=== PATIENT | female | born 1940 | race Caucasian/White ===

== ENCOUNTER 2019-02-13 13:42 | Emergency (ER) | payer MEDICARE, SELFPAY ==
--- NOTE | ~2019-02-13 | CT_ITS ---
EXAMINATION: CT cervical spine wo con EXAM DATE: 02/13/2019 14:13 INDICATION: Head injury. TECHNIQUE: Spiral CT of the cervical spine was performed without contrast. Axial images were reviewe d. Coronal and sagittal reformatted images were also reviewed. The dose-length product (DLP) for thi s examination was 131.69 mGy-cm. The exposure was tailored according to patient size (auto mA exposu re control), and iterative reconstruction (ASIR) was used as additional dose reduction technique. Com parison is made to prior examination from 11/17/2015. FINDINGS: Again there is reversal of normal cervical lordosis. There is no evidence of acute cervical fracture. The odontoid process is intact. Pre-dens space is normal. Prevertebral soft tissue is n ormal. There are no soft tissue abnormalities identified. There is no disc space widening or trauma tic vertebral body subluxation suspected. There is moderate disc disease C5-6 and 6-7. Mild to moder ate cervical arthropathy. A detailed level by level evaluation of spondylosis can be added as addendu m if requested. IMPRESSION: 1. No acute cervical fracture. Reviewed, dictated and finalized at location A. MILITARY ANALYST
--- NOTE | ~2019-02-13 | XR_ITS ---
XR hip RT 2V w AP pelvis 02/13/2019 14:28 Indication: Right hip pain after fall Procedure: AP pelvis and 3 views right hip Comparison: No prior studies for comparison. Findings: There is sclerosis in the subcapital region of the femur. Nondisplaced subcapital fracture not excluded. There is moderate osteoarthritis. There is osteitis pubis. Pelvic rings are intact. Sac ral foramen are symmetric. There is osteoarthritis of the left hip. Impression: 1: Possible nondisplaced right femoral subcapital fracture. Consider correlation with CT. Reviewed, dictated and finalized at location B. RNATIONAL TRADE TEACHER Impression: 1: Possible nondisplaced right femoral subcapital fracture. Consider correlatio n with CT.
--- NOTE | ~2019-02-13 | CT_ITS ---
EXAMINATION: CT pelvis wo con DATE: 02/13/2019 15:13 INDICATION: Hip fracture. Pelvis injury. TECHNIQUE: Computed tomography (CT) of the pelvis was performed without intravenous contrast. Automat ed exposure control and iterative reconstruction technique were employed. The dose-length product was 238.58 mGy-cm. COMPARISON: Pelvis and right hip radiographs 02/13/2019 FINDINGS: Bone alignment is normal. No fracture. There is severe osteoarthritis of the hips. Osteitis pubis is noted. There is mild lumbar spondylosis. IMPRESSION: 1. No fracture. 2. Severe osteoarthritis of the hips. Reviewed, dictated and finalized at location A. EN THERAPY TECHNICIAN
--- NOTE | ~2019-02-13 | CT_ITS ---
EXAMINATION: CT brain wo con EXAM DATE: 02/13/2019 14:13 INDICATION: Fall, posterior head injury. TECHNIQUE: Spiral CT of the head was performed without contrast. Axial, coronal and sagittal images were reviewed. The dose-length product (DLP) for this examination was 529.67 mGy-cm. The exposure w as tailored according to patient size, and iterative reconstruction (ASIR) was used as additional dos e reduction technique. Comparison is made to prior examination from 01/10/2019. FINDINGS: There is no acute intraparenchymal hemorrhage. No evidence of intraparenchymal brain mass lesion. No evidence of acute infarction. Please note that initial head CT has limited sensitivity f or small or acute infarctions. There is mild periventricular and subcortical hypodensity, nonspecific but probably related to small vessel ischemic disease. There is mild prominence of the sulci and v entricles related to cerebral atrophy. There is intracranial carotid arteriosclerosis. There are n o extra-axial collections. There is no mass effect or midline shift. Patient has had bilateral ocul ar lens surgery. Soft tissue is unremarkable. The visualized sinuses and mastoid air cells are well aerated. IMPRESSION: 1. No acute intracranial findings. 2. Chronic age related findings. Reviewed, dictated and finalized at location A. 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
[2019-02-13 13:41] VITALS: BP 98/51; PULSE 77; RESP 20; TEMP 36.8; O2SAT 99
--- NOTE | 2019-02-13 13:45 | ED.FALL ---
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 Pt states that she was standing up from her walker and began to feel lightheaded. Pt states that she felt as if her enter face was melting. Pt notes that her knees buckled right before she had a syncopal episode. Pt hit the right side of her head and her right hip. Pt reports a ROWAN, coccyx pain, right hip pain, and neck pain. Pt has a c-collar in place by EMS. MD complaint: fall Onset (ago): minute(s) Fall from: standing Loss of consciousness: yes Symptoms prior to fall: lightheadedness Context: other (getting out of her walker) Location of injury: head (right side of) and other (right hip) Associated symptoms (after fall): headache, neck pain and other (coccyx pain, right hip pain) Related Data Home Medications Medication Instructions Recorded Confirmed PreserVision AREDS 1 cap PO BID 01/10/19 01/10/19 aspirin [Aspirin Childrens] 81 mg PO DAILY 01/10/19 01/10/19 citalopram 10 mg PO DAILY 01/10/19 01/10/19 cyanocobalamin (vitamin B-12) 1,000 mcg PO DAILY 01/10/19 01/10/19 ferrous sulfate 134 mg PO DAILY 01/10/19 01/10/19 fluticasone propionate [Flonase 2 spray INTRANASAL DAILY 01/10/19 01/10/19 Allergy Relief] guaifenesin [Mucinex] 600 mg PO QPM 01/10/19 01/10/19 losartan 100 mg PO DAILY 01/10/19 01/10/19 magnesium hydroxide [Milk of 30 ml PO DAILY PRN 01/10/19 01/10/19 Magnesia] metoprolol succinate 100 mg PO DAILY 01/10/19 01/10/19 oxybutynin chloride 20 mg PO HS 01/10/19 01/10/19 pantoprazole [Protonix] 40 mg PO QAM 10/31/19 10/31/19 simvastatin 20 mg PO HS 01/10/19 01/10/19 buspirone 10 mg PO BID 02/13/19 donepezil [Aricept] mg 02/13/19 Allergies Allergy/AdvReac Type Severity Reaction Status Date / Time clarithromycin Allergy Unknown Unknown Verified 02/13/19 13:53 lisinopril Allergy Unknown Unknown Verified 02/13/19 13:53 nitrofurantoin Allergy Unknown Palpitation Verified 05/01/17 15:33 s Review of Systems Review of Systems: All systems reviewed & are unremarkable except as noted in HPI and below Musculoskeletal: Musculoskeletal: Reports neck pain and Reports other (coccyx pain, right hip pain) Neurologic: Reports headache(s) [facility] Past Medical History Medical History (Updated 02/13/19 @ 18:11 by Kevin Drake MD) A-fib Anemia Ankle fracture, left Anxiety ARF (acute renal failure) Arthritis Asthma Brain bleed s/p fall Cardiomyopathy Cataracts, bilateral CHF (congestive heart failure) DVT (deep venous thrombosis) GI bleed Hydronephrosis Hyperlipidemia Kidney stone Nose fracture Pacemaker Pulmonary embolism Rhabdomyolysis S/P ORIF (open reduction internal fixation) fracture left ankle Seasonal allergies Shoulder fracture, right Surgical History Surgical History (Updated 02/13/19 @ 14:59 by Jennifer Dietrich) H/O cystoscopy with stent History of cardiac catheterization Hx of tonsillectomy S/P total knee arthroplasty bilaterally Social History Social History Smoking status: Never smoker Second hand tobacco smoke exposure: No Alcohol intake: current Exam Narrative: Exam Narrative: Const: General: healthy appearing, no acute distress and alert Orientation/consciousness: oriented x3 HENMT: Head: normal to inspection Neck: Neck: normal visual inspection, no lymphadenopathy and tender (cervical spine) Chest: Chest palpation & inspection: no tenderness Resp: Effort & Inspection: normal respiratory effort Auscultation: clear to auscultation bilaterally, no rales, no rhonchi and no wheezes Cardio: Jugular venous distension: no JVD Rate: regular rate Rhythm: regular rhythm Heart sounds: no murmurs GI: Inspe
--- NOTE | 2019-02-13 13:53 | ECG_ITS ---
Measurements Intervals [place] Rate: 79 P: 21 [place]: 181 QRS: -38 QRSD: 108 T: 75 QT: 401 QTc: 462 Interpretive Statements SINUS RHYTHM LEFT AXIS DEVIATION VOLTAGE CRITERIA FOR LVH RSR' IN V1 OR V2, CONSIDER RIGHT VENTRICULAR HYPERTROPHY OR RIGHT VCD BORDERLINE ST-T WAVE ABNORMALITY- ANTEROLAT/LAT LEADS BASELINE ARTIFACT- I, III, AVR, AVL, AVF BORDERLINE ECG Electronically Signed On 02-13-2019 14:18:02 [employer] by Kuldeep Salgado D.O.
[2019-02-13 14:43] LABS: Basophils Percent Auto 0.4 % (0.2-1.2); Eosinophils Absolute Auto 0.2 K/mm3 (0-0.3); Eosinophils Percent Auto 3.6 % (0-4.4); Hemoglobin 10.4 g/dL (12.0-15.0); Immature Granulocyte Absolute 0.01 K/mm3 (0.00-0.031); Immature Granulocyte Percent A 0.2 % (0-0.5); Lymphocytes Absolute Auto 0.72 K/mm3 (0.9-3.2); Lymphocytes Percent Auto 15.1 % (18.3-44.2); Mean Corpuscular HGB Conc 30.6 g/dl (32-36); Mean Corpuscular Volume 101.2 fl (80-100); Mean Platelet Volume 10.7 fl (7.4-10.4); Monocytes Absolute Auto 0.5 K/mm3 (0.1-0.6); Monocytes Percent Auto 10.5 % (2.6-8.5); Neutrophils Absolute Auto 3.4 K/mm3 (1.3-6.7); Neutrophils Percent Auto 70.2 % (45.5-73.1); Platelet Count Result 220 k/mm3 (150-375); Red Blood Count 3.36 M/mm3 (4.2-5.4); Red Cell Distribution Width 14.4 % (11.5-14.5); White Blood Count 4.8 K/mm3 (4.5-10.0)
[2019-02-13 14:45] VITALS: BP 113/63; PULSE 74; RESP 18; O2SAT 96
[2019-02-13 14:51] LABS: Prothrombin Time 12.8 Seconds (11.1-14.7)
[2019-02-13 14:52] LABS: Partial Thromboplastin Time 26.7 SECONDS (22.3-36.8)
[2019-02-13 14:54] LABS: Blood Urea Nitrogen 17 mg/dL (7-17); Calcium 8.3 mg/dL (8.4-10.2); Carbon Dioxide 31 mmol/L (22-30); Chloride 106 mmol/L (98-107); Estimated Glomerular Filt Rate > 60; Glucose 124 mg/dL (65-105); Potassium 3.2 mmol/L (3.4-5.0); Sodium 144 mmol/L (137-145)
[2019-02-13 15:30] VITALS: BP 107/56; PULSE 70; RESP 20; O2SAT 95
[2019-02-13 16:30] VITALS: BP 122/63; PULSE 70; RESP 16; O2SAT 96
[2019-02-13 17:21] LABS: Add Urine Microscopic? YES; Appearance Urine Cloudy (Clear); Bacteria Urine 1+ /hpf; Bilirubin Urine Negative (Negative); Blood Urine Negative (Negative); Color Urine Yellow (Yellow); Glucose Urine UA Negative (Negative); Ketones Urine Negative (Negative); Leukocyte Esterase Ur Trace LEU/UL (Negative); Mucus Urine Rare /lpf; Nitrate Urine Positive (Negative); Protein Urine Negative (Negative); RBC Urine 0-2 /hpf (0-2); Specific Grav Ur 1.014 (1.001-1.035); Squamous Epithelial Cell Urine Rare /hpf (Few); Urobilinogen Urine Negative mg/dL (<2.0); WBC Urine 0-3
[2019-02-13 17:30] VITALS: BP 141/78; PULSE 71; RESP 18; O2SAT 96
[2019-02-13 18:25] VITALS: BP 145/72; PULSE 75; RESP 16; O2SAT 94
[2019-02-13] MEDS: CEPHALEXIN 500 MG CAPSULE PO (18:25)
== END 2019-02-13 18:25 ==
PROVIDERS: Emergency Provider Emergency Medicine; PCP Internal Medicine
DX: R55 Syncope and collapse (principal); S00.03XA Contusion of scalp, initial encounter; I48.91 Unspecified atrial fibrillation; M16.0 Bilateral primary osteoarthritis of hip; J45.909 Unspecified asthma, uncomplicated; I50.9 Heart failure, unspecified; Z86.718 Personal history of other venous thrombosis and embolism; E78.5 Hyperlipidemia, unspecified; Z87.442 Personal history of urinary calculi; Z95.0 Presence of cardiac pacemaker; Z86.711 Personal history of pulmonary embolism; D64.9 Anemia, unspecified; R94.31 Abnormal electrocardiogram [ECG] [EKG]; W18.39XA Other fall on same level, initial encounter
CPT/HCPCS: 36415; 51701; 70450; 72125; 72192; 73502; 73521; 80048; 81001; 85025; 85610; 85730; 93005; 99284; A9270

== ENCOUNTER 2020-05-19 16:24 | Emergency (ER) | payer MEDICARE, SELFPAY ==
--- NOTE | ~2020-05-19 | XR_ITS ---
CORRECTED REPORT ORDER # CHANGED 05/21/20 PK EXAMINATION: XR knee RIGHT 2 VIEW DATE: 05/19/2020 16:43 INDICATION: Right knee pain. TECHNIQUE: 2 views of right knee were obtained. COMPARISON: None. FINDINGS: There is a total right knee arthroplasty. There is a comminuted periprosthetic fracture of distal femoral metaphysis. The main distal fracture fragment demonstrates impaction, 1 shaft width posterior displacement, and 41 degrees posterior angulation. No periprosthetic lucency of the tibial component to suggest loosening or infection. There are small osteophytes of the patella. IMPRESSION: 1. Comminuted periprosthetic fracture of distal femur. Reviewed, dictated and finalized at location A. ODE
[2020-05-19 16:30] VITALS: BP 145/68; PULSE 81; RESP 18; TEMP 36.7; O2SAT 98
--- NOTE | 2020-05-19 16:31 | ED.GENADULT ---
HPI - General Adult General Chief complaint: Fall Stated complaint: FALL/R KNEE INJURY Source: patient and EMS Mode of arrival: EMS Limitations: no limitations History of Present Illness HPI narrative: Patient is a 79-year-old female who presents from assisted living per EMS status post ground-level fall patient was attempting to get up using her walker when her right knee gave out falling onto the knee sustaining injury presenting with deformity with swelling and pain throughout the right knee joint patient also has bruising and swelling around the right periorbital region patient denies any anticoagulant use denies loss of consciousness syncope patient was given morphine in route and Zofran with some improvement but continues to have moderate pain worse with any activity or movement. . Patient denies other complaints Related Data Home Medications Medication Instructions Recorded Confirmed PreserVision AREDS 05/19/20 loratadine 10 mg 05/19/20 montelukast mg 05/19/20 05/19/20 olopatadine 05/19/20 Allergies Allergy/AdvReac Type Severity Reaction Status Date / Time clarithromycin Allergy Unknown Unknown Verified 05/19/20 16:32 lisinopril Allergy Unknown Unknown Verified 05/19/20 16:32 nitrofurantoin Allergy Unknown Palpitation Verified 05/19/20 16:32 s Review of Systems Review of Systems: All systems reviewed & are unremarkable except as noted in HPI and below PMFSH Past Medical History Medical History (Updated 05/19/20 @ 16:59 by Shaquille Norman PA-C) A-fib Anemia Ankle fracture, left Anxiety ARF (acute renal failure) Arthritis Asthma Brain bleed s/p fall Cardiomyopathy Cataracts, bilateral CHF (congestive heart failure) DVT (deep venous thrombosis) GI bleed Hydronephrosis Hyperlipidemia Kidney stone Nose fracture Pacemaker Pulmonary embolism Rhabdomyolysis S/P ORIF (open reduction internal fixation) fracture left ankle Seasonal allergies Shoulder fracture, right Surgical History Surgical History H/O cystoscopy with stent History of cardiac catheterization Hx of tonsillectomy S/P total knee arthroplasty bilaterally Family History Family History Sibling Family history of cardiomyopathy Family history of malignant neoplasm of breast Mother Patient's mother is Hypertension Family history of cardiovascular disease Family history of malignant neoplasm of breast Other Family history of arthritis Family history of malignant neoplasm Social History Social History Smoking status: Never smoker Second hand tobacco smoke exposure: No Alcohol intake: current Gender identity (if verbalized by the patient): Female Exam Narrative: Exam Narrative: GENERAL: Well-appearing, well-nourished, uncomfortable, and in no acute distress. HEAD: Normocephalic, bruising around the lateral periorbital region EYES: PERRLA and EOMI. ENT: Nares clear, no rhinorrhea or epistaxis. Mucous membranes moist. Oropharynx without tonsillar hypertrophy exudate or other lesions. Bilateral TMs pearly gipson nonbulging NECK: Supple. No adenopathy or masses. CHEST: Clear to auscultation. No respiratory distress. No wheezes rales or rhonchi HEART: Regular rate and rhythm. No murmur heard. Normal peripheral pulses. ABDOMEN: Soft, nontender, nondistended EXTREMITIES: Large hematoma with tenderness throughout the right knee joint patient unable to extend the leg. Remainder of extremities to include the spine palpated and nontender SKIN: Warm, dry, no rash. NEURO: No focal deficits. Alert and oriented x3. Neurovascularly intact. Capillary refill less than 2 seconds. Cranial nerves II through XII grossly intact PSYCH: Normal mood and affect. Course Course Emergency Course: Discussed case with trauma at [facility]
[2020-05-19] MEDS: SODIUM CHLORIDE 0.9% IV 500 ML 999 ML IV CONT (16:47)
[2020-05-19] MEDS: MORPHINE SULFATE (*CRX) 4 MG/ML INJ IV PUSH ×2 (16:48→18:38)
[2020-05-19 17:43] VITALS: BP 119/52; PULSE 79; RESP 15; O2SAT 98
--- NOTE | 2020-05-19 18:11 | PC.NURSE ---
[facility] amb updated eta to 1845 to 1900, at 1706
--- NOTE | 2020-05-19 18:26 | PC.NURSE ---
called [facility] at 1710, no amb available for transfers today per dispatch, called [facility] 1717, no availability for transfers, called [facility] at 1715 no truck available, down 1 truck for today. called [facility], 1706, eta 1930, singer update 1753, eta 1845 - 1900, singer update 1830, eta 2030.
--- NOTE | 2020-05-19 18:39 | PC.NURSE ---
armband scanner not working properly in room 6
[2020-05-19 19:16] VITALS: BP 122/55; PULSE 79; RESP 18; O2SAT 98
[2020-05-19] MEDS: MORPHINE SULFATE (*CRX) 2 MG/ML INJ (21:00)
[2020-05-19 21:07] VITALS: BP 101/56; PULSE 76; RESP 18; O2SAT 98
--- NOTE | 2020-05-19 21:16 | PC.NURSE ---
singer has arrived
== END 2020-05-19 21:05 | disposition short-term general hospital (02) ==
PROVIDERS: Emergency Provider Emergency Medicine
DX: S79.191A Other physeal fracture of lower end of right femur, initial encounter for closed fracture (principal); M97.11XA Periprosthetic fracture around internal prosthetic right knee joint, initial encounter; S05.11XA Contusion of eyeball and orbital tissues, right eye, initial encounter; I48.91 Unspecified atrial fibrillation; J45.909 Unspecified asthma, uncomplicated; I50.9 Heart failure, unspecified; E78.5 Hyperlipidemia, unspecified; Z87.442 Personal history of urinary calculi; M19.90 Unspecified osteoarthritis, unspecified site; Z95.0 Presence of cardiac pacemaker; Z86.718 Personal history of other venous thrombosis and embolism; Z86.711 Personal history of pulmonary embolism; Z86.2 Personal history of diseases of the blood and blood-forming organs and certain disorders involving the immune mechanism; Z96.653 Presence of artificial knee joint, bilateral; W18.39XA Other fall on same level, initial encounter
CPT/HCPCS: 73560; 73562; 96374; 96376; 99285; J2270; J7040

== ENCOUNTER 2021-11-18 10:58 | Inpatient (IN) | payer MEDICARE, SELFPAY ==
[2021-11-18] VITALS (17 sets, daily range): BP systolic 96–154; BP diastolic 50–98; PULSE 70–107; RESP 17–27; TEMP 36.1–36.5; O2SAT 85–100; BMI 28.2
--- NOTE | ~2021-11-18 | XR_ITS ---
XR chest 1V portable DATE: 11/21/2021 05:55 INDICATION: Shortness of breath TECHNIQUE: Portable upright AP chest on 11/21/2021 at 0530 hours COMPARISON: 11/20/2021 portable AP chest at 0529 hours FINDINGS: There is mildly diminished prominence of pulmonary vasculature including diminished pulmona ry vascular redistribution since 11/20/2021, consistent with mild improvement but residual congestive changes, including mild pulmonary vascular congestion, prominence of minor fissure consistent with lin bpleural edema and small bilateral pleural effusions. Additionally, there are infiltrates and/or atel ectasis in the mid and lower lung zones, left greater than right, especially left retrocardiac area, left lower lobe. Left-sided AICD/pacemaker device with leads overlying right atrium and right cardiomegaly. Aortic jaden cification. Diffuse osteopenia. Right glenohumeral joint replacement. IMPRESSION: Mild improvement but residual congestive changes Bilateral mid and lower lung infiltrates, most prominent in the left lower lobe, relatively stable Reviewed, dictated and finalized at location A. IMPRESSION: Mild improvement but residual congestive changes Bilateral mid and lower lung infiltrates, most prominent in the left lower lobe , relatively stable
--- NOTE | ~2021-11-18 | XR_ITS ---
EXAMINATION: XR chest 1V portable DATE: 11/23/2021 09:21 INDICATION: Cough. TECHNIQUE: A single frontal view of the chest was obtained. COMPARISON: Chest single view 11/21/2021, chest CT 05/18/2017 FINDINGS: There are small pleural effusions. There are airspace opacities at the lung bases. There is mild scarring at the lung apices. No pneumothorax. Cardiomegaly is noted. There is a left chest wall pacer with leads in the right atrium and right ventricle. There is a right shoulder arthroplasty. IMPRESSION: 1. Small pleural effusions with worsening on the right. 2. Airspace opacities at the lung bases with worsening on the right, consistent with atelectasis vers us pneumonia. 3. Cardiomegaly. Reviewed, dictated and finalized at location A. IMPRESSION: 1. Small pleural effusions with worsening on the right. 2. Airspace opacities at the lung bases with worsening on the right, consistent with atelectasis versus pneumonia. 3. Cardiomegaly.
--- NOTE | ~2021-11-18 | XR_ITS ---
XR chest 1V portable DATE: 11/20/2021 06:42 INDICATION: Congestive heart failure. Shortness of breath. TECHNIQUE: Portable upright AP chest on 11/20/2021 at 0529 hours COMPARISON: 11/18/2021 AP and lateral chest FINDINGS: Cardiomegaly. Pulmonary vascular congestion and redistribution. Prominence the minor fissur e and Edi B-lines, consistent with subpleural and interstitial pulmonary edema. Bilateral lower lung infiltrate and/atelectasis. Mild pleural effusions. No pneumothorax. Left-sided dual-lead pacemaker device with these overlying right atrium and right ventricle. Prominen t aortic arch calcification. Right shoulder arthroplasty. Osteopenia. DEXA scoliosis and degenerative change of the thoracic spine . IMPRESSION: Congestive heart failure and bilateral lower lung infiltrate and/atelectasis. Congestive changes are new since 11/18/2021 Reviewed, dictated and finalized at location A. IMPRESSION: Congestive heart failure and bilateral lower lung infiltrate and/at electasis. Congestive changes are new since 11/18/2021
--- NOTE | ~2021-11-18 | XR_ITS ---
EXAMINATION: XR chest 2V DATE: 11/18/2021 12:15 INDICATION: Shortness of breath TECHNIQUE: AP and lateral views of the chest are obtained. COMPARISON: 01/09/2019 FINDINGS: Cardiomegaly is noted. There are small pleural effusions. Minimal airspace opacities are pr esent in the lung bases. There is no pneumothorax. A dual-lead cardiac pacemaker of the left chest wa ll ends with leads in expected locations. There is moderate thoracic spondylosis. There are changes o f right shoulder arthroplasty. IMPRESSION: 1. Small pleural effusions. 2. Bibasilar airspace opacities, consistent with atelectasis versus pneumonia. 3. Cardiomegaly. Reviewed, dictated and finalized at location B.
--- NOTE | 2021-11-18 11:33 | ECG_ITS ---
Measurements Intervals [place] Rate: 81 P: 28 [place]: 221 QRS: -77 QRSD: 124 T: 104 QT: 386 QTc: 449 Interpretive Statements SINUS RHYTHM LEFT AXIS DEVIATION BORDERLINE AV CONDUCTION DELAY POSSIBLE LEFT ATRIAL ENLARGEMENT INTRAVENTRICULAR CONDUCTION DELAY LEFT VENTRICULAR HYPERTROPHY WITH ST-T CHANGE POOR R WAVE PROGRESSION, ANTERIOR LEADS BASELINE ARTIFACT- I, II, AVR, AVL, AVF, V1-V6 BORDERLINE ECG COMPARED TO ECG 02/13/2019 14:02:57 POOR R WAVE PROGRESSION, ANTERIOR LEADS NOW PRESENT Electronically Signed On 11-18-2021 12:20:59 CDT by Kuldeep Salgado D.O.
[2021-11-18 11:58] LABS: Basophils Percent Auto 0.6 % (0.2-1.2); Eosinophils Absolute Auto 0.1 K/mm3 (0-0.3); Eosinophils Percent Auto 1.8 % (0-4.4); Hematocrit 48.9 % (37.0-47.0); Hemoglobin 15.6 g/dL (12.0-15.0); Immature Granulocyte Absolute 0.01 K/mm3 (0.00-0.031); Immature Granulocyte Percent A 0.2 % (0-0.5); Lymphocytes Absolute Auto 1.01 K/mm3 (0.9-3.2); Lymphocytes Percent Auto 20.1 % (18.3-44.2); Mean Corpuscular HGB Conc 31.9 g/dl (32-36); Mean Corpuscular Hemoglobin 31.8 pg (26-34); Mean Corpuscular Volume 99.6 fl (80-100); Monocytes Absolute Auto 0.6 K/mm3 (0.1-0.6); Monocytes Percent Auto 12.4 % (2.6-8.5); Neutrophils Absolute Auto 3.3 K/mm3 (1.3-6.7); Neutrophils Percent Auto 64.9 % (45.5-73.1); Platelet Count Result 257 k/mm3 (150-375); Red Blood Count 4.91 M/mm3 (4.2-5.4); Red Cell Distribution Width 16.1 % (11.5-14.5)
[2021-11-18 12:14] LABS: Alanine Aminotransferase 58 U/L (6-35); Albumin Level 3.4 g/dL (3.5-5.1); Alkaline Phosphatase 80 U/L (38-126); Anion Gap 4 mmol/L (8-16); Aspartate Amino Transferase 50 U/L (14-36); Bilirubin,Total 0.6 mg/dL (0.2-1.3); Blood Urea Nitrogen 18 mg/dL (7-17); Calcium 8.3 mg/dL (8.4-10.2); Carbon Dioxide 33 mmol/L (22-30); Chloride 100 mmol/L (98-107); Estimated CRCL calculation 56 ml/min; Estimated Glomerular Filt Rate > 60; Glucose 79 mg/dL (65-110); Partial Thromboplastin Time 22.8 SECONDS (22.3-36.8); Potassium 4.5 mmol/L (3.4-5.0); Prothrombin Time 13.1 Seconds (11.1-14.7); Sodium 137 mmol/L (137-145)
--- NOTE | 2021-11-18 12:20 | ED.SOB ---
HPI - SOB/Dyspnea General Chief Complaint: Shortness of Breath/Dyspnea Stated Complaint: swollen ankles Time Seen by Provider: 11/18/21 12:18 Source: patient and RN notes reviewed Mode of arrival: ambulatory Limitations: no limitations History of Present Illness HPI Narrative: 81 years old white female came from home by private car complaining of shortness of breath over the last 7 days. Patient lives alone, does not take oxygen at home, she denies any fever, chills, nausea, vomiting, chest pain or back pain. Patient reports increased shortness of breath with any exertion, better if she is laying still. Currently patient on aspirin and the Eliquis. History of hypertension, diabetes, COPD, ICD, deep vein thrombosis, congestive heart failure Related Data Home Medications Medication Instructions Recorded Confirmed PreserVision AREDS 05/19/20 loratadine 10 mg 05/19/20 montelukast 10 mg tablet mg 05/19/20 05/19/20 olopatadine 05/19/20 Allergies Allergy/AdvReac Type Severity Reaction Status Date / Time clarithromycin Allergy Unknown Unknown Verified 11/18/21 11:21 lisinopril Allergy Unknown Unknown Verified 11/18/21 11:21 nitrofurantoin Allergy Unknown Palpitation Verified 11/18/21 11:21 s Review of Systems Review of Systems: All systems reviewed & are unremarkable except as noted in HPI and below PMFSH Past Medical History Medical History (Updated 11/18/21 @ 13:55 by Fransico Smart MD) A-fib Anemia Ankle fracture, left Anxiety ARF (acute renal failure) Arthritis Asthma Brain bleed s/p fall Cardiomyopathy Cataracts, bilateral CHF (congestive heart failure) DVT (deep venous thrombosis) GI bleed Hydronephrosis Hyperlipidemia Kidney stone Nose fracture Pacemaker Pulmonary embolism Rhabdomyolysis Seasonal allergies Shoulder fracture, right Surgical History Surgical History H/O cystoscopy with stent History of cardiac catheterization Hx of tonsillectomy S/P ORIF (open reduction internal fixation) fracture left ankle S/P total knee arthroplasty bilaterally Family History Family History Sibling Family history of cardiomyopathy Family history of malignant neoplasm of breast Mother Patient's mother is Hypertension Family history of cardiovascular disease Family history of malignant neoplasm of breast Other Family history of arthritis Family history of malignant neoplasm Social History Social History Smoking status: Never smoker Second hand tobacco smoke exposure: No Alcohol intake: current Gender identity (if verbalized by the patient): Female Exam Narrative: General appearance: Well-developed, well-nourished Skin: Normal color, 3+ edema lower extremity bilaterally Head: Normocephalic, nontraumatic Eyes: Clear conjunctiva ENT: Oropharynx normal, ears normal, nose normal Neck: Supple, nontender Chest and respiratory: Airway patent, no respiratory distress, no accessory muscle use, basal rales bilaterally Heart: Regular rate/rhythm Abdomen: Soft, nontender, no organomegaly, quiet bowel sounds Vascular: Normal peripheral pulses, normal capillary refill. Musculoskeletal: Normal range of motion, nontender back Neurologic: Alert and oriented ?3, ORANGE PICKING SUPERVISOR is normal as tested, no gross motor deficit Course Vital Signs Vital signs: Vital Signs Temperature 36.5 C 11/18/21 11:25 Pulse Rate 83 11/18/21 11:25 Respiratory Rate 26 H 11/18/21 11:25 Blood Pressure 154/97 H 11/18/21 11:25 Pulse Oximetry 85 L 09
[2021-11-18 12:39] LABS: NT Pro B Type Natriuretic Pept 5250 pg/mL (5-100); Troponin I < 0.012 ng/mL (0.000-0.034)
[2021-11-18 12:48] LABS: Alveolar/Arterial O2 Gradient 22.1 mmHg; Base Excess ABG 1.1 mEq/l (+/-2.0); Carboxyhemoglobin 1.7 % THb (0-2.0); Fractional Inspired Oxygen 28 %; HCO3 ABG 30.7 mEq/l (22.0-26.0); Methemoglobin ABG 0.3 %THb (0-1.5); Oxygen Content ABG 21.1 %vol (16.0-22.0); Oxygen Saturation ABG 95.8 % (95.0-100.0); Oxyhemoglobin 94.7 % THb (90.0-100.0); PO2 ABG 94.1 mmHg (80.0-100.0); PO2 FiO2 Ratio Arterial Blood 3.36 %; Reduced Hemoglobin 3.3 %THb (0-5.0); Total Hemoglobin 15.8 g/dL (12.0-18.0)
[2021-11-18 12:51] LABS: pH ABG 7.255 (7.350-7.450)
[2021-11-18 12:52] LABS: Device NASAL CANNULA; Modified Allen's Test Pass; PCO2 ABG 70.7 mmHg (35.0-45.0); Site Drawn RIGHT RADIAL
[2021-11-18 13:19] LABS: Lactic Acid Reflex 0.6 mmol/L (0.7-2.0)
[2021-11-18 13:48] LABS: SARS-CoV-2 RNA PCR Negative
--- NOTE | 2021-11-18 14:06 | PM.IMHP ---
H&P: HPI History of Present Illness Date/Time: 11/18/21 14:06 Chief Complaint: Swollen ankles Narrative: This is a 81-year-old female patient who came in via private car complaining of shortness of breath over the last 7 days. She also had increased swelling to lower extremities. Patient does live home alone and does not take any oxygen. She denied any nausea vomiting diarrhea chest pain or lower back pain. The patient is currently on aspirin and Eliquis. She does have a history of hypertension, diabetes, COPD ACD, deep vein thrombosis and congestive heart failure. H&H is 15.6 and 48.9. Arterial blood gases pH was 7.255 CO2 was 70.7. ABG 7.2711 and PC CO2 was 82.0. BNP 5250. COVID was negative. Patient is on a BiPAP and her BiPAP is 12/6 with a rate of 20. The patient was given Lasix IV and nitroglycerin patch as well. The patient is being admitted to inpatient status on the date of service of 11/18/21. Review of Systems Review of Systems: See HPI All systems reviewed & are unremarkable except as noted in HPI and below Constitutional: Constitutional: Reports as per HPI and Reports no additional constitutional complaints Eyes: Eyes: Reports as per HPI and Reports no additional eye complaints ENT: Reports system reviewed and no additional complaints, except as documented and Reports Normal hearing present Cardiovascular: Cardiovascular: Reports no additional cardiovascular complaints Respiratory: Respiratory: Reports no additional respiratory complaints and Reports no additional respiratory complaints Gastrointestinal: Gastrointestinal: Reports as per HPI and Reports no additional gastrointestinal complaints Musculoskeletal: Musculoskeletal: Reports no additional musculoskeletal complaints Integumentary/Breasts: Skin/Breast: Reports system reviewed and no additional complaints, except as docu and Reports as per HPI Neurologic: Reports system reviewed and no additional complaints, except as documented, Reports as per HPI and Reports Normal hearing present Psychiatric: Psychiatric: Reports no additional psychiatric complaints and Reports as per HPI Endocrine: Endocrine: Reports no additional endocrine complaints Hematologic/Lymphatic: Hematologic/Lymphatic: Reports no additional hematologic/lymphatic complaints Allergic/Immunologic: Allergic/Immunologic: Reports no additional allergic/immunologic complaints [facility] Past Medical History Medical History (Updated 11/18/21 @ 17:38 by Libby Newell NP) A-fib Anemia Ankle fracture, left Anxiety ARF (acute renal failure) Arthritis Asthma Brain bleed s/p fall Cardiomyopathy Cataracts, bilateral CHF (congestive heart failure) COPD (chronic obstructive pulmonary disease) DVT (deep venous thrombosis) GI bleed Hydronephrosis Hyperlipidemia Kidney stone Nose fracture Pacemaker Pulmonary embolism Rhabdomyolysis Seasonal allergies Shoulder fracture, right Surgical History Surgical History H/O cystoscopy with stent H/O shoulder surgery History of cardiac catheterization Hx of tonsillectomy S/P ORIF (open reduction internal fixation) fracture left ankle S/P total knee arthroplasty bilaterally Family History Family History Sibling Family history of cardiomyopathy Family history of malignant neoplasm of breast Mother Patient's mother is Hypertension Family history of cardiovascular disease Family history of malignant neoplasm of breast Other Family history of arthritis Family history of malignant neoplasm Social History Social History (Updated 11/18/21 @ 17:33 by Libby Newell NP) Social History: The patient is and lives home alone. The patient has 2 children. The patient is a nonsmoker. She does not use any alcohol marijuana or illicit drugs. Code status DNR Smoking status: Never smoker S
[2021-11-18] MEDS: FUROSEMIDE INJ 100 MG/10 ML VIAL 80 MG IV PUSH (14:40)
[2021-11-18] MEDS: NITROGLYCERIN OINTMENT 1 INCH DOSE TRANSDERM ×2 (14:40→18:52)
--- NOTE | 2021-11-18 15:49 | PC.NURSE ---
This patient, [place], was admitted to IMU Room 207-01. Patient/family oriented to hospital policies and general routines including ID bracelet, bed and alarms, visiting hours, pain management, procedures, bathroom and other care routines, personal items, smoking policy, room service/diet, and visiting hours. Information on how to activate the Rapid Response Team has been discussed. Patient/Family are encouraged to report perceived risks to care and to ask questions if they do not understand what they are told or what they should do.
[2021-11-18 17:07] LABS: Base Excess ABG 7.6 mEq/l (+/-2.0); Fractional Inspired Oxygen 40 %; HCO3 ABG 38.5 mEq/l (22.0-26.0); Oxygen Content ABG 21.7 %vol (16.0-22.0); Oxygen Saturation ABG 96.4 % (95.0-100.0); Oxyhemoglobin 95.4 % THb (90.0-100.0); PO2 ABG 99.6 mmHg (80.0-100.0); PO2 FiO2 Ratio Arterial Blood 2.49 %; Total Hemoglobin 16.1 g/dL (12.0-18.0)
[2021-11-18 17:20] LABS: pH ABG 7.271 (7.350-7.450)
[2021-11-18 17:21] LABS: Device NON-INVASIVE VENT; Modified Allen's Test Pass; Site Drawn RIGHT RADIAL
[2021-11-18 17:22] LABS: Non-Invasive Expiratory Pressure 6 CMH2O; Non-Invasive Inspiratory Pressure 12 CMH2O; Non-Invasive Vent Rate 20 /MIN
[2021-11-18 17:43] LABS: Troponin I < 0.012 ng/mL (0.000-0.034)
[2021-11-18] MEDS: methylPREDNISolone SOD SUCC 125 MG VIAL 60 MG IV PUSH (18:52)
[2021-11-18 20:08] LABS: Troponin I < 0.012 ng/mL (0.000-0.034)
[2021-11-18] MEDS: ALBUTEROL SULFATE NEB 2.5 MG/3 ML INH INHALATION (20:25)
[2021-11-18] MEDS: IPRATROPIUM BR 0.02% INH SOLN 0.5 MG/2.5 ML VIAL INHALATION (20:25)
[2021-11-18 20:45] LABS: Alveolar/Arterial O2 Gradient 92.7 mmHg; Base Excess ABG 7.7 mEq/l (+/-2.0); Fractional Inspired Oxygen 40 %; HCO3 ABG 37.4 mEq/l (22.0-26.0); Oxygen Content ABG 21.8 %vol (16.0-22.0); Oxygen Saturation ABG 97.2 % (95.0-100.0); Oxyhemoglobin 95.9 % THb (90.0-100.0); PCO2 ABG 75.7 mmHg (35.0-45.0); PO2 ABG 105.4 mmHg (80.0-100.0); PO2 FiO2 Ratio Arterial Blood 2.63 %; Total Hemoglobin 16.1 g/dL (12.0-18.0); pH ABG 7.312 (7.350-7.450)
[2021-11-18 20:46] LABS: Device NON-INVASIVE VENT; Modified Allen's Test Pass; Non-Invasive Expiratory Pressure 6 CMH2O; Non-Invasive Inspiratory Pressure 14 CMH2O; Non-Invasive Vent Rate 24 /MIN; Site Drawn RIGHT RADIAL
[2021-11-18] MEDS: FAMOTIDINE 20 MG/2 ML VIAL IV PUSH (21:13)
[2021-11-18] MEDS: FUROSEMIDE INJ 40 MG/4 ML VIAL IV PUSH (21:13)
[2021-11-19] VITALS (30 sets, daily range): BP systolic 99–113; BP diastolic 56–91; PULSE 65–95; RESP 18–26; TEMP 35.9–36.5; O2SAT 92–100
--- NOTE | 2021-11-19 | ECHO_ITS ---
Patient Info Name: Maria Ines Park Age: 81 years : 1940 Gender: Female Ht: 64 in Wt: 164 lbs BSA: 1.85 m2 HR: 75 bpm BP: 105 / 61 mmHg Heart Rhythm: Sinus Rhythm Technical Quality: Fair Exam Date: 11/19/2021 10:24 AM Exam Location: [facility] Patient Status: Inpatient Admit Date: 11/18/2021 Staff Ordering Physician: Libby Newell NP C++ Quant Developer: Yulisa Patricia RDCS Attending Provider: Aaron Floyd MD Referring Physician: Reece JAMES; Exam Type: CA echo doppler color flow Study Info Indications - CHF Complete two-dimensional, color flow and Doppler transthoracic echocardiogram is performed. Summary 1. Complete two-dimensional, color flow and Doppler transthoracic echocardiogram is performed. 2. Left ventricular chamber dimension is normal. 3. Left ventricular systolic function is normal, estimated at 50-55%. 4. The left ventricular diastolic function is grade I diastolic dysfunction. 5. A left ventricular false cord is identified. 6. Right ventricular chamber dimension is mildly enlarged. 7. There is mild aortic valve sclerosis. 8. There is no mitral valve regurgitation. Left Ventricle Left ventricular chamber dimension is normal. Left ventricular systolic function is normal, estimated at 50-55%. There is mild concentric increased left ventricular wall thickness. The left ventricular diastolic function is grade I diastolic dysfunction. A left ventricular false cord is identified. Right Ventricle Right ventricular chamber dimension is mildly enlarged. Left Atria Left atrial chamber dimension is normal. Right Atria Right atrial chamber dimension is normal. Aortic Valve The aortic valve is trileaflet. There is mild aortic valve sclerosis. Pulmonic Valve The pulmonic valve is not well visualized. Mitral Valve The mitral valve has thickened leaflets. There is no mitral valve regurgitation. Tricuspid Valve The tricuspid valve leaflets are normal. There is mild tricuspid valve regurgitation. Pericardium/Pleural The pericardium appears normal. Aorta The aortic root size at the sinus of Valsalva is normal. Left Ventricular Outflow Tract Name Value Normal LVOT 2D LVOT Diameter 2.1 cm LVOT Doppler LVOT Peak Gradient 3 mmHg LVOT Mean Gradient 1 mmHg LVOT VTI 15 cm LVOT VTI/AV VTI Ratio 0.5 LVOT Stroke Volume 51 ml LVOT CO 3.5 l/min LVOT CI 1.9 l/min/m2 Pulmonic Valve Name Value Normal PV Doppler PV Peak Gradient 2 mmHg Mitral Valve Name Value Normal
[2021-11-19] MEDS: methylPREDNISolone SOD SUCC 125 MG VIAL 60 MG IV PUSH ×3 (01:00→12:00)
[2021-11-19] MEDS: ALBUTEROL SULFATE NEB 2.5 MG/3 ML INH INHALATION ×4 (02:52→22:02)
[2021-11-19] MEDS: IPRATROPIUM BR 0.02% INH SOLN 0.5 MG/2.5 ML VIAL INHALATION ×4 (02:52→22:03)
[2021-11-19 05:01] LABS: Basophils Percent Auto 0.4 % (0.2-1.2); Eosinophils Percent Auto 0.3 % (0-4.4); Hematocrit 49.9 % (37.0-47.0); Hemoglobin 15.3 g/dL (12.0-15.0); Immature Granulocyte Absolute 0.02 K/mm3 (0.00-0.031); Immature Granulocyte Percent A 0.3 % (0-0.5); Lymphocytes Absolute Auto 0.48 K/mm3 (0.9-3.2); Lymphocytes Percent Auto 6.8 % (18.3-44.2); Mean Corpuscular HGB Conc 30.7 g/dl (32-36); Mean Corpuscular Hemoglobin 31.2 pg (26-34); Mean Corpuscular Volume 101.8 fl (80-100); Mean Platelet Volume 8.7 fl (7.4-10.4); Monocytes Absolute Auto 0.2 K/mm3 (0.1-0.6); Neutrophils Absolute Auto 6.3 K/mm3 (1.3-6.7); Neutrophils Percent Auto 89.2 % (45.5-73.1); Platelet Count Result 205 k/mm3 (150-375); Red Cell Distribution Width 15.9 % (11.5-14.5); White Blood Count 7.1 K/mm3 (4.5-10.0)
[2021-11-19 05:10] LABS: Lactic Acid Reflex 0.7 mmol/L (0.7-2.0)
[2021-11-19 05:13] LABS: Alanine Aminotransferase 62 U/L (6-35); Albumin Level 3.1 g/dL (3.5-5.1); Alkaline Phosphatase 82 U/L (38-126); Anion Gap 7 mmol/L (8-16); Aspartate Amino Transferase 51 U/L (14-36); Bilirubin,Total 0.7 mg/dL (0.2-1.3); Blood Urea Nitrogen 16 mg/dL (7-17); CRP < 0.5 mg/dL (<1.0); Calcium 8.1 mg/dL (8.4-10.2); Carbon Dioxide 37 mmol/L (22-30); Chloride 96 mmol/L (98-107); Estimated CRCL calculation 66 ml/min; Estimated Glomerular Filt Rate > 60; Glucose 119 mg/dL (65-110); Lactate Dehydrogenase 199 U/L (120-246); Magnesium 1.9 mg/dL (1.6-2.3); Potassium 3.6 mmol/L (3.4-5.0); Sodium 140 mmol/L (137-145)
[2021-11-19 05:18] LABS: Alveolar/Arterial O2 Gradient 136.1 mmHg; Base Excess ABG 7.4 mEq/l (+/-2.0); Fractional Inspired Oxygen 40 %; HCO3 ABG 36.1 mEq/l (22.0-26.0); Oxygen Saturation ABG 92.7 % (95.0-100.0); Oxyhemoglobin 92.1 % THb (90.0-100.0); PO2 ABG 70.7 mmHg (80.0-100.0); PO2 FiO2 Ratio Arterial Blood 1.77 %; Total Hemoglobin 16.2 g/dL (12.0-18.0); pH ABG 7.342 (7.350-7.450)
[2021-11-19 05:19] LABS: Device NON-INVASIVE VENT; Modified Allen's Test Pass; PCO2 ABG 68.2 mmHg (35.0-45.0); Site Drawn RIGHT RADIAL
[2021-11-19 05:20] LABS: Non-Invasive Expiratory Pressure 6 CMH2O; Non-Invasive Inspiratory Pressure 14 CMH2O; Non-Invasive Vent Rate 24 /MIN
[2021-11-19] MEDS: NITROGLYCERIN OINTMENT 1 INCH DOSE TRANSDERM (06:04)
[2021-11-19] MEDS: FUROSEMIDE INJ 40 MG/4 ML VIAL IV PUSH ×2 (08:48→20:28)
[2021-11-19] MEDS: MONTELUKAST SODIUM 10 MG TABLET PO (08:49)
[2021-11-19] MEDS: METOPROLOL SUCCINATE EXT REL 50 MG TABCR PO (08:49)
[2021-11-19] MEDS: ARIPiprazole 5 MG TABLET PO (08:49)
[2021-11-19] MEDS: FAMOTIDINE 20 MG/2 ML VIAL IV PUSH ×2 (08:49→20:27)
[2021-11-19] MEDS: CITALOPRAM HYDROBROMIDE 10 MG TABLET PO (08:49)
[2021-11-19] MEDS: FLUTICASONE PROPIONATE 0.05% NA SPR 16 GM BTL (*BKC) 2 SPRAY NASAL (08:50)
[2021-11-19] MEDS: OLOPATADINE 0.1% OPHTH SOLN 5 ML BTL 1 DROP EACH EYE (08:50)
[2021-11-19] MEDS: ATORVASTATIN 10 MG TABLET PO (08:51)
--- NOTE | 2021-11-19 09:41 | PM.CNCAR ---
Assessment and Plan Assessment and plan (1) CHF (congestive heart failure): Code(s): I50.9 - Heart failure, unspecified Status: Acute Plan This is a 81-year-old woman with a history of documented nonischemic cardiomyopathy which has done very well in the intervening years with improvement and essentially normalization in her LV systolic function. She has only been on metoprolol as maintenance medical therapy she has not been on a diuretic or on a vaso dilator. She now has a decompensation in CHF. As I mentioned above it is interesting that she has elected and requested DNR orders on her chart despite the fact that she also has a defibrillator in wish to have it replaced at [facility] [place] earlier this year. At this point I would recommend diuresing her with IV furosemide which is already happening. I am going to introduce gradually some losartan as she is not all hypertensive we will start with a very low dosage. Echocardiogram has been requested which is appropriate. Expect a conservative approach to her case/management given her wishes to be DNR. Gagandeep Dubose MD [facility] History of Present Illness History of Present Illness Consult date/time: 11/19/21 09:41 Reason For Visit: chf,acute hypoxic,hypercapnic respiratory acidosis Narrative: This is a 81-year-old woman who I believe is a longstanding patient of my partner, Dr. Ohara. She has a history of a non ischemic cardiomyopathy and is admitted to the hospital today with a 7-10 day history of increasing shortness of breath and accumulating edema. The patient states that she is in her usual state of good health when about a week or so ago she started to notice the sense of breathlessness and some accumulating bipedal edema. Her shortness of breath became more severe yesterday and so she came to the hospital where she was evaluated in the emergency room and admitted with a diagnosis of CHF decompensation. Her chest x-ray looks like some enlargement of the cardiac silhouette and bilateral congestion and she had some moderate by lateral lower extremity edema. She is on a BiPAP device in the IMU and is resting comfortably and any symptoms currently. He says she feels like she is breathing adequately with the BiPAP device in place. She has been treated with some intravenous furosemide she also was on metoprolol chronically and that has been continued. Does not look like she is on any vasodilators currently. She offers no other complaints. She has a history of a nonischemic cardiomyopathy dating back to 2010 I believe. At the time of her diagnosis she did undergo a angiogram that showed no evidence of coronary disease. She also has a history of paroxysmal atrial fibrillation in the past as well. She has a [employer] chronic defibrillator that was implanted in the remote past. She just had a generator change done in April of this year. The patient has received some defibrillation in the past for the device but no recent therapies have been delivered in the past she has received defibrillation because of ventricular tachycardia and also at least once or twice because of rapid atrial fibrillation. Up until recently she has been feeling well her last office visit with Dr. Ohara was in July of this year which time she said she had no complaints of any kind. According to the records at the time of her initial diagnosis or ejection fraction was in the range of 30-35% and over the intervening years it has improved and was actually normal the last time this was checked by echo which I believe was a couple of years ago. Another echocardiogram has been ordered by the hospitalists during this admission. Her electrocardiogram demonstrates sinus rhythm with an incomplete left bundle branch block. Interestingly she has chosen to have DNR orders on her chart despite the fact that she also wanted her a defibrillator generator change earlier in the year. I did not discuss this apparent discrepancy with t
[2021-11-19] MEDS: LOSARTAN POTASSIUM 12.5 MG TABLET PO (11:58)
--- NOTE | 2021-11-19 12:42 | PM.IMPN ---
Progress Note: A&P Assessment and Plan (1) CHF (congestive heart failure): Code(s): I50.9 - Heart failure, unspecified Status: Acute Assessment and Plan: Chest x-ray with bilateral pleural effusions with cardiomegaly Acute on chronic congestive heart failure diastolic Last echo on 06/12/2028 teen with EF of 50%. Repeat echo ordered On metoprolol Cardiology consulted (2) Acute respiratory failure with hypoxia and hypercapnia: Code(s): J96.01 - Acute respiratory failure with hypoxia; J96.02 - Acute respiratory failure with hypercapnia Status: Acute Assessment and Plan: Admission with ABG 7.25/70/94/30 Patient started on BiPAP ABG continues to improve. patient DNR ABG reviewed COVID negative Chest x-ray with congestive changes atelectasis versus pneumonia WBC count is normal. 11/19/2021 will get off BiPAP continues to intermittent his recheck ABG and monitor Lower steroid recheck x-ray in a.m. awaiting echo (3) COPD (chronic obstructive pulmonary disease): Code(s): J44.9 - Chronic obstructive pulmonary disease, unspecified Status: Acute Assessment and Plan: Suspected COPD exacerbation Continue with neb treatment On IV Solu-Medrol Not actively wheezing Holley lower Solu Medrol dose (4) Hx of deep vein thrombophlebitis of lower extremity: Code(s): Z86.72 - Personal history of thrombophlebitis Status: Acute Assessment and Plan: Not on anticoagulation chronically (5) Depression: Code(s): F32.9 - Major depressive disorder, single episode, unspecified Status: Acute Assessment and Plan: -continue citalopram when able to take p.o. medication (6) GERD (gastroesophageal reflux disease): Code(s): K21.9 - Gastro-esophageal reflux disease without esophagitis Status: Acute Assessment and Plan: -Pepcid IV (7) Hypertension: Code(s): I10 - Essential (primary) hypertension Status: Acute Assessment and Plan: -continue metoprolol when the patient is able to take p.o. medication. Subjective Date/time seen: 11/19/21 12:42 Interval history: HPI:This is a 81-year-old female patient who came in via private car complaining of shortness of breath over the last 7 days.? She also had increased swelling to lower extremities.? Patient does live home alone and does not take any oxygen.? She denied any nausea vomiting diarrhea chest pain or lower back pain.? The patient is currently on aspirin and Eliquis.? She does have a history of hypertension, diabetes, COPD ACD, deep vein thrombosis and congestive heart failure.? H&H is 15.6 and 48.9.? Arterial blood gases pH was 7.255 CO2 was 70.7.? ABG 7.2711 and PC CO2 was 82.0.? BNP 5250.? COVID was negative.? Patient is on a BiPAP and her BiPAP is 12/6 with a rate of 20.? The patient was given Lasix IV and nitroglycerin patch as well.? The patient is being admitted to inpatient status on the date of service of 11/18/21. 11/19/2021: Remains on BiPAP. Alert and awake. Feels well. Took her off of BiPAP during the visit today. Denies any chest pain. Was not wheezy when she came in. Review of Systems Review of Systems: All systems reviewed & are unremarkable except as noted in HPI and below Exam Narrative: General appearance: Well-developed, well-nourished Skin: Normal color, 2 + edema lower extremity bilaterally Head: Normocephalic, nontraumatic ENT: Oropharynx normal, ears normal, nose normal Neck: Supple, nontender Chest and respiratory: Airway patent, no respiratory distress, no accessory muscle use, diminished breath sounds bilaterally Heart: Regular rate/rhythm Abdomen: Soft, nontender, no organomegaly, quiet bowel sounds Vascular: Normal peripheral pulses, normal capillary refill. Musculoskeletal: Normal range of motion, nontender back Neurologic: Alert and oriented ?3, DRAPERY AND UPHOLSTERY ESTIMATOR is normal as tested, no gross motor deficit Objective Data Vital Signs Vital Signs
[2021-11-19 14:59] LABS: Alveolar/Arterial O2 Gradient 24.2 mmHg; Base Excess ABG 6.1 mEq/l (+/-2.0); Fractional Inspired Oxygen 28 %; HCO3 ABG 36.4 mEq/l (22.0-26.0); Oxygen Content ABG 21.8 %vol (16.0-22.0); Oxygen Saturation ABG 94.3 % (95.0-100.0); Oxyhemoglobin 93.5 % THb (90.0-100.0); PO2 ABG 82.3 mmHg (80.0-100.0); PO2 FiO2 Ratio Arterial Blood 2.94 %; Total Hemoglobin 16.6 g/dL (12.0-18.0)
[2021-11-19 15:02] LABS: Device NASAL CANNULA; Modified Allen's Test Pass; PCO2 ABG 78.9 mmHg (35.0-45.0); Site Drawn RIGHT RADIAL; pH ABG 7.282 (7.350-7.450)
[2021-11-19 17:55] LABS: Alveolar/Arterial O2 Gradient 118.9 mmHg; Fractional Inspired Oxygen 40 %; HCO3 ABG 38.9 mEq/l (22.0-26.0); Oxygen Content ABG 21.9 %vol (16.0-22.0); Oxygen Saturation ABG 96.9 % (95.0-100.0); Oxyhemoglobin 95.9 % THb (90.0-100.0); PCO2 ABG 63.8 mmHg (35.0-45.0); PO2 ABG 92.9 mmHg (80.0-100.0); PO2 FiO2 Ratio Arterial Blood 2.32 %; Total Hemoglobin 16.2 g/dL (12.0-18.0); pH ABG 7.403 (7.350-7.450)
[2021-11-19 17:56] LABS: Device BIPAP; Modified Allen's Test Pass; Site Drawn RIGHT RADIAL
[2021-11-19 17:57] LABS: Expiratory Pressure 6 cmH2O; Inspiratory Pressure 14 cmH2O
[2021-11-19] MEDS: DONEPEZIL HCL 5 MG TABLET PO (20:27)
[2021-11-19] MEDS: methylPREDNISolone SOD SUCC 40 MG VIAL IV PUSH (20:29)
[2021-11-20] VITALS (32 sets, daily range): BP systolic 96–125; BP diastolic 57–68; PULSE 75–114; RESP 12–35; TEMP 36.2–36.6; O2SAT 92–100
[2021-11-20] MEDS: ALBUTEROL SULFATE NEB 2.5 MG/3 ML INH INHALATION ×4 (01:59→20:35)
[2021-11-20] MEDS: IPRATROPIUM BR 0.02% INH SOLN 0.5 MG/2.5 ML VIAL INHALATION ×4 (01:59→20:35)
[2021-11-20 04:56] LABS: Basophils Percent Auto 0.1 % (0.2-1.2); Hematocrit 46.9 % (37.0-47.0); Hemoglobin 14.7 g/dL (12.0-15.0); Immature Granulocyte Absolute 0.04 K/mm3 (0.00-0.031); Immature Granulocyte Percent A 0.4 % (0-0.5); Lymphocytes Absolute Auto 0.68 K/mm3 (0.9-3.2); Lymphocytes Percent Auto 6.6 % (18.3-44.2); Mean Corpuscular HGB Conc 31.3 g/dl (32-36); Mean Corpuscular Hemoglobin 31.3 pg (26-34); Mean Corpuscular Volume 99.8 fl (80-100); Mean Platelet Volume 8.7 fl (7.4-10.4); Monocytes Absolute Auto 0.5 K/mm3 (0.1-0.6); Monocytes Percent Auto 4.6 % (2.6-8.5); Neutrophils Absolute Auto 9.2 K/mm3 (1.3-6.7); Neutrophils Percent Auto 88.3 % (45.5-73.1); Platelet Count Result 236 k/mm3 (150-375); Red Cell Distribution Width 15.6 % (11.5-14.5); White Blood Count 10.4 K/mm3 (4.5-10.0)
[2021-11-20 05:23] LABS: Alanine Aminotransferase 45 U/L (6-35); Alkaline Phosphatase 61 U/L (38-126); Aspartate Amino Transferase 36 U/L (14-36); Bilirubin,Total 0.5 mg/dL (0.2-1.3); Blood Urea Nitrogen 22 mg/dL (7-17); Calcium 7.6 mg/dL (8.4-10.2); Carbon Dioxide > 40 mmol/L (22-30); Chloride 91 mmol/L (98-107); Estimated CRCL calculation 55 ml/min; Estimated Glomerular Filt Rate > 60; Glucose 142 mg/dL (65-110); Potassium 4.1 mmol/L (3.4-5.0); Sodium 138 mmol/L (137-145)
[2021-11-20 05:41] LABS: Alveolar/Arterial O2 Gradient 131.1 mmHg; Base Excess ABG 12.4 mEq/l (+/-2.0); Carboxyhemoglobin 1.1 % THb (0-2.0); Fractional Inspired Oxygen 35 %; HCO3 ABG 37.6 mEq/l (22.0-26.0); Methemoglobin ABG 0.4 %THb (0-1.5); Oxygen Content ABG 20.1 %vol (16.0-22.0); Oxygen Saturation ABG 93.3 % (95.0-100.0); Oxyhemoglobin 92.3 % THb (90.0-100.0); PCO2 ABG 48.7 mmHg (35.0-45.0); PO2 ABG 61.8 mmHg (80.0-100.0); PO2 FiO2 Ratio Arterial Blood 1.77 %; Reduced Hemoglobin 6.2 %THb (0-5.0); Total Hemoglobin 15.5 g/dL (12.0-18.0)
[2021-11-20 05:44] LABS: Device NON-INVASIVE VENT; Modified Allen's Test Pass; Site Drawn LEFT RADIAL; pH ABG 7.505 (7.350-7.450)
[2021-11-20 05:45] LABS: Non-Invasive Expiratory Pressure 6 CMH2O; Non-Invasive Inspiratory Pressure 14 CMH2O; Non-Invasive Vent Rate 24 /MIN
[2021-11-20] MEDS: FLUTICASONE/UMECLIDIN/VILANTER 100-62.5-25 MCG ELLIPTA 1 PUFF INHALATION (08:32)
[2021-11-20] MEDS: methylPREDNISolone SOD SUCC 40 MG VIAL IV PUSH ×2 (09:12→20:36)
[2021-11-20] MEDS: ARIPiprazole 5 MG TABLET PO (09:12)
[2021-11-20] MEDS: MONTELUKAST SODIUM 10 MG TABLET PO (09:12)
[2021-11-20] MEDS: OLOPATADINE 0.1% OPHTH SOLN 5 ML BTL 1 DROP EACH EYE (09:12)
[2021-11-20] MEDS: FAMOTIDINE 20 MG/2 ML VIAL IV PUSH ×2 (09:12→20:33)
[2021-11-20] MEDS: METOPROLOL SUCCINATE EXT REL 50 MG TABCR PO (09:12)
[2021-11-20] MEDS: ATORVASTATIN 10 MG TABLET PO (09:12)
[2021-11-20] MEDS: CITALOPRAM HYDROBROMIDE 10 MG TABLET PO (09:12)
[2021-11-20] MEDS: LOSARTAN POTASSIUM 12.5 MG TABLET PO (09:12)
[2021-11-20] MEDS: FUROSEMIDE INJ 40 MG/4 ML VIAL IV PUSH ×2 (09:13→20:35)
--- NOTE | 2021-11-20 09:36 | PM.IMPN ---
Progress Note: A&P Assessment and Plan (1) CHF (congestive heart failure): Code(s): I50.9 - Heart failure, unspecified Status: Acute Assessment and Plan: Chest x-ray with bilateral pleural effusions with cardiomegaly Acute on chronic congestive heart failure diastolic Last echo on 06/12/2028 teen with EF of 50%. Repeat echo 11/19/2021: EF 50-55% grade 1 diastolic dysfunction no other significant valvular abnormality. On metoprolol. Repeat chest x-ray with continued congestive changes. Continue diuresis as ordered. Monitor intake and output. May give an extra dose of Lasix today in the afternoon Cardiology consulted (2) Acute respiratory failure with hypoxia and hypercapnia: Code(s): J96.01 - Acute respiratory failure with hypoxia; J96.02 - Acute respiratory failure with hypercapnia Status: Acute Assessment and Plan: Admission with ABG 7.25//94/30 Patient started on BiPAP ABG continues to improve. patient DNR ABG reviewed COVID negative Chest x-ray with congestive changes atelectasis versus pneumonia WBC count is normal. Recheck monitor BiPAP needs (3) COPD (chronic obstructive pulmonary disease): Code(s): J44.9 - Chronic obstructive pulmonary disease, unspecified Status: Acute Assessment and Plan: Suspected COPD exacerbation Continue with neb treatment On IV Solu-Medrol Not actively wheezing Holley lower Solu Medrol dose (4) Hx of deep vein thrombophlebitis of lower extremity: Code(s): Z86.72 - Personal history of thrombophlebitis Status: Acute Assessment and Plan: Not on anticoagulation chronically (5) Depression: Code(s): F32.9 - Major depressive disorder, single episode, unspecified Status: Acute Assessment and Plan: -continue citalopram when able to take p.o. medication (6) GERD (gastroesophageal reflux disease): Code(s): K21.9 - Gastro-esophageal reflux disease without esophagitis Status: Acute Assessment and Plan: -Pepcid IV (7) Hypertension: Code(s): I10 - Essential (primary) hypertension Status: Acute Assessment and Plan: -continue metoprolol, added on losartan Subjective Date/time seen: 11/20/21 09:36 Interval history: HPI:This is a 81-year-old female patient who came in via private car complaining of shortness of breath over the last 7 days.? She also had increased swelling to lower extremities.? Patient does live home alone and does not take any oxygen.? She denied any nausea vomiting diarrhea chest pain or lower back pain.? The patient is currently on aspirin and Eliquis.? She does have a history of hypertension, diabetes, COPD ACD, deep vein thrombosis and congestive heart failure.? H&H is 15.6 and 48.9.? Arterial blood gases pH was 7.255 CO2 was 70.7.? ABG 7.2711 and PC CO2 was 82.0.? BNP 5250.? COVID was negative.? Patient is on a BiPAP and her BiPAP is 12/6 with a rate of 20.? The patient was given Lasix IV and nitroglycerin patch as well.? The patient is being admitted to inpatient status on the date of service of 11/18/21. 11/19/2021: Remains on BiPAP. Alert and awake. Feels well. Took her off of BiPAP during the visit today. Denies any chest pain. Was not wheezy when she came in. 11/20/2021 state on BiPAP overnight. ABG reviewed this morning. Feeling better. Still has shortness of breath with exertion. Leg swelling has improved Review of Systems Review of Systems: All systems reviewed & are unremarkable except as noted in HPI and below Exam Narrative: General appearance: Well-developed, well-nourished Skin: Normal color, 1 + edema lower extremity bilaterally Head: Normocephalic, nontraumatic ENT: Oropharynx normal, ears normal, nose normal Neck: Supple, nontender Chest and respiratory: Airway patent, no respiratory distress, no accessory muscle use, diminished breath sounds bilaterally Heart: Regular rate/rhythm Abdomen: Soft, nontender, no o
[2021-11-20] MEDS: FLUTICASONE PROPIONATE 0.05% NA SPR 16 GM BTL (*BKC) 2 SPRAY NASAL (09:40)
[2021-11-20] MEDS: PANTOPRAZOLE 40 MG TABLET PO (13:22)
[2021-11-20] MEDS: PYRIDOXINE HCL 50 MG TABLET 100 MG PO ×2 (13:22→16:21)
[2021-11-20] MEDS: OPTI-GEN TAB 1 TABLET PO ×2 (13:23→20:33)
[2021-11-20] MEDS: LORATADINE 10 MG TABLET PO (13:23)
[2021-11-20] MEDS: busPIRone HCL 10 MG TABLET PO (16:21)
--- NOTE | 2021-11-20 17:20 | PM.PNCARD ---
Progress Note: A&P Assessment and Plan (1) CHF (congestive heart failure): Qualifiers: Heart failure type: diastolic Heart failure chronicity: acute Qualified Code(s): I50.31 - Acute diastolic (congestive) heart failure Code(s): I50.9 - Heart failure, unspecified Status: Acute Assessment and Plan: She has a history of nonischemic cardiomyopathy with normalization of EF doing very well on minimal therapy over the years. She presents with decompensated heart failure with preserved ejection fraction EF 50-55% most likely diastolic etiology. Patient is also with managed for acute hypoxic respiratory failure, COPD exacerbation. She has improved with supportive therapy from pulmonary perspective and intravenous diuresis. Edema has resolved completely. She is euvolemic on examination. Discontinue IV Lasix after this evening transition to oral Lasix 40 mg starting tomorrow morning. Check BMP, electrolytes and monitor closely. Continue supportive medical therapy with losartan, Toprol XL 50 mg daily. DVT prophylaxis. PT OT. Disposition per hospitalist service. She will follow-up with Dr. Ohara in the next 1-2 weeks as an outpatient. (2) Acute respiratory failure with hypoxia and hypercapnia: Code(s): J96.01 - Acute respiratory failure with hypoxia; J96.02 - Acute respiratory failure with hypercapnia Status: Acute Assessment and Plan: Per primary service. (3) History of implantable cardiac defibrillator (ICD): Code(s): Z95.810 - Presence of automatic (implantable) cardiac defibrillator Status: Acute Assessment and Plan: Stable no acute issues. Recent generator change. Subjective Date/time seen: Date of service: 11/20/21 17:20 Follow-up for decompensated heart failure, COPD, history of cardiomyopathy Patient states she is feeling much better today. Denies significant shortness of breath. Denies chest pain, palpitations or dizziness. Edema has completely resolved. Feeling more energetic. She inquired about CPAP. Review of Systems Review of Systems: No fevers, chills, nausea vomiting. Eyes: Eyes: Reports no additional eye complaints ENT: Reports system reviewed and no additional complaints, except as documented Cardiovascular: Cardiovascular: Reports as per HPI, Reports leg edema and Reports dyspnea Gastrointestinal: Gastrointestinal: Reports no additional gastrointestinal complaints Musculoskeletal: Musculoskeletal: Reports arthralgias Integumentary/Breasts: Skin/Breast: Reports system reviewed and no additional complaints, except as docu Neurologic: Reports system reviewed and no additional complaints, except as documented Endocrine: Endocrine: Reports no additional endocrine complaints Hematologic/Lymphatic: Hematologic/Lymphatic: Reports no additional hematologic/lymphatic complaints Allergic/Immunologic: Allergic/Immunologic: Reports no additional allergic/immunologic complaints Exam Const: General: comfortable and no acute distress Other: Very pleasant elderly lady with O2 via nasal cannula sitting upright in bed very comfortable speaking full sentences more animated energetic quite talkative. HENMT: Mouth: Yes moist mucous membranes Eyes: Sclera: sclerae normal Pupils: Equal, round and reactive pupils present Neck: Neck: supple Other: Patient has about 3 cm of jugular venous distention upright position Resp: Effort & Inspection: normal respiratory effort Other: Diminished breath sounds at the bases otherwise no obvious rales or wheezes. Cardio: Rate: regular rate Rhythm: regular rhythm Other: Regular rate and rhythm, soft systolic murmur. Normal S1-S2. GI: Auscultation: normal bowel sounds Other: Soft nontender nondistended Skin: General skin exam: normal color Neuro: Cranial nerves: Yes Equal, round and reactive pupils present Other: Alert and oriented x3 Extrem: Other: No edema clubbing or cyanosis Psy
[2021-11-20] MEDS: DONEPEZIL HCL 5 MG TABLET PO (20:33)
[2021-11-21] VITALS (26 sets, daily range): BP systolic 104–135; BP diastolic 52–77; PULSE 72–100; RESP 12–26; TEMP 36.3–36.8; O2SAT 90–100
[2021-11-21] MEDS: ALBUTEROL SULFATE NEB 2.5 MG/3 ML INH INHALATION ×3 (02:27→20:20)
[2021-11-21] MEDS: IPRATROPIUM BR 0.02% INH SOLN 0.5 MG/2.5 ML VIAL INHALATION ×4 (02:27→20:20)
[2021-11-21 04:42] LABS: Base Excess ABG 11.7 mEq/l (+/-2.0); Carboxyhemoglobin 0.7 % THb (0-2.0); Fractional Inspired Oxygen 35 %; HCO3 ABG 38.9 mEq/l (22.0-26.0); Methemoglobin ABG 0.5 %THb (0-1.5); Oxygen Content ABG 20.6 %vol (16.0-22.0); Oxygen Saturation ABG 96.4 % (95.0-100.0); Oxyhemoglobin 95.1 % THb (90.0-100.0); PO2 ABG 85.5 mmHg (80.0-100.0); PO2 FiO2 Ratio Arterial Blood 2.44 %; Reduced Hemoglobin 3.7 %THb (0-5.0); Total Hemoglobin 15.4 g/dL (12.0-18.0); pH ABG 7.427 (7.350-7.450)
[2021-11-21 04:43] LABS: Modified Allen's Test Pass; PCO2 ABG 60.3 mmHg (35.0-45.0); Site Drawn RIGHT RADIAL
[2021-11-21 04:44] LABS: Device NON-INVASIVE VENT; Non-Invasive Expiratory Pressure 6 CMH2O; Non-Invasive Inspiratory Pressure 14 CMH2O; Non-Invasive Vent Rate 24 /MIN
[2021-11-21 05:01] LABS: Basophils Percent Auto 0.1 % (0.2-1.2); Hematocrit 46.3 % (37.0-47.0); Hemoglobin 14.7 g/dL (12.0-15.0); Immature Granulocyte Absolute 0.03 K/mm3 (0.00-0.031); Immature Granulocyte Percent A 0.3 % (0-0.5); Lymphocytes Absolute Auto 0.56 K/mm3 (0.9-3.2); Lymphocytes Percent Auto 6.3 % (18.3-44.2); Mean Corpuscular HGB Conc 31.7 g/dl (32-36); Mean Corpuscular Hemoglobin 31.6 pg (26-34); Mean Corpuscular Volume 99.6 fl (80-100); Mean Platelet Volume 9.2 fl (7.4-10.4); Monocytes Absolute Auto 0.2 K/mm3 (0.1-0.6); Monocytes Percent Auto 2.7 % (2.6-8.5); Neutrophils Absolute Auto 8.1 K/mm3 (1.3-6.7); Neutrophils Percent Auto 90.6 % (45.5-73.1); Platelet Count Result 234 k/mm3 (150-375); Red Blood Count 4.65 M/mm3 (4.2-5.4); Red Cell Distribution Width 15.9 % (11.5-14.5); White Blood Count 8.9 K/mm3 (4.5-10.0)
[2021-11-21 05:16] LABS: Alanine Aminotransferase 40 U/L (6-35); Albumin Level 3.1 g/dL (3.5-5.1); Alkaline Phosphatase 65 U/L (38-126); Anion Gap 9 mmol/L (8-16); Aspartate Amino Transferase 32 U/L (14-36); Bilirubin,Total 0.5 mg/dL (0.2-1.3); Blood Urea Nitrogen 26 mg/dL (7-17); Calcium 7.6 mg/dL (8.4-10.2); Carbon Dioxide 39 mmol/L (22-30); Chloride 89 mmol/L (98-107); Estimated CRCL calculation 63 ml/min; Estimated Glomerular Filt Rate > 60; Glucose 161 mg/dL (65-110); Sodium 137 mmol/L (137-145)
[2021-11-21] MEDS: ALBUTEROL SULFATE NEB 2.5 MG/0.5 ML INH (08:08)
[2021-11-21] MEDS: FLUTICASONE/UMECLIDIN/VILANTER 100-62.5-25 MCG ELLIPTA 1 PUFF INHALATION (08:08)
[2021-11-21] MEDS: SACCHAROMYCES BOULARDII 250 MG CAPSULE PO (09:12)
[2021-11-21] MEDS: PYRIDOXINE HCL 50 MG TABLET 100 MG PO ×2 (09:13→17:57)
[2021-11-21] MEDS: PANTOPRAZOLE 40 MG TABLET PO (09:13)
[2021-11-21] MEDS: OPTI-GEN TAB 1 TABLET PO ×2 (09:14→20:06)
[2021-11-21] MEDS: OLOPATADINE 0.1% OPHTH SOLN 5 ML BTL 1 DROP EACH EYE (09:16)
[2021-11-21] MEDS: METOPROLOL SUCCINATE EXT REL 50 MG TABCR PO (09:17)
[2021-11-21] MEDS: MONTELUKAST SODIUM 10 MG TABLET PO (09:17)
[2021-11-21] MEDS: LOSARTAN POTASSIUM 12.5 MG TABLET PO (09:18)
[2021-11-21] MEDS: methylPREDNISolone SOD SUCC 40 MG VIAL IV PUSH (09:18)
[2021-11-21] MEDS: POLYSACCHARIDE IRON COMPLEX 150 MG CAPSULE PO (09:19)
[2021-11-21] MEDS: LORATADINE 10 MG TABLET PO (09:19)
[2021-11-21] MEDS: FUROSEMIDE 40 MG TABLET PO (09:20)
[2021-11-21] MEDS: FLUTICASONE PROPIONATE 0.05% NA SPR 16 GM BTL (*BKC) 2 SPRAY NASAL (09:21)
[2021-11-21] MEDS: ATORVASTATIN 10 MG TABLET PO (09:22)
[2021-11-21] MEDS: ARIPiprazole 5 MG TABLET PO (09:22)
[2021-11-21] MEDS: CITALOPRAM HYDROBROMIDE 10 MG TABLET PO (09:22)
[2021-11-21] MEDS: busPIRone HCL 10 MG TABLET PO ×2 (09:22→17:57)
[2021-11-21] MEDS: FAMOTIDINE 20 MG/2 ML VIAL IV PUSH (09:22)
--- NOTE | 2021-11-21 12:25 | PM.PNCARD ---
Progress Note: A&P Assessment and Plan (1) CHF (congestive heart failure): Qualifiers: Heart failure chronicity: acute Heart failure type: diastolic Qualified Code(s): I50.31 - Acute diastolic (congestive) heart failure Code(s): I50.9 - Heart failure, unspecified Status: Acute Assessment and Plan: She has a history of nonischemic cardiomyopathy with normalization of EF doing very well on minimal therapy over the years. She presents with decompensated heart failure with preserved ejection fraction EF 50-55% most likely diastolic etiology. Patient is also with managed for acute hypoxic respiratory failure, COPD exacerbation. She has improved with supportive therapy from pulmonary perspective and intravenous diuresis. Edema has resolved completely. She is euvolemic on examination. Continue Lasix 40 mg daily. Monitor renal function electrolytes. Stable thus far. Continue supportive medical therapy with Losartan 12.5mg daily, Toprol XL 50 mg daily. DVT prophylaxis. PT OT. Disposition per hospitalist service. She will follow-up with Dr. Ohara in the next 1-2 weeks as an outpatient. (2) Acute respiratory failure with hypoxia and hypercapnia: Code(s): J96.01 - Acute respiratory failure with hypoxia; J96.02 - Acute respiratory failure with hypercapnia Status: Acute Assessment and Plan: Per primary service. (3) History of implantable cardiac defibrillator (ICD): Code(s): Z95.810 - Presence of automatic (implantable) cardiac defibrillator Status: Acute Assessment and Plan: Stable no acute issues. Recent generator change. Subjective Date/time seen: Date of service: 11/21/21 12:25 Follow-up for CHF, COPD Patient continues to feel quite well. Denies shortness of breath. No edema. No new issues overnight as reported by the patient. Denies chest pain, palpitations or dizziness. Tolerating medications. Review of Systems Constitutional: Constitutional: Reports lethargy Eyes: Eyes: Reports no additional eye complaints ENT: Reports system reviewed and no additional complaints, except as documented Cardiovascular: Cardiovascular: Reports as per HPI, Reports leg edema and Reports dyspnea Respiratory: Respiratory: Reports dyspnea Gastrointestinal: Gastrointestinal: Reports no additional gastrointestinal complaints Musculoskeletal: Musculoskeletal: Reports arthralgias Integumentary/Breasts: Skin/Breast: Reports system reviewed and no additional complaints, except as docu Neurologic: Reports system reviewed and no additional complaints, except as documented Endocrine: Endocrine: Reports no additional endocrine complaints Hematologic/Lymphatic: Hematologic/Lymphatic: Reports no additional hematologic/lymphatic complaints Allergic/Immunologic: Allergic/Immunologic: Reports no additional allergic/immunologic complaints Exam Const: General: comfortable and no acute distress Other: Very pleasant elderly lady with O2 via nasal cannula sitting upright in bed very comfortable speaking full sentences HENMT: Mouth: Yes moist mucous membranes Eyes: Sclera: sclerae normal Pupils: Equal, round and reactive pupils present Neck: Neck: supple Other: Patient has about 3 cm of jugular venous distention upright position Resp: Effort & Inspection: normal respiratory effort Other: Diminished breath sounds at the bases otherwise no obvious rales or wheezes. Cardio: Rate: regular rate Rhythm: regular rhythm Other: Regular rate and rhythm, soft systolic murmur. Normal S1-S2. GI: Auscultation: normal bowel sounds Other: Soft nontender nondistended Skin: General skin exam: normal color Neuro: Cranial nerves: Yes Equal, round and reactive pupils present Other: Alert and oriented x3 Extrem: Other: No edema clubbing or cyanosis Psych: Other: Mood calm and appropriate. Objective Data Vital Signs Vital Signs: Vital Signs - 24 hr 09
--- NOTE | 2021-11-21 14:31 | PM.IMPN ---
Progress Note: A&P Assessment and Plan (1) CHF (congestive heart failure): Qualifiers: Heart failure chronicity: acute Heart failure type: diastolic Qualified Code(s): I50.31 - Acute diastolic (congestive) heart failure Code(s): I50.9 - Heart failure, unspecified Status: Acute Assessment and Plan: Chest x-ray with bilateral pleural effusions with cardiomegaly Acute on chronic congestive heart failure diastolic Last echo on 06/12/2028 teen with EF of 50%. Repeat echo 11/19/2021: EF 50-55% grade 1 diastolic dysfunction no other significant valvular abnormality. On metoprolol. Repeat chest x-ray with continued congestive changes. Continue diuresis as ordered. Monitor intake and output. May give an extra dose of Lasix today in the afternoon Cardiology consulted Chest x-ray 11/17/2021 with improving congestion .continue IV diuresis (2) Acute respiratory failure with hypoxia and hypercapnia: Code(s): J96.01 - Acute respiratory failure with hypoxia; J96.02 - Acute respiratory failure with hypercapnia Status: Acute Assessment and Plan: Admission with ABG 7.25/70/94/30 Patient started on BiPAP ABG continues to improve. patient DNR ABG reviewed COVID negative Chest x-ray with congestive changes atelectasis versus pneumonia WBC count is normal. Recheck monitor BiPAP needs Will stop BiPAP tonight (3) COPD (chronic obstructive pulmonary disease): Code(s): J44.9 - Chronic obstructive pulmonary disease, unspecified Status: Acute Assessment and Plan: Suspected COPD exacerbation Continue with neb treatment On IV Solu-Medrol Not actively wheezing Holley lower Solu Medrol dose Will switch to prednisone oral (4) Hx of deep vein thrombophlebitis of lower extremity: Code(s): Z86.72 - Personal history of thrombophlebitis Status: Acute Assessment and Plan: Not on anticoagulation chronically (5) Depression: Code(s): F32.9 - Major depressive disorder, single episode, unspecified Status: Acute Assessment and Plan: -continue citalopram when able to take p.o. medication (6) GERD (gastroesophageal reflux disease): Code(s): K21.9 - Gastro-esophageal reflux disease without esophagitis Status: Acute Assessment and Plan: -Pepcid IV (7) Hypertension: Code(s): I10 - Essential (primary) hypertension Status: Acute Assessment and Plan: -continue metoprolol, added on losartan Subjective Date/time seen: 11/21/21 14:31 Interval history: HPI:This is a 81-year-old female patient who came in via private car complaining of shortness of breath over the last 7 days.? She also had increased swelling to lower extremities.? Patient does live home alone and does not take any oxygen.? She denied any nausea vomiting diarrhea chest pain or lower back pain.? The patient is currently on aspirin and Eliquis.? She does have a history of hypertension, diabetes, COPD ACD, deep vein thrombosis and congestive heart failure.? H&H is 15.6 and 48.9.? Arterial blood gases pH was 7.255 CO2 was 70.7.? ABG 7.2711 and PC CO2 was 82.0.? BNP 5250.? COVID was negative.? Patient is on a BiPAP and her BiPAP is 12/6 with a rate of 20.? The patient was given Lasix IV and nitroglycerin patch as well.? The patient is being admitted to inpatient status on the date of service of 11/18/21. 11/19/2021: Remains on BiPAP. Alert and awake. Feels well. Took her off of BiPAP during the visit today. Denies any chest pain. Was not wheezy when she came in. 11/20/2021 state on BiPAP overnight. ABG reviewed this morning. Feeling better. Still has shortness of breath with exertion. Leg swelling has improved 11/21/2021 feels quite well. Son at bedside. Labs reviewed. Reports shortness of breath has improved. Leg swelling is going down. Review of Systems Review of Systems: All systems reviewed & are unremarkable except as noted in HPI and bel
[2021-11-21] MEDS: DONEPEZIL HCL 5 MG TABLET PO (20:06)
[2021-11-22] VITALS (22 sets, daily range): BP systolic 105–140; BP diastolic 64–97; PULSE 71–97; RESP 16–25; TEMP 35.9–36.8; O2SAT 94–100
[2021-11-22 04:39] LABS: Basophils Percent Auto 0.1 % (0.2-1.2); Eosinophils Percent Auto 0.1 % (0-4.4); Hematocrit 47.5 % (37.0-47.0); Hemoglobin 14.8 g/dL (12.0-15.0); Immature Granulocyte Absolute 0.03 K/mm3 (0.00-0.031); Immature Granulocyte Percent A 0.4 % (0-0.5); Lymphocytes Absolute Auto 0.77 K/mm3 (0.9-3.2); Lymphocytes Percent Auto 9.5 % (18.3-44.2); Mean Corpuscular HGB Conc 31.2 g/dl (32-36); Mean Corpuscular Hemoglobin 31.4 pg (26-34); Mean Corpuscular Volume 100.8 fl (80-100); Mean Platelet Volume 9.1 fl (7.4-10.4); Monocytes Absolute Auto 0.9 K/mm3 (0.1-0.6); Monocytes Percent Auto 11.4 % (2.6-8.5); Neutrophils Absolute Auto 6.4 K/mm3 (1.3-6.7); Neutrophils Percent Auto 78.5 % (45.5-73.1); Platelet Count Result 207 k/mm3 (150-375); Red Blood Count 4.71 M/mm3 (4.2-5.4); Red Cell Distribution Width 15.8 % (11.5-14.5); White Blood Count 8.1 K/mm3 (4.5-10.0)
[2021-11-22 04:56] LABS: Alanine Aminotransferase 43 U/L (6-35); Albumin Level 2.8 g/dL (3.5-5.1); Alkaline Phosphatase 66 U/L (38-126); Aspartate Amino Transferase 34 U/L (14-36); Bilirubin,Total 0.5 mg/dL (0.2-1.3); Blood Urea Nitrogen 24 mg/dL (7-17); Calcium 8.4 mg/dL (8.4-10.2); Carbon Dioxide > 40 mmol/L (22-30); Chloride 93 mmol/L (98-107); Estimated CRCL calculation 63 ml/min; Estimated Glomerular Filt Rate > 60; Glucose 107 mg/dL (65-110); Magnesium 2.4 mg/dL (1.6-2.3); Potassium 3.7 mmol/L (3.4-5.0); Sodium 136 mmol/L (137-145)
[2021-11-22 05:57] LABS: Alveolar/Arterial O2 Gradient 88.3 mmHg; Base Excess ABG 9.6 mEq/l (+/-2.0); Carboxyhemoglobin 0.5 % THb (0-2.0); Fractional Inspired Oxygen 35 %; HCO3 ABG 38.5 mEq/l (22.0-26.0); Methemoglobin ABG 0.3 %THb (0-1.5); Oxygen Content ABG 20.6 %vol (16.0-22.0); Oxygen Saturation ABG 94.6 % (95.0-100.0); Oxyhemoglobin 93.9 % THb (90.0-100.0); PO2 ABG 78.5 mmHg (80.0-100.0); PO2 FiO2 Ratio Arterial Blood 2.24 %; Reduced Hemoglobin 5.3 %THb (0-5.0); Total Hemoglobin 15.6 g/dL (12.0-18.0); pH ABG 7.351 (7.350-7.450)
[2021-11-22 06:02] LABS: Device BIPAP; PCO2 ABG 71.2 mmHg (35.0-45.0); Site Drawn RIGHT RADIAL
[2021-11-22 06:03] LABS: Expiratory Pressure 6 cmH2O; Inspiratory Pressure 14 cmH2O
[2021-11-22] MEDS: IPRATROPIUM BR 0.02% INH SOLN 0.5 MG/2.5 ML VIAL INHALATION ×3 (07:44→20:00)
[2021-11-22] MEDS: FLUTICASONE/UMECLIDIN/VILANTER 100-62.5-25 MCG ELLIPTA 1 PUFF INHALATION (07:45)
[2021-11-22] MEDS: ALBUTEROL SULFATE NEB 2.5 MG/3 ML INH INHALATION ×3 (07:45→20:01)
[2021-11-22] MEDS: CYANOCOBALAMIN 1,000 MCG TABLET 1000 MCG PO (09:50)
[2021-11-22] MEDS: predniSONE 20 MG TABLET 40 MG PO (09:50)
[2021-11-22] MEDS: POLYSACCHARIDE IRON COMPLEX 150 MG CAPSULE PO (09:50)
[2021-11-22] MEDS: PYRIDOXINE HCL 50 MG TABLET 100 MG PO ×2 (09:50→16:53)
[2021-11-22] MEDS: MONTELUKAST SODIUM 10 MG TABLET PO (09:50)
[2021-11-22] MEDS: ARIPiprazole 5 MG TABLET PO (09:50)
[2021-11-22] MEDS: OPTI-GEN TAB 1 TABLET PO ×2 (09:50→21:52)
[2021-11-22] MEDS: PANTOPRAZOLE 40 MG TABLET PO (09:51)
[2021-11-22] MEDS: FLUTICASONE PROPIONATE 0.05% NA SPR 16 GM BTL (*BKC) 2 SPRAY NASAL (09:51)
[2021-11-22] MEDS: busPIRone HCL 10 MG TABLET PO ×2 (09:51→16:53)
[2021-11-22] MEDS: ATORVASTATIN 10 MG TABLET PO (09:51)
[2021-11-22] MEDS: LORATADINE 10 MG TABLET PO (09:51)
[2021-11-22] MEDS: OLOPATADINE 0.1% OPHTH SOLN 5 ML BTL 1 DROP EACH EYE (09:51)
[2021-11-22] MEDS: CITALOPRAM HYDROBROMIDE 10 MG TABLET PO (09:51)
[2021-11-22] MEDS: LOSARTAN POTASSIUM 12.5 MG TABLET PO (09:51)
[2021-11-22] MEDS: METOPROLOL SUCCINATE EXT REL 50 MG TABCR PO (09:51)
[2021-11-22] MEDS: FUROSEMIDE 40 MG TABLET PO (09:51)
[2021-11-22] MEDS: SACCHAROMYCES BOULARDII 250 MG CAPSULE PO (09:55)
--- NOTE | 2021-11-22 12:05 | PM.PNCARD ---
Progress Note: A&P Assessment and Plan (1) CHF (congestive heart failure): Qualifiers: Heart failure chronicity: acute Heart failure type: diastolic Qualified Code(s): I50.31 - Acute diastolic (congestive) heart failure <MALORIE Palomo - Last Filed: 11/22/21 12:51> Code(s): I50.9 - Heart failure, unspecified <MALORIE Palomo - Last Filed: 11/22/21 12:51> Status: Acute <MALORIE Palomo - Last Filed: 11/22/21 12:51> Assessment and Plan: She has a history of nonischemic cardiomyopathy with normalization of EF doing very well on minimal therapy over the years. She presents with decompensated heart failure with preserved ejection fraction EF 50-55% most likely diastolic etiology. Patient is also with managed for acute hypoxic respiratory failure, COPD exacerbation. She has improved with supportive therapy from pulmonary perspective and intravenous diuresis. Edema has resolved completely. She is euvolemic on examination. Continue Lasix 40 mg daily. Monitor renal function electrolytes. Stable thus far. Continue supportive medical therapy with Losartan 12.5mg daily, Toprol XL 50 mg daily. DVT prophylaxis. PT OT. Disposition per hospitalist service. Follow up in our office has been arranged. <MALORIE Palomo - Last Filed: 11/22/21 12:51> (2) Acute respiratory failure with hypoxia and hypercapnia: Code(s): J96.01 - Acute respiratory failure with hypoxia; J96.02 - Acute respiratory failure with hypercapnia <MALORIE Palomo - Last Filed: 11/22/21 12:51> Status: Acute <MALORIE Palomo - Last Filed: 11/22/21 12:51> Assessment and Plan: Per primary service. <MALORIE Palomo - Last Filed: 11/22/21 12:51> (3) History of implantable cardiac defibrillator (ICD): Code(s): Z95.810 - Presence of automatic (implantable) cardiac defibrillator <MALORIE Palomo - Last Filed: 11/22/21 12:51> Status: Acute <MALORIE Palomo - Last Filed: 11/22/21 12:51> Assessment and Plan: Stable no acute issues. Recent generator change. <MALORIE Palomo - Last Filed: 11/22/21 12:51> Assessment and Plan: Attending addendum: I agree with the above documentation and plan of care as outlined. <Alexander Gross MD - Last Filed: 11/22/21 15:10> Subjective Date/time seen: 11/22/21 12:05 Cardiology follow up for CHF Feeling better today. Has sore on the bridge of her nose from BiPAP machine that is bothering her but otherwise is without complaint. <MALORIE Palomo - Last Filed: 11/22/21 12:51> Review of Systems Constitutional: Constitutional: Reports lethargy <MALORIE Palomo - Last Filed: 11/22/21 12:51> Eyes: Eyes: Reports no additional eye complaints <MALORIE Palomo - Last Filed: 11/22/21 12:51> ENT: Reports system reviewed and no additional complaints, except as documented <MALORIE Palomo - Last Filed: 11/22/21 12:51> Cardiovascular: Cardiovascular: Reports as per HPI, Reports leg edema and Reports dyspnea <MALORIE Palomo - Last Filed: 11/22/21 12:51> Respiratory: Respiratory: Reports dyspnea <MALORIE Palomo - Last Filed: 11/22/21 12:51> Gastrointestinal: Gastrointestinal: Reports no additional gastrointestinal complaints <MALORIE Palomo - Last Filed: 11/22/21 12:51> Musculoskeletal: Musculoskeletal: Reports arthralgias <MALORIE Palomo - Last Filed: 11/22/21 12:51> Integumentary/Breasts: Skin/Breast: Reports system reviewed and no additional complaints, except as docu <MALORIE Palomo - Last Filed: 11/22/21 12:51> Neurologic: Reports system reviewed and no additional complaints, except as documented <MALORIE Palomo - Last Filed: 11/22/21 12:51> Endocrine: Endocrine: Reports no additional endocrine complaints <MALORIE Palomo - Last Filed: 11/22/21 12:51> Hematologic/Lymphatic: Hemat
--- NOTE | 2021-11-22 13:12 | PM.IMPN ---
Progress Note: A&P Assessment and Plan (1) CHF (congestive heart failure): Qualifiers: Heart failure chronicity: acute Heart failure type: diastolic Qualified Code(s): I50.31 - Acute diastolic (congestive) heart failure Code(s): I50.9 - Heart failure, unspecified Status: Acute Assessment and Plan: Chest x-ray with bilateral pleural effusions with cardiomegaly Acute on chronic congestive heart failure diastolic Last echo on 06/12/2028 teen with EF of 50%. Repeat echo 11/19/2021: EF 50-55% grade 1 diastolic dysfunction no other significant valvular abnormality. On metoprolol. Repeat chest x-ray with continued congestive changes. Continue diuresis as ordered. Monitor intake and output. May give an extra dose of Lasix today in the afternoon Cardiology consulted Chest x-ray 11/17/2021 with improving congestion .continue IV diuresis (2) Acute respiratory failure with hypoxia and hypercapnia: Code(s): J96.01 - Acute respiratory failure with hypoxia; J96.02 - Acute respiratory failure with hypercapnia Status: Acute Assessment and Plan: Admission with ABG 7.25/70/94/30 Patient started on BiPAP ABG continues to improve. patient DNR ABG reviewed COVID negative Chest x-ray with congestive changes atelectasis versus pneumonia WBC count is normal. Recheck monitor BiPAP needs Switch BiPAP to CPAP at night (3) COPD (chronic obstructive pulmonary disease): Code(s): J44.9 - Chronic obstructive pulmonary disease, unspecified Status: Acute Assessment and Plan: Suspected COPD exacerbation Continue with neb treatment On IV Solu-Medrol Not actively wheezing Holley lower Solu Medrol dose Will switch to prednisone oral She does have underlying COPD upon review chart which family is not aware of She also has chronic respiratory failure with chronic hypercapnia polyp baseline pCO2 of 60-70 She has CPAP order for his obstructive sleep apnea recently but has not started using it (4) Hx of deep vein thrombophlebitis of lower extremity: Code(s): Z86.72 - Personal history of thrombophlebitis Status: Acute Assessment and Plan: Not on anticoagulation chronically (5) Depression: Code(s): F32.9 - Major depressive disorder, single episode, unspecified Status: Acute Assessment and Plan: -continue citalopram when able to take p.o. medication (6) GERD (gastroesophageal reflux disease): Code(s): K21.9 - Gastro-esophageal reflux disease without esophagitis Status: Acute Assessment and Plan: -Pepcid IV (7) Hypertension: Code(s): I10 - Essential (primary) hypertension Status: Acute Assessment and Plan: -continue metoprolol, added on losartan Subjective Date/time seen: 11/22/21 13:12 Interval history: HPI:This is a 81-year-old female patient who came in via private car complaining of shortness of breath over the last 7 days.? She also had increased swelling to lower extremities.? Patient does live home alone and does not take any oxygen.? She denied any nausea vomiting diarrhea chest pain or lower back pain.? The patient is currently on aspirin and Eliquis.? She does have a history of hypertension, diabetes, COPD ACD, deep vein thrombosis and congestive heart failure.? H&H is 15.6 and 48.9.? Arterial blood gases pH was 7.255 CO2 was 70.7.? ABG 7.2711 and PC CO2 was 82.0.? BNP 5250.? COVID was negative.? Patient is on a BiPAP and her BiPAP is 12/6 with a rate of 20.? The patient was given Lasix IV and nitroglycerin patch as well.? The patient is being admitted to inpatient status on the date of service of 11/18/21. 11/19/2021: Remains on BiPAP. Alert and awake. Feels well. Took her off of BiPAP during the visit today. Denies any chest pain. Was not wheezy when she came in. 11/20/2021 state on BiPAP overnight. ABG reviewed this morning. Feeling better. Still has shortness of breath with exertion. L
--- NOTE | 2021-11-22 17:09 | PC.NURSE ---
This patient, Maria [place], was transferred to [facility] on 11/22/21 at 1709. Personal belongings sent with patient. Report given to Lashanda DELGADO. Appropriate documentation sent with patient.
[2021-11-22] MEDS: DONEPEZIL HCL 5 MG TABLET PO (21:52)
[2021-11-23] VITALS (20 sets, daily range): BP systolic 100–132; BP diastolic 59–82; PULSE 58–98; RESP 12–20; TEMP 36.4–36.7; O2SAT 91–100
[2021-11-23] MEDS: IPRATROPIUM BR 0.02% INH SOLN 0.5 MG/2.5 ML VIAL INHALATION ×4 (02:10→20:34)
[2021-11-23] MEDS: ALBUTEROL SULFATE NEB 2.5 MG/3 ML INH INHALATION ×4 (02:11→20:34)
[2021-11-23 05:33] LABS: Alveolar/Arterial O2 Gradient 74.8 mmHg; Base Excess ABG 9.2 mEq/l (+/-2.0); Carboxyhemoglobin 1.1 % THb (0-2.0); Fractional Inspired Oxygen 32 %; HCO3 ABG 38.4 mEq/l (22.0-26.0); Methemoglobin ABG 0.4 %THb (0-1.5); Oxygen Content ABG 21.1 %vol (16.0-22.0); Oxygen Saturation ABG 92.5 % (95.0-100.0); Oxyhemoglobin 91.6 % THb (90.0-100.0); PO2 ABG 69.7 mmHg (80.0-100.0); PO2 FiO2 Ratio Arterial Blood 2.18 %; Reduced Hemoglobin 6.9 %THb (0-5.0); Total Hemoglobin 16.4 g/dL (12.0-18.0); pH ABG 7.348 (7.350-7.450)
[2021-11-23 05:34] LABS: Modified Allen's Test Pass; PCO2 ABG 71.5 mmHg (35.0-45.0); Site Drawn RIGHT RADIAL
[2021-11-23 05:35] LABS: Device OTHER DEVICE
[2021-11-23] MEDS: FLUTICASONE/UMECLIDIN/VILANTER 100-62.5-25 MCG ELLIPTA 1 PUFF INHALATION (07:49)
[2021-11-23] MEDS: SACCHAROMYCES BOULARDII 250 MG CAPSULE PO (08:58)
[2021-11-23] MEDS: FUROSEMIDE 40 MG TABLET PO (08:58)
[2021-11-23] MEDS: ATORVASTATIN 10 MG TABLET PO (08:58)
[2021-11-23] MEDS: FLUTICASONE PROPIONATE 0.05% NA SPR 16 GM BTL (*BKC) 2 SPRAY NASAL (08:58)
[2021-11-23] MEDS: PYRIDOXINE HCL 50 MG TABLET 100 MG PO ×2 (08:58→17:06)
[2021-11-23] MEDS: busPIRone HCL 10 MG TABLET PO ×2 (08:58→17:06)
[2021-11-23] MEDS: ARIPiprazole 5 MG TABLET PO (08:58)
[2021-11-23] MEDS: PANTOPRAZOLE 40 MG TABLET PO (08:59)
[2021-11-23] MEDS: METOPROLOL SUCCINATE EXT REL 50 MG TABCR PO (08:59)
[2021-11-23] MEDS: LORATADINE 10 MG TABLET PO (09:00)
[2021-11-23] MEDS: OPTI-GEN TAB 1 TABLET PO ×2 (09:00→20:15)
[2021-11-23] MEDS: CITALOPRAM HYDROBROMIDE 10 MG TABLET PO (09:00)
[2021-11-23] MEDS: predniSONE 20 MG TABLET 40 MG PO (09:00)
[2021-11-23] MEDS: MONTELUKAST SODIUM 10 MG TABLET PO (09:00)
[2021-11-23] MEDS: POLYSACCHARIDE IRON COMPLEX 150 MG CAPSULE PO (09:00)
[2021-11-23] MEDS: LOSARTAN POTASSIUM 12.5 MG TABLET PO (09:00)
[2021-11-23] MEDS: OLOPATADINE 0.1% OPHTH SOLN 5 ML BTL 1 DROP EACH EYE (09:01)
[2021-11-23] MEDS: ALBUTEROL SULFATE (*SP) AEROSOL 1 PUFF 2 PUFF INHALATION (12:02)
--- NOTE | 2021-11-23 13:36 | PCRCNOTE ---
Home Trilogy being arranged with [facility].
--- NOTE | 2021-11-23 14:19 | PM.IMPN ---
Progress Note: A&P Assessment and Plan (1) CHF (congestive heart failure): Qualifiers: Heart failure chronicity: acute Heart failure type: diastolic Qualified Code(s): I50.31 - Acute diastolic (congestive) heart failure Code(s): I50.9 - Heart failure, unspecified Status: Acute Assessment and Plan: Chest x-ray with bilateral pleural effusions with cardiomegaly Acute on chronic congestive heart failure diastolic Last echo on 06/12/2028 teen with EF of 50%. Repeat echo 11/19/2021: EF 50-55% grade 1 diastolic dysfunction no other significant valvular abnormality. On metoprolol. Repeat chest x-ray with continued congestive changes. Continue diuresis as ordered. Monitor intake and output. May give an extra dose of Lasix today in the afternoon Cardiology consulted Chest x-ray 11/17/2021 with improving congestion .continue IV diuresis DIURESIS SWITCHED TO ORAL NOW. CHEST X-RAY 11/23/2021 WITH SMALL PLEURAL EFFUSION WITH WORSENING ON THE RIGHT AIRSPACE AT PASSAGES OF THE LUNG BASE WITH WORSENING ON THE RIGHT CONSISTENT WITH ATELECTASIS VERSUS PNEUMONIA ALONG WITH CARDIOMEGALY CONTINUE DIURESIS ORDERED (2) Acute respiratory failure with hypoxia and hypercapnia: Code(s): J96.01 - Acute respiratory failure with hypoxia; J96.02 - Acute respiratory failure with hypercapnia Status: Acute Assessment and Plan: Admission with ABG 7.25/70/94/30 Patient started on BiPAP ABG continues to improve. patient DNR ABG reviewed COVID negative Chest x-ray with congestive changes atelectasis versus pneumonia WBC count is normal. Switch BiPAP to CPAP at night 11/22/2021 ABG WORSENED WITH INCREASING CO2 TODAY HER BASELINE PCO2 SEEMS TO BE AROUND 60-70. FEV1 PER PFT DONE IN 05/31/2017 WITH 40% IMPROVES TO 48% WITH BRONCHODILATOR. PATIENT WILL NEED NONINVASIVE VENTILATION WITH TRILOGY DUE TO HER CHRONIC RESPIRATORY FAILURE MOST LIKELY RELATED UNDERLYING COPD AND WILL NEED TO USE IT NOCTURNALLY AND ALSO DURING DAYTIME NEEDED. HOME BIPAP HAS BEEN CONSIDERED AND RULED OUT HER CO2 REMAINS ELEVATED EVEN USE OF BIPAP DURING THE HOSPITAL STAY. (3) COPD (chronic obstructive pulmonary disease): Code(s): J44.9 - Chronic obstructive pulmonary disease, unspecified Status: Acute Assessment and Plan: Suspected COPD exacerbation Continue with neb treatment On IV Solu-Medrol Not actively wheezing Holley lower Solu Medrol dose Will switch to prednisone oral She does have underlying COPD upon review chart which family is not aware of She also has chronic respiratory failure with chronic hypercapnia polyp baseline pCO2 of 60-70 She has CPAP order for his obstructive sleep apnea recently but has not started using it see above for switching to home ventilation Discussed with pulmonary rehab at [facility] (4) Hx of deep vein thrombophlebitis of lower extremity: Code(s): Z86.72 - Personal history of thrombophlebitis Status: Acute Assessment and Plan: Not on anticoagulation chronically (5) Depression: Code(s): F32.9 - Major depressive disorder, single episode, unspecified Status: Acute Assessment and Plan: -continue citalopram when able to take p.o. medication (6) GERD (gastroesophageal reflux disease): Code(s): K21.9 - Gastro-esophageal reflux disease without esophagitis Status: Acute Assessment and Plan: -Pepcid IV (7) Hypertension: Code(s): I10 - Essential (primary) hypertension Status: Acute Assessment and Plan: -continue metoprolol, added on losartan Subjective Date/time seen: 11/23/21 14:19 Interval history: HPI:This is a 81-year-old female patient who came in via private car complaining of shortness of breath over the last 7 days.? She also had increased swelling to lower extremities.? Patient does live home alone and does not take any oxygen.? She denied any nausea vomiting diarrhea c
[2021-11-23] MEDS: DONEPEZIL HCL 5 MG TABLET PO (20:15)
[2021-11-24] VITALS (18 sets, daily range): BP systolic 93–136; BP diastolic 48–78; PULSE 68–95; RESP 15–18; TEMP 36.2–36.6; O2SAT 87–98
[2021-11-24] MEDS: ALBUTEROL SULFATE NEB 2.5 MG/3 ML INH INHALATION ×3 (03:05→13:15)
[2021-11-24] MEDS: IPRATROPIUM BR 0.02% INH SOLN 0.5 MG/2.5 ML VIAL INHALATION ×3 (03:05→13:16)
[2021-11-24 05:44] LABS: Basophils Percent Auto 0.1 % (0.2-1.2); Eosinophils Percent Auto 0.6 % (0-4.4); Hematocrit 50.4 % (37.0-47.0); Hemoglobin 15.3 g/dL (12.0-15.0); Immature Granulocyte Absolute 0.01 K/mm3 (0.00-0.031); Immature Granulocyte Percent A 0.1 % (0-0.5); Lymphocytes Percent Auto 17.4 % (18.3-44.2); Mean Corpuscular HGB Conc 30.4 g/dl (32-36); Mean Corpuscular Hemoglobin 31.3 pg (26-34); Mean Corpuscular Volume 103.1 fl (80-100); Mean Platelet Volume 9.2 fl (7.4-10.4); Monocytes Absolute Auto 0.6 K/mm3 (0.1-0.6); Neutrophils Percent Auto 72.8 % (45.5-73.1); Platelet Count Result 222 k/mm3 (150-375); Red Blood Count 4.89 M/mm3 (4.2-5.4); Red Cell Distribution Width 15.2 % (11.5-14.5); White Blood Count 6.9 K/mm3 (4.5-10.0)
[2021-11-24 06:03] LABS: Alanine Aminotransferase 51 U/L (6-35); Albumin Level 2.9 g/dL (3.5-5.1); Alkaline Phosphatase 72 U/L (38-126); Anion Gap 4 mmol/L (8-16); Aspartate Amino Transferase 41 U/L (14-36); Bilirubin,Total 0.8 mg/dL (0.2-1.3); Blood Urea Nitrogen 21 mg/dL (7-17); Calcium 8.3 mg/dL (8.4-10.2); Carbon Dioxide 38 mmol/L (22-30); Chloride 94 mmol/L (98-107); Estimated CRCL calculation 66 ml/min; Estimated Glomerular Filt Rate > 60; Glucose 94 mg/dL (65-110); Magnesium 2.4 mg/dL (1.6-2.3); Potassium 3.3 mmol/L (3.4-5.0); Sodium 136 mmol/L (137-145)
[2021-11-24] MEDS: FLUTICASONE/UMECLIDIN/VILANTER 100-62.5-25 MCG ELLIPTA 1 PUFF INHALATION (08:22)
[2021-11-24] MEDS: LOSARTAN POTASSIUM 12.5 MG TABLET PO (09:50)
[2021-11-24] MEDS: ATORVASTATIN 10 MG TABLET PO (09:50)
[2021-11-24] MEDS: FUROSEMIDE 40 MG TABLET PO (09:50)
[2021-11-24] MEDS: FLUTICASONE PROPIONATE 0.05% NA SPR 16 GM BTL (*BKC) 2 SPRAY NASAL (09:50)
[2021-11-24] MEDS: OLOPATADINE 0.1% OPHTH SOLN 5 ML BTL 1 DROP EACH EYE (09:50)
[2021-11-24] MEDS: OPTI-GEN TAB 1 TABLET PO (09:50)
[2021-11-24] MEDS: ERGOCALCIFEROL 50,000 UNIT CAPSULE 50000 UNITS PO (09:51)
[2021-11-24] MEDS: LORATADINE 10 MG TABLET PO (09:52)
[2021-11-24] MEDS: MONTELUKAST SODIUM 10 MG TABLET PO (09:52)
[2021-11-24] MEDS: CYANOCOBALAMIN 1,000 MCG TABLET 1000 MCG PO (09:52)
[2021-11-24] MEDS: ARIPiprazole 5 MG TABLET PO (09:52)
[2021-11-24] MEDS: busPIRone HCL 10 MG TABLET PO ×2 (09:53→16:27)
[2021-11-24] MEDS: PANTOPRAZOLE 40 MG TABLET PO (09:53)
[2021-11-24] MEDS: CITALOPRAM HYDROBROMIDE 10 MG TABLET PO (09:53)
[2021-11-24] MEDS: predniSONE 20 MG TABLET 40 MG PO (09:53)
[2021-11-24] MEDS: METOPROLOL SUCCINATE EXT REL 50 MG TABCR PO (09:53)
[2021-11-24] MEDS: SACCHAROMYCES BOULARDII 250 MG CAPSULE PO (09:53)
[2021-11-24] MEDS: PYRIDOXINE HCL 50 MG TABLET 100 MG PO ×2 (09:53→16:27)
--- NOTE | 2021-11-24 11:33 | HOMEO2EVAL ---
Evaluation was performed at [facility] Home Oxygen Evaluation RC: Home Oxygen (O2) Evaluation Start: 11/22/21 13:50 Freq: ONCE Status: Active Protocol: RPE Activity Type Activity Date Activity User E-sign Co-sign Detail Recorded Client Recorded Date Recorded By Document 11/24/21 10:55 DJO [email or web address] 11/24/21 11:32 DJO Document 11/24/21 11:00 [email or web address] [email or web address] 11/24/21 11:32 DJO Document 11/24/21 11:05 [email or web address] [email or web address] 11/24/21 11:32 DJO Document 11/24/21 11:10 [email or web address] [email or web address] 11/24/21 11:32 DJO Document 11/24/21 11:25 [email or web address] [email or web address] 11/24/21 11:32 DJO 11/24/21 11/24/21 11/24/21 10:55 11:00 11:05 Home O2 Evaluation Test Phase Resting Exercise Exercise Oxygen Delivery Room Air Room Air Nasal Cannula Oxygen Flow Rate (L/min) 1 Pulse Oximetry (90-100 %) 90 87 L 88 L Pulse Rate (60-100 beats/min) 75 92 95 Activity Tolerance Rating of Perceived Dyspnea (PD) Ambulation Distance (feet) Ambulation Distance (meters) Treatment Charges O2 Evaluation - Inpatient 11/24/21 11/24/21 11:10 11:25 Home O2 Evaluation Test Phase Exercise Resting Oxygen Delivery Nasal Cannula Room Air Oxygen Flow Rate (L/min) 2 Pulse Oximetry (90-100 %) 90 91 Pulse Rate (60-100 beats/min) 94 76 Activity Tolerance Good Rating of Perceived Dyspnea (PD) +1 Mild, Noticeable to the Participant but Not to an Observer Ambulation Distance (feet) 300 Ambulation Distance (meters) 91.43 Treatment Charges
--- NOTE | 2021-11-24 11:33 | PCRCNOTE ---
HOME O2 EVAL COMPLETE, PT REQUIRES 2 L WITH ACTIVITY. SET UP WITH [facility] [employer] PHONE NUMBER [phone]. TANK DELIVERED TO PT'S ROOM FOR DISCHARGE.
--- NOTE | 2021-11-24 12:15 | PM.IMPN ---
Progress Note: A&P Assessment and Plan (1) COPD (chronic obstructive pulmonary disease): Code(s): J44.9 - Chronic obstructive pulmonary disease, unspecified Status: Acute Assessment and Plan: Continue steroids, nebulizers (2) CHF (congestive heart failure): Qualifiers: Heart failure chronicity: acute Heart failure type: diastolic Qualified Code(s): I50.31 - Acute diastolic (congestive) heart failure Code(s): I50.9 - Heart failure, unspecified Status: Acute Assessment and Plan: Continue IV diuresis, repeat echo pending, continue BiPAP (3) GERD (gastroesophageal reflux disease): Code(s): K21.9 - Gastro-esophageal reflux disease without esophagitis Status: Acute (4) Coronary artery disease: Code(s): I25.10 - Atherosclerotic heart disease of [place] coronary artery without angina pectoris Status: Acute (5) Hypertension: Code(s): I10 - Essential (primary) hypertension Status: Acute (6) Depression: Code(s): F32.9 - Major depressive disorder, single episode, unspecified Status: Acute Subjective Date/time seen: 11/24/21 12:15 Objective Data Vital Signs Vital Signs: Vital Signs - 24 hr 11/23/21 13:05 11/23/21 13:11 11/23/21 15:53 Temperature Pulse Rate 76 74 Respiratory Rate 18 18 Blood Pressure Pulse Oximetry Oxygen Delivery Nasal Cannula Oxygen Flow Rate 2 11/23/21 16:00 11/23/21 19:26 11/23/21 20:36 Temperature 97.8 F 97.6 F Pulse Rate 90 86 80 Respiratory Rate 14 17 18 Blood Pressure 112/70 100/59 L Pulse Oximetry 98 95 Oxygen Delivery Oxygen Flow Rate 11/23/21 20:00 11/24/21 00:27 11/23/21 23:50 Temperature 97.7 F Pulse Rate 73 77 Respiratory Rate 16 17 Blood Pressure 114/67 Pulse Oximetry 95 96 93 Oxygen Delivery Nasal Cannula Autopap Oxygen Flow Rate 2 11/24/21 03:05 11/24/21 03:14 11/23/21 20:50 Temperature Pulse Rate 72 73 83 Respiratory Rate 15 15 18 Blood Pressure Pulse Oximetry 92 Oxygen Delivery Autopap Oxygen Flow Rate 11/24/21 03:18 11/24/21 04:32 11/24/21 07:58 Temperature 97.1 F L Pulse Rate 74 68 Respiratory Rate 15 18 18 Blood Pressure 136/78 Pulse Oximetry 96 96 Oxygen Delivery Nasal Cannula Oxygen Flow Rate 2 11/24/21 08:14 11/24/21 08:00 11/24/21 08:10 Temperature Pulse Rate 72 75 Respiratory Rate 15 15 Blood Pressure Pulse Oximetry Oxygen Delivery Nasal Cannula Oxygen Flow Rate 2 11/24/21 09:53 11/24/21 10:14 11/24/21 10:39 Temperature 97.1 F L Pulse Rate 76 68 Respiratory Rate 18 Blood Pressure 93/54 L Pulse Oximetry 90 Oxygen Delivery Nasal Cannula Oxygen Flow Rate 2 11/24/21 10:55 11/24/21 11:00 11/24/21 11:05 Temperature Pulse Rate 75 92 95 Respiratory Rate Blood Pressure Pulse Oximetry 90 87 L 88 L Oxygen Delivery Room Air Room Air Nasal Cannula Oxygen Flow Rate 1 11/24/21 11:10 11/24/21 11:25 Temperature Pulse Rate 94 76 Respiratory Rate Blood Pressure Pulse Oximetry 90 91 Oxygen Delivery Nasal Cannula Room Air Oxygen Flow Rate 2 Intake/Output Intake/Output: Intake & Output 11/21/21 11/22/21 11/23/21 11/24/21 23:59 23:59 23:59 23:59 Intake Total 1080 1260 1342 440 Output Total 3029 0720 4760 650 [facility] -1945 -1290 -958 -210 Meds/Results Medications: Active Medications Generic Name Dose Route Start Last Admin Trade Name Freq PRN Reason Stop Dose Admin Acetaminophen 500 mg 11/20/21 09:39 Acetaminophen 500 Mg Tablet PO Q6H PRN Pain 1-3 Albuterol 2.5 mg 11/18/21 20:00 11/24/21 08:22 Albuterol Sulfate Neb 2.5 Mg/3 Ml Inh INHALATION 2.5 mg Q6HRT JET Administration Albuterol 2 puff 11/20/21 09:39 11/23/21 12:02 Albuterol Sulfate (*Sp) Aerosol 1 Puff INHALATION 2 puff QIDRT PRN Administration Shortness Of Breath Aripiprazole 5 mg 11/19/21 09:00 11/11
--- NOTE | 2021-11-24 12:36 | PM.DS ---
DS: Summary Time Spent with Patient Time attestation: Total time spent providing and/or coordinating discharge services: DS: Data Data Completed and Pending Labs on day of discharge: Labs from last 24 hours 11/24/21 11/24/21 04:50 04:50 WBC 6.9 RBC 4.89 Hgb 15.3 H Hct 50.4 H MCV 103.1 H MCH 31.3 MCHC 30.4 L RDW 15.2 H Plt Count 222 MPV 9.2 Immature Gran % (Auto) 0.1 Neut % (Auto) 72.8 Lymph % (Auto) 17.4 L [place] % (Auto) 9.0 H Eos % (Auto) 0.6 Baso % (Auto) 0.1 L Lymph # (Auto) 1.20 [place] # (Auto) 0.6 Eos # (Auto) 0.0 Baso # (Auto) 0.0 Abs Immat Gran (auto) 0.01 Absolute Neuts (auto) 5.0 Absolute Nucleated RBC 0.0 Nucleated RBC % 0.0 Sodium 136 L Potassium 3.3 L Chloride 94 L Carbon Dioxide 38 H Anion Gap 4 L BUN 21 H Creatinine 0.50 L Estim Creat Clear Calc 66 Estimated GFR > 60 Glucose 94 Calcium 8.3 L Magnesium 2.4 H Total Bilirubin 0.8 AST 41 H ALT 51 H Alkaline Phosphatase 72 Total Protein 5.0 L Albumin 2.9 L Discharge Plan Discharge Follow-up/Referrals: Brandy Ohara MD [Primary Care Provider] - (You have an appointment with Tish Torre NP on 12/07/21 at 2:00. Please arrive at 1:45. ) Discharge Medications: No Action olopatadine [Pataday Once Daily Relief] 0.2 % Drops 1 drp EACH EYE DAILY donepezil [Aricept] 5 mg tablet 5 mg PO HS atorvastatin 10 mg tablet 10 mg PO DAILY citalopram 10 mg tablet 10 mg PO DAILY metoprolol succinate 100 mg tablet extended release 24 hr 50 mg PO DAILY aripiprazole 5 mg tablet 5 mg PO DAILY ergocalciferol (vitamin D2) [Vitamin D2] 1,250 mcg (50,000 unit) Capsule 1,250 mcg PO WEEKLY Bilbus 1.5 billion cell Capsule 1 cap PO DAILY cyanocobalamin (vitamin B-12) 1,000 mcg tablet 1,000 mcg PO [facility]MWF [facility] Aerosphere 160-9-4.8 mcg/actuation Hfa Aerosol Inhaler 2 inh INHALATION BID acetaminophen 500 mg Capsule 500 mg PO Q6H PRN (Reason: Pain) albuterol sulfate 90 mcg/actuation Hfa Aerosol Inhaler 2 puff INHALATION QID PRN (Reason: Shortness Of Breath) azelastine 137 mcg (0.1 %) Aerosol,[place] 2 spray INTRANASAL BID PRN (Reason: Dry Nasal Passages) Rx Instructions: administer into each nostril polyethylene glycol 3350 17 gram Powder In Packet 17 g PO DAILY PRN (Reason: Constipation) loperamide [Imodium A-D] 2 mg Tablet 2 mg PO QID PRN (Reason: Diarrhea) montelukast 10 mg Tablet 10 mg PO DAILY PreserVision AREDS See Rx Instructions .ROUTE .COMPLEX Rx Instructions: take 1 capsule by mouth 2 times a day loratadine 10 mg PO DAILY fluticasone propionate [Flonase Allergy Relief] 50 mcg/actuation spray,suspension 2 spray INTRANASAL DAILY Qty: 18.2 0RF buspirone 10 mg tablet 10 mg PO BID Qty: 60 0RF oxybutynin chloride 10 mg tablet extended release 24hr 10 mg PO DAILY Qty: 93 1RF pantoprazole [Protonix] 40 mg tablet,delayed release (DR/EC) 40 mg PO QAM Qty: 90 1RF polysaccharide iron complex [Poly-Iron] 150 mg iron capsule 150 mg PO DAILY Qty: 93 1RF pyridoxine (vitamin B6) 100 mg tablet 100 mg PO BID Qty: 183 1RF Date of admission: 11/18/21 13:45 Primary Care Provider: Brandy Ohara Admitting Provider: Aaron Floyd Attending physician on admission: Dennise Puckett Condition: Stable
--- NOTE | 2021-11-24 13:07 | PM.IMPN ---
Subjective Date/time seen: 11/24/21 13:07 Objective Data Vital Signs Vital Signs: Vital Signs - 24 hr 11/23/21 13:11 11/23/21 15:53 11/23/21 16:00 Temperature 97.8 F Pulse Rate 74 90 Respiratory Rate 18 14 Blood Pressure 112/70 Pulse Oximetry 98 Oxygen Delivery Nasal Cannula Oxygen Flow Rate 2 11/23/21 19:26 11/23/21 20:36 11/23/21 20:00 Temperature 97.6 F Pulse Rate 86 80 Respiratory Rate 17 18 Blood Pressure 100/59 L Pulse Oximetry 95 95 Oxygen Delivery Nasal Cannula Oxygen Flow Rate 2 11/24/21 00:27 11/23/21 23:50 11/24/21 03:05 Temperature 97.7 F Pulse Rate 73 77 72 Respiratory Rate 16 17 15 Blood Pressure 114/67 Pulse Oximetry 96 93 Oxygen Delivery Autopap Oxygen Flow Rate 11/24/21 03:14 11/23/21 20:50 11/24/21 03:18 Temperature Pulse Rate 73 83 74 Respiratory Rate 15 18 15 Blood Pressure Pulse Oximetry 92 Oxygen Delivery Autopap Oxygen Flow Rate 11/24/21 04:32 11/24/21 07:58 11/24/21 08:14 Temperature 97.1 F L Pulse Rate 68 Respiratory Rate 18 18 Blood Pressure 136/78 Pulse Oximetry 96 96 Oxygen Delivery Nasal Cannula Nasal Cannula Oxygen Flow Rate 2 2 11/24/21 08:00 11/24/21 08:10 11/24/21 09:53 Temperature Pulse Rate 72 75 76 Respiratory Rate 15 15 Blood Pressure Pulse Oximetry Oxygen Delivery Oxygen Flow Rate 11/24/21 10:14 11/24/21 10:39 11/24/21 10:55 Temperature 97.1 F L Pulse Rate 68 75 Respiratory Rate 18 Blood Pressure 93/54 L Pulse Oximetry 90 90 Oxygen Delivery Nasal Cannula Room Air Oxygen Flow Rate 2 11/24/21 11:00 11/24/21 11:05 11/24/21 11:10 Temperature Pulse Rate 92 95 94 Respiratory Rate Blood Pressure Pulse Oximetry 87 L 88 L 90 Oxygen Delivery Room Air Nasal Cannula Nasal Cannula Oxygen Flow Rate 1 2 11/24/21 11:25 Temperature Pulse Rate 76 Respiratory Rate Blood Pressure Pulse Oximetry 91 Oxygen Delivery Room Air Oxygen Flow Rate Intake/Output Intake/Output: Intake & Output 11/21/21 11/22/21 11/23/21 09/14/22 23:59 23:59 23:59 23:59 Intake Total 9684 9790 1342 680 Output Total 8358 8685 5388 650 [facility]4742 -8310 -958 30 Meds/Results Medications: Active Medications Generic Name Dose Route Start Last Admin Trade Name Freq PRN Reason Stop Dose Admin Acetaminophen 500 mg 11/20/21 09:39 Acetaminophen 500 Mg Tablet PO Q6H PRN Pain 1-3 Albuterol 2.5 mg 11/18/21 20:00 11/24/21 08:22 Albuterol Sulfate Neb 2.5 Mg/3 Ml Inh INHALATION 2.5 mg Q6HRT JET Administration Albuterol 2 puff 11/20/21 09:39 11/23/21 12:02 Albuterol Sulfate (*Sp) Aerosol 1 Puff INHALATION 2 puff QIDRT PRN Administration Shortness Of Breath Aripiprazole 5 mg 11/19/21 09:00 11/24/21 09:52 Aripiprazole 5 Mg Tablet PO 5 mg DAILY JET Administration Atorvastatin Calcium 10 mg 11/19/21 09:00 11/24/21 09:50 Atorvastatin 10 Mg Tablet PO 10 mg DAILY JET Administration Azelastine HCl 2 spray 11/18/21 17:49 Azelastine Hcl Nasal 0.1% 137 Mcg/Spr 30 Ml Btl NASAL BID PRN Dry Nasal Passages Buspirone HCl 10 mg 11/20/21 17:00 11/24/21 09:53 Buspirone Hcl 10 Mg Tablet PO 10 mg BID JET Administration Citalopram Hydrobromide 10 mg 11/19/21 09:00 11/24/21 09:53 Citalopram Hydrobromide 10 Mg Tablet PO 10 mg DAILY JET Administration Cyanocobalamin 1,000 mcg 11/22/21 09:00 11/24/21 09:52 Cyanocobalamin 1,000 Mcg Tablet PO 1,000 mcg MoWeFr JET Administration Donepezil HCl 5 mg 11/18/21 21:00 11/23/21 20:15 Donepezil Hcl 5 Mg Tablet PO 5 mg HS JET Administration Ergocalciferol 50,000 unit 11/24/21 09:00 11/24/21 09:51 Ergocalciferol 50,000 Unit Capsule PO 50,000 unit We JET Administration Fluticasone Propionate 2 spray 11/19/21 09:00 11/24/21 09:50 Fluticasone Propionate 0.05% Na Spr 16 Gm Btl (*Bkc) NASAL 2 spra
[2021-11-24] MEDS: ALBUTEROL SULFATE NEB 2.5 MG/0.5 ML INH (13:15)
--- NOTE | 2021-11-24 13:42 | PM.CNPUL ---
History of Present Illness History of Present Illness Consult date: 11/24/21 Chief complaint: chf,acute hypoxic,hypercapnic respiratory acidosis Narrative: ========= DATA: 05/31/2017: PULMONARY FUNCTION STUDIES FVC, FEV1, FEV1%, [id number] DECREASED. THERE IS ACUTE BRONCHODILATOR RESPONSE. LUNG VOLUMES REVEAL NORMAL TLC BUT INCREASED RV, RV/TLC CONSISTENT WITH AIR TRAPPING. RAW IS INCREASED. DLCO IS MODERATELY DECREASED WITH CORRECTION FOR VA. IMPRESSION: SEVERE OBSTRUCTIVE VENTILATORY DEFECT WITH ACUTE BRONCHODILATOR RESPONSE. MODERATELY DECREASED DLCO. ABG(R/A) 7.43/45/65/29/92% REVEALS MILD HYPOXEMIA OTHERWISE NORMAL. FROM PREVIOUS STUDY 09/08/15 THERE HAS BEEN PROGRESSION OF AIR TRAPPING, HYPERINFLATION. DLCO IMPROVED ON PRESENT STUDY. [facility] Past Medical History Medical History (Updated 11/20/21 @ 17:26 by Alexander Gross MD) A-fib Anemia Ankle fracture, left Anxiety ARF (acute renal failure) Arthritis Asthma Brain bleed s/p fall Cardiomyopathy Cataracts, bilateral CHF (congestive heart failure) COPD (chronic obstructive pulmonary disease) DVT (deep venous thrombosis) GI bleed Hydronephrosis Hyperlipidemia Kidney stone Nose fracture Pacemaker Pulmonary embolism Rhabdomyolysis Seasonal allergies Shoulder fracture, right Surgical History Surgical History (Updated 11/20/21 @ 17:27 by Alexander Gross MD) H/O cystoscopy with stent H/O shoulder surgery History of cardiac catheterization Hx of tonsillectomy S/P ORIF (open reduction internal fixation) fracture left ankle S/P total knee arthroplasty bilaterally Family History Family History Sibling Family history of cardiomyopathy Family history of malignant neoplasm of breast Mother Patient's mother is Hypertension Family history of cardiovascular disease Family history of malignant neoplasm of breast Other Family history of arthritis Family history of malignant neoplasm Social History Social History (Updated 11/18/21 @ 17:33 by Libby Newell NP) Social History: The patient is and lives home alone. The patient has 2 children. The patient is a nonsmoker. She does not use any alcohol marijuana or illicit drugs. Code status DNR Smoking status: Never smoker Second hand tobacco smoke exposure: No Alcohol intake: never Substance use: never Gender identity (if verbalized by the patient): Female Spiritual care concerns: No Meds Home Medications and Allergies Home Medications Medication Instructions Recorded Confirmed Type buspirone 10 mg tablet 10 mg PO BID #60 tabs 04/01/19 11/18/21 Rx fluticasone propionate 50 2 spray intranasal DAILY #18.2 mL 04/01/19 11/18/21 Rx mcg/actuation nasal spray,suspension (Flonase Allergy Relief) oxybutynin chloride 10 mg 10 mg PO DAILY #93 tabs 09/07/19 11/18/21 Rx tablet,extended release 24 hr pantoprazole 40 mg tablet,delayed 40 mg PO QAM #90 tabs 09/07/19 11/18/21 Rx release (Protonix) polysaccharide iron complex 150 mg 150 mg PO DAILY #93 caps 09/07/19 11/18/21 Rx iron capsule (Poly-Iron) pyridoxine (vitamin B6) 100 mg 100 mg PO BID #183 tabs 09/07/19 11/18/21 Rx tablet PreserVision AREDS See Rx Instructions .Route .COMPLEX 05/19/20 11/18/21 History loratadine 10 mg PO DAILY 05/19/20 11/18/21 History montelukast 10 mg tablet 10 mg PO DAILY 05/19/20 11/18/21 History Lactobacills gasseri-Bifidobac 1 cap PO DAILY 11/18/21 11/18/21 History bifidum,longum 1.5 billion cell capsule (Servio) acetaminophen 500 mg capsule 500 mg PO Q6H PRN Pain 11/18/21 11/18/21 History albuterol sulfate 90 mcg/actuation 2 puff inhalation QID PRN 11/18/21 11/18/21 History aerosol inhaler Shortness Of Breath aripiprazole 5 mg tablet 5 mg PO DAILY 11/18/21 11/18/21 History atorvastatin 10 mg tablet 10 mg PO DAILY 11/18/21 11/18/21 History azelastine 137 mcg (0.1 %) nasal
[2021-11-24 14:04] LABS: EDCOVIDSCREEN Negative (Negative)
--- NOTE | 2021-11-24 14:18 | PC.NURSE ---
On 11/24/21, the student, [Jacquie Cleary], provided care and completed [facility] documentation on this patient. I have reviewed the student's documentation and agree with the findings.
[2021-11-24 14:45] LABS: Alveolar/Arterial O2 Gradient 109.9 mmHg; Base Excess ABG 8.3 mEq/l (+/-2.0); Fractional Inspired Oxygen 28 %; HCO3 ABG 29.1 mEq/l (22.0-26.0); Oxygen Content ABG 22.1 %vol (16.0-22.0); Oxygen Saturation ABG 93.3 % (95.0-100.0); Oxyhemoglobin 91.2 % THb (90.0-100.0); PCO2 ABG 29.9 mmHg (35.0-45.0); PO2 ABG 54.5 mmHg (80.0-100.0); PO2 FiO2 Ratio Arterial Blood 1.95 %; Total Hemoglobin 17.3 g/dL (12.0-18.0)
[2021-11-24 14:49] LABS: Device NASAL CANNULA; Modified Allen's Test Pass; Site Drawn RIGHT RADIAL; pH ABG 7.606 (7.350-7.450)
[2021-11-24 15:09] LABS: D Dimer 2.53 ug/mL (<0.48)
--- NOTE | 2021-11-24 18:24 | PM.DS ---
DS: Admitting Diagnosis Discharge Date 11/24/21 Admitting Diagnosis Shortness of breath DS: Discharge Diagnosis Discharge Diagnosis (1) COPD (chronic obstructive pulmonary disease): Code(s): J44.9 - Chronic obstructive pulmonary disease, unspecified Status: Acute (2) CHF (congestive heart failure): Qualifiers: Heart failure chronicity: acute Heart failure type: diastolic Qualified Code(s): I50.31 - Acute diastolic (congestive) heart failure Code(s): I50.9 - Heart failure, unspecified Status: Acute (3) GERD (gastroesophageal reflux disease): Code(s): K21.9 - Gastro-esophageal reflux disease without esophagitis Status: Acute (4) Coronary artery disease: Code(s): I25.10 - Atherosclerotic heart disease of [place] coronary artery without angina pectoris Status: Acute (5) Hypertension: Code(s): I10 - Essential (primary) hypertension Status: Acute (6) Depression: Code(s): F32.9 - Major depressive disorder, single episode, unspecified Status: Acute DS: Summary Hospital Course Hospital Course: 81-year-old female patient who came in via private car complaining of shortness of breath over the last 7 days.? She also had increased swelling to lower extremities.? Patient does live home alone and does not take any oxygen.? She denied any nausea vomiting diarrhea chest pain or lower back pain.? The patient is currently on aspirin and Eliquis.? She does have a history of hypertension, diabetes, COPD ACD, deep vein thrombosis and congestive heart failure.? H&H is 15.6 and 48.9.? Arterial blood gases pH was 7.255 CO2 was 70.7.? ABG 7.2711 and PC CO2 was 82.0.? BNP 5250.? COVID was negative.? Patient is on a BiPAP and her BiPAP is 12/6 with a rate of 20.? The patient was given Lasix IV and nitroglycerin patch as well. Cardiology was consulted. IV diuresis was continued. Patient was started on losartan. Echo was obtained and showed an EF of 50-55% with grade 1 diastolic dysfunction. No significant valvular abnormalities were noted. Heart failure decompensation resolved with IV diuresis and she was transitioned to oral Lasix and remained euvolemic. She also had a COPD exacerbation with hypercapnic respiratory failure that improved with BiPAP. She was discharged in stable condition with close outpatient follow-up by Cardiology and pulmonology on a home trilogy for hypercapnia. Time Spent with Patient Time attestation: Total time spent providing and/or coordinating discharge services: Exam Narrative: General: No acute distress, alert and oriented per baseline HEENT: Atraumatic, normocephalic, mucous membranes moist CV: Regular rate and rhythm, S1, S2 Lungs: Decreased air entry throughout, no wheeze Abdomen: Soft, nontender, nondistended Extremities: Normal to inspection Skin: No rashes noted, no lesions or wounds seen Psych: Euthymic, normal affect DS: Data Data Completed and Pending Labs on day of discharge: Labs from last 24 hours 11/24/21 11/24/21 11/24/21 14:26 13:53 13:03 WBC RBC Hgb Hct MCV MCH MCHC RDW Plt Count MPV Immature Gran % (Auto) Neut % (Auto) Lymph % (Auto) [place] % (Auto) Eos % (Auto) Baso % (Auto) Lymph # (Auto) [place] # (Auto) Eos # (Auto) Baso # (Auto) Abs Immat Gran (auto) Absolute Neuts (auto) Absolute Nucleated RBC Nucleated RBC % D-Dimer 2.53 H Puncture Site Right radial ABG pH 7.606 H* ABG pCO2 29.9 L ABG pO2 54.5 L ABG PO2/FiO2 Ratio 1.95 ABG HCO3 29.1 H ABG O2 Saturation 93.3 L ABG O2 Content 22.1 H ABG Base Excess 8.3 A-a Gradient 109.9 Oxyhemoglobin 91.2 Total Hemoglobin 17.3 O2 Delivery Device Nasal cannula O2 Liters/Min 2.0 FiO2 28 Sodium Potassium Chloride Carbon Dioxide Anion Gap BUN Creatinine Estim Creat Clear Calc Estimated GFR G
== END 2021-11-24 17:35 | DRG 291 ==
LOC: ANHED 13:55 → ANHIMU 15:04 → ANH2MED 11-22 16:40
PROVIDERS: Emergency Medicine; Internal Medicine Pulmonary Disease; Nurse Practitioner; Physician Assistant; Admitting Provider Internal Medicine; Emergency Provider Emergency Medicine; PCP Internal Medicine Cardiovascular Disease; Visit Provider Student in an Organized Health Care Education/Training Program
DX: I11.0 Hypertensive heart disease with heart failure (principal); I50.33 Acute on chronic diastolic (congestive) heart failure; J96.01 Acute respiratory failure with hypoxia; J96.02 Acute respiratory failure with hypercapnia; J44.1 Chronic obstructive pulmonary disease with (acute) exacerbation; E11.9 Type 2 diabetes mellitus without complications; Z20.822 Contact with and (suspected) exposure to COVID-19; I48.91 Unspecified atrial fibrillation; E78.5 Hyperlipidemia, unspecified; D64.9 Anemia, unspecified; M19.90 Unspecified osteoarthritis, unspecified site; K21.9 Gastro-esophageal reflux disease without esophagitis; F41.9 Anxiety disorder, unspecified; Z96.653 Presence of artificial knee joint, bilateral; Z79.82 Long term (current) use of aspirin; Z79.01 Long term (current) use of anticoagulants; Z86.711 Personal history of pulmonary embolism; Z87.442 Personal history of urinary calculi; Z86.718 Personal history of other venous thrombosis and embolism; Z95.810 Presence of automatic (implantable) cardiac defibrillator; Z66 Do not resuscitate
CPT/HCPCS: 36415; 36600; 71045; 71046; 80053; 82375; 82728; 82805; 83050; 83605; 83615; 83735; 83880; 84443; 84484; 85025; 85380; 85610; 85730; 86140; 87040; 87426; 93005; 93306; 94002; 94003; 94618; 94640; 94660; 97161; 97165; 99285; A9270; C9803; J1940; J2920; J2930; J7512; U0003; U0005

== ENCOUNTER 2022-01-07 12:41 | Outpatient (CLI) | payer MEDICARE, SELFPAY ==
[2022-01-07 13:15] LABS: Base Excess ABG 6.3 mEq/l (+/-2.0); Carboxyhemoglobin 0.1 % THb (0-2.0); Fractional Inspired Oxygen 21 %; HCO3 ABG 29.8 mEq/l (22.0-26.0); Methemoglobin ABG 0.2 %THb (0-1.5); Oxygen Content ABG 17.8 %vol (16.0-22.0); Oxygen Saturation ABG 95.2 % (95.0-100.0); Oxyhemoglobin 94.6 % THb (90.0-100.0); PO2 FiO2 Ratio Arterial Blood 3.29 %; Reduced Hemoglobin 5.1 %THb (0-5.0); Total Hemoglobin 13.4 g/dL (12.0-18.0); pH ABG 7.501 (7.350-7.450)
[2022-01-07 13:16] LABS: Device ROOM AIR; Modified Allen's Test Pass
== END 2022-01-07 12:42 | disposition home or self-care (01) ==
LOC: ANHPFT 12:42
PROVIDERS: PCP Nurse Practitioner Family; Visit Provider Nurse Practitioner Family
DX: J96.10 Chronic respiratory failure, unspecified whether with hypoxia or hypercapnia (principal)
CPT/HCPCS: 36600; 82375; 82805; 83050

== ENCOUNTER 2022-04-11 11:58 | Inpatient (IN) | payer MEDICARE, SELFPAY ==
--- NOTE | ~2022-04-11 | CT_ITS ---
EXAMINATION: CT brain wo con INDICATION: Confusion COMPARISON: 02/13/2019 TECHNIQUE: Standard unenhanced head CT. The dose-length product (DLP) was 605.33 mGy-cm. The mA was a djusted according to patient size. Iterative reconstruction technique was employed. FINDINGS: There is no acute intraparenchymal hemorrhage. No evidence of mass lesion. No evidence of a cute infarction. There is mild periventricular and subcortical hypodensity probably related to small vessel ischemic disease. There is mild prominence of the sulci and ventricles related to cerebral atr ophy. Intracranial calcified cerebral atherosclerosis is noted. There are no extra-axial collections. There is no mass effect or midline shift. Changes in the globes are likely from ocular lens surgery. There is mild mucosal thickening of the paranasal sinuses. IMPRESSION: 1. No acute intracranial abnormality. 2. Age related findings. Reviewed, dictated and finalized at location B. 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
--- NOTE | ~2022-04-11 | XR_ITS ---
EXAMINATION: XR chest 1V DATE: 04/11/2022 12:51 INDICATION: Dyspnea. TECHNIQUE: A single frontal view of the chest was obtained. COMPARISON: Chest single view 11/23/2021, chest CT 05/18/2017 FINDINGS: There is mild atelectasis at the lung bases. There is mild scarring at the lung apices. No pleural effusion or pneumothorax. The heart size is normal. There is a left chest wall pacer with wendi ds in the right atrium and right ventricle. There is a total right shoulder arthroplasty. IMPRESSION: 1. Mild atelectasis at the lung bases and mild scarring at the lung apices. Reviewed, dictated and finalized at location A. 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
--- NOTE | ~2022-04-11 | CT_ITS ---
EXAMINATION: CTA BRAIN/CAROTID DATE: 04/12/2022 15:36 INDICATION: Strokelike symptoms with altered mental status. Dementia. TECHNIQUE: Computed tomographic angiography (CTA) of the head and neck was performed with 100 mL Omni paque-350 intravenous contrast. Multiplanar reconstructions and maximum intensity projection 3D-recon structions of the carotid arteries and of the intracranial arteries were created by the technologist on a separate workstation. Precontrast CT of the head was also obtained. Automated exposure control and iterative reconstruction technique were employed.The dose-length product was 1553.10 mGy-cm. COMPARISON: Head CT dated 04/11/2022 and brain and carotid CT angiogram dated 04/22/2011 FINDINGS: Carotid arteries: Left pectoral cardiac pacemaker with leads extending through the left brachiocephalic vein into the s uperior vena cava and beyond the inferior margin of the [id number]. There appears be significant s tenosis at the left brachiocephalic vein with numerous contrast opacified chest wall and cervical col lateral veins. Extensive nonhemodynamically significant atherosclerotic plaque along the normal calib er aortic arch. No dissection. There is small amount of atherosclerotic plaque with 0% stenosis of th e right and left carotid bulbs relative to normal distal artery lumen diameter (NASCET criteria). Mil d biapical pleural-parenchymal scarring. Cervical soft tissues are unremarkable. Mild cervical kyphos is with mild to moderate spondylosis. Head: No acute intracranial hemorrhage, acute infarction or abnormal extra axial fluid collection. There is mild scattered white matter hypoattenuation consistent with chronic small vessel ischemic disease. Ventricles are normal and symmetric. No mass/mass effect. Changes of bilateral intraocular lens repla cement. The orbits, paranasal sinuses and mastoid air cells are normal. Intracranial arteries Small amount of nonhemodynamically significant atherosclerotic plaque at the bilateral carotid siphon s. There is no hemodynamically significant stenosis in the vertebral or basilar arteries. Left verteb ral artery is dominant. There are no aneurysms identified. Both A1 and P1 segments are patent. There is also a tiny patent anterior communicating artery. Cerebral arterial arborization appears symmetri c. No abnormally enhancing brain lesions. IMPRESSION: 1. Small amount of atherosclerotic plaque with 0% stenosis of the right and left carotid bulbs relati ve to normal distal artery lumen diameter (NASCET criteria). 2. Mild scattered white matter hypoattenuation consistent with chronic small vessel ischemic disease. No acute intracranial process or abnormally enhancing brain lesions. 3. Unremarkable cerebral CT angiogram with no hemodynamically significant stenosis, thrombosis or ane urysm. 4. Stenosis of the left brachiocephalic left M the contrast injection resulting in multiple contrast unopacified chest wall and cervical collateral veins. Reviewed, dictated and finalized at location A. RITY ROVER IMPRESSION: 1. Small amount of atherosclerotic plaque with 0% stenosis of the right and lef t carotid bulbs relative to normal distal artery lumen diameter (NASCET criteri a). 2. Mild scattered white matter hypoattenuation consistent with chronic small ve ssel ischemic disease. No acute intracranial process or abnormally enhancing br ain lesions. 3. Unremarkable cerebral CT angiogram with no hemodynamically significant steno sis, thrombosis or aneurysm. 4. Stenosis of the left brachiocephalic left M the contrast injection resulting in multiple contrast unopacified chest wall and cervical collateral veins.
--- NOTE | 2022-04-11 12:02 | ED.HEATRA ---
HPI - Head Injury General Chief complaint: Altered Mental Status Stated complaint: AMS Time Seen by Provider: 04/11/22 12:00 Source: patient and EMS Mode of arrival: EMS Limitations: no limitations History of Present Illness HPI Narrative: Patient is a 81-year-old female with a history of chronic hypoxemic respiratory failure, hypertension, hyperlipidemia, congestive heart failure, presenting to the emergency department for evaluation of intermittent confusion. Patient states that this morning, she found herself confused in the morning when she was trying to go to breakfast. Patient denies any focal weakness or numbness, fall or injury. No recent illness. She denies fever, chills, nausea or vomiting. Patient states that she went to call the aides at her intermediate to help her and then when they arrived to the room she was not sure why she had called them. Patient states that these feelings seem to be quite intermittent. They do happen occasionally throughout the day over the past several weeks. Patient denies any current pain. She denies cough, chest pain, shortness of breath. She denies abdominal pain. I reviewed the patient's chart as well as recent pulmonology visit, patient diagnosed with chronic hypoxic respiratory failure, thought that her chronic respiratory symptoms are not thought to be related to COPD based on pulmonary function testing. Patient is currently alert and oriented to person, place, and to time. Related Data Home Medications Medication Instructions Recorded Confirmed PreserVision AREDS See Rx Instructions .Route .COMPLEX 05/19/20 01/05/22 loratadine 10 mg PO DAILY 05/19/20 01/05/22 montelukast 10 mg tablet 10 mg PO DAILY 05/19/20 01/05/22 Lactobacills gasseri-Bifidobac 1 cap PO DAILY 11/18/21 01/05/22 bifidum,longum 1.5 billion cell capsule ([facility]) acetaminophen 500 mg capsule 500 mg PO Q6H PRN Pain 11/18/21 01/05/22 albuterol sulfate 90 mcg/actuation 2 puff inhalation QID PRN 11/18/21 01/05/22 aerosol inhaler Shortness Of Breath aripiprazole 5 mg tablet 5 mg PO DAILY 11/18/21 01/05/22 atorvastatin 10 mg tablet 10 mg PO DAILY 11/18/21 01/05/22 azelastine 137 mcg (0.1 %) nasal 2 spray intranasal BID PRN Dry 11/18/21 01/05/22 spray aerosol Nasal Passages budesonide 160 mcg-glycopyr 9 2 inh inhalation BID 11/18/21 01/05/22 mcg-formot 4.8 mcg/actuation HFA inhaler (Breztri Aerosphere) citalopram 10 mg tablet 10 mg PO DAILY 11/18/21 01/05/22 cyanocobalamin (vitamin B-12) 1,000 mcg PO QMWF 11/18/21 01/05/22 1,000 mcg tablet donepezil 5 mg tablet (Aricept) 5 mg PO HS 11/18/21 01/05/22 ergocalciferol (vitamin D2) 1,250 1,250 mcg PO WEEKLY 11/18/21 01/05/22 mcg (50,000 unit) capsule (Vitamin D2) loperamide 2 mg tablet (Imodium 2 mg PO QID PRN Diarrhea 11/18/21 01/05/22 A-D) olopatadine 0.2 % eye drops 1 drp EACH EYE DAILY 11/18/21 01/05/22 (Pataday Once Daily Relief) polyethylene glycol 3350 17 gram 17 g PO DAILY PRN Constipation 11/18/21 01/05/22 oral powder packet metoprolol succinate 100 mg 100 mg PO DAILY 01/05/22 01/05/22 tablet,extended release 24 hr Allergies Allergy/AdvReac Type Severity Reaction Status Date / Time clarithromycin Allergy Unknown Unknown Verified 03/15/22 10:30 lisinopril Allergy Unknown Unknown Verified 03/15/22 10:30 nitrofurantoin Allergy Unknown Palpitation Verified 03/15/22 10:30 s Review of Systems Review of Systems: CONSTITUTIONAL: Denies fever, chills, or sweats. EYES: Denies visual changes, redness, or discharge. ENT: Denies rhinorrhea, congestion, sore throat, or otalgia. CARDIOVASCULAR: Denies chest pain, palpitations, or edema. RESPIRATORY: Denies cough or dyspnea. GASTROINTESTINAL: Denies abdominal pain, nausea, vomiting, or diarrhea. GENITOURINARY: Denies dysuria or hematuria. SKIN: Denies rash or itching. MUSCULOSKELETAL: Denies back pain, joint pain, or myalgia. NEUROLOGIC: Denies headache, numbness, or weakness
[2022-04-11 12:07] VITALS: BP 120/69; PULSE 78; RESP 22; TEMP 37.3; O2SAT 100
--- NOTE | 2022-04-11 12:11 | ECG_ITS ---
Measurements Intervals [place] Rate: 75 P: -3 [place]: 175 QRS: -48 QRSD: 135 T: 45 QT: 425 QTc: 476 Interpretive Statements SINUS RHYTHM WITH SINUS ARRHYTHMIA RIGHT BUNDLE BRANCH BLOCK LEFT ANTERIOR FASCICULAR BLOCK LEFT VENTRICULAR HYPERTROPHY WITH ST-T CHANGE BASELINE ARTIFACT- I, II, III, AVR, AVL, AVF, V1-V2 ABNORMAL ECG COMPARED TO ECG 11/18/2021 11:59:16 SINUS ARRHYTHMIA NOW PRESENT RIGHT BUNDLE BRANCH BLOCK NOW PRESENT LEFT ANTERIOR FASCICULAR BLOCK NOW PRESENT Electronically Signed On 04-11-2022 12:54:50 [employer] by Kuldeep Salgado D.O.
[2022-04-11 12:54] LABS: Basophils Percent Auto 0.3 % (0.2-1.2); Eosinophils Absolute Auto 0.3 K/mm3 (0-0.3); Eosinophils Percent Auto 4.1 % (0-4.4); Hematocrit 38.4 % (37.0-47.0); Immature Granulocyte Absolute 0.02 K/mm3 (0.00-0.031); Immature Granulocyte Percent A 0.3 % (0-0.5); Lymphocytes Percent Auto 18.4 % (18.3-44.2); Mean Corpuscular HGB Conc 31.3 g/dl (32-36); Mean Corpuscular Hemoglobin 31.6 pg (26-34); Mean Corpuscular Volume 101.1 fl (80-100); Monocytes Absolute Auto 0.8 K/mm3 (0.1-0.6); Monocytes Percent Auto 10.9 % (2.6-8.5); Neutrophils Absolute Auto 4.7 K/mm3 (1.3-6.7); Platelet Count Result 244 k/mm3 (150-375); Red Cell Distribution Width 13.4 % (11.5-14.5); White Blood Count 7.1 K/mm3 (4.5-10.0)
[2022-04-11 13:04] LABS: Alanine Aminotransferase 20 U/L (6-35); Albumin Level 3.6 g/dL (3.5-5.1); Alkaline Phosphatase 97 U/L (38-126); Anion Gap 1 mmol/L (8-16); Aspartate Amino Transferase 25 U/L (14-36); Bilirubin,Total 0.3 mg/dL (0.2-1.3); Blood Urea Nitrogen 17 mg/dL (7-17); Calcium 8.3 mg/dL (8.4-10.2); Carbon Dioxide 38 mmol/L (22-30); Chloride 93 mmol/L (98-107); Estimated CRCL calculation 60 ml/min; Estimated Glomerular Filt Rate > 60; Glucose 72 mg/dL (65-110); Potassium 4.2 mmol/L (3.4-5.0); Sodium 132 mmol/L (137-145)
[2022-04-11 13:05] LABS: INR 1.1; Prothrombin Time 13.5 Seconds (11.1-14.7)
[2022-04-11 13:06] LABS: Partial Thromboplastin Time 30.4 SECONDS (22.3-36.8)
[2022-04-11 13:18] LABS: Alveolar/Arterial O2 Gradient 103.8 mmHg; Fractional Inspired Oxygen 28 %; HCO3 ABG 34.5 mEq/l (22.0-26.0); Oxygen Content ABG 15.6 %vol (16.0-22.0); PCO2 ABG 45.7 mmHg (35.0-45.0); Total Hemoglobin 13.4 g/dL (12.0-18.0); pH ABG 7.496 (7.350-7.450)
[2022-04-11 13:25] LABS: Device NASAL CANNULA; Modified Allen's Test Pass; Oxygen Saturation ABG 81.3 % (95.0-100.0); PO2 ABG 41.9 mmHg (80.0-100.0); Site Drawn LEFT RADIAL
[2022-04-11 14:10] LABS: Appearance Urine Slightly Cloudy (Clear); Bilirubin Urine Negative (Negative); Blood Urine Negative (Negative); Color Urine Yellow (Yellow); Glucose Urine UA Negative (Negative); Ketones Urine Negative (Negative); Leukocyte Esterase Ur Negative LEU/UL (Negative); Nitrate Urine Positive (Negative); Protein Urine Negative (Negative); Specific Grav Ur 1.015 (1.001-1.035); Urobilinogen Urine 0.2 mg/dL (<2.0); pH Urine 7.5 (5.0-9.0)
[2022-04-11 14:26] LABS: Bacteria Urine Trace /hpf; RBC Urine 0-2 /hpf (0-2); Squamous Epithelial Cell Urine Rare /hpf (Few); WBC Urine 0-3 /hpf
[2022-04-11 14:28] LABS: Add Urine Microscopic? YES
[2022-04-11 14:53] VITALS: BP 121/66; PULSE 77; RESP 24; O2SAT 100
[2022-04-11 15:09] LABS: NT Pro B Type Natriuretic Pept 1750 pg/mL (19.9-100); Troponin I < 0.012 ng/mL (0.000-0.034)
[2022-04-11 16:58] VITALS: BP 134/76; PULSE 68; RESP 18; O2SAT 100
--- NOTE | 2022-04-11 17:27 | ADMGEN ---
This patient, [place], was admitted to 2 Medical Room 256-. Patient/family oriented to hospital policies and general routines including ID bracelet, bed and alarms, visiting hours, pain management, procedures, bathroom and other care routines, personal items, smoking policy, room service/diet, and visiting hours. Information on how to activate the Rapid Response Team has been discussed. Patient/Family are encouraged to report perceived risks to care and to ask questions if they do not understand what they are told or what they should do.
[2022-04-11 17:28] VITALS: BP 149/62; PULSE 74; RESP 24; O2SAT 97
[2022-04-11 17:37] LABS: Influenza A QL RT-PCR Negative (Negative); Influenza B QL RT-PCR Negative (Negative); SARS-CoV-2 RNA PCR Negative
[2022-04-11 19:45] LABS: Troponin I < 0.012 ng/mL (0.000-0.034)
[2022-04-11 20:00] VITALS: PULSE 65
--- NOTE | 2022-04-11 20:54 | PM.IMHP ---
H&P: HPI History of Present Illness Date/Time: 04/11/22 20:54 Chief Complaint: Altered mental status Narrative: This is a 81-year-old female with past medical history significant for hypertension, dementia, generalized anxiety disorder, pacemaker defibrillator in place. Patient is resident at assisted living facility she was brought to the emergency room for evaluation due to altered mental status patient was confused not herself she has recollection of events she denies any changes to her speech or any focal sensorimotor deficit. The night before she went to bed and she was her usual. She had has been her usual state of health denies any fevers, rigors, chills, headaches, vision changes, nausea, vomiting, cough, sputum production, pain or burning with urination, dizziness, gait instability. At the time of my visit the was complete resolution of this according to patient states that she feels back to her usual. Preliminary workup has been essentially nonrevealing. Review of Systems Review of Systems: Confusion Constitutional: Constitutional: Denies chills, Denies fever(s), Denies malaise, Denies night sweats and Denies weakness Eyes: Eyes: Denies change in vision ENT: Denies dysphagia, Denies vertigo, Denies dizziness and Denies odynophagia Cardiovascular: Cardiovascular: Denies chest pain, Denies lightheadedness and Denies palpitations Respiratory: Respiratory: Denies chest congestion, Denies pain on inspiration and Denies dyspnea on exertion Gastrointestinal: Gastrointestinal: Denies abdominal pain, Denies dyspepsia, Denies heartburn, Denies diarrhea, Denies nausea and Denies vomiting Genitourinary: Genitourinary: Denies dysuria Musculoskeletal: Musculoskeletal: Denies joint swelling, Denies muscle weakness and Denies neck pain Integumentary/Breasts: Skin/Breast: Denies rash Neurologic: Reports confusion, Denies vertigo, Denies dizziness, Denies focal weakness and Denies radicular pain Psychiatric: Psychiatric: Reports no additional psychiatric complaints and Reports as per HPI Endocrine: Endocrine: Denies cold intolerance, Denies flushing, Denies heat intolerance, Denies polyphagia, Denies polydipsia and Denies palpitations Hematologic/Lymphatic: Hematologic/Lymphatic: Reports no additional hematologic/lymphatic complaints and Reports as per HPI Allergic/Immunologic: Allergic/Immunologic: Reports no additional allergic/immunologic complaints and Reports as per HPI [facility] Past Medical History Medical History A-fib Anemia Ankle fracture, left Anxiety ARF (acute renal failure) Arthritis Asthma Brain bleed s/p fall Cardiomyopathy Cataracts, bilateral CHF (congestive heart failure) COPD (chronic obstructive pulmonary disease) DVT (deep venous thrombosis) GI bleed Hydronephrosis Hyperlipidemia Kidney stone Nose fracture Pacemaker Pulmonary embolism Rhabdomyolysis Seasonal allergies Shoulder fracture, right Surgical History Surgical History H/O cystoscopy with stent H/O shoulder surgery History of cardiac catheterization Hx of tonsillectomy S/P ORIF (open reduction internal fixation) fracture left ankle S/P total knee arthroplasty bilaterally Family History Family History Sibling Family history of cardiomyopathy Family history of malignant neoplasm of breast Mother Patient's mother is Hypertension Family history of cardiovascular disease Family history of malignant neoplasm of breast Other Family history of arthritis Family history of malignant neoplasm Social History Social History Social History: The patient is and lives home alone. The patient has 2 children. The patient is a nonsmoker. She does not use any alcohol marijuana or illici
[2022-04-11 21:16] VITALS: BP 121/52; PULSE 67; RESP 18; TEMP 36.6; O2SAT 97; BMI 23.3
[2022-04-12] VITALS (10 sets, daily range): BP systolic 112–121; BP diastolic 49–60; PULSE 66–80; RESP 16–20; TEMP 36.6–36.8; O2SAT 98
--- NOTE | 2022-04-12 | ECHOL_ITS ---
Patient Info Name: Maria Ines Park Age: 81 years : 1940 Gender: Female Ht: 64 in Wt: 135 lbs BSA: 1.67 m2 HR: 77 bpm BP: 121 / 60 mmHg Heart Rhythm: Sinus Rhythm Technical Quality: Fair Exam Date: 04/12/2022 10:25 AM Exam Location: [facility] Patient Status: Inpatient Admit Date: 04/11/2022 Staff Ordering Physician: Emilio Kumar Yard Assistant: Yulisa Patricia RDCS Attending Provider: Dennise Puckett DO Referring Physician: José BRITO; Exam Type: CA echo limited Study Info Indications - Bubble study Limited two-dimensional transthoracic echocardiogram is performed with agitated saline. Contrast/Agitated Saline Contrast/Ag. Saline: Agitated Saline Amount: 20.00 ml Administered By: Agustina Rm RDCS Existing IV Access: Yes IV Access Condition: patent with no signs of infiltration Summary 1. This was a limited study done for bubble study. 2. Intact interatrial septum visualized by agitated saline imaging. 3. Negative bubble study. Atrial Septum Intact interatrial septum visualized by agitated saline imaging. Report Signatures
--- NOTE | 2022-04-12 07:15 | P.PNIM_ITS ---
Progress Note: A&P Assessment and Plan (1) TIA (transient ischemic attack): Code(s): G45.9 - Transient cerebral ischemic attack, unspecified Status: Acute Assessment and Plan: * presented with acute confusion * seems to be resolved * head CT found no acute intracranial abnormalities * echo from November was normal, bubble was also negative for a PFO * lipid panel seems relatively stable with an LDL of 75 increase atorvastatin to 40 mg daily * continue aspirin * head neck CTA pending * unable to get MRI due to pacemaker * Continue to monitor * Neuro checks q.4 (2) ICD (implantable cardioverter-defibrillator) battery depletion: Code(s): Z45.02 - Encounter for adjustment and management of automatic implantable cardiac defibrillator Status: Acute Assessment and Plan: * Unchanged * EKG shows sinus rhythm with sinus arrhythmia (3) COPD (chronic obstructive pulmonary disease): Code(s): J44.9 - Chronic obstructive pulmonary disease, unspecified Status: Acute Assessment and Plan: * Not actively wheezing * Continue home meds * continue home oxygen (4) GERD (gastroesophageal reflux disease): Code(s): K21.9 - Gastro-esophageal reflux disease without esophagitis Status: Acute Assessment and Plan: * PPI (5) Hypertension: Code(s): I10 - Essential (primary) hypertension Status: Acute Assessment and Plan: * current blood pressure 121/60 * Continue home meds metoprolol 50 mg daily, losartan 25 mg daily * Continue to monitor * adjust therapy as indicated (6) Acute metabolic encephalopathy: Code(s): G93.41 - Metabolic encephalopathy Status: Acute Assessment and Plan: * Now has resolved * Patient states that she is back to her usual * repeat UA ordered with culture * most likely secondary to TIA, infection, exhaustion, possible dementia * No focal sensorimotor deficit * MRI is not possible due to presence of pacemaker defibrillator (7) Dementia: Code(s): F03.90 - Unspecified dementia, unspecified severity, without behavioral disturbance, psychotic disturbance, mood disturbance, and anxiety Status: Acute Assessment and Plan: * seems stable at this time * continue Aricept * stable but could be the reason for the admission Time Spent With Patient Time: 51 minutes Time with patient: Greater than 35 minutes Subjective Date/time seen: 04/12/22714 Interval history: 04/12/22714 patient was lying in bed. Patient states that she feels fine. Patient currently denies any chest pain, shortness a breath, nausea, vomiting, diarrhea or constipation. Patient does know the month, the year her name and date of however she does not know where she is. She seems very tired today. She states that she feels like she is back to her baseline. Urine culture did not reflex however patient was positive for nitrates. Will have UA repeated with culture. CTA of the head and neck and echo are pending at this time. LDLs are 75 will increase her atorvastatin to 40 mg daily. 04/11/22? 20:54 This is a 81-year-old female with past medical history significant for hyperte nsion, dementia, generalized anxiety disorder, pacemaker defibrillator in
--- NOTE | 2022-04-12 07:15 | PM.IMPN ---
Progress Note: A&P Assessment and Plan (1) TIA (transient ischemic attack): Code(s): G45.9 - Transient cerebral ischemic attack, unspecified Status: Acute Assessment and Plan: presented with acute confusion seems to be resolved head CT found no acute intracranial abnormalities echo from November was normal, bubble was also negative for a PFO lipid panel seems relatively stable with an LDL of 75 increase atorvastatin to 40 mg daily continue aspirin head neck CTA pending unable to get MRI due to pacemaker Continue to monitor Neuro checks q.4 (2) ICD (implantable cardioverter-defibrillator) battery depletion: Code(s): Z45.02 - Encounter for adjustment and management of automatic implantable cardiac defibrillator Status: Acute Assessment and Plan: Unchanged EKG shows sinus rhythm with sinus arrhythmia (3) COPD (chronic obstructive pulmonary disease): Code(s): J44.9 - Chronic obstructive pulmonary disease, unspecified Status: Acute Assessment and Plan: Not actively wheezing Continue home meds continue home oxygen (4) GERD (gastroesophageal reflux disease): Code(s): K21.9 - Gastro-esophageal reflux disease without esophagitis Status: Acute Assessment and Plan: PPI (5) Hypertension: Code(s): I10 - Essential (primary) hypertension Status: Acute Assessment and Plan: current blood pressure 121/60 Continue home meds metoprolol 50 mg daily, losartan 25 mg daily Continue to monitor adjust therapy as indicated (6) Acute metabolic encephalopathy: Code(s): G93.41 - Metabolic encephalopathy Status: Acute Assessment and Plan: Now has resolved Patient states that she is back to her usual repeat UA ordered with culture most likely secondary to TIA, infection, exhaustion, possible dementia No focal sensorimotor deficit MRI is not possible due to presence of pacemaker defibrillator (7) Dementia: Code(s): F03.90 - Unspecified dementia, unspecified severity, without behavioral disturbance, psychotic disturbance, mood disturbance, and anxiety Status: Acute Assessment and Plan: seems stable at this time continue Aricept stable but could be the reason for the admission Time Spent With Patient Time: 51 minutes Time with patient: Greater than 35 minutes Subjective Date/time seen: 04/12/22714 Interval history: 04/12/22714 patient was lying in bed. Patient states that she feels fine. Patient currently denies any chest pain, shortness a breath, nausea, vomiting, diarrhea or constipation. Patient does know the month, the year her name and date of however she does not know where she is. She seems very tired today. She states that she feels like she is back to her baseline. Urine culture did not reflex however patient was positive for nitrates. Will have UA repeated with culture. CTA of the head and neck and echo are pending at this time. LDLs are 75 will increase her atorvastatin to 40 mg daily. 04/11/22? 20:54 This is a 81-year-old female with past medical history significant for hypertension, dementia, generalized anxiety disorder, pacemaker defibrillator in place.? Patient is resident at assisted living facility she was brought to the emergency room for evaluation due to altered mental status patient was confused not herself she has recollection of events she denies any changes to her speech or any focal sensorimotor deficit.? The night before she went to bed and she was her usual.? She had has been her usual state of health denies any fevers, rigors, chills, headaches, vision changes, nausea, vomiting, cough, sputum production, pain or burning with urination, dizziness, gait instability.? At the time of my visit the was complete resolution of this
[2022-04-12 07:51] LABS: Cholesterol 162 mg/dL (0-200); HDL Direct 55 mg/dL; Triglycerides 56 mg/dL (<150)
[2022-04-12 07:52] LABS: LDL Cholesterol Direct 75 mg/dL
[2022-04-12] MEDS: busPIRone HCL 10 MG TABLET PO ×2 (08:10→16:38)
[2022-04-12] MEDS: ACIDOPHILUS/BULGARICUS CHEWABLE TABLET 1 TABLET BY MOUTH (08:10)
[2022-04-12] MEDS: FUROSEMIDE 40 MG TABLET PO (08:10)
[2022-04-12] MEDS: AZELASTINE HCL NASAL 0.1% 137 MCG/SPR 30 ML BTL 2 SPRAY NASAL (08:10)
[2022-04-12] MEDS: MONTELUKAST SODIUM 10 MG TABLET PO (08:10)
[2022-04-12] MEDS: oxyBUTYnin CHLORIDE XL 5 MG TAB.ER.24 10 MG PO (08:11)
[2022-04-12] MEDS: OLOPATADINE 0.1% OPHTH SOLN 5 ML BTL 1 DROP EACH EYE (08:11)
[2022-04-12] MEDS: METOPROLOL SUCCINATE EXT REL 50 MG TABCR PO (08:11)
[2022-04-12] MEDS: LOSARTAN POTASSIUM 25 MG TABLET PO (08:12)
[2022-04-12] MEDS: PANTOPRAZOLE 40 MG TABLET PO (08:12)
[2022-04-12] MEDS: LORATADINE 10 MG TABLET PO (08:12)
[2022-04-12] MEDS: ARIPiprazole 5 MG TABLET PO (08:12)
[2022-04-12] MEDS: OPTI-GEN TAB 1 TABLET PO ×2 (08:12→21:07)
[2022-04-12] MEDS: CITALOPRAM HYDROBROMIDE 10 MG TABLET PO (08:13)
[2022-04-12] MEDS: FLUTICASONE PROPIONATE 0.05% NA SPR 16 GM BTL (*BKC) 2 SPRAY NASAL (08:13)
[2022-04-12] MEDS: PYRIDOXINE HCL 50 MG TABLET 100 MG PO ×2 (08:13→16:38)
[2022-04-12] MEDS: POLYSACCHARIDE IRON COMPLEX 150 MG CAPSULE PO (08:13)
--- NOTE | 2022-04-12 09:12 | WPDNEURCNPN ---
Assessment and Plan Assessment and plan (1) Altered mental status: Code(s): R41.82 - Altered mental status, unspecified Status: Acute (2) TIA (transient ischemic attack): Code(s): G45.9 - Transient cerebral ischemic attack, unspecified Status: Acute (3) Abnormal finding on urinalysis: Code(s): R82.90 - Unspecified abnormal findings in urine Status: Acute Plan Maria Ines Park is a 81 year old female with a history of atrial fibrillation, anxiety, ICH from fall, cardiomyopathy, pacemaker, COPD, HTN, HLD who presented to due to transient episode of confusion. Concern for TIA/stroke vs underlying infectious etiology (UTI?). Unfortunately, will not be able to obtain MRI of the brain due to patient's pacemaker. - Continue Aspirin and Lipitor - CTA brain/carotid and surface echocardiogram pending - If pacemaker is MRI compatible, recommend outpatient MRI brain w/o contrast (that is pacemaker compatible) Consult date: 04/12/22 Reason for consult: TIA HPI: Maria Ines Park is a 81 year old female with a history of atrial fibrillation, anxiety, ICH from fall, cardiomyopathy, pacemaker, COPD, HTN, HLD who presented to emergency department due to transient episode of confusion. Patient reports feeling confused on the morning of presentation. Patient denies any focal weakness or numbness, fall or injury.? No recent illness.? She denies fever, chills, nausea or vomiting.? Patient states that she went to call the aides at her assisted to help her and then when they arrived to the room she was not sure why she had called them. She put her clothes wrong incorrectly and when she went down for lunch, she was having trouble trying to make a decision about her meal.? Son reported that on day of presentation, patient did not recognize him on the phone and her speech was garbled. On arrival to the ED, patient was completed oriented to person, place, and time. CT head was unrevealing. UA was suspicious for possible UTI so she was started on antibiotics and subsequently admitted. She does take daily aspirin and Lipitor 10mg daily. LDL from this admission is 75. Patient currently feels that she is back to her baseline mental status. She denies any other concerns. Review of Systems Constitutional: Constitutional: Reports no additional constitutional complaints Eyes: Eyes: Reports no additional eye complaints ENT: Reports system reviewed and no additional complaints, except as documented Cardiovascular: Cardiovascular: Reports no additional cardiovascular complaints Respiratory: Respiratory: Reports no additional respiratory complaints Gastrointestinal: Gastrointestinal: Reports no additional gastrointestinal complaints Genitourinary: Genitourinary: Reports no additional female genitourinary complaints Musculoskeletal: Musculoskeletal: Reports no additional musculoskeletal complaints Integumentary/Breasts: Skin/Breast: Reports system reviewed and no additional complaints, except as docu Neurologic: Reports confusion Psychiatric: Psychiatric: Reports confusion PMFSH Past Medical History Medical History A-fib Anemia Ankle fracture, left Anxiety ARF (acute renal failure) Arthritis Asthma Brain bleed s/p fall Cardiomyopathy Cataracts, bilateral CHF (congestive heart failure) COPD (chronic obstructive pulmonary disease) DVT (deep venous thrombosis) GI bleed Hydronephrosis Hyperlipidemia Kidney stone Nose fracture Pacemaker Pulmonary embolism Rhabdomyolysis Seasonal allergies Shoulder fracture, right Surgical History Surgical History H/O cystoscopy with stent H/O shoulder surgery History of cardiac catheterization Hx of tonsillectomy S/P ORIF (open reduction internal fixation) fracture left ankle S/P total knee arthroplasty bilaterally Family History Family History (Reviewed 04/12/22 @
[2022-04-12] MEDS: ASPIRIN 81 MG CHEWABLE TABLET PO (09:21)
[2022-04-12] MEDS: ATORVASTATIN 40 MG TABLET PO (21:07)
[2022-04-12] MEDS: DONEPEZIL HCL 5 MG TABLET PO (21:07)
[2022-04-13] VITALS (12 sets, daily range): BP systolic 102–113; BP diastolic 45–53; PULSE 62–90; RESP 16; TEMP 36.5–36.9; O2SAT 93–99
[2022-04-13] MEDS: ASPIRIN 81 MG CHEWABLE TABLET PO (11:15)
[2022-04-13] MEDS: PYRIDOXINE HCL 50 MG TABLET 100 MG PO ×2 (11:15→16:39)
[2022-04-13] MEDS: ARIPiprazole 5 MG TABLET PO (11:15)
[2022-04-13] MEDS: CYANOCOBALAMIN 1,000 MCG TABLET 1000 MCG PO (11:15)
[2022-04-13] MEDS: METOPROLOL SUCCINATE EXT REL 50 MG TABCR PO (11:16)
[2022-04-13] MEDS: busPIRone HCL 10 MG TABLET PO ×2 (11:16→16:39)
[2022-04-13] MEDS: PANTOPRAZOLE 40 MG TABLET PO (11:16)
[2022-04-13] MEDS: ACIDOPHILUS/BULGARICUS CHEWABLE TABLET 1 TABLET BY MOUTH (11:16)
[2022-04-13] MEDS: MONTELUKAST SODIUM 10 MG TABLET PO (11:17)
[2022-04-13] MEDS: ERGOCALCIFEROL 50,000 UNITS CAPSULE 50000 UNITS PO (11:17)
[2022-04-13] MEDS: POLYSACCHARIDE IRON COMPLEX 150 MG CAPSULE PO (11:17)
[2022-04-13] MEDS: oxyBUTYnin CHLORIDE XL 5 MG TAB.ER.24 10 MG PO (11:17)
[2022-04-13] MEDS: LORATADINE 10 MG TABLET PO (11:17)
[2022-04-13] MEDS: FUROSEMIDE 40 MG TABLET PO (11:17)
[2022-04-13] MEDS: OPTI-GEN TAB 1 TABLET PO ×2 (11:17→19:59)
[2022-04-13] MEDS: LOSARTAN POTASSIUM 25 MG TABLET PO (11:17)
[2022-04-13] MEDS: FLUTICASONE PROPIONATE 0.05% NA SPR 16 GM BTL (*BKC) 2 SPRAY NASAL (11:18)
[2022-04-13] MEDS: OLOPATADINE 0.1% OPHTH SOLN 5 ML BTL 1 DROP EACH EYE (11:18)
[2022-04-13] MEDS: CITALOPRAM HYDROBROMIDE 10 MG TABLET PO (11:18)
[2022-04-13 11:28] LABS: Anion Gap 0 mmol/L (8-16); Basophils Percent Auto 0.3 % (0.2-1.2); Blood Urea Nitrogen 12 mg/dL (7-17); Calcium 8.4 mg/dL (8.4-10.2); Carbon Dioxide 39 mmol/L (22-30); Chloride 94 mmol/L (98-107); Eosinophils Absolute Auto 0.3 K/mm3 (0-0.3); Eosinophils Percent Auto 5.2 % (0-4.4); Estimated CRCL calculation 80 ml/min; Estimated Glomerular Filt Rate > 60; Glucose 129 mg/dL (65-110); Hematocrit 41.8 % (37.0-47.0); Hemoglobin 12.9 g/dL (12.0-15.0); Immature Granulocyte Absolute 0.02 K/mm3 (0.00-0.031); Immature Granulocyte Percent A 0.3 % (0-0.5); Lymphocytes Absolute Auto 0.78 K/mm3 (0.9-3.2); Lymphocytes Percent Auto 12.4 % (18.3-44.2); Mean Corpuscular HGB Conc 30.9 g/dl (32-36); Mean Corpuscular Hemoglobin 32.1 pg (26-34); Mean Platelet Volume 9.1 fl (7.4-10.4); Monocytes Absolute Auto 0.7 K/mm3 (0.1-0.6); Monocytes Percent Auto 10.8 % (2.6-8.5); Neutrophils Absolute Auto 4.5 K/mm3 (1.3-6.7); Platelet Count Result 236 k/mm3 (150-375); Potassium 4.1 mmol/L (3.4-5.0); Red Blood Count 4.02 M/mm3 (4.2-5.4); Red Cell Distribution Width 13.4 % (11.5-14.5); Sodium 133 mmol/L (137-145); White Blood Count 6.3 K/mm3 (4.5-10.0)
--- NOTE | 2022-04-13 15:34 | PC.NURSE ---
On 04/13/22, the student, [Ilir Gonzalez], provided care and completed [facility] documentation on this patient. I have reviewed the student's documentation and agree with the findings.
--- NOTE | 2022-04-13 16:33 | PM.IMPN ---
Progress Note: A&P Assessment and Plan (1) Acute metabolic encephalopathy: Code(s): G93.41 - Metabolic encephalopathy Status: Acute Assessment and Plan: patient presented with confusion felt to be secondary to UTI. See below. Patient has been evaluated by Neurology head CT with no acute findings head/ neck CTA with small amount of atherosclerotic plaque, 0% stenosis of right and left carotid bulbs and no acute process MRI not able to be completed due to presence of pacemaker limited echocardiogram with bubble study with no evidence of intracardiac shunt no significant electrolyte derangement per patient's daughter, she is closer to her baseline at this time (2) UTI (urinary tract infection): Code(s): N39.0 - Urinary tract infection, site not specified Status: Acute Assessment and Plan: urinalysis is slightly abnormal with only positive nitrates, no leukocyte esterase or wbc's patient is asymptomatic with the exception of confusion which she reported is her typical presenting symptom with prior UTIs continue IV ceftriaxone await urine culture results (3) COPD (chronic obstructive pulmonary disease): Code(s): J44.9 - Chronic obstructive pulmonary disease, unspecified Status: Chronic Assessment and Plan: no acute issues continue home inhalers (4) Hypertension: Code(s): I10 - Essential (primary) hypertension Status: Acute Assessment and Plan: blood pressures are stable. Continue home meds metoprolol 50 mg daily, losartan 25 mg daily Continue to monitor blood pressure trends (5) Dementia: Code(s): F03.90 - Unspecified dementia, unspecified severity, without behavioral disturbance, psychotic disturbance, mood disturbance, and anxiety Status: Acute Assessment and Plan: patient with history of dementia presented with more confusion Continue home aricept Subjective Date/time seen: 04/13/22 16:33 Interval history: date of service: 04/13/2022 Maria Ines Park is a 81-year-old female with a history of atrial fibrillation, CHF, COPD, , hyperlipidemia, and dementia who is seen in follow-up for UTI. Patient states that she is feeling very confused. She states that she is forgetting everything. She states that she came to the hospital because she was having some confusion regarding what time meals were served at her assisted living facility. She states that she typically walks with a walker but has been feeling weak and having trouble ambulating. She is feeling very anxious because she is confused. She denies urinary symptoms including dysuria, hematuria, urgency, or frequency. Denies fevers or chills. No nausea or vomiting. Denies abdominal pain, flank pain, back pain, or suprapubic pain. Denies shortness of breath, cough, chest pain, wheezing. No headaches. She occasionally feels dizzy upon standing. revisited the patient later in the afternoon in the presence of her daughter. Patient's daughter states that she is improved this afternoon and is behaving more like herself. Patient is sitting up and is comfortable, states no complaints. Provided updates to patient and daughter and answered all questions. 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
[2022-04-13] MEDS: DONEPEZIL HCL 5 MG TABLET PO (19:59)
[2022-04-13] MEDS: ATORVASTATIN 40 MG TABLET PO (19:59)
[2022-04-14] VITALS (11 sets, daily range): BP systolic 102–116; BP diastolic 54–62; PULSE 68–90; RESP 16; TEMP 36.5–36.7; O2SAT 95–99
[2022-04-14 05:24] LABS: Hematocrit 40.7 % (37.0-47.0); Hemoglobin 12.3 g/dL (12.0-15.0); Mean Corpuscular HGB Conc 30.2 g/dl (32-36); Mean Corpuscular Hemoglobin 31.1 pg (26-34); Mean Corpuscular Volume 102.8 fl (80-100); Mean Platelet Volume 8.8 fl (7.4-10.4); Platelet Count Result 216 k/mm3 (150-375); Red Blood Count 3.96 M/mm3 (4.2-5.4); Red Cell Distribution Width 13.3 % (11.5-14.5); White Blood Count 4.9 K/mm3 (4.5-10.0)
[2022-04-14 05:50] LABS: Blood Urea Nitrogen 15 mg/dL (7-17); Calcium 8.1 mg/dL (8.4-10.2); Carbon Dioxide > 40 mmol/L (22-30); Chloride 96 mmol/L (98-107); Estimated CRCL calculation 66 ml/min; Estimated Glomerular Filt Rate > 60; Glucose 113 mg/dL (65-110); Potassium 4.1 mmol/L (3.4-5.0); Sodium 135 mmol/L (137-145)
[2022-04-14] MEDS: PANTOPRAZOLE 40 MG TABLET PO (09:33)
[2022-04-14] MEDS: FUROSEMIDE 40 MG TABLET PO (09:33)
[2022-04-14] MEDS: LOSARTAN POTASSIUM 25 MG TABLET PO (09:33)
[2022-04-14] MEDS: ASPIRIN 81 MG CHEWABLE TABLET PO (09:33)
[2022-04-14] MEDS: PYRIDOXINE HCL 50 MG TABLET 100 MG PO (09:33)
[2022-04-14] MEDS: ARIPiprazole 5 MG TABLET PO (09:33)
[2022-04-14] MEDS: METOPROLOL SUCCINATE EXT REL 50 MG TABCR PO (09:33)
[2022-04-14] MEDS: oxyBUTYnin CHLORIDE XL 5 MG TAB.ER.24 10 MG PO (09:33)
[2022-04-14] MEDS: busPIRone HCL 10 MG TABLET PO (09:34)
[2022-04-14] MEDS: ACIDOPHILUS/BULGARICUS CHEWABLE TABLET 1 TABLET BY MOUTH (09:34)
[2022-04-14] MEDS: MONTELUKAST SODIUM 10 MG TABLET PO (09:34)
[2022-04-14] MEDS: CITALOPRAM HYDROBROMIDE 10 MG TABLET PO (09:34)
[2022-04-14] MEDS: FLUTICASONE PROPIONATE 0.05% NA SPR 16 GM BTL (*BKC) 2 SPRAY NASAL (09:34)
[2022-04-14] MEDS: LORATADINE 10 MG TABLET PO (09:34)
[2022-04-14] MEDS: OLOPATADINE 0.1% OPHTH SOLN 5 ML BTL 1 DROP EACH EYE (09:34)
[2022-04-14] MEDS: POLYSACCHARIDE IRON COMPLEX 150 MG CAPSULE PO (09:34)
[2022-04-14] MEDS: OPTI-GEN TAB 1 TABLET PO (09:34)
--- NOTE | 2022-04-14 14:51 | PM.DS ---
DS: Admitting Diagnosis Discharge Date 04/14/2022 Admitting Diagnosis acute metabolic encephalopathy DS: Discharge Diagnosis Discharge Diagnosis (1) Acute metabolic encephalopathy: Code(s): G93.41 - Metabolic encephalopathy Status: Acute Assessment and Plan: patient presented with confusion felt to be secondary to UTI. See below. she was evaluated by Neurology head CT with no acute findings head/ neck CTA with small amount of atherosclerotic plaque, 0% stenosis of right and left carotid bulbs and no acute process MRI not able to be completed due to presence of pacemaker limited echocardiogram with bubble study with no evidence of intracardiac shunt no significant electrolyte derangement patient returned back to her baseline following treatment of UTI (2) UTI (urinary tract infection): Code(s): N39.0 - Urinary tract infection, site not specified Status: Acute Assessment and Plan: urinalysis is slightly abnormal with only positive nitrates, no leukocyte esterase or wbc's patient was asymptomatic with the exception of confusion which she reported is her typical presenting symptom with prior UTIs Urine culture with growth of mixed genital leatha Given patient's presentation and confusion and with her overall improvement following antibiotics, decision made to continue with treatment for UTI Continue p.o. cefdinir as an outpatient (3) COPD (chronic obstructive pulmonary disease): Code(s): J44.9 - Chronic obstructive pulmonary disease, unspecified Status: Chronic Assessment and Plan: no acute issues continue home inhalers (4) Hypertension: Code(s): I10 - Essential (primary) hypertension Status: Acute Assessment and Plan: blood pressures remained stable. Continue home metoprolol 50 mg daily and losartan 25 mg daily (5) Dementia: Code(s): F03.90 - Unspecified dementia, unspecified severity, without behavioral disturbance, psychotic disturbance, mood disturbance, and anxiety Status: Acute Assessment and Plan: patient with history of dementia. At her baseline mental status Continue home aricept DS: Summary Hospital Course Hospital Course: date of admission: 04/11/2022 date of discharge: 04/14/2022 Maria Ines Park is a 81-year-old female with a history of atrial fibrillation, CHF, COPD, , hyperlipidemia, and dementia?who presented to the emergency department on 04/11/2022 with worsened confusion. On presentation to the ED, her vital signs were stable, she was afebrile, CBC and BMP unremarkable, troponin negative, TSH within normal limits, urinalysis was slightly abnormal, head CT showed no acute findings. She was admitted to the hospitalist service for further evaluation and management and was seen in consultation by Neurology. Please see above for further details. She was evaluated for confusion with negative head CT and negative head/ neck CTA. MRI not able to be completed due to presence of pacemaker. However, patient had resolution of her encephalopathy with IV antibiotics, suggesting that this was likely secondary to UTI and not related to any neurologic issues, therefore was determined that MRI could be deferred. Urine culture Revealed mixed genital leatha, however given patient's presenting symptoms and improvement with antibiotic therapy, determine to continue appropriate course of antibiotics for a total of 7 days. She will continue cefdinir as an outpatient. She will return to [facility] where she will be monitored and she will follow-up with her primary care provider in 1 week. discussed with both patient and her family worrisome signs and symptoms for which to return and she was educated on her medications. She was discharged in hemodynamically stable condition on 04/14/2022. Status at Discharge Overall status at discharge: patient is progressing back to
--- NOTE | 2022-04-14 15:25 | PC.NURSE ---
On 04/14/22, the student, [Johanna Shook], provided care and [facility]. I have reviewed the student's documentation and agree with the findings.
[2022-04-14 15:36] LABS: EDCOVIDSCREEN Negative (Negative)
== END 2022-04-14 16:15 | DRG 689 ==
LOC: ANHED 13:06 → ANH2MED 16:58
PROVIDERS: Nurse Practitioner; Admitting Provider Student in an Organized Health Care Education/Training Program; Emergency Provider Emergency Medicine; PCP Nurse Practitioner Family; Visit Provider Physician Assistant
DX: N39.0 Urinary tract infection, site not specified (principal); G93.41 Metabolic encephalopathy; I43 Cardiomyopathy in diseases classified elsewhere; J96.11 Chronic respiratory failure with hypoxia; Z20.822 Contact with and (suspected) exposure to COVID-19; E78.5 Hyperlipidemia, unspecified; F41.1 Generalized anxiety disorder; F03.90 Unspecified dementia, unspecified severity, without behavioral disturbance, psychotic disturbance, mood disturbance, and anxiety; I48.91 Unspecified atrial fibrillation; H26.9 Unspecified cataract; I11.0 Hypertensive heart disease with heart failure; I50.9 Heart failure, unspecified; J44.9 Chronic obstructive pulmonary disease, unspecified; K21.9 Gastro-esophageal reflux disease without esophagitis; Z86.718 Personal history of other venous thrombosis and embolism; Z87.442 Personal history of urinary calculi; Z95.0 Presence of cardiac pacemaker; Z86.711 Personal history of pulmonary embolism; Z96.653 Presence of artificial knee joint, bilateral; Z66 Do not resuscitate; Z99.81 Dependence on supplemental oxygen
CPT/HCPCS: 36415; 36600; 51701; 70450; 70496; 70498; 71045; 80048; 80053; 80061; 81001; 82805; 83880; 84443; 84484; 85025; 85027; 85610; 85730; 87086; 87088; 87426; 87636; 93005; 93308; 96365; 96366; 99285; A9270; C9803; G0378; J0696; Q9967

== ENCOUNTER 2022-04-21 14:09 | Observation (INO) | payer MEDICARE, SELFPAY ==
[2022-04-21] VITALS (44 sets, daily range): BP systolic 83–158; BP diastolic 62–116; PULSE 60–84; RESP 16–39; TEMP 36.4; O2SAT 96–99; BMI 23.7; BMI 24.7
--- NOTE | ~2022-04-21 | CT_ITS ---
EXAMINATION: CT brain wo con INDICATION: Dizziness COMPARISON: 04/12/2022 TECHNIQUE: Standard unenhanced head CT. The dose-length product (DLP) was 529.67 mGy-cm. The mA was a djusted according to patient size. Iterative reconstruction technique was employed. FINDINGS: There is no acute intraparenchymal hemorrhage. No evidence of mass lesion. No evidence of a cute infarction. There is mild periventricular and subcortical hypodensity probably related to small vessel ischemic disease. There is mild prominence of the sulci and ventricles related to cerebral atr ophy. Intracranial calcified cerebral atherosclerosis is noted. There are no extra-axial collections. There is no mass effect or midline shift. Changes in the globes are likely from ocular lens surgery. The visualized sinuses and mastoid air cells are well aerated. IMPRESSION: 1. No acute intracranial abnormality. 2. Age related findings. Reviewed, dictated and finalized at location L. GRAPHER
--- NOTE | ~2022-04-21 | XR_ITS ---
EXAMINATION: XR chest 2V DATE: 04/21/2022 15:42 INDICATION: COPD. Dizziness. TECHNIQUE: frontal and lateral views of the chest were obtained. COMPARISON: 01/09/2023 FINDINGS: Mild biapical pleural-parenchymal scarring. Lung volumes remain small with persistent streaky bibasil ar opacities and favor atelectasis over pneumonia. No pleural effusion or pneumothorax. Arch size wit hin normal limits for AP technique. Dual lead pacemaker/AICD seen with leads projecting over the expe cted locations of the right atrium and right ventricle. Partially visualized right total shoulder art hroplasty. Thoracic dextro scoliosis with moderate spondylosis. IMPRESSION: 1. Unchanged small lung zones with mild bibasilar opacities and favor atelectasis over pneumonia. Reviewed, dictated and finalized at location A. [employer] IMPRESSION: 1. Unchanged small lung zones with mild bibasilar opacities and favor atelectas is over pneumonia.
--- NOTE | 2022-04-21 14:28 | ECG_ITS ---
Measurements Intervals [place] Rate: 76 P: 73 NH: 187 QRS: -47 QRSD: 134 T: 81 QT: 412 QTc: 465 Interpretive Statements SINUS RHYTHM INTRAVENTRICULAR CONDUCTION DELAY [130+ ms QRS DURATION] LEFT VENTRICULAR HYPERTROPHY AND ST-T CHANGE [VOLTAGE CRITERIA PLUS ST/T ABNORMALITY] COMPARED TO ECG 04/11/2022 12:23:32 CHANGE IN QRS AXIS IN V1-V2 Electronically Signed On 04-21-2022 15:51:50 METAL WASHING MACHINE OPERATOR by Rodrick Mixon M.D.
[2022-04-21 14:45] LABS: Basophils Percent Auto 0.3 % (0.2-1.2); Eosinophils Absolute Auto 0.3 K/mm3 (0-0.3); Eosinophils Percent Auto 5.2 % (0-4.4); Hematocrit 38.1 % (37.0-47.0); Hemoglobin 12.1 g/dL (12.0-15.0); Immature Granulocyte Absolute 0.01 K/mm3 (0.00-0.031); Immature Granulocyte Percent A 0.2 % (0-0.5); Lymphocytes Percent Auto 17.3 % (18.3-44.2); Mean Corpuscular HGB Conc 31.8 g/dl (32-36); Mean Corpuscular Hemoglobin 31.8 pg (26-34); Mean Corpuscular Volume 100.3 fl (80-100); Mean Platelet Volume 8.9 fl (7.4-10.4); Monocytes Absolute Auto 0.7 K/mm3 (0.1-0.6); Monocytes Percent Auto 10.9 % (2.6-8.5); Neutrophils Absolute Auto 4.2 K/mm3 (1.3-6.7); Neutrophils Percent Auto 66.1 % (45.5-73.1); Platelet Count Result 249 k/mm3 (150-375); Red Cell Distribution Width 13.4 % (11.5-14.5); White Blood Count 6.4 K/mm3 (4.5-10.0)
[2022-04-21 14:56] LABS: Alanine Aminotransferase 27 U/L (6-35); Albumin Level 3.7 g/dL (3.5-5.1); Alkaline Phosphatase 95 U/L (38-126); Anion Gap 3 mmol/L (8-16); Aspartate Amino Transferase 33 U/L (14-36); Bilirubin,Total 0.3 mg/dL (0.2-1.3); Blood Urea Nitrogen 17 mg/dL (7-17); Calcium 8.3 mg/dL (8.4-10.2); Carbon Dioxide 34 mmol/L (22-30); Chloride 100 mmol/L (98-107); Estimated CRCL calculation 56 ml/min; Estimated Glomerular Filt Rate > 60; Glucose 140 mg/dL (65-110); Potassium 3.8 mmol/L (3.4-5.0); Sodium 137 mmol/L (137-145)
--- NOTE | 2022-04-21 15:16 | ED.DIZZY ---
HPI - Dizziness General Chief Complaint: Dizziness <Fransico Smart MD - Last Filed: 04/22/22 07:33> Stated Complaint: DIZZINESS <Fransico Smart MD - Last Filed: 04/22/22 07:33> Time Seen by Provider: 04/21/22 14:18 <Fransico Smart MD - Last Filed: 04/22/22 07:33> Source: patient and EMS <Fransico Smart MD - Last Filed: 04/22/22 07:33> Mode of arrival: EMS <Fransico Smart MD - Last Filed: 04/22/22 07:33> Limitations: no limitations <Fransico Smart MD - Last Filed: 04/22/22 07:33> History of Present Illness HPI Narrative: Patient is 81 years old came from assisted living by ambulance because of very depressed, lightheadedness, for the last few days, patient also was planning to kill herself using a steak knife, to stick it in her anus. 1 week ago patient was with a group of people eating in a restaurant and suddenly told them that she have to go to the bathroom to have a bowel movement, after she got ther, she had stool incontinence and could not even remove her pants before having the bowel movement. Patient felt so depressed and so embarrassed and does not want to go through that again and decided to kill herself. Today decided to use a steak knife to stick it in her anus so she kill herself. Patient was about to use the knife but the assisting living staff got her before trying. Currently she denies any fever, chills, nausea, vomiting abdominal pain, anal pain or anal bleeding. <Fransico Smart MD - Last Filed: 04/22/22 07:33> Related Data Home Medications: Home Medications Medication Instructions Recorded Confirmed PreserVision AREDS 1 cap PO Q12H 05/19/20 04/21/22 loratadine 10 mg PO DAILY 05/19/20 04/21/22 montelukast 10 mg tablet 10 mg PO DAILY 05/19/20 04/22/22 Lactobacills gasseri-Bifidobac 1 cap PO DAILY 11/18/21 04/22/22 bifidum,longum 1.5 billion cell capsule (Getix) acetaminophen 500 mg capsule 1,000 mg PO Q6H PRN Pain 11/18/21 04/22/22 albuterol sulfate 90 mcg/actuation 2 puff inhalation QID PRN 11/18/21 04/22/22 aerosol inhaler Shortness Of Breath aripiprazole 5 mg tablet 5 mg PO DAILY 11/18/21 04/22/22 atorvastatin 10 mg tablet 10 mg PO HS 11/18/21 04/22/22 azelastine 137 mcg (0.1 %) nasal 2 spray intranasal BID PRN Dry 11/18/21 04/22/22 spray aerosol Nasal Passages citalopram 10 mg tablet 10 mg PO DAILY 11/18/21 04/22/22 cyanocobalamin (vitamin B-12) 1,000 mcg PO QMWF 11/18/21 04/22/22 1,000 mcg tablet donepezil 5 mg tablet (Aricept) 10 mg PO HS 11/18/21 04/22/22 ergocalciferol (vitamin D2) 1,250 1,250 mcg PO WEEKLY 11/18/21 04/22/22 mcg (50,000 unit) capsule (Vitamin D2) loperamide 2 mg tablet (Imodium 2 mg PO QID PRN Diarrhea 11/18/21 04/22/22 A-D) olopatadine 0.2 % eye drops 1 drp EACH EYE DAILY 11/18/21 04/22/22 (Pataday Once Daily Relief) polyethylene glycol 3350 17 gram 17 g PO DAILY PRN Constipation 11/18/21 04/22/22 oral powder packet metoprolol succinate 100 mg 50 mg PO DAILY 01/05/22 04/22/22 tablet,extended release 24 hr losartan 25 mg tablet 25 mg PO DAILY 04/11/22 04/22/22 <Fransico Smart MD - Last Filed: 04/22/22 07:33> Allergies/Adverse Reactions: Allergies Allergy/AdvReac Type Severity Reaction Status Date / Time clarithromycin Allergy Unknown Unknown Verified 03/15/22 10:30 lisinopril Allergy Unknown Unknown Verified 03/15/22 10:30 nitrofurantoin Allergy Unknown Palpitation Verified 03/15/22 10:30 s <Fransico Smart MD - Last Filed: 04/22/22 07:33> Review of Systems Review of Systems: All systems reviewed & are unremarkable except as noted in HPI and below <Fransico Smart MD - Last Filed: 04/22/22 07:33> [facility] Past Medical History Medical History: Medical History A-fib Anemia Ankle fracture, left Anxiety ARF (acute renal failure) Arthritis Asthma Brain bleed s/p fall Cardiomyopathy Cataracts, bilateral CHF (congestiv
[2022-04-21 17:00] LABS: Ethanol < 10 mg/dL (<10)
[2022-04-21 17:25] LABS: Appearance Urine Slightly Cloudy (Clear); Bilirubin Urine Negative (Negative); Blood Urine Negative (Negative); Color Urine Yellow (Yellow); Glucose Urine UA Negative (Negative); Ketones Urine Negative (Negative); Leukocyte Esterase Ur Negative LEU/UL (Negative); Nitrate Urine Negative (Negative); Protein Urine Negative (Negative); Specific Grav Ur 1.015 (1.001-1.035); Urobilinogen Urine 0.2 mg/dL (<2.0); pH Urine 8.5 (5.0-9.0)
[2022-04-21 17:30] LABS: Amorphous Sediment Urine Few; Mucus Urine Rare /lpf; RBC Urine 0-2 /hpf (0-2); Squamous Epithelial Cell Urine Few /hpf (Few); WBC Urine 0-3 /hpf
[2022-04-21 17:44] LABS: Amphetamine Screen Urine Negative (Negative); Barbiturate Screen Urine Negative (Negative); Benzodiazepines Screen Urine Negative (Negative); Cannabinoid Screen Urine Negative (Negative); Cocaine Screen Urine Negative (Negative); Methadone Screen Urine Negative (Negative); Opiate Screen Urine Negative (Negative); Phencyclidine Screen Urine Negative (Negative)
[2022-04-21 17:47] LABS: Add Urine Microscopic? YES
--- NOTE | 2022-04-21 18:36 | PC.NURSE ---
crisis contacted per request of Dr. Smart. Crisis advised that they will call back because they do not think they evaluate patients that have zero mental health history prior to dementia diagnosis.
--- NOTE | 2022-04-21 18:43 | PC.NURSE ---
Crisis called back and states they will be out to evaluate pt.
--- NOTE | 2022-04-21 20:29 | PM.IMHP ---
H&P: HPI History of Present Illness Date/Time: 04/21/22 20:29 Chief Complaint: Altered mental status Narrative: This is a 81-year-old female with past medical history significant for dementia, atrial fibrillation, congestive heart failure, COPD, cardiomyopathy, patient resides at care home. Patient just recently discharged home after she was treated for urinary tract infection was brought to the emergency room for evaluation due to Staph concerns for the patient's altered mental status she had episode of incontinence of bowel and was found in her bathroom trying to stab herself with a knife. Patient states that it was just too much . Preliminary workup was nonrevealing. Patient is been placed in observation for further evaluation, management and treatment. A CT of the head was reported as: FINDINGS: There is no acute intraparenchymal hemorrhage. No evidence of mass lesion. No evidence of acute infarction. There is mild periventricular and subcortical hypodensity probably related to small vessel ischemic disease. There is mild prominence of the sulci and ventricles related to cerebral atrophy. Intracranial calcified cerebral atherosclerosis is noted. There are no extra-axial collections. There is no mass effect or midline shift. Changes in the globes are likely from ocular lens surgery. The visualized sinuses and mastoid air cells are well aerated. IMPRESSION: 1. No acute intracranial abnormality. 2. Age related findings. A chest x-ray was reported as: FINDINGS: Mild biapical pleural-parenchymal scarring. Lung volumes remain small with persistent streaky bibasilar opacities and favor atelectasis over pneumonia. No pleural effusion or pneumothorax. Arch size within normal limits for AP technique. Dual lead pacemaker/AICD seen with leads projecting over the expected locations of the right atrium and right ventricle. Partially visualized right total shoulder arthroplasty. Thoracic dextro scoliosis with moderate spondylosis. IMPRESSION: 1. Unchanged small lung zones with mild bibasilar opacities and favor atelectasis over pneumonia. Review of Systems Review of Systems: ROS unobtainable: Yes unobtainable due to mental status (Delirium, confusion.) [facility] Past Medical History Medical History A-fib Anemia Ankle fracture, left Anxiety ARF (acute renal failure) Arthritis Asthma Brain bleed s/p fall Cardiomyopathy Cataracts, bilateral CHF (congestive heart failure) COPD (chronic obstructive pulmonary disease) DVT (deep venous thrombosis) GI bleed Hydronephrosis Hyperlipidemia Kidney stone Nose fracture Pacemaker Pulmonary embolism Rhabdomyolysis Seasonal allergies Shoulder fracture, right Surgical History Surgical History H/O cystoscopy with stent H/O shoulder surgery History of cardiac catheterization Hx of tonsillectomy S/P ORIF (open reduction internal fixation) fracture left ankle S/P total knee arthroplasty bilaterally Family History Family History Sibling Family history of cardiomyopathy Family history of malignant neoplasm of breast Mother Patient's mother is Hypertension Family history of cardiovascular disease Family history of malignant neoplasm of breast Other Family history of arthritis Family history of malignant neoplasm Social History Social History Social History: The patient is and lives home alone. The patient has 2 children. The patient is a nonsmoker. She does not use any alcohol marijuana or illicit drugs. Code status DNR Smoking status: Never smoker Second hand tobacco smoke exposure: No Alcohol intake: never Substance use: never Substance use type: does not use Lack of Transportation: No Lack of Food: Never True Current Jagjit
[2022-04-21 21:35] LABS: Influenza A QL RT-PCR Negative (Negative); Influenza B QL RT-PCR Negative (Negative); SARS-CoV-2 RNA PCR Negative
--- NOTE | 2022-04-21 21:44 | PC.NURSE ---
Per MD raymundo patient does not need a sitter at this time. patient has been calm and cooperative with staff and is agreeable to plan.
--- NOTE | 2022-04-21 23:48 | ADMGEN ---
This patient, Maria Ines Park, was admitted to [facility] Surg Room 322-01. Patient/family oriented to hospital policies and general routines including ID bracelet, bed and alarms, visiting hours, pain management, procedures, bathroom and other care routines, personal items, smoking policy, room service/diet, and visiting hours. Information on how to activate the Rapid Response Team has been discussed. Patient/Family are encouraged to report perceived risks to care and to ask questions if they do not understand what they are told or what they should do.
[2022-04-22] VITALS (7 sets, daily range): BP systolic 114–133; BP diastolic 57–65; PULSE 60–75; RESP 18–24; TEMP 36–36.3; O2SAT 98–99
[2022-04-22 06:45] LABS: Alanine Aminotransferase 24 U/L (6-35); Albumin Level 3.5 g/dL (3.5-5.1); Alkaline Phosphatase 77 U/L (38-126); Anion Gap 2 mmol/L (8-16); Aspartate Amino Transferase 31 U/L (14-36); Bilirubin,Total 0.3 mg/dL (0.2-1.3); Blood Urea Nitrogen 10 mg/dL (7-17); Carbon Dioxide 35 mmol/L (22-30); Chloride 103 mmol/L (98-107); Estimated CRCL calculation 80 ml/min; Estimated Glomerular Filt Rate > 60; Glucose 98 mg/dL (65-110); Potassium 3.3 mmol/L (3.4-5.0); Sodium 140 mmol/L (137-145)
[2022-04-22] MEDS: MONTELUKAST SODIUM 10 MG TABLET PO (08:04)
[2022-04-22] MEDS: PYRIDOXINE HCL 50 MG TABLET 100 MG PO ×2 (08:04→16:34)
[2022-04-22] MEDS: PANTOPRAZOLE 40 MG TABLET PO (08:04)
[2022-04-22] MEDS: ARIPiprazole 5 MG TABLET PO (08:04)
[2022-04-22] MEDS: LOSARTAN POTASSIUM 25 MG TABLET PO (08:04)
[2022-04-22] MEDS: OPTI-GEN TAB 1 TABLET PO ×2 (08:04→20:58)
[2022-04-22] MEDS: ACIDOPHILUS/BULGARICUS CHEWABLE TABLET 2 TABLET BY MOUTH (08:05)
[2022-04-22] MEDS: busPIRone HCL 10 MG TABLET PO ×2 (08:05→16:33)
[2022-04-22] MEDS: FLUTICASONE PROPIONATE 0.05% NA SPR 16 GM BTL (*BKC) 2 SPRAY NASAL (08:05)
[2022-04-22] MEDS: POLYSACCHARIDE IRON COMPLEX 150 MG CAPSULE PO (08:05)
[2022-04-22] MEDS: CITALOPRAM HYDROBROMIDE 10 MG TABLET PO (08:05)
[2022-04-22] MEDS: METOPROLOL SUCCINATE EXT REL 50 MG TABCR PO (08:05)
[2022-04-22] MEDS: LORATADINE 10 MG TABLET PO (08:05)
[2022-04-22] MEDS: oxyBUTYnin CHLORIDE XL 5 MG TAB.ER.24 10 MG PO (08:05)
[2022-04-22] MEDS: CYANOCOBALAMIN 1,000 MCG TABLET 1000 MCG PO (08:05)
[2022-04-22] MEDS: OLOPATADINE 0.1% OPHTH SOLN 5 ML BTL 1 DROP EACH EYE (08:06)
[2022-04-22] MEDS: SODIUM CHLORIDE 0.9% IV 1,000 ML 999 ML IV CONT (11:34)
--- NOTE | 2022-04-22 14:27 | PM.IMPN ---
Progress Note: A&P Assessment and Plan (1) Depression with suicidal ideation: Code(s): F32.A - Depression, unspecified; R45.851 - Suicidal ideations Status: Acute Assessment and Plan: Spoke with Dr. Price about patient and is recommending inpatient Try to get patient transferred One-to-one sitter at bedside Supportive care Does not meet inpatient criteria per crisis No suicidal ideation noted at time of exam and interview Dr. Mckeon consulted, and recommendations given per phone All labs were reviewed multiple times (2) UTI (urinary tract infection): Code(s): N39.0 - Urinary tract infection, site not specified Status: Acute Assessment and Plan: Resolved UA does not appear infectious No need for antibiotics at this time Proper education given regarding prevention of UTI (3) Acute metabolic encephalopathy: Code(s): G93.41 - Metabolic encephalopathy Status: Acute Assessment and Plan: Supportive care CT of the head reviewed Seems to be more of a dilerium (4) ICD (implantable cardioverter-defibrillator) battery depletion: Code(s): Z45.02 - Encounter for adjustment and management of automatic implantable cardiac defibrillator Status: Acute Assessment and Plan: Continue to monitor (5) COPD (chronic obstructive pulmonary disease): Code(s): J44.9 - Chronic obstructive pulmonary disease, unspecified Status: Chronic Assessment and Plan: Not actively wheezing Continue home O2 Maintain saturation >90% (6) GERD (gastroesophageal reflux disease): Code(s): K21.9 - Gastro-esophageal reflux disease without esophagitis Status: Acute Assessment and Plan: PPI Plan Greater than 120 minutes was given for multiple conversations with psych, and care coordination. It was determined that patient does not meet inpatient criteria for further psychiatric evaluation Time Spent With Patient Time: 180 minutes Time with patient: Greater than 35 minutes Subjective Date/time seen: 04/22/221114 Interval history: 04/22/221114 Patient stated that she is doing ok. She did state that she feels that she has a UTI and stated that she is having some urinary problems. Talked with the family and they stated that she was recently at the psychiatrist and some of the medications have changed. Did go over all the labs and findings with the family and answered all questions. Called and left a message for Dr. Price about the patient. At 1400 call was returned, he stated that the patient would need inpatient psych due to the nature of the findings. [facility] was unable to take the patient and so was [facility] in [facility]. Reached out to Dr. Mckeon who stated that the patient could most likely go to [facility]. Had extensive conversation with Psychiatry and review of the chart between [id number]. Patient was noted to be released from crisis for any suicide ideation. [facility] denied acceptance due to patient not meeting inpatient criteria for Psychiatry. All labs were reviewed multiple times. Spoke with care coordination multiple times throughout the evening regarding the patient, level care, needs assessment. According to crisis patient is able to be discharged back to facility with further monitoring and patient will need to have anything that could cause self-harm removed from her apartment. Dr. Mckeon has been informed of all findings and has been decided that a full psychiatric workup is unnecessary as the patient does see a psychiatrist outpatient, and further care and adjustments can be made. 04/21/22? 20:29 This is a 81-year-old female with past medical history significant for dementia, atrial fibrillation, congestive heart failure, COPD, cardiomyopathy, patient resides at snf.? Patient just recently discharged home after she was
--- NOTE | 2022-04-22 14:27 | P.PNIM_ITS ---
Progress Note: A&P Assessment and Plan (1) Depression with suicidal ideation: Code(s): F32.A - Depression, unspecified; R45.851 - Suicidal ideations Status: Acute Assessment and Plan: * Spoke with Dr. Price about patient and is recommending inpatient * Try to get patient transferred * One-to-one sitter at bedside * Supportive care * Does not meet inpatient criteria per crisis * No suicidal ideation noted at time of exam and interview * Dr. Mckeon consulted, and recommendations given per phone * All labs were reviewed multiple times (2) UTI (urinary tract infection): Code(s): N39.0 - Urinary tract infection, site not specified Status: Acute Assessment and Plan: * Resolved * UA does not appear infectious * No need for antibiotics at this time * Proper education given regarding prevention of UTI (3) Acute metabolic encephalopathy: Code(s): G93.41 - Metabolic encephalopathy Status: Acute Assessment and Plan: * Supportive care * CT of the head reviewed * Seems to be more of a dilerium (4) ICD (implantable cardioverter-defibrillator) battery depletion: Code(s): Z45.02 - Encounter for adjustment and management of automatic implantable cardiac defibrillator Status: Acute Assessment and Plan: * Continue to monitor (5) COPD (chronic obstructive pulmonary disease): Code(s): J44.9 - Chronic obstructive pulmonary disease, unspecified Status: Chronic Assessment and Plan: * Not actively wheezing * Continue home O2 * Maintain saturation >90% (6) GERD (gastroesophageal reflux disease): Code(s): K21.9 - Gastro-esophageal reflux disease without esophagitis Status: Acute Assessment and Plan: PPI Plan Greater than 120 minutes was given for multiple conversations with psych, and care coordination. It was determined that patient does not meet inpatient criteria for further psychiatric evaluation Time Spent With Patient Time: 180 minutes Time with patient: Greater than 35 minutes Subjective Date/time seen: 04/22/221114 Interval history: 04/22/221114 Patient stated that she is doing ok. She did state that she feels that she has a UTI and stated that she is having some urinary problems. Talked with the family and they stated that she was recently at the psychiatrist and some of the medications have changed. Did go over all the labs and findings with the family and answered all questions. Called and left a message for Dr. Price about the patient. At 1400 call was returned, he stated that the patient would need inpatient psych due to the nature of the findings. [facility] was unable to take the patient and so was [facility] in [facility]. Reached out to Dr. Mckeon who stated that the patient could most likely go to [facility]. Had extensive conversation with Psychiatry and review of the chart between 1630- 1830. Patient was noted to be released from crisis for any suicide ideation. [facility] denied acceptance due to patient not meeting inpatient criteria for Psychiatry. All labs were reviewed multiple times. Spoke with care coordination multiple times throughout the evening regarding the patient, level care, needs assessment. According to crisis patient is able to be discharged back to facility with further monitoring and patient will need to have anything anyi
[2022-04-22 15:38] LABS: Acetaminophen < 10 ug/mL (10-30); Ammonia 16 umol/L (9-30); Salicylate < 1.0 mg/dL (2-20)
[2022-04-22 16:36] LABS: Folic Acid 9.7 ng/mL (2.76->20)
[2022-04-22 16:54] LABS: Creatine Kinase 89 U/L (30-135)
[2022-04-22] MEDS: POTASSIUM CHLORIDE 20 MEQ TABLET 40 MEQ PO (17:34)
[2022-04-22] MEDS: ATORVASTATIN 10 MG TABLET PO (20:58)
[2022-04-22] MEDS: LOPERAMIDE HCL 2 MG CAPSULE PO (20:58)
[2022-04-22] MEDS: DONEPEZIL HCL 5 MG TABLET 10 MG PO (20:58)
[2022-04-23 01:10] VITALS: BP 142/74; PULSE 91; RESP 16; TEMP 35.7; O2SAT 96
[2022-04-23 06:00] VITALS: BP 121/54; PULSE 73; RESP 18; TEMP 36.1; O2SAT 98
[2022-04-23 06:46] LABS: Basophils Percent Auto 0.4 % (0.2-1.2); Eosinophils Absolute Auto 0.4 K/mm3 (0-0.3); Hematocrit 43.1 % (37.0-47.0); Immature Granulocyte Absolute 0.01 K/mm3 (0.00-0.031); Immature Granulocyte Percent A 0.2 % (0-0.5); Lymphocytes Percent Auto 17.8 % (18.3-44.2); Mean Corpuscular HGB Conc 30.2 g/dl (32-36); Mean Corpuscular Hemoglobin 31.9 pg (26-34); Mean Corpuscular Volume 105.9 fl (80-100); Mean Platelet Volume 9.3 fl (7.4-10.4); Monocytes Absolute Auto 0.5 K/mm3 (0.1-0.6); Monocytes Percent Auto 10.7 % (2.6-8.5); Neutrophils Absolute Auto 2.8 K/mm3 (1.3-6.7); Neutrophils Percent Auto 62.9 % (45.5-73.1); Platelet Count Result 220 k/mm3 (150-375); Red Blood Count 4.07 M/mm3 (4.2-5.4); Red Cell Distribution Width 13.5 % (11.5-14.5); White Blood Count 4.5 K/mm3 (4.5-10.0)
[2022-04-23 07:09] LABS: Alanine Aminotransferase 24 U/L (6-35); Albumin Level 3.6 g/dL (3.5-5.1); Alkaline Phosphatase 67 U/L (38-126); Anion Gap 3 mmol/L (8-16); Aspartate Amino Transferase 43 U/L (14-36); Bilirubin,Total 0.4 mg/dL (0.2-1.3); Blood Urea Nitrogen 8 mg/dL (7-17); Calcium 8.2 mg/dL (8.4-10.2); Carbon Dioxide 28 mmol/L (22-30); Chloride 104 mmol/L (98-107); Estimated CRCL calculation 80 ml/min; Estimated Glomerular Filt Rate > 60; Glucose 93 mg/dL (65-110); Magnesium 2.4 mg/dL (1.6-2.3); Potassium 4.1 mmol/L (3.4-5.0); Sodium 135 mmol/L (137-145)
[2022-04-23 09:05] VITALS: O2SAT 98
[2022-04-23] MEDS: AZELASTINE HCL NASAL 0.1% 137 MCG/SPR 30 ML BTL 2 SPRAY NASAL (09:27)
[2022-04-23] MEDS: PYRIDOXINE HCL 50 MG TABLET 100 MG PO (09:28)
[2022-04-23] MEDS: FLUTICASONE PROPIONATE 0.05% NA SPR 16 GM BTL (*BKC) 2 SPRAY NASAL (09:28)
[2022-04-23] MEDS: OPTI-GEN TAB 1 TABLET PO (09:28)
[2022-04-23] MEDS: ACIDOPHILUS/BULGARICUS CHEWABLE TABLET 2 TABLET BY MOUTH (09:28)
[2022-04-23] MEDS: LOSARTAN POTASSIUM 25 MG TABLET PO (09:28)
[2022-04-23 09:29] VITALS: PULSE 72
[2022-04-23] MEDS: busPIRone HCL 10 MG TABLET PO (09:29)
[2022-04-23] MEDS: CITALOPRAM HYDROBROMIDE 10 MG TABLET PO (09:29)
[2022-04-23] MEDS: MONTELUKAST SODIUM 10 MG TABLET PO (09:29)
[2022-04-23] MEDS: METOPROLOL SUCCINATE EXT REL 50 MG TABCR PO (09:29)
[2022-04-23] MEDS: POLYSACCHARIDE IRON COMPLEX 150 MG CAPSULE PO (09:29)
[2022-04-23] MEDS: oxyBUTYnin CHLORIDE XL 5 MG TAB.ER.24 10 MG PO (09:30)
[2022-04-23] MEDS: OLOPATADINE 0.1% OPHTH SOLN 5 ML BTL 1 DROP EACH EYE (09:30)
[2022-04-23] MEDS: LORATADINE 10 MG TABLET PO (09:30)
[2022-04-23] MEDS: ARIPiprazole 5 MG TABLET PO (09:30)
[2022-04-23] MEDS: PANTOPRAZOLE 40 MG TABLET PO (09:30)
--- NOTE | 2022-04-23 11:00 | PM.DS ---
DS: Admitting Diagnosis Discharge Date 04/23/22 1100 Admitting Diagnosis depression with suicide ideation DS: Discharge Diagnosis Discharge Diagnosis (1) Depression with suicidal ideation: Code(s): F32.A - Depression, unspecified; R45.851 - Suicidal ideations Status: Acute Assessment and Plan: Spoke with Dr. Price about patient and is recommending inpatient Try to get patient transferred One-to-one sitter at bedside Supportive care Does not meet inpatient criteria per crisis No suicidal ideation noted at time of exam and interview Dr. Mckeon consulted, and recommendations given per phone All labs were reviewed multiple times (2) UTI (urinary tract infection): Code(s): N39.0 - Urinary tract infection, site not specified Status: Acute Assessment and Plan: Resolved UA does not appear infectious No need for antibiotics at this time Proper education given regarding prevention of UTI (3) Acute metabolic encephalopathy: Code(s): G93.41 - Metabolic encephalopathy Status: Acute Assessment and Plan: Supportive care CT of the head reviewed Seems to be more of a dilerium (4) ICD (implantable cardioverter-defibrillator) battery depletion: Code(s): Z45.02 - Encounter for adjustment and management of automatic implantable cardiac defibrillator Status: Acute Assessment and Plan: Continue to monitor (5) COPD (chronic obstructive pulmonary disease): Code(s): J44.9 - Chronic obstructive pulmonary disease, unspecified Status: Chronic Assessment and Plan: Not actively wheezing Continue home O2 Maintain saturation >90% (6) GERD (gastroesophageal reflux disease): Code(s): K21.9 - Gastro-esophageal reflux disease without esophagitis Status: Acute Assessment and Plan: PPI (7) Delirium: Code(s): R41.0 - Disorientation, unspecified Status: Acute Assessment and Plan: Patient is noted to go throught this with every UTI recovery Seen her Psychiatrist on 04/21/21 Medications have been changed Currently stable Will need to be controlled, and all objects that could put patient in harm need to be removed Will need frequent monitoring DS: Summary Hospital Course Hospital Course: Patient is 81-year-old female with past medical history of dementia, atrial fib, CHF, COPD, cardiomyopathy who resides at [facility]. Patient had recently been in the hospital for UTI and has been treated. However, patient was found in the bathroom holding a knife stating that she was going to stink it in her butt to kill herself, because it was way too much for her and she did not want to deal with it any further. Crisis did evaluate the patient in the ED and noted that the patient, even though had intent and a plan was not going to kill herself. Crisis did release patient and noted that all objects that could cause self harm should be removed and frequent monitoring should take high importance. Family noted that this happens post UTI with this patient. However, this has not been the case for a long time. Family reported that the patient was recently seen by her psychiatrist and medications have been titrated. Call was placed to Dr. Reis who recommended that patient be admitted to inpatient psych for further workup and evaluation. Call was placed to Dr. Mckeon who stated that the patient would not need any further work up, and that she did not meet inpatient criteria. Labs and findings were reviewed with Dr. Mckeon and the physician at [facility]. With the nature of the findings, it was determined that what was posed by crisis was upheld. The only recommendation was a minimental exam. Medically patient has been stable. She currently denies any suicidal ideation or intent. Crisis recommends transefer back
--- NOTE | 2022-04-23 11:00 | P.DS_ITS ---
DS: Admitting Diagnosis Discharge Date 04/23/22 1100 Admitting Diagnosis depression with suicide ideation DS: Discharge Diagnosis Discharge Diagnosis (1) Depression with suicidal ideation: Code(s): F32.A - Depression, unspecified; R45.851 - Suicidal ideations Status: Acute Assessment and Plan: * Spoke with Dr. Price about patient and is recommending inpatient * Try to get patient transferred * One-to-one sitter at bedside * Supportive care * Does not meet inpatient criteria per crisis * No suicidal ideation noted at time of exam and interview * Dr. Mckeon consulted, and recommendations given per phone * All labs were reviewed multiple times (2) UTI (urinary tract infection): Code(s): N39.0 - Urinary tract infection, site not specified Status: Acute Assessment and Plan: * Resolved * UA does not appear infectious * No need for antibiotics at this time * Proper education given regarding prevention of UTI (3) Acute metabolic encephalopathy: Code(s): G93.41 - Metabolic encephalopathy Status: Acute Assessment and Plan: * Supportive care * CT of the head reviewed * Seems to be more of a dilerium (4) ICD (implantable cardioverter-defibrillator) battery depletion: Code(s): Z45.02 - Encounter for adjustment and management of automatic implantable cardiac defibrillator Status: Acute Assessment and Plan: Continue to monitor (5) COPD (chronic obstructive pulmonary disease): Code(s): J44.9 - Chronic obstructive pulmonary disease, unspecified Status: Chronic Assessment and Plan: * Not actively wheezing * Continue home O2 * Maintain saturation >90% (6) GERD (gastroesophageal reflux disease): Code(s): K21.9 - Gastro-esophageal reflux disease without esophagitis Status: Acute Assessment and Plan: PPI (7) Delirium: Code(s): R41.0 - Disorientation, unspecified Status: Acute Assessment and Plan: * Patient is noted to go throught this with every UTI recovery * Seen her Psychiatrist on 04/21/21 * Medications have been changed * Currently stable * Will need to be controlled, and all objects that could put patient in harm need to be removed * Will need frequent monitoring DS: Summary Hospital Course Hospital Course: Patient is 81-year-old female with past medical history of dementia, atrial fib, CHF, COPD, cardiomyopathy who resides at [facility]. Patient had recently been in the hospital for UTI and has been treated. However, patient was found in the bathroom holding a knife stating that she was going to stink it in her butt to kill herself, because it was way too much for her and she did not want to deal with it any further. Crisis did evaluate the patient in the ED and noted that the patient, even though had intent and a plan was not going to kill herself. Crisis did release patient and noted that all objects that could cause self harm should be removed and frequent monitoring should take high importance. Family noted that this happens post UTI with this patient. However, this has not been the case for a long time. Family reported that the patient was recently seen by her psychiatrist and medications have been titrated. Call was placed to Dr. Reis who recommended that patient
[2022-04-23] MEDS: FUROSEMIDE 40 MG TABLET PO (11:30)
== END 2022-04-23 11:55 | disposition short-term general hospital (02) ==
LOC: ANHED 19:58 → ANH3MEDSUR 04-22 00:05
PROVIDERS: Emergency Medicine; Nurse Practitioner; Admitting Provider Internal Medicine; Emergency Provider Preventive Medicine Aerospace Medicine; PCP Nurse Practitioner Family; Visit Provider Chiropractor
DX: F32.A Depression, unspecified (principal); N39.0 Urinary tract infection, site not specified; G93.41 Metabolic encephalopathy; Z45.02 Encounter for adjustment and management of automatic implantable cardiac defibrillator; J44.9 Chronic obstructive pulmonary disease, unspecified; K21.9 Gastro-esophageal reflux disease without esophagitis; R41.0 Disorientation, unspecified; R45.851 Suicidal ideations; Z20.822 Contact with and (suspected) exposure to COVID-19; R42 Dizziness and giddiness; F03.90 Unspecified dementia, unspecified severity, without behavioral disturbance, psychotic disturbance, mood disturbance, and anxiety; I48.91 Unspecified atrial fibrillation; D64.9 Anemia, unspecified; F41.9 Anxiety disorder, unspecified; M19.90 Unspecified osteoarthritis, unspecified site; R91.8 Other nonspecific abnormal finding of lung field; I50.9 Heart failure, unspecified; Z66 Do not resuscitate; I45.4 Nonspecific intraventricular block; R15.9 Full incontinence of feces; I51.7 Cardiomegaly; E78.5 Hyperlipidemia, unspecified; M62.82 Rhabdomyolysis; Z86.718 Personal history of other venous thrombosis and embolism; Z86.711 Personal history of pulmonary embolism; Z79.51 Long term (current) use of inhaled steroids; Z79.1 Long term (current) use of non-steroidal anti-inflammatories (NSAID); Z79.899 Other long term (current) drug therapy
CPT/HCPCS: 36415; 70450; 71046; 80053; 80307; 81001; 82140; 82550; 82607; 82746; 83735; 84443; 85025; 87636; 93005; 96361; 96365; 99285; A9270; G0378; J0696; J7030

== ENCOUNTER 2022-09-14 08:32 | Inpatient (IN) | payer MEDICARE, SELFPAY ==
[2022-09-14] VITALS (9 sets, daily range): BP systolic 113–131; BP diastolic 48–70; PULSE 73–85; RESP 14–30; TEMP 36.3–36.6; O2SAT 92–100
--- NOTE | ~2022-09-14 | XR_ITS ---
EXAMINATION: XR chest 1V portable DATE: 09/14/2022 11:30 INDICATION: Altered mental status. TECHNIQUE: A single frontal view of the chest was obtained. COMPARISON: Chest 2 views 04/21/2022, chest CT 05/18/2017 FINDINGS: There is stable mild scarring at the lung apices. There are small pleural effusions. There are airspace opacities at the lung bases. No pneumothorax. Cardiomegaly is noted. There is a left shelbie st wall pacer with leads in the right atrium and right ventricle. There is a right shoulder arthropla sty. IMPRESSION: 1. Small pleural effusions. 2. Airspace opacities at the lung bases, consistent with atelectasis versus pneumonia. 3. Cardiomegaly. Reviewed, dictated and finalized at location A. IMPRESSION: 1. Small pleural effusions. 2. Airspace opacities at the lung bases, consistent with atelectasis versus pne umonia. 3. Cardiomegaly.
--- NOTE | ~2022-09-14 | CT_ITS ---
EXAMINATION: CT brain wo con DATE: 09/14/2022 09:21 INDICATION: Weakness. Fatigue. Altered mental status. TECHNIQUE: Computed tomography (CT) of the head was performed without intravenous contrast. The mA wa s adjusted according to patient size. Iterative reconstruction technique was employed. The dose-lengt h product was 529.67 mGy-cm. COMPARISON: Head CT 04/21/2022 FINDINGS: There are scattered areas of low attenuation in the cerebral white matter, which is within normal limits for the patient's age. There is no intracranial hemorrhage, acute infarction, or abnorm al intracranial mass lesion. 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 The ventricles are n ormal in size. There is mild mucosal thickening in the paranasal sinuses. There are likely changes of ocular lens replacement surgeries. The mastoid air cells are normal. IMPRESSION: 1. 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 Reviewed, dictated and finalized at location A.
--- NOTE | 2022-09-14 08:41 | ECG_ITS ---
Measurements Intervals [place] Rate: 70 P: 14 WI: 196 QRS: -46 QRSD: 133 T: 145 QT: 430 QTc: 466 Interpretive Statements SINUS RHYTHM WITH SINUS ARRHYTHMIA LEFT AXIS DEVIATION INTRAVENTRICULAR CONDUCTION DELAY LEFT VENTRICULAR HYPERTROPHY AND ST-T CHANGE BORDERLINE ST-T WAVE ABNORMALITY- ANTEROLATERAL LEADS BASELINE WANDER- I BORDERLINE ECG COMPARED TO ECG 04/21/2022 14:33:14 SINUS ARRHYTHMIA NOW PRESENT Electronically Signed On 09-14-2022 9:07:11 CDT by Kuldeep Salgado D.O.
--- NOTE | 2022-09-14 08:53 | ED.GENADULT ---
HPI - General Adult General Chief complaint: Weakness Stated complaint: weakness Time Seen by Provider: 09/14/22 08:38 History of Present Illness HPI narrative: 81-year-old female presenting to the emergency department for evaluation of increased generalized weakness. Patient is normally ANO x2 and is at her baseline. Patient is normally up and ambulatory but states today she just feels tired. Patient denies any nausea vomiting diarrhea chest pain shortness of breath pain with urination. Patient denies any falls or injuries. Related Data Home Medications Medication Instructions Recorded Confirmed PreserVision AREDS 1 cap PO Q12H 05/19/20 09/14/22 loratadine 10 mg PO HS 05/19/20 09/14/22 montelukast 10 mg tablet 10 mg PO HS 05/19/20 09/14/22 acetaminophen 500 mg capsule 1,000 mg PO Q6H PRN Pain 11/18/21 09/14/22 albuterol sulfate 90 mcg/actuation 2 puff inhalation Q4H PRN 11/18/21 09/14/22 aerosol inhaler Shortness Of Breath aripiprazole 5 mg tablet 5 mg PO HS 11/18/21 09/14/22 atorvastatin 10 mg tablet 10 mg PO HS 11/18/21 09/14/22 azelastine 137 mcg (0.1 %) nasal 2 spray intranasal BID PRN Dry 11/18/21 09/14/22 spray aerosol Nasal Passages citalopram 10 mg tablet 10 mg PO DAILY 11/18/21 09/14/22 cyanocobalamin (vitamin B-12) 1,000 mcg PO QMWF 11/18/21 09/14/22 1,000 mcg tablet donepezil 5 mg tablet (Aricept) 10 mg PO HS 11/18/21 09/14/22 ergocalciferol (vitamin D2) 1,250 1,250 mcg PO WEEKLY 11/18/21 09/14/22 mcg (50,000 unit) capsule (Vitamin D2) loperamide 2 mg tablet (Imodium 2 mg PO QID PRN Diarrhea 11/18/21 09/14/22 A-D) olopatadine 0.2 % eye drops 1 drp EACH EYE DAILY 11/18/21 09/14/22 (Pataday Once Daily Relief) polyethylene glycol 3350 17 gram 17 g PO DAILY PRN Constipation 11/18/21 09/14/22 oral powder packet metoprolol succinate 100 mg 50 mg PO DAILY 01/05/22 09/14/22 tablet,extended release 24 hr losartan 25 mg tablet 25 mg PO DAILY 04/11/22 09/14/22 Lactobacillus rhamnosus GG 10 1 cap PO DAILY 09/14/22 09/14/22 billion cell capsule (Culturelle) buspirone 10 mg tablet 10 mg PO TID 09/14/22 09/14/22 memantine 5 mg tablet 5 mg PO Q12H 09/14/22 09/14/22 pyridoxine (vitamin B6) 100 mg 100 mg PO Q12H 09/14/22 09/14/22 tablet Allergies Allergy/AdvReac Type Severity Reaction Status Date / Time clarithromycin Allergy Unknown Unknown Verified 03/15/22 10:30 lisinopril Allergy Unknown Unknown Verified 03/15/22 10:30 nitrofurantoin Allergy Unknown Palpitation Verified 03/15/22 10:30 s Review of Systems Review of Systems: All systems reviewed & are unremarkable except as noted in HPI and below PMFSH Past Medical History Medical History (Updated 09/14/22 @ 17:42 by Georges Benson MD) Anemia Anxiety Arthritis Asthma Brain bleed Status post fall. Cardiomyopathy Status post defibrillator. Chronic obstructive pulmonary disease Congestive heart failure EF 50 to 55% with grade 1 diastolic dysfunction on echo in November 2021. Deep venous thrombosis Dementia Depression with anxiety Gastroesophageal reflux disease GI bleed Hyperlipidemia Hypertension Kidney stone Overactive bladder Paroxysmal atrial fibrillation Pulmonary embolism Rhabdomyolysis Schizoaffective disorder Seasonal allergies Surgical History Surgical History (Updated 09/14/22 @ 14:20 by Trina Vang PA-C) History of arthroscopy of right shoulder History of bilateral knee arthroplasty History of cardiac catheterization History of cystoscopy History of open reduction and internal fixation (ORIF) procedure Repair of left ankle fracture. History of tonsillectomy History of ureter stent Presence of combination internal cardiac defibrillator (ICD) and pacemaker Family History Family History Sibling Family history of cardiomyopathy Family history of malignant neoplasm of breast Mother Patient's mother is Hypertension
[2022-09-14 09:06] LABS: Basophils Percent Auto 0.4 % (0.2-1.2); Eosinophils Percent Auto 0.8 % (0-4.4); Hematocrit 39.5 % (37.0-47.0); Hemoglobin 11.7 g/dL (12.0-15.0); Immature Granulocyte Absolute 0.03 K/mm3 (0.00-0.031); Immature Granulocyte Percent A 0.6 % (0-0.5); Lymphocytes Absolute Auto 0.67 K/mm3 (0.9-3.2); Lymphocytes Percent Auto 13.4 % (18.3-44.2); Mean Corpuscular HGB Conc 29.6 g/dl (32-36); Mean Corpuscular Hemoglobin 32.4 pg (26-34); Mean Corpuscular Volume 109.4 fl (80-100); Mean Platelet Volume 8.8 fl (7.4-10.4); Monocytes Absolute Auto 0.3 K/mm3 (0.1-0.6); Monocytes Percent Auto 5.8 % (2.6-8.5); Neutrophils Absolute Auto 3.9 K/mm3 (1.3-6.7); Platelet Count Result 265 k/mm3 (150-375); Red Blood Count 3.61 M/mm3 (4.2-5.4); Red Cell Distribution Width 13.1 % (11.5-14.5)
[2022-09-14 09:07] LABS: Appearance Urine Clear (Clear); Bilirubin Urine Negative (Negative); Blood Urine Negative (Negative); Color Urine Yellow (Yellow); Glucose Urine UA Negative (Negative); Ketones Urine Negative (Negative); Leukocyte Esterase Ur Negative LEU/UL (Negative); Nitrate Urine Positive (Negative); Protein Urine Negative (Negative); Specific Grav Ur >= 1.030 (1.001-1.035); Urobilinogen Urine 0.2 mg/dL (<2.0); pH Urine 5.5 (5.0-9.0)
[2022-09-14 09:17] LABS: Alanine Aminotransferase 20 U/L (6-35); Albumin Level 3.5 g/dL (3.5-5.1); Alkaline Phosphatase 79 U/L (38-126); Aspartate Amino Transferase 29 U/L (14-36); Bilirubin,Total 0.3 mg/dL (0.2-1.3); Blood Urea Nitrogen 16 mg/dL (7-17); Calcium 8.5 mg/dL (8.4-10.2); Carbon Dioxide > 40 mmol/L (22-30); Chloride 99 mmol/L (98-107); Estimated CRCL calculation 80 ml/min; Estimated Glomerular Filt Rate > 60; Glucose 109 mg/dL (65-110); Lactic Acid Reflex 0.6 mmol/L (0.7-2.0); Potassium 4.4 mmol/L (3.4-5.0); Sodium 141 mmol/L (137-145)
[2022-09-14 09:19] LABS: Prothrombin Time 13.3 Seconds (11.1-14.7)
[2022-09-14 09:20] LABS: Partial Thromboplastin Time 28.7 SECONDS (22.3-36.8)
[2022-09-14 09:37] LABS: Hypochromasia 1+ (NORMAL); Platelet Estimate Adequate (Adequate)
[2022-09-14 09:38] LABS: Schistocytes None Seen (NORMAL)
[2022-09-14 09:41] LABS: Add Urine Microscopic? YES
[2022-09-14 09:47] LABS: RBC Urine 0-2 /hpf (0-2); Squamous Epithelial Cell Urine Few /hpf (Few); WBC Urine 0-3 /hpf (0-3)
[2022-09-14 09:48] LABS: Amorphous Sediment Urine Moderate; Bacteria Urine 2+ /hpf
--- NOTE | 2022-09-14 10:56 | PC.NURSE ---
POA refused COVID testing at this time. provider aware
[2022-09-14] MEDS: SODIUM CHLORIDE 0.9% IV 1,000 ML 500 ML IV CONT (11:14)
--- NOTE | 2022-09-14 12:25 | ADMGEN ---
This patient, Maria Ines Park, was admitted to [facility] Surg Room 325-02. Patient/family oriented to hospital policies and general routines including ID bracelet, bed and alarms, visiting hours, pain management, procedures, bathroom and other care routines, personal items, smoking policy, room service/diet, and visiting hours. Information on how to activate the Rapid Response Team has been discussed. Patient/Family are encouraged to report perceived risks to care and to ask questions if they do not understand what they are told or what they should do.
[2022-09-14 12:53] LABS: Folic Acid 7.1 ng/mL (2.76->20)
--- NOTE | 2022-09-14 14:09 | PM.IMHP ---
H&P: HPI History of Present Illness Date/Time: 09/14/22 14:00 Chief Complaint: Weakness and fatigue. Narrative: This is a 81-year-old female with multiple medical problems including dementia, paroxysmal atrial fibrillation, congestive heart failure, hypertension, chronic obstructive pulmonary disease, DVT/PE, and other comorbidities who presented to the emergency department via EMS from [facility] for evaluation of weakness and fatigue. The patient provides the following history; some of the following is obtained via a review of her EMR as she is not the best historian and she seems a bit confused. At baseline she is alert and oriented x2 and is ambulatory. Staff sent her to the ER today as she has been fatigued and weak for the last day or so. The patient tells me that she has had a bit more short of breath from baseline and she has developed a cough that is productive of clear phlegm. She reports feeling ?a bit out of it? as well. She was afebrile on arrival to the ED with stable vital signs. Labs were significant for WBC count of 5.0, hemoglobin 11.7, MCV 109.4, platelet 265, normal electrolytes, serum bicarb greater than 40, lactic acid 0.6, TSH 0.490. UA was positive for nitrates with 2+ bacteria and 0 to 3 WBC (moderate amorphous sediment and few squamous cells were noted). Brain CT showed no acute findings. Chest x-ray showed small pleural effusions with airspace opacities at the bases consistent with atelectasis versus pneumonia and cardiomegaly. ABG showed a pH of 7.379, pCO2 60.5, and bicarb 34.9. She has previously been prescribed a trilogy unit however stopped using that months ago however with the confusion that she has been having she is willing to trial the BiPAP tonight. She denies fever, chills, sweats, falls, head trauma, chest pain, pleuritic pain, nausea, vomiting, and diarrhea. Review of Systems Review of Systems: Twelve systems were reviewed and are negative except for as per HPI. [facility] Past Medical History Medical History (Updated 09/14/22 @ 23:10 by Trina Vang PA-C) Anemia Anxiety Arthritis Asthma Brain bleed Status post fall. Cardiomyopathy Status post defibrillator. Chronic obstructive pulmonary disease Chronic respiratory failure with hypoxia and hypercapnia Congestive heart failure EF 50 to 55% with grade 1 diastolic dysfunction on echo in November 2021. Deep venous thrombosis Dementia Depression with anxiety Gastroesophageal reflux disease GI bleed Hyperlipidemia Hypertension Kidney stone Overactive bladder Paroxysmal atrial fibrillation Pulmonary embolism Rhabdomyolysis Schizoaffective disorder Seasonal allergies Surgical History Surgical History History of arthroscopy of right shoulder History of bilateral knee arthroplasty History of cardiac catheterization History of cystoscopy History of open reduction and internal fixation (ORIF) procedure Repair of left ankle fracture. History of tonsillectomy History of ureter stent Presence of combination internal cardiac defibrillator (ICD) and pacemaker Family History Family History Sibling Family history of cardiomyopathy Family history of malignant neoplasm of breast Mother Patient's mother is Hypertension Family history of cardiovascular disease Family history of malignant neoplasm of breast Other Family history of arthritis Family history of malignant neoplasm Social History Social History (Updated 09/14/22 @ 14:20 by Trina Vang PA-C) Social History: Surrogate medical decision maker: Darin or Katherine Park, children. Code status: Full code. Smoking status: Never smoker Second hand tobacco smoke exposure: No Alcohol intake: never Substance use: never Substance use type: does not use Lack of Transportation: No Lack of Food: Never True Current Ho
[2022-09-14] MEDS: SODIUM CHLORIDE 0.9% IV 500 ML 75 ML IV CONT (14:58)
[2022-09-14 15:01] LABS: Alveolar/Arterial O2 Gradient 47.5 mmHg; Base Excess ABG 7.9 mEq/l (+/-2.0); Carboxyhemoglobin 0.3 % THb (0-2.0); Fractional Inspired Oxygen 28 %; HCO3 ABG 34.9 mEq/l (22.0-26.0); Methemoglobin ABG 0.3 %THb (0-1.5); Oxygen Content ABG 16.6 %vol (16.0-22.0); Oxygen Saturation ABG 95.4 % (95.0-100.0); Oxyhemoglobin 95.6 % THb (90.0-100.0); PO2 ABG 80.8 mmHg (80.0-100.0); PO2 FiO2 Ratio Arterial Blood 2.89 %; Reduced Hemoglobin 3.8 %THb (0-5.0); Total Hemoglobin 12.3 g/dL (12.0-18.0); pH ABG 7.379 (7.350-7.450)
[2022-09-14 15:04] LABS: Device NASAL CANNULA; Modified Allen's Test Pass; PCO2 ABG 60.5 mmHg (35.0-45.0); Site Drawn LEFT RADIAL
[2022-09-14 15:49] LABS: Magnesium 2.1 mg/dL (1.6-2.3)
[2022-09-14 15:50] LABS: Iron 65 ug/dL (37-170)
[2022-09-14 16:00] LABS: Percent Iron Saturation 28 % (20-50)
[2022-09-14 16:22] LABS: Thyroid Stimulating Hormone Reflex 0.519 uIU/mL (0.465-4.68)
--- NOTE | 2022-09-14 16:28 | PCPTNOTE ---
On 09/14/22, the student, [Leigh Navarro], provided care and completed [facility] documentation on this patient. I have reviewed the student's documentation and agree with the findings.
[2022-09-14] MEDS: CYANOCOBALAMIN 1,000 MCG TABLET 1000 MCG PO (16:52)
[2022-09-14] MEDS: busPIRone HCL 10 MG TABLET PO (16:52)
--- NOTE | 2022-09-14 18:49 | PC.NURSE ---
Per Sandra Vang, put BIPAP on now and then wear at HS and with naps. Respiratory notified.
[2022-09-14] MEDS: ATORVASTATIN 10 MG TABLET PO (21:35)
[2022-09-14] MEDS: ARIPiprazole 5 MG TABLET PO (21:35)
[2022-09-14] MEDS: DONEPEZIL HCL 10 MG TABLET PO (21:37)
[2022-09-14] MEDS: LORATADINE 10 MG TABLET PO (21:38)
[2022-09-14] MEDS: MEMANTINE 5 MG TABLET PO (21:38)
[2022-09-14] MEDS: MONTELUKAST SODIUM 10 MG TABLET PO (21:39)
[2022-09-14] MEDS: OPTI-GEN TAB 1 TABLET PO (21:40)
[2022-09-14] MEDS: PYRIDOXINE HCL 50 MG TABLET 100 MG PO (21:40)
--- NOTE | 2022-09-15 00:36 | PC.NURSE ---
Pt refused to wear BIPAP machine. Respiratory notified.
--- NOTE | 2022-09-15 01:09 | PCRCNOTE ---
Pt did not want to wear BIPAP machine overnight. Pt tolerated machine less then 1 hour
[2022-09-15 06:00] VITALS: BP 120/69; PULSE 107; RESP 16; TEMP 35.9; O2SAT 95
[2022-09-15 06:08] LABS: Alveolar/Arterial O2 Gradient 87.2 mmHg; Base Excess ABG 9.2 mEq/l (+/-2.0); Fractional Inspired Oxygen 28 %; HCO3 ABG 32.7 mEq/l (22.0-26.0); Oxygen Saturation ABG 94.7 % (95.0-100.0); Oxyhemoglobin 94.4 % THb (90.0-100.0); PCO2 ABG 40.2 mmHg (35.0-45.0); PO2 FiO2 Ratio Arterial Blood 2.32 %; Total Hemoglobin 12.8 g/dL (12.0-18.0)
[2022-09-15 06:11] LABS: pH ABG 7.528 (7.350-7.450)
[2022-09-15 06:12] LABS: Device NASAL CANNULA; Modified Allen's Test Pass; Site Drawn RIGHT RADIAL
[2022-09-15 06:16] LABS: Hematocrit 37.3 % (37.0-47.0); Hemoglobin 11.7 g/dL (12.0-15.0); Mean Corpuscular HGB Conc 31.4 g/dl (32-36); Mean Corpuscular Hemoglobin 32.9 pg (26-34); Mean Corpuscular Volume 104.8 fl (80-100); Mean Platelet Volume 8.8 fl (7.4-10.4); Platelet Count Result 295 k/mm3 (150-375); Red Blood Count 3.56 M/mm3 (4.2-5.4); Red Cell Distribution Width 13.1 % (11.5-14.5); White Blood Count 8.2 K/mm3 (4.5-10.0)
[2022-09-15] MEDS: AMOXICILLIN/CLAVULANATE K 875-125 MG TAB 1 TABLET PO ×2 (07:51→19:46)
[2022-09-15] MEDS: OLOPATADINE 0.1% OPHTH SOLN 5 ML BTL 1 DROP EACH EYE (07:51)
[2022-09-15] MEDS: FLUTICASONE PROPIONATE 0.05% NA SPR 16 GM BTL (*BKC) 2 SPRAY NASAL (07:51)
[2022-09-15] MEDS: POLYSACCHARIDE IRON COMPLEX 150 MG CAPSULE PO (07:52)
[2022-09-15] MEDS: METOPROLOL SUCCINATE EXT REL 50 MG TABCR PO (07:52)
[2022-09-15] MEDS: FUROSEMIDE 40 MG TABLET PO (07:52)
[2022-09-15] MEDS: OPTI-GEN TAB 1 TABLET PO ×2 (07:52→19:46)
[2022-09-15] MEDS: oxyBUTYnin CHLORIDE XL 5 MG TAB.ER.24 10 MG PO (07:52)
[2022-09-15] MEDS: PYRIDOXINE HCL 50 MG TABLET 100 MG PO ×2 (07:52→19:46)
[2022-09-15] MEDS: busPIRone HCL 10 MG TABLET PO ×2 (07:52→13:08)
[2022-09-15] MEDS: ACIDOPHILUS/BULGARICUS CHEWABLE TABLET 1 TABLET PO (07:52)
[2022-09-15] MEDS: CITALOPRAM HYDROBROMIDE 10 MG TABLET PO (07:53)
[2022-09-15] MEDS: LOSARTAN POTASSIUM 25 MG TABLET PO (07:53)
[2022-09-15] MEDS: PANTOPRAZOLE 40 MG TABLET PO (07:53)
[2022-09-15] MEDS: MEMANTINE 5 MG TABLET PO ×2 (07:53→19:46)
[2022-09-15 08:00] VITALS: BP 136/83; PULSE 112; RESP 42; TEMP 35.5; O2SAT 97; O2SAT 98
[2022-09-15 09:04] VITALS: BP 136/81; PULSE 119; RESP 28; TEMP 36.1; O2SAT 96
--- NOTE | 2022-09-15 09:31 | PM.IMPN ---
Progress Note: A&P Assessment and Plan (1) Generalized weakness: Code(s): R53.1 - Weakness Status: Acute (2) Chronic respiratory failure with hypoxia and hypercapnia: Code(s): J96.11 - Chronic respiratory failure with hypoxia; J96.12 - Chronic respiratory failure with hypercapnia Status: Acute (3) Chronic obstructive pulmonary disease: Code(s): J44.9 - Chronic obstructive pulmonary disease, unspecified Status: Acute (4) Abnormal urinalysis: Code(s): R82.90 - Unspecified abnormal findings in urine Status: Acute (5) Macrocytic anemia: Code(s): D53.9 - Nutritional anemia, unspecified Status: Acute (6) Congestive heart failure: Code(s): I50.9 - Heart failure, unspecified Status: Acute (7) Dementia: Code(s): F03.90 - Unspecified dementia, unspecified severity, without behavioral disturbance, psychotic disturbance, mood disturbance, and anxiety Status: Acute (8) Hypertension: Code(s): I10 - Essential (primary) hypertension Status: Acute (9) Paroxysmal atrial fibrillation: Code(s): I48.0 - Paroxysmal atrial fibrillation Status: Acute (10) Psychiatric illness: Code(s): F99 - Mental disorder, not otherwise specified Status: Acute Plan General weakness The patient presented to the emergency department for evaluation of weakness Likely resulting from medical comorbidity, and a COPD exacerbation respiratory failure Consult PT OT for evaluation Acute respiratory failure Likely resulting from COPD exacerbation/interstitial lung disease exertion patient and Pneumonia Patient is placed on BiPAP Continue bronchodilator nebulizer scheduled and care Continue Augmentin p.o. Consult automatic typewriter inspector for evaluation and treatment Paroxysmal AFib Chronic sinus rhythm, not on blood thinner Patient Toprol p.o. Pressure monitoring GERD Continue Protonix 40 mg daily p.o. Chronic anemia No obvious bleeding Follows CBC Subjective Date/time seen: 09/15/22 09:31 Interval history: I saw and examined patient, patient still has a cough, and short of breath with mild exertion. Patient has no new issue even overnight. Patient is afebrile, Exam Narrative: GENERAL: Pleasant, in no acute distress. Well-nourished. - EYES: EOMI. Anicteric. - HENT: Moist mucous membranes. - LUNGS: Decreased air entry bilaterally somewhat rales bilaterally. - CARDIOVASCULAR: Regular rate and rhythm. No murmur. No JVD. - ABDOMEN: Soft, non-tender and non-distended. No palpable masses. - EXTREMITIES: No edema. Peripheral pulses 2+. Non-tender. - NEUROLOGIC: No focal neurological deficits. CN II-XII grossly intact. - PSYCHIATRIC: Awake, Alert and oriented x 3. Appropriate mood and affect. - SKIN: No rashes or lesions. Warm. - LYMPH: No cervical lymphadenopathy. Objective Data Vital Signs Vital Signs: Vital Signs - 24 hr 09/14/22 10:39 09/14/22 10:39 09/14/22 10:41 Temperature Pulse Rate 84 77 82 Respiratory Rate Blood Pressure 130/52 L 131/70 123/70 Pulse Oximetry Pulse Oximetry [At Rest After Therapy Session] Oxygen Delivery Oxygen Flow Rate 09/14/22 12:39 09/14/22 12:59 09/14/22 14:00 Temperature 97.6 F 97.4 F L Pulse Rate 82 73 Respiratory Rate 18 16 Blood Pressure 127/65 113/48 L Pulse Oximetry 98 98 100 Pulse Oximetry [At Rest After Therapy Session] Oxygen Delivery Nasal Cannula Oxygen Flow Rate 2 09/14/22 13:36 09/14/22 14:50 09/14/22 21:05 Temperature Pulse Rate Respiratory Rate 30 H Blood Pressure Pulse Oximetry 98 Pulse Oximetry [At Rest After Therapy Session] 92 Oxygen Delivery Nasal Cannula Nasal Cannula BiPAP Oxygen Flow Rate 2 2 09/14/22 21:00 09/15/22 06:00 09/15/22 08:00 Temperature 98 F 96.6 F L 95.9 F L Pulse Rate 85 107 H 112 H Respiratory Rate 14 16 42 H Blood Pressure 128/56 L 120/69 136/83 Pulse Oximetry 97 95
[2022-09-15 11:37] LABS: Anion Gap 3 mmol/L (8-16); Carbon Dioxide 39 mmol/L (22-30); Chloride 95 mmol/L (98-107); Potassium 3.9 mmol/L (3.4-5.0); Sodium 137 mmol/L (137-145)
[2022-09-15 11:38] LABS: Blood Urea Nitrogen 11 mg/dL (7-17); Calcium 9.1 mg/dL (8.4-10.2); Estimated CRCL calculation 66 ml/min; Estimated Glomerular Filt Rate > 60; Glucose 101 mg/dL (65-110)
--- NOTE | 2022-09-15 13:57 | PM.CNPUL ---
Assessment and Plan Assessment and plan (1) Chronic respiratory failure with hypoxia and hypercapnia: Code(s): J96.11 - Chronic respiratory failure with hypoxia; J96.12 - Chronic respiratory failure with hypercapnia Status: Acute Assessment and Plan: SHe probably uses O2 at baseline; most of the ABGs in the system show 2 L/min to 3 L/min, occasionally on room air. Also, she has had high pCO2 in the 70+ range back to Nov 2021. She has a history of being prescribed a Trilogy, non-invasive positive pressure device. but with her mentation, she has not used for a while. (2) Chronic obstructive pulmonary disease: Code(s): J44.9 - Chronic obstructive pulmonary disease, unspecified Status: Acute Assessment and Plan: PFTS from 05/31/2017 = severe COPD with good response to bronchodilator; she is on albuterol at home. I do not see controller medication for COPD. She has a cough with clear sputum, increased CO2 on ABG, needed 2 L/min O2 to maintain pO2 65. She is being treated with antibiotics, oral amoxicillin which is sufficient for no fever, normal WBC, questionable infiltrate in bases. Plan She may have pneumonia with the basilar infiltrates, so treating is appropriate, as well as treating UTI. She required brief BiPAP for hypercapnia. I do not see evidence of ILD; ILD was mentioned in the [facility]. She has had UTIs before with worsening of her mentation. She does not have high O2 requirements, 2 L/min. I will continue to follow her with you. Nothing to add at this time. History of Present Illness History of Present Illness Consult date: 09/15/22 Requesting physician: Julieta De Santiago MD Chief complaint: COPD Narrative: patient was seen September 15 at 17:15 NEW: Maria Ines Park is a 81-year-old female with COPD, admitted with weakness. She has dementia, gives little meaningful history. She is pleasant, wearing O2 by nasal cannula, decided during the visit to get up and go. I asked nursing staff to help return her to bed. She is pleasantly confused, not able to follow directions, so I did nto get a good pulmonary exam. She has enough pulmonary reserve to speak in regular sentences and object to being returned to bed. I am borrowing information from Trina Vang who was able to obtain a better story. At baseline, she is alert and ambulatory, came to ER due to weakness, fatigue with some increase in shortness of breath and cough with clear sputum. She is a never smoker, but had second hand smoke exposure. There was no fever, WBC was normal 5k, head CT was ok, CXR was ok for her age, see below. She does not use her Trilogy with her confusion. ABG = pH of 7.379, pCO2 60.5, and bicarb 34.9. Having a Trilogy means that she has had high pCO2 at some point so her breathing is maybe worse than I am aware of; she has dirty urine with nitrates and 2+ bacteria but no WBC, so maybe [id number]. Her MCV is way too high, normal B12 and folic acid, TSH, she is not drinking alcohol to excess, so she might have a hematologic disease. PMH: dementia, paroxysmal atrial fibrillation, congestive heart failure, hypertension, chronic obstructive pulmonary disease, DVT/PE, and other comorbidities who presented to the emergency department via EMS from [facility] for evaluation of weakness and fatigue.? DATA * 09/14/22 CXR There is stable mild scarring at the lung apices. There are small pleural effusions. There are airspace opacities at the lung bases. No pneumothorax. Cardiomegaly is noted. There is a left chest wall pacer with leads in the right atrium and right ventricle. There is a right shoulder arthroplasty. IMPRESSION: 1. Small pleural effusions. 2. Airspace opacities at the lung bases, consistent with atelectasis versus pneumonia. 3. Cardiomegaly. * 05/31/2017 - PFT FEV1 40%, FVC 40%, FEV1/FVC=71%; a
[2022-09-15] MEDS: HALOPERIDOL LACTATE 5 MG/ML VIAL IM (14:00)
[2022-09-15 15:06] VITALS: BP 139/62; PULSE 78; RESP 14; TEMP 36.4; O2SAT 98
[2022-09-15] MEDS: DONEPEZIL HCL 10 MG TABLET PO (19:46)
[2022-09-15] MEDS: LORATADINE 10 MG TABLET PO (19:46)
[2022-09-15] MEDS: ARIPiprazole 5 MG TABLET PO (19:46)
[2022-09-15] MEDS: MONTELUKAST SODIUM 10 MG TABLET PO (19:46)
[2022-09-15] MEDS: ATORVASTATIN 10 MG TABLET PO (19:47)
[2022-09-15 21:41] VITALS: BP 157/74; PULSE 72; RESP 18; TEMP 36.1; O2SAT 92
[2022-09-15 23:21] VITALS: O2SAT 93
[2022-09-16] VITALS (11 sets, daily range): BP systolic 90–107; BP diastolic 39–71; PULSE 66–84; RESP 14–19; TEMP 36.1–36.4; O2SAT 93–100
[2022-09-16] MEDS: POLYSACCHARIDE IRON COMPLEX 150 MG CAPSULE PO (08:47)
[2022-09-16] MEDS: FUROSEMIDE 40 MG TABLET PO (08:47)
[2022-09-16] MEDS: OPTI-GEN TAB 1 TABLET PO ×2 (08:48→21:27)
[2022-09-16] MEDS: PYRIDOXINE HCL 50 MG TABLET 100 MG PO ×2 (08:48→21:27)
[2022-09-16] MEDS: AMOXICILLIN/CLAVULANATE K 875-125 MG TAB 1 TABLET PO ×2 (08:48→21:27)
[2022-09-16] MEDS: oxyBUTYnin CHLORIDE XL 5 MG TAB.ER.24 10 MG PO (08:48)
[2022-09-16] MEDS: PANTOPRAZOLE 40 MG TABLET PO (08:48)
[2022-09-16] MEDS: busPIRone HCL 10 MG TABLET PO ×3 (08:48→16:35)
[2022-09-16] MEDS: METOPROLOL SUCCINATE EXT REL 50 MG TABCR PO (08:48)
[2022-09-16] MEDS: CITALOPRAM HYDROBROMIDE 10 MG TABLET PO (08:48)
[2022-09-16] MEDS: MEMANTINE 5 MG TABLET PO ×2 (08:48→21:27)
[2022-09-16] MEDS: ACIDOPHILUS/BULGARICUS CHEWABLE TABLET 1 TABLET PO (08:48)
[2022-09-16] MEDS: CYANOCOBALAMIN 1,000 MCG TABLET 1000 MCG PO (08:48)
[2022-09-16] MEDS: LOSARTAN POTASSIUM 25 MG TABLET PO (08:48)
[2022-09-16] MEDS: OLOPATADINE 0.1% OPHTH SOLN 5 ML BTL 1 DROP EACH EYE (08:49)
[2022-09-16] MEDS: FLUTICASONE PROPIONATE 0.05% NA SPR 16 GM BTL (*BKC) 2 SPRAY NASAL (08:49)
--- NOTE | 2022-09-16 12:52 | P.CDI_ITS ---
CDI Query Clarification Request Documented history of CHF. CHF noted in the assessment and plan. Lasix listed as a home medication. Patient receiving Lasix. Please specify type and acuity of heart failure if known. * Acute * Chronic * Acute on Chronic * Unknown * Systolic * Diastolic * Combined Systolic and Diastolic * Unknown <Renae Hoyt RN - Last Filed: 09/16/22 12:56> Clarified Diagnosis Clarified Diagnosis: Chronic diastolic heart failure <Julieta De Santiago MD - Last Filed: 09/16/22 14:09>
--- NOTE | 2022-09-16 14:09 | PM.IMPN ---
Progress Note: A&P Assessment and Plan (1) Generalized weakness: Code(s): R53.1 - Weakness Status: Acute (2) Chronic respiratory failure with hypoxia and hypercapnia: Code(s): J96.11 - Chronic respiratory failure with hypoxia; J96.12 - Chronic respiratory failure with hypercapnia Status: Acute (3) Chronic obstructive pulmonary disease: Code(s): J44.9 - Chronic obstructive pulmonary disease, unspecified Status: Acute (4) Abnormal urinalysis: Code(s): R82.90 - Unspecified abnormal findings in urine Status: Acute (5) Macrocytic anemia: Code(s): D53.9 - Nutritional anemia, unspecified Status: Acute (6) Congestive heart failure: Code(s): I50.9 - Heart failure, unspecified Status: Acute (7) Dementia: Code(s): F03.90 - Unspecified dementia, unspecified severity, without behavioral disturbance, psychotic disturbance, mood disturbance, and anxiety Status: Acute (8) Hypertension: Code(s): I10 - Essential (primary) hypertension Status: Acute (9) Paroxysmal atrial fibrillation: Code(s): I48.0 - Paroxysmal atrial fibrillation Status: Acute (10) Psychiatric illness: Code(s): F99 - Mental disorder, not otherwise specified Status: Acute Plan General weakness The patient presented to the emergency department for evaluation of weakness Likely resulting from medical comorbidity, and a COPD exacerbation respiratory failure Consult PT OT for evaluation Acute respiratory failure Likely resulting from COPD exacerbation/interstitial lung disease exertion patient and Pneumonia Patient was placed on BiPAP Continue bronchodilator nebulizer scheduled and care Continue Augmentin p.o. Consult hot car operator for evaluation and treatment Patient is off of BiPAP now Paroxysmal AFib Chronic sinus rhythm, not on blood thinner Patient is Toprol p.o. Pressure monitoring Chronic diastolic heart failure Stable Compensated GERD Continue Protonix 40 mg daily p.o. Chronic anemia No obvious bleeding Follows CBC Subjective Date/time seen: 09/16/22 14:09 Interval history: I saw and examined patient, patient still has a cough, and short of breath improves. Patient has no new issue even overnight. Patient is afebrile, Exam Narrative: GENERAL: Pleasant, in no acute distress. Well-nourished. - EYES: EOMI. Anicteric. - HENT: Moist mucous membranes. - LUNGS: Decreased air entry bilaterally, coarse breath sound bilaterally - CARDIOVASCULAR: Regular rate and rhythm. No murmur. No JVD. - ABDOMEN: Soft, non-tender and non-distended. No palpable masses. - EXTREMITIES: No edema. Peripheral pulses 2+. Non-tender. - NEUROLOGIC: No focal neurological deficits. CN II-XII grossly intact. - PSYCHIATRIC: Awake, Alert and oriented x 3. Appropriate mood and affect. - SKIN: No rashes or lesions. Warm. - LYMPH: No cervical lymphadenopathy. Objective Data Vital Signs Vital Signs: Vital Signs - 24 hr 09/15/22 15:06 09/15/22 21:41 09/15/22 23:21 Temperature 97.5 F L 97.0 F L Pulse Rate 78 72 Respiratory Rate 14 18 Blood Pressure 139/62 157/74 H Pulse Oximetry 98 92 Oxygen Delivery BiPAP Oxygen Flow Rate 09/15/22 23:21 09/16/22 06:00 09/16/22 08:36 Temperature 97.0 F L Pulse Rate 84 Respiratory Rate 18 Blood Pressure 107/71 Pulse Oximetry 93 100 93 Oxygen Delivery Nasal Cannula Nasal Cannula Oxygen Flow Rate 2 2 09/16/22 08:48 09/16/22 08:45 09/16/22 08:00 Temperature Pulse Rate 82 Respiratory Rate Blood Pressure 90/49 L Pulse Oximetry 93 Oxygen Delivery Nasal Cannula Oxygen Flow Rate 2 09/16/22 13:46 09/16/22 13:46 09/16/22 14:00 Temperature 97.6 F Pulse Rate 67 Respiratory Rate 19 Blood Pressure 92/57 L 98/59 L 90/49 L Pulse Oximetry 100 Oxygen Delivery Oxygen Flow Rate Intake/Output Intake/Output: Intake & Output
--- NOTE | 2022-09-16 16:42 | PM.PNPUL ---
Progress Note: A&P Assessment and Plan (1) Chronic respiratory failure with hypoxia and hypercapnia: Code(s): J96.11 - Chronic respiratory failure with hypoxia; J96.12 - Chronic respiratory failure with hypercapnia Status: Acute Assessment and Plan: She uses O2 at baseline;2 L/min. Saturation is better today on 2 L however BP is soft. 90/49. She has history of high pCO2 in the 70+ range back to Nov 2021. She has a history of being prescribed a Trilogy, non-invasive positive pressure device. but with her mentation, she has not used for a while. (2) Chronic obstructive pulmonary disease: Code(s): J44.9 - Chronic obstructive pulmonary disease, unspecified Status: Acute Assessment and Plan: PFTS from 05/31/2017 = severe COPD with good response to bronchodilator; she is on albuterol at home. I do not see controller medication for COPD. She has a cough with clear sputum, increased CO2 on ABG, needed 2 L/min O2 to maintain pO2 65. She is being treated with antibiotics, oral amoxicillin which is sufficient for no fever, normal WBC, questionable infiltrate in bases. Plan She seems to be back to her baseline, on same O2 at 2 L/min, with blood pressure 90/49 on 2 blood pressures entered today. I will defer the BP issue to Dr De Santiago. I think she is back to baseline, had normal WBC, exam is not remarkable. She is stable from a lung standpoint to go back to [place]. Her UTI might have been the main issue. Subjective Date/time seen: 09/16/22 16:42 Interval history: hospital follow up: Maria Ines Park is a 81-year-old female with COPD, admitted with weakness. She has dementia. 09/16/22 Appears much better today. Alert, pleasant, wearing 2 L O2 by nasal cannula, and this is what she wears at the [place] around the clock. She knows that she is at [facility], is not short of breath, however has respiratory rate at 20. Pleasantly confused, can follow directions today, better. Her lungs are clear today. The charge nurse asked me if I had objections to her discharge. I think she is stable, saturation is 93 to 100% on 2 L/min. Her blood pressure today is lower than yesterday; 90/49 on two readings. Yesterday her BP was 130-150/56 to 80. PMH: dementia, paroxysmal atrial fibrillation, congestive heart failure, hypertension, chronic obstructive pulmonary disease, wears O2 at 2 L/min; DVT/PE, and other comorbidities who presented to the emergency department via EMS from [facility] for evaluation of weakness and fatigue.? At baseline, she is alert and ambulatory, came to ER due to weakness, fatigue with some increase in shortness of breath and cough with clear sputum. She is a never smoker, but had second hand smoke exposure.? There was no fever, WBC was normal 5k, head CT was ok, CXR was ok for her age, see below. She does not use her Trilogy with her confusion. ABG = pH of 7.379, pCO2 60.5, and bicarb 34.9. Having a Trilogy means that she has had high pCO2 at some point so her breathing is maybe worse than I am aware of; she has dirty urine with nitrates and 2+ bacteria but no WBC, so maybe [id number]. Her MCV is way too high, normal B12 and folic acid, TSH, she is not drinking alcohol to excess, so she might have a hematologic disease. DATA * 09/14/22 CXR?There is stable mild scarring at the lung apices. There are small pleural effusions. There are airspace opacities at the lung bases. No pneumothorax. Cardiomegaly is noted. There is a left chest wall pacer with leads in the right atrium and right ventricle. There is a right shoulder arthroplasty. IMPRESSION: 1. Small pleural effusions. 2. Airspace opacities at the lung bases, consistent with atelectasis versus pneumonia. 3. Cardiomegaly. *? 05/31/2017 - PFT FEV1 40%, FVC 40%, FEV1/FVC=71%; after bronchodilator, FEV1 +19%, FVC +12%. , TLC 116%, RV 217%, R
[2022-09-16] MEDS: ATORVASTATIN 10 MG TABLET PO (21:27)
[2022-09-16] MEDS: DONEPEZIL HCL 10 MG TABLET PO (21:27)
[2022-09-16] MEDS: ARIPiprazole 5 MG TABLET PO (21:27)
[2022-09-16] MEDS: LORATADINE 10 MG TABLET PO (21:28)
[2022-09-16] MEDS: MONTELUKAST SODIUM 10 MG TABLET PO (21:28)
[2022-09-17] VITALS (11 sets, daily range): BP systolic 89–128; BP diastolic 41–81; PULSE 64–93; RESP 13–16; TEMP 35.7–36.3; O2SAT 96–100
--- NOTE | 2022-09-17 07:52 | PM.IMPN ---
Progress Note: A&P Assessment and Plan (1) Generalized weakness: Code(s): R53.1 - Weakness Status: Acute (2) Chronic respiratory failure with hypoxia and hypercapnia: Code(s): J96.11 - Chronic respiratory failure with hypoxia; J96.12 - Chronic respiratory failure with hypercapnia Status: Acute (3) Chronic obstructive pulmonary disease: Code(s): J44.9 - Chronic obstructive pulmonary disease, unspecified Status: Acute (4) Abnormal urinalysis: Code(s): R82.90 - Unspecified abnormal findings in urine Status: Acute (5) Macrocytic anemia: Code(s): D53.9 - Nutritional anemia, unspecified Status: Acute (6) Congestive heart failure: Code(s): I50.9 - Heart failure, unspecified Status: Acute (7) Dementia: Code(s): F03.90 - Unspecified dementia, unspecified severity, without behavioral disturbance, psychotic disturbance, mood disturbance, and anxiety Status: Acute (8) Hypertension: Code(s): I10 - Essential (primary) hypertension Status: Acute (9) Paroxysmal atrial fibrillation: Code(s): I48.0 - Paroxysmal atrial fibrillation Status: Acute (10) Psychiatric illness: Code(s): F99 - Mental disorder, not otherwise specified Status: Acute (11) UTI symptoms: Code(s): R39.9 - Unspecified symptoms and signs involving the genitourinary system Status: Acute (12) Hypotension due to hypovolemia: Code(s): I95.89 - Other hypotension; E86.1 - Hypovolemia Status: Acute Plan General weakness The patient presented to the emergency department for evaluation of weakness Likely resulting from medical comorbidity, and a COPD exacerbation respiratory failure Consult PT OT for evaluation Acute respiratory failure Likely resulting from COPD exacerbation/interstitial lung disease exertion patient and Pneumonia Patient was placed on BiPAP Continue bronchodilator nebulizer scheduled and care Continue Augmentin p.o. Consult soil engineer for evaluation and treatment Patient is off of BiPAP now Paroxysmal AFib Chronic sinus rhythm, not on blood thinner Patient is Toprol p.o. Pressure monitoring Chronic diastolic heart failure Stable Compensated GERD Continue Protonix 40 mg daily p.o. Symptomatic UTI Patient has dysuria UA shows fungal infection, urine culture positive of E coli intermediate sensitive Augmentin, susceptible to cephalosporin Start fluconazole 150 mg once, needs 2nd dose in 2 weeks that can be given by PCP Stop Augmentin, start ceftriaxone 1 g IV now and daily Hypotension Hold hypertension medication Possible per orally intake Gentle IV Discontinue losartan and furosemide Chronic anemia No obvious bleeding Follows CBC Subjective Date/time seen: 09/17/22 07:52 Interval history: I saw on exam patient today, patient still has dysuria, urinary urgency frequency. Blood pressure soft, afebrile. Patient denies chest pain, shortness breast, palpitation Exam Narrative: GENERAL: Pleasant, in no acute distress. Well-nourished. - EYES: EOMI. Anicteric. - HENT: Moist mucous membranes. - LUNGS: Decreased air entry bilaterally, coarse breath sound bilaterally - CARDIOVASCULAR: Regular rate and rhythm. No murmur. No JVD. - ABDOMEN: Soft, non-tender and non-distended. No palpable masses. - EXTREMITIES: No edema. Peripheral pulses 2+. Non-tender. - NEUROLOGIC: No focal neurological deficits. CN II-XII grossly intact. - PSYCHIATRIC: Awake, Alert and oriented x 3. Appropriate mood and affect. - SKIN: No rashes or lesions. Warm. - LYMPH: No cervical lymphadenopathy. Objective Data Vital Signs Vital Signs: Vital Signs - 24 hr 09/16/22 08:36 09/16/22 08:48 09/16/22 08:45 Temperature Pulse Rate 82 Respiratory Rate Blood Pressure Pulse Oximetry 93 93 Oxygen Delivery Nasal Cannula Nasal Cannula Oxygen Flow Rate 2 2 Fraction of Inspired
[2022-09-17] MEDS: AMOXICILLIN/CLAVULANATE K 875-125 MG TAB 1 TABLET PO (09:29)
[2022-09-17] MEDS: oxyBUTYnin CHLORIDE XL 5 MG TAB.ER.24 10 MG PO (09:29)
[2022-09-17] MEDS: busPIRone HCL 10 MG TABLET PO ×3 (09:29→17:04)
[2022-09-17] MEDS: FLUCONAZOLE 150 MG TABLET PO (09:29)
[2022-09-17] MEDS: ACIDOPHILUS/BULGARICUS CHEWABLE TABLET 1 TABLET PO (09:29)
[2022-09-17] MEDS: PYRIDOXINE HCL 50 MG TABLET 100 MG PO ×2 (09:29→20:15)
[2022-09-17] MEDS: POLYSACCHARIDE IRON COMPLEX 150 MG CAPSULE PO (09:29)
[2022-09-17] MEDS: MEMANTINE 5 MG TABLET PO ×2 (09:29→20:15)
[2022-09-17] MEDS: OPTI-GEN TAB 1 TABLET PO ×2 (09:29→20:15)
[2022-09-17] MEDS: FLUTICASONE PROPIONATE 0.05% NA SPR 16 GM BTL (*BKC) 2 SPRAY NASAL (09:30)
[2022-09-17] MEDS: METOPROLOL SUCCINATE EXT REL 25 MG TABCR PO (09:30)
[2022-09-17] MEDS: CITALOPRAM HYDROBROMIDE 10 MG TABLET PO (09:30)
[2022-09-17] MEDS: OLOPATADINE 0.1% OPHTH SOLN 5 ML BTL 1 DROP EACH EYE (09:30)
[2022-09-17] MEDS: PANTOPRAZOLE 40 MG TABLET PO (09:30)
[2022-09-17] MEDS: SODIUM CHLORIDE 0.9% IV 1,000 ML 100 ML IV CONT ×2 (11:05→21:10)
[2022-09-17] MEDS: ARIPiprazole 5 MG TABLET PO (20:15)
[2022-09-17] MEDS: LORATADINE 10 MG TABLET PO (20:15)
[2022-09-17] MEDS: ATORVASTATIN 10 MG TABLET PO (20:15)
[2022-09-17] MEDS: DONEPEZIL HCL 10 MG TABLET PO (20:15)
[2022-09-17] MEDS: MONTELUKAST SODIUM 10 MG TABLET PO (20:17)
[2022-09-18] VITALS (9 sets, daily range): BP systolic 116–152; BP diastolic 46–74; PULSE 71–90; RESP 14–15; TEMP 36.6–36.8; O2SAT 95–100
[2022-09-18] MEDS: SODIUM CHLORIDE 0.9% IV 1,000 ML 100 ML IV CONT ×2 (07:02→13:46)
[2022-09-18] MEDS: FLUTICASONE PROPIONATE 0.05% NA SPR 16 GM BTL (*BKC) 2 SPRAY NASAL (08:32)
[2022-09-18] MEDS: OLOPATADINE 0.1% OPHTH SOLN 5 ML BTL 1 DROP EACH EYE (08:32)
[2022-09-18] MEDS: PANTOPRAZOLE 40 MG TABLET PO (08:33)
[2022-09-18] MEDS: OPTI-GEN TAB 1 TABLET PO ×2 (08:33→20:13)
[2022-09-18] MEDS: POLYSACCHARIDE IRON COMPLEX 150 MG CAPSULE PO (08:33)
[2022-09-18] MEDS: oxyBUTYnin CHLORIDE XL 5 MG TAB.ER.24 10 MG PO (08:33)
[2022-09-18] MEDS: ACIDOPHILUS/BULGARICUS CHEWABLE TABLET 1 TABLET PO (08:33)
[2022-09-18] MEDS: busPIRone HCL 10 MG TABLET PO ×3 (08:33→17:06)
[2022-09-18] MEDS: CITALOPRAM HYDROBROMIDE 10 MG TABLET PO (08:33)
[2022-09-18] MEDS: PYRIDOXINE HCL 50 MG TABLET 100 MG PO ×2 (08:33→20:12)
[2022-09-18] MEDS: MEMANTINE 5 MG TABLET PO ×2 (08:34→20:12)
[2022-09-18] MEDS: METOPROLOL SUCCINATE EXT REL 25 MG TABCR PO (08:34)
--- NOTE | 2022-09-18 15:25 | PM.IMPN ---
Progress Note: A&P Assessment and Plan (1) Generalized weakness: Code(s): R53.1 - Weakness Status: Acute (2) Chronic respiratory failure with hypoxia and hypercapnia: Code(s): J96.11 - Chronic respiratory failure with hypoxia; J96.12 - Chronic respiratory failure with hypercapnia Status: Acute (3) Chronic obstructive pulmonary disease: Code(s): J44.9 - Chronic obstructive pulmonary disease, unspecified Status: Acute (4) Abnormal urinalysis: Code(s): R82.90 - Unspecified abnormal findings in urine Status: Acute (5) Macrocytic anemia: Code(s): D53.9 - Nutritional anemia, unspecified Status: Acute (6) Congestive heart failure: Code(s): I50.9 - Heart failure, unspecified Status: Acute (7) Dementia: Code(s): F03.90 - Unspecified dementia, unspecified severity, without behavioral disturbance, psychotic disturbance, mood disturbance, and anxiety Status: Acute (8) Hypertension: Code(s): I10 - Essential (primary) hypertension Status: Acute (9) Paroxysmal atrial fibrillation: Code(s): I48.0 - Paroxysmal atrial fibrillation Status: Acute (10) Psychiatric illness: Code(s): F99 - Mental disorder, not otherwise specified Status: Acute (11) UTI symptoms: Code(s): R39.9 - Unspecified symptoms and signs involving the genitourinary system Status: Acute (12) Hypotension due to hypovolemia: Code(s): I95.89 - Other hypotension; E86.1 - Hypovolemia Status: Acute Plan General weakness The patient presented to the emergency department for evaluation of weakness Likely resulting from medical comorbidity, and a COPD exacerbation respiratory failure Consult PT OT for evaluation Acute respiratory failure Likely resulting from COPD exacerbation/interstitial lung disease exertion patient and Pneumonia Patient was placed on BiPAP Continue bronchodilator nebulizer scheduled and care Continue Augmentin p.o. Consult hyperion administrator for evaluation and treatment Patient is off of BiPAP now Paroxysmal AFib Chronic sinus rhythm, not on blood thinner Patient is Toprol p.o. Pressure monitoring Chronic diastolic heart failure Stable Compensated GERD Continue Protonix 40 mg daily p.o. Symptomatic UTI Patient has dysuria UA shows fungal infection, urine culture positive of E coli intermediate sensitive Augmentin, susceptible to cephalosporin Start fluconazole 150 mg once, needs 2nd dose in 2 weeks that can be given by PCP Stop Augmentin, started ceftriaxone 1 g IV 09/17 Still has dysuria, but symptoms is improving. Continue ceftriaxone IV Hypotension Hold hypertension medication Possible per orally intake Gentle IV Discontinue losartan and furosemide BP is stable Chronic anemia No obvious bleeding Follows CBC Blood pressure is stable Subjective Date/time seen: 09/18/22 15:25 Interval history: I saw on exam patient today, patient still has dysuria, urinary urgency frequency but diffuse better today. Blood pressure is stable afebrile. Patient denies chest pain, shortness breast, palpitation Exam Narrative: GENERAL: Pleasant, in no acute distress. Well-nourished. - EYES: EOMI. Anicteric. - HENT: Moist mucous membranes. - LUNGS: Decreased air entry bilaterally, coarse breath sound bilaterally - CARDIOVASCULAR: Regular rate and rhythm. No murmur. No JVD. - ABDOMEN: Soft, non-tender and non-distended. No palpable masses. - EXTREMITIES: No edema. Peripheral pulses 2+. Non-tender. - NEUROLOGIC: No focal neurological deficits. CN II-XII grossly intact. - PSYCHIATRIC: Awake, Alert and oriented x 3. Appropriate mood and affect. - SKIN: No rashes or lesions. Warm. - LYMPH: No cervical lymphadenopathy. Objective Data Vital Signs Vital Signs: Vital Signs - 24 hr 09/17/22 20:00 09/17/22 22:00 09/17/22 20:00 Temperature Pulse Rate 74 Respiratory Rate 16 16
[2022-09-18] MEDS: polyethylene glycoL 3350 17 GM POWD.PACK PO (15:30)
[2022-09-18] MEDS: MONTELUKAST SODIUM 10 MG TABLET PO (20:12)
[2022-09-18] MEDS: DONEPEZIL HCL 10 MG TABLET PO (20:13)
[2022-09-18] MEDS: ATORVASTATIN 10 MG TABLET PO (20:13)
[2022-09-18] MEDS: LORATADINE 10 MG TABLET PO (20:13)
[2022-09-18] MEDS: ARIPiprazole 5 MG TABLET PO (20:13)
[2022-09-19] MEDS: SODIUM CHLORIDE 0.9% IV 1,000 ML 100 ML IV CONT (03:10)
[2022-09-19 05:44] VITALS: BP 133/74; PULSE 75; RESP 13; TEMP 36.4; O2SAT 97
[2022-09-19 08:00] VITALS: O2SAT 93
[2022-09-19 08:22] LABS: Hematocrit 35.9 % (37.0-47.0); Hemoglobin 10.6 g/dL (12.0-15.0); Mean Corpuscular HGB Conc 29.5 g/dl (32-36); Mean Corpuscular Hemoglobin 31.2 pg (26-34); Mean Corpuscular Volume 105.6 fl (80-100); Mean Platelet Volume 8.7 fl (7.4-10.4); Platelet Count Result 247 k/mm3 (150-375); Red Cell Distribution Width 13.4 % (11.5-14.5); White Blood Count 3.7 K/mm3 (4.5-10.0)
[2022-09-19] MEDS: CITALOPRAM HYDROBROMIDE 10 MG TABLET PO (08:22)
[2022-09-19] MEDS: OPTI-GEN TAB 1 TABLET PO (08:22)
[2022-09-19] MEDS: ACIDOPHILUS/BULGARICUS CHEWABLE TABLET 1 TABLET PO (08:22)
[2022-09-19] MEDS: POLYSACCHARIDE IRON COMPLEX 150 MG CAPSULE PO (08:22)
[2022-09-19 08:23] VITALS: PULSE 88
[2022-09-19] MEDS: busPIRone HCL 10 MG TABLET PO ×2 (08:23→12:04)
[2022-09-19] MEDS: PANTOPRAZOLE 40 MG TABLET PO (08:23)
[2022-09-19] MEDS: METOPROLOL SUCCINATE EXT REL 25 MG TABCR PO (08:23)
[2022-09-19] MEDS: oxyBUTYnin CHLORIDE XL 5 MG TAB.ER.24 10 MG PO (08:25)
[2022-09-19] MEDS: MEMANTINE 5 MG TABLET PO (08:25)
[2022-09-19] MEDS: PYRIDOXINE HCL 50 MG TABLET 100 MG PO (08:25)
[2022-09-19] MEDS: CYANOCOBALAMIN 1,000 MCG TABLET 1000 MCG PO (08:25)
[2022-09-19] MEDS: OLOPATADINE 0.1% OPHTH SOLN 5 ML BTL 1 DROP EACH EYE (08:26)
[2022-09-19 08:35] LABS: Blood Urea Nitrogen 7 mg/dL (7-17); Calcium 8.1 mg/dL (8.4-10.2); Carbon Dioxide > 40 mmol/L (22-30); Chloride 102 mmol/L (98-107); Estimated CRCL calculation 80 ml/min; Estimated Glomerular Filt Rate > 60; Glucose 96 mg/dL (65-110); Potassium 4.2 mmol/L (3.4-5.0); Sodium 140 mmol/L (137-145)
--- NOTE | 2022-09-19 11:58 | PM.DS ---
DS: Admitting Diagnosis Discharge Date TODAY Admitting Diagnosis e DS: Discharge Diagnosis Discharge Diagnosis (1) Generalized weakness: Code(s): R53.1 - Weakness Status: Acute (2) Chronic respiratory failure with hypoxia and hypercapnia: Code(s): J96.11 - Chronic respiratory failure with hypoxia; J96.12 - Chronic respiratory failure with hypercapnia Status: Acute (3) Chronic obstructive pulmonary disease: Code(s): J44.9 - Chronic obstructive pulmonary disease, unspecified Status: Acute (4) Abnormal urinalysis: Code(s): R82.90 - Unspecified abnormal findings in urine Status: Acute (5) Macrocytic anemia: Code(s): D53.9 - Nutritional anemia, unspecified Status: Acute (6) Congestive heart failure: Code(s): I50.9 - Heart failure, unspecified Status: Acute (7) Dementia: Code(s): F03.90 - Unspecified dementia, unspecified severity, without behavioral disturbance, psychotic disturbance, mood disturbance, and anxiety Status: Acute (8) Hypertension: Code(s): I10 - Essential (primary) hypertension Status: Acute (9) Paroxysmal atrial fibrillation: Code(s): I48.0 - Paroxysmal atrial fibrillation Status: Acute (10) Psychiatric illness: Code(s): F99 - Mental disorder, not otherwise specified Status: Acute (11) UTI symptoms: Code(s): R39.9 - Unspecified symptoms and signs involving the genitourinary system Status: Acute (12) Hypotension due to hypovolemia: Code(s): I95.89 - Other hypotension; E86.1 - Hypovolemia Status: Acute DS: Summary Hospital Course Reason for hospitalization: General weakness Hospital Course: Per H&P, 81-year-old female with multiple medical problems including dementia, paroxysmal atrial fibrillation, congestive heart failure, hypertension, chronic obstructive pulmonary disease, DVT/PE, and other comorbidities who presented to the emergency department via EMS from [facility] for evaluation of weakness and fatigue. The patient provides the following history; some of the following is obtained via a review of her EMR as she is not the best historian and she seems a bit confused. At baseline she is alert and oriented x2 and is ambulatory. Staff sent her to the ER today as she has been fatigued and weak for the last day or so. The patient tells me that she has had a bit more short of breath from baseline and she has developed a cough that is productive of clear phlegm. She reports feeling ?a bit out of it? as well. She was afebrile on arrival to the ED with stable vital signs. Labs were significant for WBC count of 5.0, hemoglobin 11.7, MCV 109.4, platelet 265, normal electrolytes, serum bicarb greater than 40, lactic acid 0.6, TSH 0.490. UA was positive for nitrates with 2+ bacteria and 0 to 3 WBC (moderate amorphous sediment and few squamous cells were noted). Brain CT showed no acute findings. Chest x-ray showed small pleural effusions with airspace opacities at the bases consistent with atelectasis versus pneumonia and cardiomegaly. ABG showed a pH of 7.379, pCO2 60.5, and bicarb 34.9. She has previously been prescribed a trilogy unit however stopped using that months ago however with the confusion that she has been having she is willing to trial the BiPAP tonight. She denies fever, chills, sweats, falls, head trauma, chest pain, pleuritic pain, nausea, vomiting, and diarrhea. The following medical issues have been addressed in the hospital General weakness The patient presented to the emergency department for evaluation of weakness Likely resulting from medical comorbidity, and a COPD exacerbation respiratory failure Consult PT OT for evaluation Patient will be discharged to assisted living and continue PT OT Acute respiratory failure Likely resulting from COPD exacerbation/interstitial lung disease exertion patient and Pneumonia Patient was placed on BiPA
[2022-09-19 13:00] LABS: SARS-CoV-2 RNA PCR Negative (Negative)
== END 2022-09-19 13:37 | DRG 193 ==
LOC: ANHED 10:21 → ANH3MEDSUR 11:46
PROVIDERS: Physician Assistant; Admitting Provider Internal Medicine; Emergency Provider Emergency Medicine; PCP Nurse Practitioner Family; Visit Provider Hospitalist
DX: J18.9 Pneumonia, unspecified organism (principal); J96.21 Acute and chronic respiratory failure with hypoxia; J96.22 Acute and chronic respiratory failure with hypercapnia; J44.1 Chronic obstructive pulmonary disease with (acute) exacerbation; I50.32 Chronic diastolic (congestive) heart failure; N39.0 Urinary tract infection, site not specified; J44.0 Chronic obstructive pulmonary disease with (acute) lower respiratory infection; B96.20 Unspecified Escherichia coli [E. coli] as the cause of diseases classified elsewhere; I11.0 Hypertensive heart disease with heart failure; I48.0 Paroxysmal atrial fibrillation; K21.9 Gastro-esophageal reflux disease without esophagitis; I95.9 Hypotension, unspecified; D53.9 Nutritional anemia, unspecified; F03.90 Unspecified dementia, unspecified severity, without behavioral disturbance, psychotic disturbance, mood disturbance, and anxiety; Z20.822 Contact with and (suspected) exposure to COVID-19; F25.9 Schizoaffective disorder, unspecified; F41.8 Other specified anxiety disorders; N32.81 Overactive bladder; Z96.653 Presence of artificial knee joint, bilateral; Z86.718 Personal history of other venous thrombosis and embolism; Z86.711 Personal history of pulmonary embolism; Z95.810 Presence of automatic (implantable) cardiac defibrillator; Z99.81 Dependence on supplemental oxygen
CPT/HCPCS: 36415; 36600; 70450; 71045; 80048; 80053; 81001; 82375; 82607; 82728; 82746; 82805; 83050; 83540; 83550; 83605; 83735; 84443; 85025; 85027; 85610; 85730; 87040; 87077; 87086; 87186; 87635; 93005; 94660; 96365; 97161; 97165; 97530; 97535; 99285; A9270; G0378; J0696; J1630; J7030; J7040

== ENCOUNTER 2022-09-23 10:03 | Inpatient (IN) | payer MEDICARE, SELFPAY ==
[2022-09-23] VITALS (32 sets, daily range): BP systolic 93–146; BP diastolic 57–82; PULSE 82–107; RESP 12–39; TEMP 36.1–36.4; O2SAT 91–100
--- NOTE | 2022-09-23 | ECG_ITS ---
Measurements Intervals [place] Rate: 84 P: 51 AK: 191 QRS: -53 QRSD: 129 T: 135 QT: 399 QTc: 474 Interpretive Statements SINUS RHYTHM LEFT ANTERIOR FASCICULAR BLOCK LEFT VENTRICULAR HYPERTROPHY AND ST-T CHANGE ABNORMAL ECG COMPARED TO ECG 09/14/2022 08:48:28 NO SIGNIFICANT CHANGES Electronically Signed On 09-23-2022 13:42:27 CDT by Kuldeep Salgado D.O.
--- NOTE | ~2022-09-23 | CT_ITS ---
EXAMINATION: CT abdomen pelvis w con DATE: 09/24/2022 15:48 INDICATION: Dyspnea on exertion. Elevated lactate. TECHNIQUE: Computed tomography (CT) of the abdomen and pelvis was performed with 100 mL Omnipaque 350 intravenous contrast. Automated exposure control and iterative reconstruction technique were employe d. The dose-length product was 579.75 mGy-cm. COMPARISON: CT pelvis 02/13/19, CT abdomen and pelvis 04/03/2014 FINDINGS: The visualized portions of the lung bases demonstrate moderate atelectasis. There are small pleural effusions. Cardiomegaly is noted. There are coronary artery calcifications. No pericardial e ffusion. There are pacer wires in right atrium and right ventricle. There are cysts in the liver julia uring up to 11 mm. There are gallstones in the gallbladder which is normal in size. There is a 2.0 cm hypodense mass in the spleen, stable from 04/03/14, likely benign. The pancreas and adrenal glands ar e normal. There is a filter in the inferior vena cava. There are cysts in the kidneys measuring up to 9 mm on the right. There are no dilated loops of bowel. The appendix is normal. There are no patholo gically enlarged lymph nodes. There is no free intraperitoneal fluid. There is calcified atherosclero sis of the aorta and many of the other arteries. There is no significant stenosis of celiac axis or s uperior mesenteric artery. There is internal fixation of proximal right femur. There is mild lumbar s pondylosis and moderate thoracic spondylosis. IMPRESSION: 1. Small pleural effusions. 2. No etiology for elevated lactate. Reviewed, dictated and finalized at location E.
--- NOTE | ~2022-09-23 | CT_ITS ---
EXAMINATION: CTA chest PE protocol DATE: 09/23/2022 11:01 INDICATION: Shortness of breath TECHNIQUE: Computed tomography angiography (CTA) of the chest was performed with 100 mL Omnipaque-350 intravenous contrast timed to evaluate the pulmonary arteries. Coronal maximum intensity projection 3D-reconstructions were created by the technologist. The dose-length product (DLP) was 202.82 mGy-cm. Automated exposure control and iterative reconstruction technique were employed. COMPARISON: 05/18/2017 FINDINGS: The pulmonary arteries are well-opacified. No pulmonary embolism is identified. There are s mall pleural effusions. No pneumothorax is identified. There are airspace opacities of the lower lobe s and right middle lobe. Cardiomegaly is noted. There are no pathologically enlarged thoracic lymph n odes. There is a dual-lead pacemaker of the left chest wall. Changes of right shoulder arthroplasty a re noted. There is moderate thoracic spondylosis. IMPRESSION: 1. No pulmonary embolus identified. 2. Airspace opacities of the lower lobes and right middle lobe, consistent with atelectasis and pneum onia. 3. Cardiomegaly. Reviewed, dictated and finalized at location B. IMPRESSION: 1. No pulmonary embolus identified. 2. Airspace opacities of the lower lobes and right middle lobe, consistent with atelectasis and pneumonia. 3. Cardiomegaly.
--- NOTE | ~2022-09-23 | XR_ITS ---
Clinical Indication: Shortness of breath AP and lateral views of the chest: Comparison: 09/14/2022 Findings: There is probable minimal bibasilar atelectatic change/pulmonary edema. Minimal left pleura l effusion present. Cardiomediastinal silhouette is stable, with pacemaker device. Right shoulder ar throplasty noted. Impression: Probable minimal bibasilar pulmonary edema/atelectasis. Minimal left pleural effusion. Reviewed, dictated and finalized at location . Impression: Probable minimal bibasilar pulmonary edema/atelectasis. Minimal left pleural effusion.
--- NOTE | 2022-09-23 10:01 | ED.GENADULT ---
HPI - General Adult General Chief complaint: Shortness of Breath/Dyspnea Stated complaint: dyspnea, low O2 Source: patient Mode of arrival: EMS Limitations: no limitations History of Present Illness HPI narrative: This is a 81-year-old female with PMH of COPD, CHF, PE, dementia, s/p ICD placement who presents to the ED via EMS from rehab center with chief complaint of dyspnea on exertion. Per EMS patient was participating in physical therapy this morning when she had increased shortness of breath with exertional activity. Her sats dropped to low 70s while at the [facility]. They report they got her up to about 89 % on 2 L in the ambulance and started a breathing treatment. Patient states that she has been doing fine recently. She states that the dyspnea just started this morning during her exercises. Denies any recent fevers, cough, or any chest pain at all. Denies leg swelling. She states she has a history of COPD but does not take any inhalers. She states she uses 2 L of oxygen continuously. Related Data Home Medications Medication Instructions Recorded Confirmed PreserVision AREDS 1 cap PO Q12H 05/19/20 09/23/22 loratadine 10 mg PO HS 05/19/20 09/23/22 montelukast 10 mg tablet 10 mg PO HS 05/19/20 09/23/22 acetaminophen 500 mg capsule 1,000 mg PO Q6H PRN Pain 11/18/21 09/23/22 albuterol sulfate 90 mcg/actuation 2 puff inhalation Q4H PRN 11/18/21 09/23/22 aerosol inhaler Shortness Of Breath aripiprazole 5 mg tablet 5 mg PO HS 11/18/21 09/23/22 atorvastatin 10 mg tablet 10 mg PO HS 11/18/21 09/23/22 azelastine 137 mcg (0.1 %) nasal 2 spray intranasal BID PRN Dry 11/18/21 09/23/22 spray aerosol Nasal Passages citalopram 10 mg tablet 10 mg PO DAILY 11/18/21 09/23/22 cyanocobalamin (vitamin B-12) 1,000 mcg PO QMWF 11/18/21 09/23/22 1,000 mcg tablet donepezil 5 mg tablet (Aricept) 10 mg PO HS 11/18/21 09/23/22 ergocalciferol (vitamin D2) 1,250 1,250 mcg PO WEEKLY 11/18/21 09/23/22 mcg (50,000 unit) capsule (Vitamin D2) loperamide 2 mg tablet (Imodium 2 mg PO QID PRN Diarrhea 11/18/21 09/23/22 A-D) olopatadine 0.2 % eye drops 1 drp EACH EYE DAILY 11/18/21 09/23/22 (Pataday Once Daily Relief) polyethylene glycol 3350 17 gram 17 g PO DAILY PRN Constipation 11/18/21 09/23/22 oral powder packet losartan 25 mg tablet 25 mg PO DAILY 04/11/22 09/23/22 Lactobacillus rhamnosus GG 10 1 cap PO DAILY 09/14/22 09/23/22 billion cell capsule (Culturelle) buspirone 10 mg tablet 10 mg PO TID 09/14/22 09/23/22 memantine 5 mg tablet 5 mg PO Q12H 09/14/22 09/23/22 pyridoxine (vitamin B6) 100 mg 100 mg PO Q12H 09/14/22 09/23/22 tablet Allergies Allergy/AdvReac Type Severity Reaction Status Date / Time clarithromycin Allergy Unknown Unknown Verified 03/15/22 10:30 nitrofurantoin Allergy Unknown Palpitation Verified 03/15/22 10:30 s [facility] Past Medical History Medical History (Updated 09/23/22 @ 15:27 by Libby Newell NP) Anemia Anxiety Arthritis Asthma Brain bleed Status post fall. Cardiomyopathy Status post defibrillator. Chronic obstructive pulmonary disease Chronic respiratory failure with hypoxia and hypercapnia Congestive heart failure EF 50 to 55% with grade 1 diastolic dysfunction on echo in November 2021. Deep venous thrombosis Dementia Depression with anxiety Gastroesophageal reflux disease GI bleed [place] (hard of hearing) Hyperlipidemia Hypertension Kidney stone Overactive bladder Paroxysmal atrial fibrillation Pneumonia Pulmonary embolism Rhabdomyolysis Schizoaffective disorder Seasonal allergies Surgical History Surgical History (Updated 09/23/22 @ 15:27 by Libby Newell NP) H/O breast biopsy History of ankle surgery History of arthroscopy of right shoulder History of bilateral knee arthroplasty History of bladder surgery History of cardiac catheterization History of cystoscopy History of implantable cardiac defibrillator (ICD) History of open reduction and internal
[2022-09-23 10:28] LABS: Alveolar/Arterial O2 Gradient 55.7 mmHg; Base Excess ABG 13.9 mEq/l (+/-2.0); Device NASAL CANNULA; Fractional Inspired Oxygen 28 %; HCO3 ABG 39.2 mEq/l (22.0-26.0); Modified Allen's Test Pass; Oxygen Content ABG 16.6 %vol (16.0-22.0); Oxygen Saturation ABG 96.7 % (95.0-100.0); Oxyhemoglobin 96.2 % THb (90.0-100.0); PCO2 ABG 52.1 mmHg (35.0-45.0); PO2 ABG 82.5 mmHg (80.0-100.0); PO2 FiO2 Ratio Arterial Blood 2.95 %; Site Drawn LEFT RADIAL; Total Hemoglobin 12.2 g/dL (12.0-18.0); pH ABG 7.494 (7.350-7.450)
[2022-09-23 10:33] LABS: Basophils Percent Auto 0.4 % (0.2-1.2); Eosinophils Absolute Auto 0.1 K/mm3 (0-0.3); Eosinophils Percent Auto 2.1 % (0-4.4); Hematocrit 38.2 % (37.0-47.0); Hemoglobin 11.2 g/dL (12.0-15.0); Immature Granulocyte Absolute 0.01 K/mm3 (0.00-0.031); Immature Granulocyte Percent A 0.2 % (0-0.5); Lymphocytes Absolute Auto 0.82 K/mm3 (0.9-3.2); Lymphocytes Percent Auto 15.7 % (18.3-44.2); Mean Corpuscular HGB Conc 29.3 g/dl (32-36); Mean Corpuscular Hemoglobin 31.8 pg (26-34); Mean Corpuscular Volume 108.5 fl (80-100); Mean Platelet Volume 9.1 fl (7.4-10.4); Monocytes Absolute Auto 0.4 K/mm3 (0.1-0.6); Monocytes Percent Auto 7.7 % (2.6-8.5); Neutrophils Absolute Auto 3.9 K/mm3 (1.3-6.7); Neutrophils Percent Auto 73.9 % (45.5-73.1); Platelet Count Result 252 k/mm3 (150-375); Red Blood Count 3.52 M/mm3 (4.2-5.4); Red Cell Distribution Width 13.5 % (11.5-14.5); White Blood Count 5.2 K/mm3 (4.5-10.0)
[2022-09-23 10:45] LABS: Alanine Aminotransferase 24 U/L (6-35); Albumin Level 3.4 g/dL (3.5-5.1); Alkaline Phosphatase 74 U/L (38-126); Aspartate Amino Transferase 30 U/L (14-36); Bilirubin,Total 0.3 mg/dL (0.2-1.3); Blood Urea Nitrogen 15 mg/dL (7-17); Calcium 8.4 mg/dL (8.4-10.2); Carbon Dioxide > 40 mmol/L (22-30); Chloride 89 mmol/L (98-107); Estimated CRCL calculation 60 ml/min; Estimated Glomerular Filt Rate > 60; Glucose 111 mg/dL (65-110); Potassium 3.7 mmol/L (3.4-5.0); Sodium 139 mmol/L (137-145)
[2022-09-23 10:58] LABS: Platelet Estimate Adequate (Adequate)
[2022-09-23 10:59] LABS: Hypochromasia 1+ (NORMAL); Macrocytosis 1+ (NORMAL); Schistocytes None Seen (NORMAL); Stomatocytes 1+ (NORMAL)
[2022-09-23 11:22] LABS: NT Pro B Type Natriuretic Pept 747 pg/mL (19.9-100); Troponin I 0.021 ng/mL (0.000-0.034)
[2022-09-23] MEDS: methylPREDNISolone SOD SUCC 125 MG VIAL IV PUSH (12:37)
--- NOTE | 2022-09-23 12:53 | PM.IMHP ---
H&P: HPI History of Present Illness Date/Time: 09/23/22 12:53 Chief Complaint: Shortness of breath Narrative: This is a 81-year-old female patient who is pleasantly confused. The patient resides in a skilled facility. She has a history of COPD, PE dementia, CHF and status post ICD placement. Patient is pleasantly confused. The patient stated that she was just in bed and physical therapy came to get her and she became short of breath. However EMS reported that the patient was already participating in the physical therapy this morning and she had increased shortness of breath with exertional activity. The patient's O2 saturations dropped down into the low 70. The patient was able to get her O2 saturations up to 89% on 2 L. the patient tells me that she is constantly on 2 L per nasal cannula. Troponin is negative x2. Chest x-ray was read as probable minimal bibasilar pulmonary edema/atelectasis minimal left pleural effusions. CTA was read as the following. No pulmonary embolus identified. 2. Airspace opacities of the lower lobes and right middle lobe, consistent with atelectasis and pneumonia. 3. Cardiomegaly. The patient was given Solu-Medrol and Rocephin and Levaquin. The patient is being admitted to observation status on 09/23/2022. Review of Systems Review of Systems: All systems reviewed & are unremarkable except as noted in HPI and below Constitutional: Constitutional: Reports as per HPI and Reports no additional constitutional complaints Eyes: Eyes: Reports as per HPI and Reports no additional eye complaints ENT: Reports system reviewed and no additional complaints, except as documented and Reports Normal hearing present Cardiovascular: Cardiovascular: Reports no additional cardiovascular complaints Respiratory: Respiratory: Reports no additional respiratory complaints and Reports no additional respiratory complaints Gastrointestinal: Gastrointestinal: Reports as per HPI and Reports no additional gastrointestinal complaints Musculoskeletal: Musculoskeletal: Reports no additional musculoskeletal complaints Integumentary/Breasts: Skin/Breast: Reports system reviewed and no additional complaints, except as docu and Reports as per HPI Neurologic: Reports system reviewed and no additional complaints, except as documented, Reports as per HPI and Reports Normal hearing present Psychiatric: Psychiatric: Reports no additional psychiatric complaints and Reports as per HPI Endocrine: Endocrine: Reports no additional endocrine complaints Hematologic/Lymphatic: Hematologic/Lymphatic: Reports no additional hematologic/lymphatic complaints Allergic/Immunologic: Allergic/Immunologic: Reports no additional allergic/immunologic complaints PMFSH Past Medical History Medical History (Updated 09/23/22 @ 15:27 by Libby Newell NP) Anemia Anxiety Arthritis Asthma Brain bleed Status post fall. Cardiomyopathy Status post defibrillator. Chronic obstructive pulmonary disease Chronic respiratory failure with hypoxia and hypercapnia Congestive heart failure EF 50 to 55% with grade 1 diastolic dysfunction on echo in November 2021. Deep venous thrombosis Dementia Depression with anxiety Gastroesophageal reflux disease GI bleed [place] (hard of hearing) Hyperlipidemia Hypertension Kidney stone Overactive bladder Paroxysmal atrial fibrillation Pneumonia Pulmonary embolism Rhabdomyolysis Schizoaffective disorder Seasonal allergies Surgical History Surgical History (Updated 09/23/22 @ 15:27 by Libby Newell NP) H/O breast biopsy History of ankle surgery History of arthroscopy of right shoulder History of bilateral knee arthroplasty History of bladder surgery History of cardiac catheterization History of cystoscopy History of implantable cardiac defibrillator (ICD) History of open reduction and internal fixation (ORIF) procedure Repair of left ankle fracture. History of tonsillectomy History of ureter stent Presence
[2022-09-23] MEDS: SODIUM CHLORIDE 0.9% IV 1,000 ML 75 ML IV CONT (13:49)
[2022-09-23 13:57] LABS: Troponin I < 0.012 ng/mL (0.000-0.034)
[2022-09-23] MEDS: levoFLOXacin 750 MG/D5W 150 ML 750 MG/150 ML BAG 100 MG IVPB (14:40)
--- NOTE | 2022-09-23 15:12 | ADMGEN ---
This patient, Maria [place], was admitted to Medical Room 345-. Patient/family oriented to hospital policies and general routines including ID bracelet, bed and alarms, visiting hours, pain management, procedures, bathroom and other care routines, personal items, smoking policy, room service/diet, and visiting hours. Information on how to activate the Rapid Response Team has been discussed. Patient/Family are encouraged to report perceived risks to care and to ask questions if they do not understand what they are told or what they should do.
[2022-09-23] MEDS: methylPREDNISolone SOD SUCC 125 MG VIAL 60 MG IV PUSH (18:53)
[2022-09-23] MEDS: IPRATROPIUM BR 0.02% INH SOLN 0.5 MG/2.5 ML VIAL INHALATION (20:00)
[2022-09-23] MEDS: ALBUTEROL SULFATE NEB 2.5 MG/3 ML INH INHALATION (20:00)
[2022-09-23] MEDS: busPIRone HCL 10 MG TABLET PO (20:37)
[2022-09-23] MEDS: DONEPEZIL HCL 10 MG TABLET PO (20:37)
[2022-09-23] MEDS: ATORVASTATIN 10 MG TABLET PO (20:37)
[2022-09-23] MEDS: MONTELUKAST SODIUM 10 MG TABLET PO (20:38)
[2022-09-23] MEDS: PYRIDOXINE HCL 50 MG TABLET 100 MG PO (20:39)
[2022-09-23] MEDS: ARIPiprazole 5 MG TABLET PO (20:39)
[2022-09-23] MEDS: MEMANTINE 5 MG TABLET PO (20:40)
[2022-09-23] MEDS: LORATADINE 10 MG TABLET PO (20:40)
[2022-09-24] VITALS (12 sets, daily range): BP systolic 126–154; BP diastolic 59–67; PULSE 85–105; RESP 16–20; TEMP 36–36.4; O2SAT 93–100
[2022-09-24] MEDS: methylPREDNISolone SOD SUCC 125 MG VIAL 60 MG IV PUSH ×4 (00:23→17:22)
[2022-09-24] MEDS: IPRATROPIUM BR 0.02% INH SOLN 0.5 MG/2.5 ML VIAL INHALATION ×4 (02:10→20:35)
[2022-09-24] MEDS: ALBUTEROL SULFATE NEB 2.5 MG/3 ML INH INHALATION ×4 (02:10→20:35)
[2022-09-24 06:33] LABS: Hematocrit 36.5 % (37.0-47.0); Hemoglobin 11.5 g/dL (12.0-15.0); Immature Granulocyte Absolute 0.01 K/mm3 (0.00-0.031); Immature Granulocyte Percent A 0.2 % (0-0.5); Lymphocytes Absolute Auto 0.47 K/mm3 (0.9-3.2); Mean Corpuscular HGB Conc 31.5 g/dl (32-36); Mean Corpuscular Hemoglobin 31.5 pg (26-34); Mean Platelet Volume 9.4 fl (7.4-10.4); Monocytes Absolute Auto 0.1 K/mm3 (0.1-0.6); Monocytes Percent Auto 1.4 % (2.6-8.5); Neutrophils Absolute Auto 5.3 K/mm3 (1.3-6.7); Neutrophils Percent Auto 90.4 % (45.5-73.1); Platelet Count Result 300 k/mm3 (150-375); Red Blood Count 3.65 M/mm3 (4.2-5.4); Red Cell Distribution Width 13.3 % (11.5-14.5); White Blood Count 5.9 K/mm3 (4.5-10.0)
[2022-09-24 06:43] LABS: Lactic Acid Reflex 3.5 mmol/L (0.7-2.0)
[2022-09-24 06:48] LABS: Alkaline Phosphatase 96 U/L (38-126); Anion Gap 5 mmol/L (8-16); Aspartate Amino Transferase 32 U/L (14-36); Bilirubin,Total 0.4 mg/dL (0.2-1.3); Blood Urea Nitrogen 22 mg/dL (7-17); Carbon Dioxide 38 mmol/L (22-30); Chloride 93 mmol/L (98-107); Estimated CRCL calculation 60 ml/min; Estimated Glomerular Filt Rate > 60; Glucose 175 mg/dL (65-110); Magnesium 1.9 mg/dL (1.6-2.3); Sodium 136 mmol/L (137-145)
[2022-09-24 06:54] LABS: Alanine Aminotransferase 41 U/L (6-35)
[2022-09-24] MEDS: FLUTICASONE PROPIONATE 0.05% NA SPR 16 GM BTL (*BKC) 2 SPRAY NASAL (08:08)
[2022-09-24] MEDS: OLOPATADINE 0.1% OPHTH SOLN 5 ML BTL 1 DROP EACH EYE (08:08)
[2022-09-24] MEDS: POLYSACCHARIDE IRON COMPLEX 150 MG CAPSULE PO (08:09)
[2022-09-24] MEDS: oxyBUTYnin CHLORIDE XL 5 MG TAB.ER.24 10 MG PO (08:09)
[2022-09-24] MEDS: CITALOPRAM HYDROBROMIDE 10 MG TABLET PO (08:09)
[2022-09-24] MEDS: OPTI-GEN TAB 1 TABLET PO (08:09)
[2022-09-24] MEDS: METOPROLOL SUCCINATE EXT REL 25 MG TABCR PO (08:09)
[2022-09-24] MEDS: busPIRone HCL 10 MG TABLET PO ×3 (08:09→17:22)
[2022-09-24] MEDS: FUROSEMIDE 40 MG TABLET PO (08:09)
[2022-09-24] MEDS: LOSARTAN POTASSIUM 25 MG TABLET PO (08:09)
[2022-09-24] MEDS: PYRIDOXINE HCL 50 MG TABLET 100 MG PO ×2 (08:11→22:38)
[2022-09-24] MEDS: PANTOPRAZOLE 40 MG TABLET PO (08:11)
[2022-09-24] MEDS: MEMANTINE 5 MG TABLET PO ×2 (08:11→22:39)
[2022-09-24] MEDS: SODIUM CHLORIDE 0.9% IV 1,000 ML 75 ML IV CONT (08:12)
[2022-09-24 08:23] LABS: Thyroid Stimulating Hormone Reflex 0.561 uIU/mL (0.465-4.68)
[2022-09-24 09:30] LABS: Reflex Lactic Acid Yes or No Add Lactic
[2022-09-24 10:20] LABS: Lactic Acid 5.2 mmol/L (0.7-2.0)
--- NOTE | 2022-09-24 12:08 | PM.IMPN ---
Progress Note: A&P Assessment and Plan (1) Pneumonia: Code(s): J18.9 - Pneumonia, unspecified organism Status: Acute Assessment and Plan: The patient was started on Rocephin and Levaquin since she has allergy to clarithromycin. Blood and sputum cultures are pending. Continue with nebulizer treatments. Monitor CBC. (2) Chronic respiratory failure with hypoxia and hypercapnia: Code(s): J96.11 - Chronic respiratory failure with hypoxia; J96.12 - Chronic respiratory failure with hypercapnia Status: Acute Assessment and Plan: Continue with her home O2 at 2 L per nasal cannula. May try treated reportedly. She does have a history of having COPD. Continue with Solu-Medrol. Continue nebulizer treatments. (3) Depression with anxiety: Code(s): F41.8 - Other specified anxiety disorders Status: Acute Assessment and Plan: Continue with BuSpar and or citalopram (4) Hypertension: Code(s): I10 - Essential (primary) hypertension Status: Acute Assessment and Plan: Continue with losartan (5) Dementia: Code(s): F03.90 - Unspecified dementia, unspecified severity, without behavioral disturbance, psychotic disturbance, mood disturbance, and anxiety Status: Acute Assessment and Plan: Continue with Namenda and Aricept (6) Chronic obstructive pulmonary disease: Code(s): J44.9 - Chronic obstructive pulmonary disease, unspecified Status: Acute Assessment and Plan: Continue with chronic oxygen at 2 L per nasal cannula. Continue with nebulizer treatments and Solu-Medrol. Continue with Singulair (7) Congestive heart failure: Code(s): I50.9 - Heart failure, unspecified Status: Acute Assessment and Plan: Continue with losartan and Lasix. Echo on 11/19/2021 was read as follows? 1. Complete two-dimensional, color flow and Doppler transthoracic echocardiogram is performed. ? 2. Left ventricular chamber dimension is normal. ? 3. Left ventricular systolic function is normal, estimated at 50-55%. ? 4. The left ventricular diastolic function is grade I diastolic dysfunction. ? 5. A left ventricular false cord is identified. ? 6. Right ventricular chamber dimension is mildly enlarged. ? 7. There is mild aortic valve sclerosis. ? 8. There is no mitral valve regurgitation. Plan 09/24/2022:Patient presented from nursing facility with shortness of breath. Oxygen saturation dropped down to low 70s needing increased oxygen supplementation. Acute hypoxic respiratory failure on chronic. Chest x-ray with minimal bibasilar pulmonary edema/atelectasis minimal left pleural effusion. CT with airspace opacity in the lower lobes and right middle lobe consistent with atelectasis and pneumonia. Along with cardiomegaly. She was given Solu-Medrol Rocephin and Levaquin in the ER. Underlying dementia history of brain bleed/P/schizoaffective disorder/anxiety depression/congestive heart failure/COPD/cardiomyopathy/status post defibrillator/paroxysmal atrial fibrillation//overactive bladder/hypertension/hyperlipidemia/status post IVC filter placement. Lactic acidosis worsened panculture echo on 11/19/2021 with EF 50-55% grade 1 diastolic dysfunction. BNP 747 lower than previous levels. Blood culture pending Subjective Date/time seen: 09/24/22 12:08 Interval history: Patient presented from nursing facility with shortness of breath. Oxygen saturation dropped down to low 70s needing increased oxygen supplementation. Acute hypoxic respiratory failure on chronic. Chest x-ray with minimal bibasilar pulmonary edema/atelectasis minimal left pleural effusion. CT with airspace opacity in the lower lobes and right middle lobe consistent with atelectasis and pneumonia. Along with cardiomegaly. She was given Solu-Medrol Rocephin and Levaquin in the ER. Underlying dementia history of brain bleed/P/schizoaffective disorder/anxiety depression/congestive heart melissa
[2022-09-24] MEDS: levoFLOXacin 750 MG/D5W 150 ML 750 MG/150 ML BAG 100 MG IVPB (14:55)
[2022-09-24] MEDS: ARIPiprazole 5 MG TABLET PO (22:38)
[2022-09-24] MEDS: ATORVASTATIN 10 MG TABLET PO (22:38)
[2022-09-24] MEDS: DONEPEZIL HCL 10 MG TABLET PO (22:39)
[2022-09-24] MEDS: MONTELUKAST SODIUM 10 MG TABLET PO (22:39)
[2022-09-24] MEDS: LORATADINE 10 MG TABLET PO (22:39)
[2022-09-25] VITALS (17 sets, daily range): BP systolic 138–148; BP diastolic 64–94; PULSE 75–86; RESP 18–20; TEMP 36.2–36.6; O2SAT 93–97
[2022-09-25] MEDS: SODIUM CHLORIDE 0.9% IV 1,000 ML 75 ML IV CONT ×2 (00:45→12:31)
[2022-09-25] MEDS: methylPREDNISolone SOD SUCC 125 MG VIAL 60 MG IV PUSH ×4 (00:45→17:23)
[2022-09-25] MEDS: ALBUTEROL SULFATE NEB 2.5 MG/3 ML INH INHALATION ×4 (02:17→19:36)
[2022-09-25] MEDS: IPRATROPIUM BR 0.02% INH SOLN 0.5 MG/2.5 ML VIAL INHALATION ×4 (02:17→19:36)
[2022-09-25 06:35] LABS: Basophils Percent Auto 0.1 % (0.2-1.2); Hematocrit 32.9 % (37.0-47.0); Hemoglobin 10.4 g/dL (12.0-15.0); Immature Granulocyte Absolute 0.03 K/mm3 (0.00-0.031); Immature Granulocyte Percent A 0.3 % (0-0.5); Lymphocytes Absolute Auto 0.34 K/mm3 (0.9-3.2); Lymphocytes Percent Auto 3.8 % (18.3-44.2); Mean Corpuscular HGB Conc 31.6 g/dl (32-36); Mean Corpuscular Volume 101.2 fl (80-100); Monocytes Absolute Auto 0.1 K/mm3 (0.1-0.6); Monocytes Percent Auto 1.6 % (2.6-8.5); Neutrophils Absolute Auto 8.5 K/mm3 (1.3-6.7); Neutrophils Percent Auto 94.2 % (45.5-73.1); Platelet Count Result 234 k/mm3 (150-375); Red Blood Count 3.25 M/mm3 (4.2-5.4); Red Cell Distribution Width 14.2 % (11.5-14.5)
[2022-09-25 06:46] LABS: Lactic Acid Reflex 1.3 mmol/L (0.7-2.0)
[2022-09-25 06:49] LABS: Alanine Aminotransferase 25 U/L (6-35); Albumin Level 3.3 g/dL (3.5-5.1); Alkaline Phosphatase 72 U/L (38-126); Anion Gap 3 mmol/L (8-16); Aspartate Amino Transferase 32 U/L (14-36); Bilirubin,Total 0.2 mg/dL (0.2-1.3); Blood Urea Nitrogen 18 mg/dL (7-17); Calcium 8.3 mg/dL (8.4-10.2); Carbon Dioxide 38 mmol/L (22-30); Chloride 99 mmol/L (98-107); Estimated CRCL calculation 60 ml/min; Estimated Glomerular Filt Rate > 60; Glucose 155 mg/dL (65-110); Potassium 3.7 mmol/L (3.4-5.0); Sodium 140 mmol/L (137-145)
[2022-09-25] MEDS: CITALOPRAM HYDROBROMIDE 10 MG TABLET PO (08:55)
[2022-09-25] MEDS: FLUTICASONE PROPIONATE 0.05% NA SPR 16 GM BTL (*BKC) 2 SPRAY NASAL (08:55)
[2022-09-25] MEDS: busPIRone HCL 10 MG TABLET PO ×3 (08:55→16:20)
[2022-09-25] MEDS: oxyBUTYnin CHLORIDE XL 5 MG TAB.ER.24 10 MG PO (08:56)
[2022-09-25] MEDS: LOSARTAN POTASSIUM 25 MG TABLET PO (08:56)
[2022-09-25] MEDS: METOPROLOL SUCCINATE EXT REL 25 MG TABCR PO (08:56)
[2022-09-25] MEDS: OPTI-GEN TAB 1 TABLET PO (08:56)
[2022-09-25] MEDS: POLYSACCHARIDE IRON COMPLEX 150 MG CAPSULE PO (08:56)
[2022-09-25] MEDS: OLOPATADINE 0.1% OPHTH SOLN 5 ML BTL 1 DROP EACH EYE (08:56)
[2022-09-25] MEDS: MEMANTINE 5 MG TABLET PO ×2 (08:56→20:55)
[2022-09-25] MEDS: PYRIDOXINE HCL 50 MG TABLET 100 MG PO ×2 (08:56→20:55)
[2022-09-25] MEDS: PANTOPRAZOLE 40 MG TABLET PO (08:56)
--- NOTE | 2022-09-25 10:36 | PM.IMPN ---
Progress Note: A&P Assessment and Plan (1) Pneumonia: Code(s): J18.9 - Pneumonia, unspecified organism Status: Acute Assessment and Plan: The patient was started on Rocephin and Levaquin since she has allergy to clarithromycin. Blood and sputum cultures are pending. Continue with nebulizer treatments. Monitor CBC. (2) Chronic respiratory failure with hypoxia and hypercapnia: Code(s): J96.11 - Chronic respiratory failure with hypoxia; J96.12 - Chronic respiratory failure with hypercapnia Status: Acute Assessment and Plan: Continue with her home O2 at 2 L per nasal cannula. May try treated reportedly. She does have a history of having COPD. Continue with Solu-Medrol. Continue nebulizer treatments. (3) Depression with anxiety: Code(s): F41.8 - Other specified anxiety disorders Status: Acute Assessment and Plan: Continue with BuSpar and or citalopram (4) Hypertension: Code(s): I10 - Essential (primary) hypertension Status: Acute Assessment and Plan: Continue with losartan (5) Dementia: Code(s): F03.90 - Unspecified dementia, unspecified severity, without behavioral disturbance, psychotic disturbance, mood disturbance, and anxiety Status: Acute Assessment and Plan: Continue with Namenda and Aricept (6) Chronic obstructive pulmonary disease: Code(s): J44.9 - Chronic obstructive pulmonary disease, unspecified Status: Acute Assessment and Plan: Continue with chronic oxygen at 2 L per nasal cannula. Continue with nebulizer treatments and Solu-Medrol. Continue with Singulair (7) Congestive heart failure: Code(s): I50.9 - Heart failure, unspecified Status: Acute Assessment and Plan: Continue with losartan and Lasix. Echo on 11/19/2021 was read as follows? 1. Complete two-dimensional, color flow and Doppler transthoracic echocardiogram is performed. ? 2. Left ventricular chamber dimension is normal. ? 3. Left ventricular systolic function is normal, estimated at 50-55%. ? 4. The left ventricular diastolic function is grade I diastolic dysfunction. ? 5. A left ventricular false cord is identified. ? 6. Right ventricular chamber dimension is mildly enlarged. ? 7. There is mild aortic valve sclerosis. ? 8. There is no mitral valve regurgitation. Plan 09/24/2022:Patient presented from nursing facility with shortness of breath. Oxygen saturation dropped down to low 70s needing increased oxygen supplementation. Acute hypoxic respiratory failure on chronic. Chest x-ray with minimal bibasilar pulmonary edema/atelectasis minimal left pleural effusion. CT with airspace opacity in the lower lobes and right middle lobe consistent with atelectasis and pneumonia. Along with cardiomegaly. She was given Solu-Medrol Rocephin and Levaquin in the ER. Underlying dementia history of brain bleed/P/schizoaffective disorder/anxiety depression/congestive heart failure/COPD/cardiomyopathy/status post defibrillator/paroxysmal atrial fibrillation//overactive bladder/hypertension/hyperlipidemia/status post IVC filter placement. Lactic acidosis worsened panculture echo on 11/19/2021 with EF 50-55% grade 1 diastolic dysfunction. BNP 747 lower than previous levels. Blood culture pending Subjective Date/time seen: 09/25/22 10:36 Interval history: No new complaints Exam Narrative: GENERAL: Well-appearing, well-nourished, and in no acute distress. HEAD: Normocephalic, atraumatic. EYES: PERRLA and EOMI. ENT: Nares clear, no rhinorrhea or epistaxis.? Mucous membranes moist.? NECK: Supple.? No adenopathy or masses.? CHEST: Diminished breath sounds bilaterally no respiratory distress HEART: Regular rate and rhythm.? No murmur heard.? Normal peripheral pulses. ABDOMEN: Soft, nontender, nondistended, normal active bowel sounds. MSK: Normal range of motion.? No edema. SKIN: Warm, dry, no rash. NEURO: Alert and oriented x3. No f
[2022-09-25] MEDS: levoFLOXacin 750 MG/D5W 150 ML 750 MG/150 ML BAG 100 MG IVPB (16:20)
[2022-09-25] MEDS: ARIPiprazole 5 MG TABLET PO (20:55)
[2022-09-25] MEDS: MONTELUKAST SODIUM 10 MG TABLET PO (20:55)
[2022-09-25] MEDS: DONEPEZIL HCL 10 MG TABLET PO (20:55)
[2022-09-25] MEDS: ATORVASTATIN 10 MG TABLET PO (20:55)
[2022-09-25] MEDS: LORATADINE 10 MG TABLET PO (20:55)
[2022-09-26] VITALS (8 sets, daily range): BP systolic 157–162; BP diastolic 76–77; PULSE 70–98; RESP 18–20; TEMP 36.4; O2SAT 94–98
[2022-09-26] MEDS: ALBUTEROL SULFATE NEB 2.5 MG/3 ML INH INHALATION ×2 (01:03→09:32)
[2022-09-26] MEDS: IPRATROPIUM BR 0.02% INH SOLN 0.5 MG/2.5 ML VIAL INHALATION ×2 (01:04→09:32)
[2022-09-26] MEDS: methylPREDNISolone SOD SUCC 125 MG VIAL 60 MG IV PUSH ×2 (01:05→05:29)
[2022-09-26] MEDS: SODIUM CHLORIDE 0.9% IV 1,000 ML 75 ML IV CONT (01:06)
[2022-09-26] MEDS: OLOPATADINE 0.1% OPHTH SOLN 5 ML BTL 1 DROP EACH EYE (09:20)
[2022-09-26] MEDS: FLUTICASONE PROPIONATE 0.05% NA SPR 16 GM BTL (*BKC) 2 SPRAY NASAL (09:20)
[2022-09-26] MEDS: LOSARTAN POTASSIUM 25 MG TABLET PO (09:23)
[2022-09-26] MEDS: busPIRone HCL 10 MG TABLET PO (09:23)
[2022-09-26] MEDS: OPTI-GEN TAB 1 TABLET PO (09:23)
[2022-09-26] MEDS: oxyBUTYnin CHLORIDE XL 5 MG TAB.ER.24 10 MG PO (09:23)
[2022-09-26] MEDS: PYRIDOXINE HCL 50 MG TABLET 100 MG PO (09:23)
[2022-09-26] MEDS: METOPROLOL SUCCINATE EXT REL 25 MG TABCR PO (09:23)
[2022-09-26] MEDS: PANTOPRAZOLE 40 MG TABLET PO (09:23)
[2022-09-26] MEDS: CITALOPRAM HYDROBROMIDE 10 MG TABLET PO (09:23)
[2022-09-26] MEDS: MEMANTINE 5 MG TABLET PO (09:23)
[2022-09-26] MEDS: POLYSACCHARIDE IRON COMPLEX 150 MG CAPSULE PO (09:23)
[2022-09-26] MEDS: CYANOCOBALAMIN 1,000 MCG TABLET 1000 MCG PO (09:26)
--- NOTE | 2022-09-26 10:55 | PM.DS ---
DS: Admitting Diagnosis Discharge Date September 26, 2022 Admitting Diagnosis COPD, pneumonia DS: Discharge Diagnosis Discharge Diagnosis (1) Pneumonia: Code(s): J18.9 - Pneumonia, unspecified organism Status: Acute Assessment and Plan: The patient was started on Rocephin and Levaquin since she has allergy to clarithromycin. Blood and sputum cultures are pending. Continue with nebulizer treatments. Monitor CBC. (2) Chronic respiratory failure with hypoxia and hypercapnia: Code(s): J96.11 - Chronic respiratory failure with hypoxia; J96.12 - Chronic respiratory failure with hypercapnia Status: Acute Assessment and Plan: Continue with her home O2 at 2 L per nasal cannula. May try treated reportedly. She does have a history of having COPD. Continue with Solu-Medrol. Continue nebulizer treatments. (3) Depression with anxiety: Code(s): F41.8 - Other specified anxiety disorders Status: Acute Assessment and Plan: Continue with BuSpar and or citalopram (4) Hypertension: Code(s): I10 - Essential (primary) hypertension Status: Acute Assessment and Plan: Continue with losartan (5) Dementia: Code(s): F03.90 - Unspecified dementia, unspecified severity, without behavioral disturbance, psychotic disturbance, mood disturbance, and anxiety Status: Acute Assessment and Plan: Continue with Namenda and Aricept (6) Chronic obstructive pulmonary disease: Code(s): J44.9 - Chronic obstructive pulmonary disease, unspecified Status: Acute Assessment and Plan: Continue with chronic oxygen at 2 L per nasal cannula. Continue with nebulizer treatments and Solu-Medrol. Continue with Singulair (7) Congestive heart failure: Code(s): I50.9 - Heart failure, unspecified Status: Acute Assessment and Plan: Continue with losartan and Lasix. Echo on 11/19/2021 was read as follows? 1. Complete two-dimensional, color flow and Doppler transthoracic echocardiogram is performed. ? 2. Left ventricular chamber dimension is normal. ? 3. Left ventricular systolic function is normal, estimated at 50-55%. ? 4. The left ventricular diastolic function is grade I diastolic dysfunction. ? 5. A left ventricular false cord is identified. ? 6. Right ventricular chamber dimension is mildly enlarged. ? 7. There is mild aortic valve sclerosis. ? 8. There is no mitral valve regurgitation. Plan 09/24/2022:Patient presented from nursing facility with shortness of breath. Oxygen saturation dropped down to low 70s needing increased oxygen supplementation. Acute hypoxic respiratory failure on chronic. Chest x-ray with minimal bibasilar pulmonary edema/atelectasis minimal left pleural effusion. CT with airspace opacity in the lower lobes and right middle lobe consistent with atelectasis and pneumonia. Along with cardiomegaly. She was given Solu-Medrol Rocephin and Levaquin in the ER. Underlying dementia history of brain bleed/P/schizoaffective disorder/anxiety depression/congestive heart failure/COPD/cardiomyopathy/status post defibrillator/paroxysmal atrial fibrillation//overactive bladder/hypertension/hyperlipidemia/status post IVC filter placement. Lactic acidosis worsened panculture echo on 11/19/2021 with EF 50-55% grade 1 diastolic dysfunction. BNP 747 lower than previous levels. Blood culture pending DS: Summary Hospital Course Hospital Course: Patient is 81-year-old female history of COPD came in with worsening shortness of breath was found have COPD exacerbation along with pneumonia. She was started on antibiotics and steroids and did exceptionally well. She is on her home oxygen and getting around her room doing her normal activities. Patient can be discharged. She will be sent home on antibiotics and prednisone for couple days. Time Spent with Patient Time attestation: Total time spent providing and/or coordinating discharge services: Dani
[2022-09-26 12:52] LABS: SARS-CoV-2 RNA PCR Negative (Negative)
--- NOTE | 2022-09-26 13:09 | PC.NURSE ---
While discharging patient Katherine arrived to product picker patient at Entrance 2. Katherine did not bring a portable tank for patient despite patient's oxygen requirements needing 2L at all times. bankruptcy legal assistant Maru called radio news writer and explained the situation. Er Physician was talking over vocera to manager nursing giving Katherine alternative options such as taking our oxygen tank with her to facility that way patients oxygen needs were met. Katherine stated she was patient's POA and she can take patient to facility without oxygen if she wants to and refused to use one of the hospital tanks.
== END 2022-09-26 13:00 | DRG 193 ==
LOC: ANHED 13:10 → ANH3MED 14:32
PROVIDERS: Internal Medicine; Nurse Practitioner; Admitting Provider Family Medicine; Emergency Provider Physician Assistant; PCP Nurse Practitioner Family; Visit Provider Chiropractor
DX: J18.9 Pneumonia, unspecified organism (principal); J96.21 Acute and chronic respiratory failure with hypoxia; J96.22 Acute and chronic respiratory failure with hypercapnia; I50.32 Chronic diastolic (congestive) heart failure; J44.0 Chronic obstructive pulmonary disease with (acute) lower respiratory infection; J44.1 Chronic obstructive pulmonary disease with (acute) exacerbation; Z20.822 Contact with and (suspected) exposure to COVID-19; F41.8 Other specified anxiety disorders; F03.90 Unspecified dementia, unspecified severity, without behavioral disturbance, psychotic disturbance, mood disturbance, and anxiety; I11.0 Hypertensive heart disease with heart failure; D64.9 Anemia, unspecified; M19.90 Unspecified osteoarthritis, unspecified site; E78.5 Hyperlipidemia, unspecified; I48.0 Paroxysmal atrial fibrillation; F25.9 Schizoaffective disorder, unspecified; N32.81 Overactive bladder; K21.9 Gastro-esophageal reflux disease without esophagitis; Z96.653 Presence of artificial knee joint, bilateral; Z99.81 Dependence on supplemental oxygen; Z86.711 Personal history of pulmonary embolism; Z86.718 Personal history of other venous thrombosis and embolism; Z95.810 Presence of automatic (implantable) cardiac defibrillator
CPT/HCPCS: 36415; 36600; 71046; 71275; 74177; 80053; 82805; 83605; 83735; 83880; 84443; 84484; 85025; 87040; 87635; 93005; 94640; 96361; 96365; 96375; 96376; 99285; A9270; G0378; J0696; J1956; J2930; J7030; Q9967

== ENCOUNTER 2022-09-28 08:54 | Inpatient (IN) | payer MEDICARE, SELFPAY ==
[2022-09-28] VITALS (37 sets, daily range): BP systolic 87–150; BP diastolic 43–110; PULSE 63–97; RESP 13–31; TEMP 36.4–36.6; O2SAT 75–100; BMI 23.6
--- NOTE | ~2022-09-28 | XR_ITS ---
XR chest 1V portable 10/01/2022 06:13 Indication: Fluid overload. Procedure: AP portable chest Comparison: Comparison to multiple prior studies sequentially, with oldest reviewed study dated 11/2022. Findings: Cardiomegaly. Pacemaker leads are stable. Chronic apical pleural thickening/scarring. Mild interstitial edema, improving. Small right pleural effusion. No pneumothorax. No acute osseous abnorm ality. Impression: 1: Improving bilateral airspace disease, likely resolving edema. 2: Small right pleural effusion. Reviewed, dictated and finalized at location A. Impression: 1: Improving bilateral airspace disease, likely resolving edema. 2: Small right pleural effusion.
--- NOTE | ~2022-09-28 | XR_ITS ---
EXAMINATION: SNIFF TEST W/O CXR +FLUORO<1HR DATE: 02/09/11 11:13:00 INDICATION: Elevated left diaphragm. TECHNIQUE: Fluoroscopy was utilized for evaluation of diaphragmatic excursion with rapid inspiration. Fluorosco py exposure time was [ minutes.] COMPARISON: None. FINDINGS: There is relatively symmetric caudal excursion of both the left and right leaves of the diaphragm wit h rapid inspiration. Visualized portions of lung are clear. Heart size is normal. Left diaphragm is mildly elevated, nonspecific. This does not change with inspiration. IMPRESSION: 1. Normal sniff test. No evidence of phrenic nerve palsy. Reviewed, dictated and finalized at location A.
--- NOTE | ~2022-09-28 | XR_ITS ---
EXAMINATION: XR chest 1V portable DATE: 09/28/2022 09:31 INDICATION: Shortness of breath. TECHNIQUE: A single frontal view of the chest was obtained. COMPARISON: Chest 2 views 09/23/2022, chest CT 09/23/2022 FINDINGS: There is mild scarring at the lung apices. There are small pleural effusions. There are air space opacities in all right lung zones and in left mid and lower lung zones. There is mild elevation of left hemidiaphragm. No pneumothorax. Cardiomegaly is noted. There is a left chest wall pacer with leads in the right atrium and right ventricle. There is a right shoulder arthroplasty. IMPRESSION: 1. Worsened diffuse lung disease, consistent with pulmonary edema versus pneumonia. 2. Stable small pleural effusions. 3. Cardiomegaly. Reviewed, dictated and finalized at location A. IMPRESSION: 1. Worsened diffuse lung disease, consistent with pulmonary edema versus pneumo brain. 2. Stable small pleural effusions. 3. Cardiomegaly.
--- NOTE | 2022-09-28 09:02 | ECG_ITS ---
Measurements Intervals [place] Rate: 94 P: 22 AK: 185 QRS: -48 QRSD: 133 T: 126 QT: 388 QTc: 488 Interpretive Statements SINUS RHYTHM WITH SINUS ARRHYTHMIA LEFT ANTERIOR FASCICULAR BLOCK LEFT VENTRICULAR HYPERTROPHY AND ST-T CHANGE BASELINE ARTIFACT- II, AVR, V6 ABNORMAL ECG COMPARED TO ECG 09/23/2022 10:21:53 SINUS ARRHYTHMIA NOW PRESENT Electronically Signed On 09-28-2022 9:17:56 CDT by Kuldeep Salgado D.O.
[2022-09-28] MEDS: FUROSEMIDE INJ 40 MG/4 ML VIAL IV PUSH ×2 (09:14→20:51)
[2022-09-28 09:18] LABS: Basophils Percent Auto 0.1 % (0.2-1.2); Eosinophils Percent Auto 0.2 % (0-4.4); Hematocrit 45.2 % (37.0-47.0); Hemoglobin 13.6 g/dL (12.0-15.0); Immature Granulocyte Absolute 0.05 K/mm3 (0.00-0.031); Immature Granulocyte Percent A 0.4 % (0-0.5); Lymphocytes Absolute Auto 0.79 K/mm3 (0.9-3.2); Lymphocytes Percent Auto 5.6 % (18.3-44.2); Mean Corpuscular HGB Conc 30.1 g/dl (32-36); Mean Corpuscular Hemoglobin 31.9 pg (26-34); Mean Corpuscular Volume 105.9 fl (80-100); Mean Platelet Volume 9.1 fl (7.4-10.4); Monocytes Absolute Auto 0.9 K/mm3 (0.1-0.6); Monocytes Percent Auto 6.5 % (2.6-8.5); Neutrophils Absolute Auto 12.3 K/mm3 (1.3-6.7); Neutrophils Percent Auto 87.2 % (45.5-73.1); Platelet Count Result 247 k/mm3 (150-375); Red Blood Count 4.27 M/mm3 (4.2-5.4); Red Cell Distribution Width 13.7 % (11.5-14.5); White Blood Count 14.1 K/mm3 (4.5-10.0)
[2022-09-28 09:32] LABS: INR 0.9; Prothrombin Time 12.9 Seconds (11.1-14.7)
[2022-09-28 09:33] LABS: Partial Thromboplastin Time 25.3 SECONDS (22.3-36.8)
[2022-09-28 09:34] LABS: Alanine Aminotransferase 40 U/L (6-35); Albumin Level 3.7 g/dL (3.5-5.1); Alkaline Phosphatase 89 U/L (38-126); Aspartate Amino Transferase 28 U/L (14-36); Bilirubin,Total 0.6 mg/dL (0.2-1.3); Blood Urea Nitrogen 22 mg/dL (7-17); Calcium 8.3 mg/dL (8.4-10.2); Carbon Dioxide > 40 mmol/L (22-30); Chloride 93 mmol/L (98-107); Estimated CRCL calculation 66 ml/min; Estimated Glomerular Filt Rate > 60; Glucose 133 mg/dL (65-110); Potassium 3.7 mmol/L (3.4-5.0); Sodium 141 mmol/L (137-145)
[2022-09-28 09:39] LABS: NT Pro B Type Natriuretic Pept 4580 pg/mL (19.9-100); Troponin I < 0.012 ng/mL (0.000-0.034)
[2022-09-28 09:45] LABS: Alveolar/Arterial O2 Gradient 549.1 mmHg; Base Excess ABG 11.4 mEq/l (+/-2.0); Carboxyhemoglobin 0.9 % THb (0-2.0); Fractional Inspired Oxygen 100 %; HCO3 ABG 40.7 mEq/l (22.0-26.0); Methemoglobin ABG 0.3 %THb (0-1.5); Oxygen Content ABG 17.8 %vol (16.0-22.0); Oxygen Saturation ABG 95.3 % (95.0-100.0); Oxyhemoglobin 95.1 % THb (90.0-100.0); PO2 ABG 85.2 mmHg (80.0-100.0); PO2 FiO2 Ratio Arterial Blood 0.85 %; Reduced Hemoglobin 3.7 %THb (0-5.0); Total Hemoglobin 13.3 g/dL (12.0-18.0); pH ABG 7.331 (7.350-7.450)
[2022-09-28 09:47] LABS: PCO2 ABG 78.7 mmHg (35.0-45.0)
[2022-09-28 09:48] LABS: Device NON-INVASIVE VENT; Modified Allen's Test Pass; Non-Invasive Expiratory Pressure 8 CMH2O; Non-Invasive Inspiratory Pressure 16 CMH2O; Non-Invasive Vent Rate 12 /MIN; Site Drawn LEFT RADIAL
--- NOTE | 2022-09-28 10:21 | ED.SOB ---
HPI - SOB/Dyspnea General Chief Complaint: Shortness of Breath/Dyspnea Stated Complaint: SOB Time Seen by Provider: 09/28/22 09:00 History of Present Illness HPI Narrative: Patient is a 81-year-old female who presents ER with hypoxia. It is reported that her oxygen ran out at some point and she has been without it. Patient has some mild dementia but is oriented x3 at this time. She has no complaints of pain. Denies runny nose or sore throat. She does endorse cough and dyspnea. There is audible coarse breath sounds from bedside. She has no chest pain or chest pressure. She endorses orthopnea. Related Data Home Medications Medication Instructions Recorded Confirmed montelukast 10 mg tablet 10 mg PO HS 05/19/20 09/28/22 acetaminophen 500 mg capsule 1,000 mg PO Q6H PRN Pain 11/18/21 09/28/22 albuterol sulfate 90 mcg/actuation 2 puff inhalation Q4H PRN 11/18/21 09/28/22 aerosol inhaler Shortness Of Breath aripiprazole 5 mg tablet 5 mg PO HS 11/18/21 09/28/22 atorvastatin 10 mg tablet 10 mg PO HS 11/18/21 09/28/22 azelastine 137 mcg (0.1 %) nasal 2 spray intranasal BID PRN Dry 11/18/21 09/28/22 spray aerosol Nasal Passages citalopram 10 mg tablet 10 mg PO DAILY 11/18/21 09/28/22 cyanocobalamin (vitamin B-12) 1,000 mcg PO QMWF 11/18/21 09/28/22 1,000 mcg tablet donepezil 5 mg tablet (Aricept) 10 mg PO HS 11/18/21 09/28/22 ergocalciferol (vitamin D2) 1,250 1,250 mcg PO WEEKLY 11/18/21 09/28/22 mcg (50,000 unit) capsule (Vitamin D2) loperamide 2 mg tablet (Imodium 2 mg PO QID PRN Diarrhea 11/18/21 09/28/22 A-D) olopatadine 0.2 % eye drops 1 drp EACH EYE DAILY 11/18/21 09/28/22 (Pataday Once Daily Relief) polyethylene glycol 3350 17 gram 17 g PO DAILY PRN Constipation 11/18/21 09/28/22 oral powder packet losartan 25 mg tablet 25 mg PO DAILY 04/11/22 09/28/22 Lactobacillus rhamnosus GG 10 1 cap PO DAILY 09/14/22 09/28/22 billion cell capsule (Culturelle) buspirone 10 mg tablet 10 mg PO TID 09/14/22 09/28/22 memantine 5 mg tablet 5 mg PO Q12H 09/14/22 09/28/22 pyridoxine (vitamin B6) 100 mg 100 mg PO Q12H 09/14/22 09/28/22 tablet cefdinir 300 mg capsule 300 mg PO Q12H 09/28/22 09/28/22 loratadine 10 mg tablet 10 mg PO HS 09/28/22 09/28/22 metoprolol succinate 25 mg 25 mg PO QAM 09/28/22 09/28/22 tablet,extended release 24 hr (Toprol XL) prednisone 20 mg tablet 20 mg PO DAILY 09/28/22 09/28/22 vit C 250 mg-vit E 90 mg-zinc 40 1 cap PO Q12H 09/28/22 09/28/22 mg-copper 1 [id number] capsule (PreserVision AREDS-2) Allergies Allergy/AdvReac Type Severity Reaction Status Date / Time clarithromycin Allergy Unknown Unknown Verified 09/28/22 09:12 nitrofurantoin Allergy Unknown Palpitation Verified 09/28/22 09:12 s lisinopril Allergy Unknown Verified 09/28/22 16:33 Review of Systems Review of Systems: All systems reviewed & are unremarkable except as noted in HPI and below Constitutional: Constitutional: Denies chills Cardiovascular: Cardiovascular: Denies chest pain, Denies rapid heart rate and Denies radiating jaw, neck or arm pain Respiratory: Respiratory: Denies cough, Reports dyspnea and Denies wheezing Gastrointestinal: Gastrointestinal: Denies abdominal pain, Denies nausea and Denies vomiting Musculoskeletal: Musculoskeletal: Denies back pain, Denies arthralgias and Denies joint swelling [facility] Past Medical History Medical History (Updated 09/28/22 @ 18:51 by Renny Tang MD) Anemia Anxiety Arthritis Asthma Brain bleed Status post fall. Cardiomyopathy Status post defibrillator. Chronic obstructive pulmonary disease Chronic respiratory failure with hypoxia and hypercapnia Congestive heart failure EF 50 to 55% with grade 1 diastolic dysfunction on echo in November 2021. Deep venous thrombosis Dementia Depression with anxiety Gastroesophageal reflux disease GI bleed [place] (hard of hearing) Hyperlipidemia Hypertension Kidney stone Overactive bladder Paroxysm
--- NOTE | 2022-09-28 11:25 | PC.NURSE ---
Assumed care of patient from DANNY Fofana. Pt resting in bed in [facility] at this time. Son, Darin, called and provided with update. [phone].
--- NOTE | 2022-09-28 14:30 | PM.IMHP ---
H&P: HPI History of Present Illness Date/Time: 09/28/22 14:30 Chief Complaint: shortness of breathe Narrative: This is a 81-year-old female patient who has a history of COPD and congestive heart failure. The patient was last discharged on 09/26/22 with a COPD and pneumonia. The patient was treated with Rocephin and Levaquin. She has chronic respiratory failure with hypoxia and hypercapnia. The patient is chronically on oxygen at 2 L per nasal cannula. The patient was recently treated with Solu-Medrol as well. Her last echo was on . Complete two-dimensional, color flow and Doppler transthoracic echocardiogram is performed. ? 2. Left ventricular chamber dimension is normal. ? 3. Left ventricular systolic function is normal, estimated at 50-55%. ? 4. The left ventricular diastolic function is grade I diastolic dysfunction. ? 5. A left ventricular false cord is identified. ? 6. Right ventricular chamber dimension is mildly enlarged. ? 7. There is mild aortic valve sclerosis. ? 8. There is no mitral valve regurgitation. Her white count today is 14.1. ABGs pH 7.331 pCO2 was 78.7. The patient is a DNR but will allow a BiPAP. The patient was placed on a BiPAP today with settings 12/6. The patient was lethargic when I went to see her. Her BNP was noted to be 4580. Chest x-ray today was read as the following. Worsened diffuse lung disease, consistent with pulmonary edema versus pneumonia. 2. Stable small pleural effusions. 3. Cardiomegaly The patient was given Lasix in the emergency room. The patient was not able answer questions for me and she was on a BiPAP. The patient is being admitted to inpatient status on the date of service is 09/28/2022. Review of Systems Review of Systems: All systems reviewed & are unremarkable except as noted in HPI and below Constitutional: Constitutional: Reports as per HPI and Reports no additional constitutional complaints Eyes: Eyes: Reports as per HPI and Reports no additional eye complaints ENT: Reports system reviewed and no additional complaints, except as documented and Reports Normal hearing present Cardiovascular: Cardiovascular: Reports no additional cardiovascular complaints Respiratory: Respiratory: Reports no additional respiratory complaints and Reports no additional respiratory complaints Gastrointestinal: Gastrointestinal: Reports as per HPI and Reports no additional gastrointestinal complaints Musculoskeletal: Musculoskeletal: Reports no additional musculoskeletal complaints Integumentary/Breasts: Skin/Breast: Reports system reviewed and no additional complaints, except as docu and Reports as per HPI Neurologic: Reports system reviewed and no additional complaints, except as documented, Reports as per HPI and Reports Normal hearing present Psychiatric: Psychiatric: Reports no additional psychiatric complaints and Reports as per HPI Endocrine: Endocrine: Reports no additional endocrine complaints Hematologic/Lymphatic: Hematologic/Lymphatic: Reports no additional hematologic/lymphatic complaints Allergic/Immunologic: Allergic/Immunologic: Reports no additional allergic/immunologic complaints [facility] Past Medical History Medical History Anemia Anxiety Arthritis Asthma Brain bleed Status post fall. Cardiomyopathy Status post defibrillator. Chronic obstructive pulmonary disease Chronic respiratory failure with hypoxia and hypercapnia Congestive heart failure EF 50 to 55% with grade 1 diastolic dysfunction on echo in November 2021. Deep venous thrombosis Dementia Depression with anxiety Gastroesophageal reflux disease GI bleed [place] (hard of hearing) Hyperlipidemia Hypertension Kidney stone Overactive bladder Paroxysmal atrial fibrillation Pneumonia Pulmonary embolism Rhabdomyolysis Schizoaffective disorder Seasonal allergies Surgical History Surgical History (Updated 09/28/22 @ 19:15 by Libby Lang
--- NOTE | 2022-09-28 16:15 | ADMGEN ---
This patient, Maria Ines Park, was admitted to IMU Room 203-01. Patient/family oriented to hospital policies and general routines including ID bracelet, bed and alarms, visiting hours, pain management, procedures, bathroom and other care routines, personal items, smoking policy, room service/diet, and visiting hours. Information on how to activate the Rapid Response Team has been discussed. Patient/Family are encouraged to report perceived risks to care and to ask questions if they do not understand what they are told or what they should do.
[2022-09-28 20:46] LABS: Alveolar/Arterial O2 Gradient 55.6 mmHg; Base Excess ABG 16.7 mEq/l (+/-2.0); Fractional Inspired Oxygen 30 %; HCO3 ABG 42.7 mEq/l (22.0-26.0); Oxygen Content ABG 16.9 %vol (16.0-22.0); Oxygen Saturation ABG 97.3 % (95.0-100.0); Oxyhemoglobin 96.4 % THb (90.0-100.0); PCO2 ABG 57.5 mmHg (35.0-45.0); PO2 ABG 90.7 mmHg (80.0-100.0); PO2 FiO2 Ratio Arterial Blood 3.02 %; Total Hemoglobin 12.4 g/dL (12.0-18.0); pH ABG 7.489 (7.350-7.450)
[2022-09-28 20:50] LABS: Site Drawn RIGHT RADIAL
[2022-09-28 20:51] LABS: Device BIPAP; Modified Allen's Test Pass
[2022-09-28 21:03] LABS: Expiratory Pressure 6 cmH2O; Inspiratory Pressure 14 cmH2O
[2022-09-28] MEDS: DONEPEZIL HCL 10 MG TABLET PO (21:26)
[2022-09-28] MEDS: OPTI-GEN TAB 1 TABLET PO (21:26)
[2022-09-28] MEDS: LORATADINE 10 MG TABLET PO (21:26)
[2022-09-28] MEDS: MONTELUKAST SODIUM 10 MG TABLET PO (21:27)
[2022-09-28] MEDS: ATORVASTATIN 10 MG TABLET PO (21:27)
[2022-09-28] MEDS: busPIRone HCL 10 MG TABLET PO (21:29)
[2022-09-28] MEDS: MEMANTINE 5 MG TABLET PO (21:30)
[2022-09-28] MEDS: ARIPiprazole 5 MG TABLET PO (21:30)
[2022-09-28] MEDS: PYRIDOXINE HCL 50 MG TABLET 100 MG PO (21:36)
--- NOTE | 2022-09-28 22:00 | PC.NURSE ---
Received order from Libby Newell for oxygen via nasal cannula if oxygen saturation stays up. Patient is 96% on 2.5L/NC at this time.
[2022-09-28] MEDS: IPRATROPIUM BR 0.02% INH SOLN 0.5 MG/2.5 ML VIAL INHALATION (22:24)
[2022-09-28] MEDS: ALBUTEROL SULFATE NEB 2.5 MG/3 ML INH INHALATION (22:24)
[2022-09-29] VITALS (30 sets, daily range): BP systolic 109–152; BP diastolic 47–71; PULSE 58–112; RESP 18–37; TEMP 36.1–37.2; O2SAT 91–98
--- NOTE | 2022-09-29 | ECHO_ITS ---
Patient Info Name: Maria Ines Park Age: 81 years : 1940 Gender: Female Ht: 64 in Wt: 138 lbs BSA: 1.69 m2 HR: 115 bpm BP: 111 / 65 mmHg Heart Rhythm: Sinus Rhythm Technical Quality: Poor Exam Date: 09/29/2022 4:24 PM Exam Location: [facility] Pulmonary Exam Room: [facility] [place] Patient Status: Inpatient Admit Date: 09/28/2022 Staff Ordering Physician: Fady Issa MD Rehabilitation Aide/Scheduler: Jennifer Liao RDCS Attending Provider: Papo Davison MD Exam Type: CA echo limited w contrast Study Info Indications - CHF Limited two-dimensional transthoracic echocardiogram is performed with contrast. Contrast/Agitated Saline Contrast/Ag. Saline: Definity Amount: 2.00 ml Administered By: Jennifer Liao [facility] Existing IV Access: Yes IV Access Condition: patent with no signs of infiltration Reason for Poor Study: poor echocardiographic windows Summary 1. Limited echocardiogram performed with definity contrast injection. 2. Normal left ventricular size and systolic function. 3. Normal-appearing aortic and mitral valves. 4. Limited study does not include Doppler information. Left Ventricle Left ventricular chamber dimension is normal. Left ventricular systolic function is normal, estimated at 55-60%. Right Ventricle Right ventricular chamber dimension is normal. Left Atria Left atrial chamber dimension is normal. Right Atria Right atrial chamber dimension is normal. Aortic Valve The aortic valve is trileaflet. There is no aortic valve stenosis. Pulmonic Valve The pulmonic valve is not well visualized. Mitral Valve The mitral valve has normal leaflets. Tricuspid Valve The tricuspid valve leaflets are not well visualized. Pericardium/Pleural The pericardium appears normal. Aorta The aortic root size at the sinus of Valsalva is normal. Left Ventricular Outflow Tract Name Value Normal LVOT 2D LVOT Diameter 2.0 cm LVOT Doppler LVOT Peak Gradient 6 mmHg LVOT Mean Gradient 3 mmHg LVOT VTI 17 cm LVOT VTI/AV VTI Ratio 0.8 LVOT Stroke Volume 52 ml LVOT CO 15.4 l/min LVOT CI 9.1 l/min/m2 Mitral Valve Name Value Normal MV Diastolic Function MV E Peak Velocity 83 cm/s MV A Peak Velocity 2 cm/s MV E/A 38.4 Aortic Valve Name Value Normal AV Doppler AV Peak Velocity 149 cm/s AV Peak Gradient 9 mmHg
[2022-09-29] MEDS: IPRATROPIUM BR 0.02% INH SOLN 0.5 MG/2.5 ML VIAL INHALATION ×2 (02:31→08:29)
[2022-09-29] MEDS: ALBUTEROL SULFATE NEB 2.5 MG/3 ML INH INHALATION ×4 (02:31→20:34)
[2022-09-29 04:40] LABS: Basophils Percent Auto 0.1 % (0.2-1.2); Eosinophils Absolute Auto 0.1 K/mm3 (0-0.3); Eosinophils Percent Auto 0.5 % (0-4.4); Hematocrit 38.8 % (37.0-47.0); Hemoglobin 11.6 g/dL (12.0-15.0); Immature Granulocyte Absolute 0.03 K/mm3 (0.00-0.031); Immature Granulocyte Percent A 0.3 % (0-0.5); Lymphocytes Absolute Auto 1.16 K/mm3 (0.9-3.2); Lymphocytes Percent Auto 12.3 % (18.3-44.2); Mean Corpuscular HGB Conc 29.9 g/dl (32-36); Mean Corpuscular Hemoglobin 31.8 pg (26-34); Mean Corpuscular Volume 106.3 fl (80-100); Mean Platelet Volume 9.6 fl (7.4-10.4); Monocytes Absolute Auto 0.7 K/mm3 (0.1-0.6); Monocytes Percent Auto 6.9 % (2.6-8.5); Neutrophils Absolute Auto 7.6 K/mm3 (1.3-6.7); Neutrophils Percent Auto 79.9 % (45.5-73.1); Platelet Count Result 207 k/mm3 (150-375); Red Blood Count 3.65 M/mm3 (4.2-5.4); Red Cell Distribution Width 13.7 % (11.5-14.5); White Blood Count 9.5 K/mm3 (4.5-10.0)
[2022-09-29 05:21] LABS: Alanine Aminotransferase 31 U/L (6-35); Alkaline Phosphatase 74 U/L (38-126); Aspartate Amino Transferase 21 U/L (14-36); Bilirubin,Total 0.5 mg/dL (0.2-1.3); Blood Urea Nitrogen 21 mg/dL (7-17); Calcium 7.9 mg/dL (8.4-10.2); Carbon Dioxide > 40 mmol/L (22-30); Chloride 91 mmol/L (98-107); Estimated CRCL calculation 80 ml/min; Estimated Glomerular Filt Rate > 60; Glucose 106 mg/dL (65-110); Magnesium 2.1 mg/dL (1.6-2.3); Potassium 2.8 mmol/L (3.4-5.0); Sodium 140 mmol/L (137-145)
[2022-09-29 05:22] LABS: Lactic Acid Reflex < 0.5 mmol/L (0.7-2.0)
[2022-09-29] MEDS: POTASSIUM CHLORIDE INJ 40 MEQ in SODIUM CHLORIDE 0.9% IV 500 ML 130 MEQ IVPB (06:26)
[2022-09-29] MEDS: CEFDINIR 300 MG CAPSULE PO (08:29)
[2022-09-29] MEDS: PANTOPRAZOLE 40 MG TABLET PO (08:29)
[2022-09-29] MEDS: OPTI-GEN TAB 1 TABLET PO ×2 (08:29→20:04)
[2022-09-29] MEDS: PYRIDOXINE HCL 50 MG TABLET 100 MG PO ×2 (08:29→20:04)
[2022-09-29] MEDS: ACIDOPHILUS/BULGARICUS CHEWABLE TABLET 1 TABLET PO (08:29)
[2022-09-29] MEDS: busPIRone HCL 10 MG TABLET PO ×3 (08:29→17:08)
[2022-09-29] MEDS: oxyBUTYnin CHLORIDE XL 5 MG TAB.ER.24 10 MG PO (08:29)
[2022-09-29] MEDS: FUROSEMIDE INJ 40 MG/4 ML VIAL IV PUSH ×2 (08:29→20:07)
[2022-09-29] MEDS: predniSONE 20 MG TABLET PO (08:30)
[2022-09-29] MEDS: FLUTICASONE PROPIONATE 0.05% NA SPR 16 GM BTL (*BKC) 2 SPRAY NASAL (08:30)
[2022-09-29] MEDS: AZELASTINE HCL NASAL 0.1% 137 MCG/SPR 30 ML BTL 2 SPRAY NASAL (08:30)
[2022-09-29] MEDS: CITALOPRAM HYDROBROMIDE 10 MG TABLET PO (08:30)
[2022-09-29] MEDS: MEMANTINE 5 MG TABLET PO ×2 (08:30→20:04)
[2022-09-29] MEDS: OLOPATADINE 0.1% OPHTH SOLN 5 ML BTL 1 DROP EACH EYE (08:39)
--- NOTE | 2022-09-29 11:52 | PM.CNPUL ---
Assessment and Plan Assessment and plan (1) Chronic respiratory failure with hypoxia and hypercapnia: Code(s): J96.11 - Chronic respiratory failure with hypoxia; J96.12 - Chronic respiratory failure with hypercapnia Status: Acute Assessment and Plan: Patient has chronic hypercarbic and hypoxemic respiratory failure related to elevated left hemidiaphragm. She is a never smoker, has no obstructive abnormality on her PFTs and no bullous emphysema on her CT scan. She does not have COPD. I will discontinue prednisone and discontinue epidural p.m. nebulizers at this time. I will continue albuterol nebulizers 2.5 q.6 at this time and reassess her on 09/30 She has previously failed noninvasive ventilation but at this time is in agreement to attempt another trial. She is having difficulty with BiPAP with high pressures and respiratory rates up as high as 45. I will attempt to place her on a noninvasive ventilator with the AVAPS mode and will adjust settings to comfort. I will check an overnight oximetry and ABG prior to removal of the noninvasive ventilation. Discussed with Dr. Issa. Will follow with you. (2) Acute exacerbation of CHF (congestive heart failure): Code(s): I50.9 - Heart failure, unspecified Status: Acute Assessment and Plan: Patient with a history of cardiomyopathy and an AICD in place. Last echo with an LVEF of 50-55%. BNP is elevated. Patient is being diuresed with Lasix 40 IV b.i.d. per hospitalist team. (3) Pneumonia: Code(s): J18.9 - Pneumonia, unspecified organism Status: Acute Assessment and Plan: Patient was diagnosed with a pneumonia on 09/23 and was discharged on cefdinir. Today is day 7 of antibiotics. She did have a leukocytosis on presentation but was afebrile. Her white blood cell count today is 9.5. My plan will be to continue cefdinir for a total of 10 days of antibiotics. Last night she was on 2 L nasal cannula oxygen which appears to be her baseline. History of Present Illness History of Present Illness Consult date: 09/29/22 Chief complaint: chf exacerbation,acute respiratory failure Narrative: 09/29/2022: This is a new pulmonary consult for hypercarbic respiratory failure. 81-year-old with a history of congestive heart failure, status post AICD, hypertension, hyperlipidemia, PE status post IVC filter, paroxysmal atrial fibrillation, dementia, schizoaffective disorder, elevated left hemidiaphragm dating back to chest x-ray on 04/07/2007, and chronic hypoxemic and hypercarbic respiratory failure. Patient is a never smoker, has no bullous emphysema on her CT scan and PFTs from 05/31/2017 with no evidence of obstruction with an FEV1: FVC ratio of 71%. Her TLC was 116% predicted. Patient has a history of hypoxemic respiratory failure requiring 2 L nasal cannula at rest, with ambulation and with sleep. Patient has a history of hypercarbic respiratory failure with a blood gas on 11/24/2019 207.35/72/70. Patient was discharged from [facility] on noninvasive ventilation at that time to [facility] as an assisted living patient. When I spoke to the daughter she says that she was set up with a noninvasive ventilator at [place]. Patient was seen in the Pulmonary Clinic on 03/15/2022 and stated she was set up with a home noninvasive ventilator on 11/2021 but when she wore this she had bad nightmares and would rip the mask off and stopped using it. The daughter corroborates this story today. At that clinic visit it stated the patient did not want to wear any noninvasive ventilator in the future, did not want any future testing, did not want PFTs and did not want to use inhalers as they did not help her. Patient was admitted to [facility] on 09/14 2022 through 09/19/2022 with a urinary tract infection. Blood gas was 7.38/61/81 on 2 L nasal cannula. Repeat blood gas on 09/15 was 7.53/40/65 on 2 L nasal cannula. Patient was admitt
[2022-09-29] MEDS: POLYSACCHARIDE IRON COMPLEX 150 MG CAPSULE PO (13:09)
--- NOTE | 2022-09-29 14:15 | PM.IMPN ---
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 She is a life long nonsmoker but was exposed to 2nd hand smoke. No obstructive abnormality on her PFTs and no bullous emphysema on her CT scan.? She does not have COPD.?She has previously failed noninvasive ventilation. Family and patieint want to try again. Hospice was discussed with family by motor vehicle licence examiner. Has hx of brain bleed. Patient currently finishing treatment for her PNA. CXR reviewed and worsening diffuse lung disease. ER note stating patient may have been off her O2 at some point for an unknown period. Consider CHF exacerbation. Consider poorly treated PNA. Consider aspiration. Steroids stopped. She was continued on Cefdinir but will advance abx. Check sputum and MRSA nasal swab. Wean BiPAP as tolerated to sleep time only. Continue IV Lasix. Speech eval when able. (2) Congestive heart failure: Code(s): I50.9 - Heart failure, unspecified Status: Acute Assessment and Plan: As above. Echo in Nov 2021 showing EF 50-55% and Grade I diastolic dysfunction. BNP 4580 (was 747 5 days before). Trop negative x1. Continue with IV Lasix as blood pressure tolerates. Renal function stable. Losartan and metoprolol on hold due to her low blood pressure. Repeat Echo (3) Pneumonia: Code(s): J18.9 - Pneumonia, unspecified organism Status: Acute Assessment and Plan: As above. Advance abx. Repeat BCx. (4) Elevated hemidiaphragm: Code(s): J98.6 - Disorders of diaphragm Status: Acute Assessment and Plan: [place] to be the etiology of her chronic respiratory failure. PFTs in 05/31/17 showing severe obstructive ventilatory defect with acute bronchodilator response. Appreciate Pulmonary input. (5) Hypertension: Code(s): I10 - Essential (primary) hypertension Status: Acute Assessment and Plan: Patient's blood pressure was reviewed on 09/29 Blood pressure remains better controlled. Will continue to monitor and adjust medications as BP allows (6) Dementia: Code(s): F03.90 - Unspecified dementia, unspecified severity, without behavioral disturbance, psychotic disturbance, mood disturbance, and anxiety Status: Acute Assessment and Plan: [place] with known dementia. Continue Aricept and Namenda (7) Depression with anxiety: Code(s): F41.8 - Other specified anxiety disorders Status: Acute Assessment and Plan: Anxious from the SOB. Continue with Abilify, Buspar and Celexa. 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 Subjective Date/time seen: 09/29/22 14:15 Interval history: 81yo female with CHF and chronic respiratory failure on 2L here for shortness of breath. She was taken off the BiPAP last night after the ABg showed improvement. She did require the BiPAP today but able to come off for meals. She feels SOB but better than on admisison. No hx of odynophagia or dysphagia. No CP. No n/v. Per family, patient was having nightmares when wearing the BiPAP so she has been off BiPAP past 6 months or so. Exam Narrative: AF 97.8 111/65 86 31 98% bipap Gen - tachypneic with bipap in place. Chest - decreased BS in the bases with faint inspiratory crackles. increased RR CV - RRR S1/S2. Tele showing PVCs Abd - Soft, NT/ND, Positive BS Ext - No pedal edema Psych - anxious appearing Skin - Warm and dry Objective Data Vital Signs Vital Signs: Vital Sig
[2022-09-29] MEDS: CEFEPIME 2 GM/NS 50 ML 2 GM/50 ML BAG IVPB (16:09)
[2022-09-29] MEDS: PERFLUTREN LIPID MICROSPHERES 1.5 ML VIAL DILUTED TO 10 ML TOTAL VOLUME IV PUSH (16:20)
[2022-09-29 17:08] LABS: Procalcitonin 0.1 ng/mL
[2022-09-29 19:38] LABS: CRP 8.8 mg/dL (<1.0); Potassium 4.2 mmol/L (3.4-5.0)
[2022-09-29] MEDS: ARIPiprazole 5 MG TABLET PO (20:04)
[2022-09-29] MEDS: MONTELUKAST SODIUM 10 MG TABLET PO (20:04)
[2022-09-29] MEDS: LORATADINE 10 MG TABLET PO (20:04)
[2022-09-29] MEDS: DONEPEZIL HCL 10 MG TABLET PO (20:04)
[2022-09-29] MEDS: ATORVASTATIN 10 MG TABLET PO (20:04)
[2022-09-29 21:48] LABS: Vitamin B12 > 1000.0 pg/mL (239-931)
[2022-09-30] VITALS (16 sets, daily range): BP systolic 105–147; BP diastolic 62–79; PULSE 88–111; RESP 16–40; TEMP 36.5–37.7; O2SAT 95–99
--- NOTE | 2022-09-30 07:04 | PC.NURSE ---
Paper documentation exists on this patient due to [employer] downtime on 09/30/22 from to [] .0700
[2022-09-30] MEDS: ALBUTEROL SULFATE NEB 2.5 MG/3 ML INH INHALATION (07:22)
[2022-09-30 07:45] LABS: Folic Acid 6.9 ng/mL (2.76->20)
[2022-09-30 07:47] LABS: Alanine Aminotransferase 26 U/L (6-35); Albumin Level 3.1 g/dL (3.5-5.1); Alkaline Phosphatase 76 U/L (38-126); Aspartate Amino Transferase 23 U/L (14-36); Bilirubin,Total 0.9 mg/dL (0.2-1.3); Blood Urea Nitrogen 26 mg/dL (7-17); Calcium 8.4 mg/dL (8.4-10.2); Carbon Dioxide > 40 mmol/L (22-30); Chloride 91 mmol/L (98-107); Estimated CRCL calculation 56 ml/min; Estimated Glomerular Filt Rate > 60; Glucose 113 mg/dL (65-110); Potassium 3.8 mmol/L (3.4-5.0); Sodium 135 mmol/L (137-145)
[2022-09-30] MEDS: busPIRone HCL 10 MG TABLET PO ×3 (09:09→17:35)
[2022-09-30] MEDS: ACIDOPHILUS/BULGARICUS CHEWABLE TABLET 1 TABLET PO (09:09)
[2022-09-30] MEDS: PANTOPRAZOLE 40 MG TABLET PO (09:09)
[2022-09-30] MEDS: OPTI-GEN TAB 1 TABLET PO ×2 (09:09→21:16)
[2022-09-30] MEDS: MEMANTINE 5 MG TABLET PO ×2 (09:09→21:17)
[2022-09-30] MEDS: FUROSEMIDE INJ 40 MG/4 ML VIAL IV PUSH ×2 (09:09→21:17)
[2022-09-30] MEDS: CYANOCOBALAMIN 1,000 MCG TABLET 1000 MCG PO (09:09)
[2022-09-30] MEDS: PYRIDOXINE HCL 50 MG TABLET 100 MG PO ×2 (09:09→21:16)
[2022-09-30] MEDS: OLOPATADINE 0.1% OPHTH SOLN 5 ML BTL 1 DROP EACH EYE (09:10)
[2022-09-30] MEDS: oxyBUTYnin CHLORIDE XL 5 MG TAB.ER.24 10 MG PO (09:10)
[2022-09-30] MEDS: CITALOPRAM HYDROBROMIDE 10 MG TABLET PO (09:10)
[2022-09-30] MEDS: FLUTICASONE PROPIONATE 0.05% NA SPR 16 GM BTL (*BKC) 2 SPRAY NASAL (09:10)
[2022-09-30 09:28] LABS: Basophils Percent Auto 0.1 % (0.2-1.2); Eosinophils Absolute Auto 0.1 K/mm3 (0-0.3); Eosinophils Percent Auto 0.4 % (0-4.4); Hematocrit 36.4 % (37.0-47.0); Hemoglobin 11.5 g/dL (12.0-15.0); Immature Granulocyte Absolute 0.06 K/mm3 (0.00-0.031); Immature Granulocyte Percent A 0.4 % (0-0.5); Lymphocytes Absolute Auto 1.34 K/mm3 (0.9-3.2); Lymphocytes Percent Auto 9.5 % (18.3-44.2); Mean Corpuscular HGB Conc 31.6 g/dl (32-36); Mean Corpuscular Hemoglobin 31.6 pg (26-34); Mean Platelet Volume 10.2 fl (7.4-10.4); Monocytes Absolute Auto 1.5 K/mm3 (0.1-0.6); Monocytes Percent Auto 10.7 % (2.6-8.5); Neutrophils Absolute Auto 11.1 K/mm3 (1.3-6.7); Neutrophils Percent Auto 78.9 % (45.5-73.1); Platelet Count Result 252 k/mm3 (150-375); Red Blood Count 3.64 M/mm3 (4.2-5.4); Red Cell Distribution Width 13.7 % (11.5-14.5); White Blood Count 14.1 K/mm3 (4.5-10.0)
[2022-09-30 11:23] LABS: Alveolar/Arterial O2 Gradient 125.4 mmHg; Base Excess ABG 10.6 mEq/l (+/-2.0); HCO3 ABG 32.1 mEq/l (22.0-26.0); Oxygen Saturation ABG 95.9 % (95.0-100.0); PO2 ABG 65.3 mmHg (80.0-100.0); Total Hemoglobin 12.4 g/dL (12.0-18.0); pH ABG 7.619 (7.350-7.450)
[2022-09-30 11:24] LABS: Fractional Inspired Oxygen 32 %; Methemoglobin ABG 0.3 %THb (0-1.5); Oxygen Content ABG 16.4 %vol (16.0-22.0); Oxyhemoglobin 94.2 % THb (90.0-100.0); PO2 FiO2 Ratio Arterial Blood 2.04 %; Reduced Hemoglobin 4.5 %THb (0-5.0)
[2022-09-30] MEDS: POLYSACCHARIDE IRON COMPLEX 150 MG CAPSULE PO (12:30)
--- NOTE | 2022-09-30 12:56 | PM.PNPUL ---
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 She is a never smoker, has no obstructive abnormality on her PFTs and no bullous emphysema on her CT scan. She does not have COPD. I will discontinue prednisone and discontinue epidural p.m. nebulizers at this time. I will continue albuterol nebulizers 2.5 q.6 at this time and reassess her on 09/30. TSH on 09/29/2022 is normal at 1.64 She has previously failed noninvasive ventilation but at this time is in agreement to attempt another trial. She is having difficulty with BiPAP with high pressures and respiratory rates up as high as 45. I will attempt to place her on a noninvasive ventilator with the AVAPS mode and will adjust settings to comfort. I will check an overnight oximetry and ABG prior to removal of the noninvasive ventilation. 09/30: The patient tells me she is breathing at her baseline and feels much better after a day of rest. She denies cough, phlegm production or hemoptysis. Currently on 2 L with saturation 94%. White blood cell count is 14.1, creatinine 0.6, weight is 63 kilos and she has diuresed 230 mL since admission. Sniff test was normal. The patient tells me she wore the noninvasive ventilator last night with rate of 20, tidal volume 450, EPAP 5, minimal inspiratory pressure 6, maximal inspiratory pressure 25, inspiratory time 1.0, rise of 3 (middle setting) and FiO2 32% and did well and slept all night although the nursing staff reports that she did not sleep with this machine. On these settings the patient had an overnight oximetry with an average saturation 94%, low saturation 82%, time with saturation less than or equal to 88% was 0 minutes, oxygen desaturation index 1.5. Patient had a blood gas prior to removal with pH of 7.62/32/65. Etiology of hypoxemic and hypercarbic respiratory failure includes: Weak left hemidiaphragm with elevation but no paralysis, fluid overload, pneumonia and possible restrictive lung disease. Plan: I will discontinue the albuterol nebulizer today as she is has not responded to this in the past. Patient is being diuresed with 40 Lasix IV b.i.d.. The current settings provide adequate oxygen and too much minute ventilation and I will decrease the backup rate to 14 and decrease her tidal volume to 400 and check a blood gas in the morning prior to removal. Patient is being treated for pneumonia as below. I will check a chest x-ray on 10/01. Patient will need outpatient PFTs. Oxygenation is at her baseline of 2 L. It is unclear if the patient will be discharged to [facility] or require rehabilitation stay prior to going back to [facility] and this may alter her DME company for noninvasive ventilator. Per clinic manager medicare note [facility] Discussed with son and [id number] on speaker phone in the patient's room. Will follow with you. (2) Acute exacerbation of CHF (congestive heart failure): Code(s): I50.9 - Heart failure, unspecified Status: Acute Assessment and Plan: 09/29 Patient with a history of cardiomyopathy and an AICD in place. Last echo with an LVEF of 50-55%. BNP is elevated. Patient is being diuresed with Lasix 40 IV b.i.d. per hospitalist team. Weight 63 kg. Admission weight on 09/28/2022 was 65.9 kg. Weight on 09/23/2022 was 62 kg. 09/30 patient on Lasix 40 IV b.i.d.. Net diuresis since admission is 230 mL. Weight today is 63 lb. Echocardiogram is pending. Agree with as aggressive diuresis as tolerated by her cardiac and renal systems. (3) Pneumonia: Code(s): J18.9 - Pneumonia, unspecified organism Status: Acute
--- NOTE | 2022-09-30 15:47 | PCRCNOTE ---
[facility] IS UNABLE TO PROVIDE PATIENT WITH A TRILOGY HOME UNIT AT [facility]. THEY CAN ONCE SHE DISCHARGES TO [place], BUT NOT WHILE IN SNF FACILITY.WILL NEED TO FIND DME THAT IS IN CONTRACT WITH [facility] OR [facility] WILL NEED TO PROVIDE THIS RESPIRATORY EQUIPMENT AND SERVICE FOR PATIENT WHEN ADMITTED.
--- NOTE | 2022-09-30 16:30 | PCPTNOTE ---
On 09/30/22, the student, HELGA Moran, provided care and completed [facility] documentation on this patient. I have reviewed the student's documentation and agree with the findings.
--- NOTE | 2022-09-30 16:30 | PCPTNOTE ---
On 09/30/22, the student, HELGA Moran, provided care and completed [facility] documentation on this patient. I have reviewed the student's documentation and agree with the findings.
--- NOTE | 2022-09-30 16:30 | PM.IMPN ---
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 She is a life long nonsmoker but was exposed to 2nd hand smoke. No obstructive abnormality on her PFTs and no bullous emphysema on her CT scan.? She does not have COPD.?She has previously failed noninvasive ventilation. Family and patieint want to try again. Hospice was discussed with family by studio operations manager. She has a hx of brain bleed. Patient currently finishing treatment for her PNA. CXR reviewed showing worsening diffuse lung disease. ER note stating patient may have been off her O2 at some point for an unknown period. Consider also CHF exacerbation vs poorly treated PNA. Consider aspiration. Steroids stopped. Continue IV abx. BCx NGTD. MRSA nasal swab pending. Weaned off BiPAP while awake and to be used for sleep and PRN. Continue IV Lasix. Speech eval. Repeat CXR in am (2) Congestive heart failure: Code(s): I50.9 - Heart failure, unspecified Status: Acute Assessment and Plan: As above. Echo in Nov 2021 showing EF 50-55% and Grade I diastolic dysfunction. Limited Echo here showing EF 55-60%. BNP 4580 (was 747 5 days before). Trop negative x1. Fluid balance about even. Renal function stable. Losartan and metoprolol on hold due to her low blood pressure. Continue with IV Lasix as blood pressure tolerates. Resume Metoprolol given the more stable BP and tachycardia (3) Pneumonia: Code(s): J18.9 - Pneumonia, unspecified organism Status: Acute Assessment and Plan: As above. BCx NGTD. MRSA nasal swab pending. WBC higher but was on steroids recently. Continue IV abx. Follow (4) Elevated hemidiaphragm: Code(s): J98.6 - Disorders of diaphragm Status: Acute Assessment and Plan: [place] to be the etiology of her chronic respiratory failure although sniff test was normal. PFTs in 05/31/17 showing severe obstructive ventilatory defect with acute bronchodilator response. Appreciate Pulmonary input. (5) Hypertension: Code(s): I10 - Essential (primary) hypertension Status: Acute Assessment and Plan: Patient's blood pressure was reviewed on 09/30 Blood pressure remains better controlled. Will continue to monitor and adjust medications as BP allows (6) Dementia: Code(s): F03.90 - Unspecified dementia, unspecified severity, without behavioral disturbance, psychotic disturbance, mood disturbance, and anxiety Status: Acute Assessment and Plan: Patient with known dementia. Continue Aricept and Namenda (7) Depression with anxiety: Code(s): F41.8 - Other specified anxiety disorders Status: Acute Assessment and Plan: Mood stable. Continue with Abilify, Buspar and Celexa. 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 Subjective Date/time seen: 09/30/22 16:30 Interval history: 81yo female with CHF and chronic respiratory failure on 2L here for shortness of breath. She is 'feeling fine'. No CP or SOB. Did wear the mask last night. Exam Narrative: AF 97.9 127/63 108 20 99% 2L NC Gen - NARD Chest - decreased BS in the left base with bibasilar inspiratory crackles. increased RR CV - RRR S1/S2. Tele showing sinus tachycardia and wide complex Abd - Soft, NT/ND, Positive BS Ext - No pedal edema Psych - nml mood Skin - Warm and dry Objective Data Vital Signs Vital Signs: Vital Signs - 24 hr 09/29/22 17:14 09/29/22 18:00 09/29/22 19:57
[2022-09-30] MEDS: VANCOMYCIN 1,000 MG/NS 250 ML 1,000 MG/250 ML BAG 250 MG IVPB (17:35)
[2022-09-30] MEDS: CEFEPIME 2 GM/NS 50 ML 2 GM/50 ML BAG IVPB (17:35)
[2022-09-30] MEDS: MONTELUKAST SODIUM 10 MG TABLET PO (21:16)
[2022-09-30] MEDS: ATORVASTATIN 10 MG TABLET PO (21:16)
[2022-09-30] MEDS: ARIPiprazole 5 MG TABLET PO (21:16)
[2022-09-30] MEDS: METOPROLOL TARTRATE 12.5 MG TABLET PO (21:16)
[2022-09-30] MEDS: DONEPEZIL HCL 10 MG TABLET PO (21:17)
[2022-09-30] MEDS: LORATADINE 10 MG TABLET PO (21:17)
[2022-10-01] VITALS (18 sets, daily range): BP systolic 109–142; BP diastolic 65–78; PULSE 75–104; RESP 16–20; TEMP 36.3–37; O2SAT 92–100
[2022-10-01 04:13] LABS: Basophils Percent Auto 0.1 % (0.2-1.2); Eosinophils Absolute Auto 0.2 K/mm3 (0-0.3); Eosinophils Percent Auto 2.5 % (0-4.4); Hematocrit 34.8 % (37.0-47.0); Hemoglobin 11.2 g/dL (12.0-15.0); Immature Granulocyte Absolute 0.04 K/mm3 (0.00-0.031); Immature Granulocyte Percent A 0.5 % (0-0.5); Lymphocytes Absolute Auto 1.25 K/mm3 (0.9-3.2); Lymphocytes Percent Auto 14.6 % (18.3-44.2); Mean Corpuscular HGB Conc 32.2 g/dl (32-36); Mean Corpuscular Hemoglobin 31.8 pg (26-34); Mean Corpuscular Volume 98.9 fl (80-100); Mean Platelet Volume 9.3 fl (7.4-10.4); Monocytes Absolute Auto 1.2 K/mm3 (0.1-0.6); Monocytes Percent Auto 13.7 % (2.6-8.5); Neutrophils Absolute Auto 5.9 K/mm3 (1.3-6.7); Neutrophils Percent Auto 68.6 % (45.5-73.1); Platelet Count Result 209 k/mm3 (150-375); Red Blood Count 3.52 M/mm3 (4.2-5.4); Red Cell Distribution Width 14.2 % (11.5-14.5); White Blood Count 8.6 K/mm3 (4.5-10.0)
[2022-10-01 04:25] LABS: Albumin Level 3.2 g/dL (3.5-5.1); Blood Urea Nitrogen 23 mg/dL (7-17); Calcium 8.1 mg/dL (8.4-10.2); Carbon Dioxide > 40 mmol/L (22-30); Chloride 91 mmol/L (98-107); Estimated CRCL calculation 56 ml/min; Estimated Glomerular Filt Rate > 60; Glucose 103 mg/dL (65-110); Magnesium 2.1 mg/dL (1.6-2.3); Phosphorus 4.2 mg/dL (2.5-4.5); Potassium 2.9 mmol/L (3.4-5.0); Sodium 137 mmol/L (137-145)
[2022-10-01] MEDS: CEFEPIME 2 GM/NS 50 ML 2 GM/50 ML BAG IVPB (04:29)
[2022-10-01 04:33] LABS: Vancomycin Trough 15.1 ug/mL (10.0-20.0)
[2022-10-01] MEDS: VANCOMYCIN 1,000 MG/NS 250 ML 1,000 MG/250 ML BAG 250 MG IVPB (05:19)
[2022-10-01 06:17] LABS: Alveolar/Arterial O2 Gradient 81.5 mmHg; Fractional Inspired Oxygen 32 %; HCO3 ABG 37.3 mEq/l (22.0-26.0); Oxygen Content ABG 16.4 %vol (16.0-22.0); Oxyhemoglobin 95.6 % THb (90.0-100.0); PCO2 ABG 51.3 mmHg (35.0-45.0); PO2 ABG 86.6 mmHg (80.0-100.0); PO2 FiO2 Ratio Arterial Blood 2.71 %; Total Hemoglobin 12.1 g/dL (12.0-18.0); pH ABG 7.479 (7.350-7.450)
[2022-10-01 06:23] LABS: Device BIPAP; Modified Allen's Test Pass; Site Drawn RIGHT RADIAL
--- NOTE | 2022-10-01 09:37 | PM.IMPN ---
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 She is a life long nonsmoker but was exposed to 2nd hand smoke. No obstructive abnormality on her PFTs and no bullous emphysema on her CT scan.? She does not have COPD.?She has previously failed noninvasive ventilation but family and patient want to try again. Hospice was discussed with family by garden consultant. Patient has a hx of brain bleed. Patient currently finishing treatment for her PNA. CXR reviewed showing worsening diffuse lung disease. ER note stating patient may have been off her O2 at some point for an unknown period. Consider CHF exacerbation vs poorly treated PNA. Consider aspiration. Steroids were stopped. Abx were broadened and IV Lasix started. Repeat CXR showing improvement. BCx NGTD. MRSA nasal swab negative. Stop Vancomycin. Stop abx after today. Continue IV Lasix today and change to oral tomorrow. Speech eval pending. Weaned off BiPAP while awake and now on AVAPS at night and with naps. She is on her home O2 while awake. (2) Congestive heart failure: Code(s): I50.9 - Heart failure, unspecified Status: Acute Assessment and Plan: As above. Echo in Nov 2021 showing EF 50-55% and Grade I diastolic dysfunction. Limited Echo here showing EF 55-60%. BNP 4580 (was 747 5 days before). Trop negative x1. Fluid balance about even but not accurate. Renal function stable. Losartan and metoprolol were on hold due to her low blood pressure but metoprolol able to be added back. Continue with IV Lasix as blood pressure tolerates. (3) Pneumonia: Code(s): J18.9 - Pneumonia, unspecified organism Status: Acute Assessment and Plan: As above. BCx NGTD. MRSA nasal swab negative. WBC normal now Last day of abx so will stop after today. Follow (4) Elevated hemidiaphragm: Code(s): J98.6 - Disorders of diaphragm Status: Acute Assessment and Plan: [place] to be the etiology of her chronic respiratory failure although sniff test was normal. PFTs in 05/31/17 showing severe obstructive ventilatory defect with acute bronchodilator response. Appreciate Pulmonary input. (5) Hypertension: Code(s): I10 - Essential (primary) hypertension Status: Acute Assessment and Plan: Patient's blood pressure was reviewed on 10/01 Blood pressure remains well controlled. Will continue to monitor and adjust medications as BP allows (6) Dementia: Code(s): F03.90 - Unspecified dementia, unspecified severity, without behavioral disturbance, psychotic disturbance, mood disturbance, and anxiety Status: Acute Assessment and Plan: Patient with known dementia. Continue Aricept and Namenda (7) Depression with anxiety: Code(s): F41.8 - Other specified anxiety disorders Status: Acute Assessment and Plan: Mood stable. Continue with Abilify, Buspar and Celexa. 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 Subjective Date/time seen: 10/01/22 09:37 Interval history: 81yo female with CHF and chronic respiratory failure on 2L here for shortness of breath. Eating well. On 1.5L o2 at the time of the visit. Tolerated the AVAPS last night. No CP or SOB. She was up to the chair yesterday and was up walking. Exam Narrative: AF 98.1 126/73 97 16 99% 2L NC Gen - NARD Chest - decreased BS with scattered inspiratory rhonchi CV - RRR S1/S2. Tele showing no significant dysrhythmias
[2022-10-01] MEDS: CITALOPRAM HYDROBROMIDE 10 MG TABLET PO (09:58)
[2022-10-01] MEDS: busPIRone HCL 10 MG TABLET PO ×3 (09:58→16:31)
[2022-10-01] MEDS: MEMANTINE 5 MG TABLET PO ×2 (09:58→20:18)
[2022-10-01] MEDS: POTASSIUM CHLORIDE 20 MEQ PACKET (FOR LIQUID) 40 MEQ PO ×2 (09:58→16:31)
[2022-10-01] MEDS: EMPAGLIFLOZIN 10 MG TABLET PO (09:58)
[2022-10-01] MEDS: OPTI-GEN TAB 1 TABLET PO ×2 (09:58→20:19)
[2022-10-01] MEDS: PYRIDOXINE HCL 50 MG TABLET 100 MG PO ×2 (09:58→20:19)
[2022-10-01] MEDS: FUROSEMIDE INJ 40 MG/4 ML VIAL IV PUSH ×2 (09:58→20:18)
[2022-10-01] MEDS: ACIDOPHILUS/BULGARICUS CHEWABLE TABLET 1 TABLET PO (09:58)
[2022-10-01] MEDS: PANTOPRAZOLE 40 MG TABLET PO (09:58)
[2022-10-01] MEDS: OLOPATADINE 0.1% OPHTH SOLN 5 ML BTL 1 DROP EACH EYE (09:59)
[2022-10-01] MEDS: FLUTICASONE PROPIONATE 0.05% NA SPR 16 GM BTL (*BKC) 2 SPRAY NASAL (09:59)
[2022-10-01] MEDS: METOPROLOL TARTRATE 12.5 MG TABLET PO ×2 (10:00→20:18)
[2022-10-01] MEDS: oxyBUTYnin CHLORIDE XL 5 MG TAB.ER.24 10 MG PO (10:00)
[2022-10-01] MEDS: POLYSACCHARIDE IRON COMPLEX 150 MG CAPSULE PO (11:46)
--- NOTE | 2022-10-01 13:20 | PM.PNPUL ---
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 PFTs in 2016 with a moderate restrictive abnormality. ABG this admission on 09/28/2022 with a pH of 7.33/78/85 on BiPAP /. ABG on 09/23/2022 on 2 L nasal cannula the pH of 7.49/52/83. ABG on 11/18/2021 with pH of 7.26/71/94. The patient has chronic hypercarbic and hypoxemic respiratory failure and would benefit from a noninvasive ventilator to prevent further deterioration and subsequent hospitalizations. She is a never smoker, has no obstructive abnormality on her PFTs and no bullous emphysema on her CT scan. She does not have COPD. I will discontinue prednisone and discontinue ipatroprium nebulizers at this time. I will continue albuterol nebulizers 2.5 q.6 at this time and reassess her on 09/30. TSH on 09/29/2022 is normal at 1.64 She has previously failed noninvasive ventilation but at this time is in agreement to attempt another trial. She is having difficulty with BiPAP with high pressures and respiratory rates up as high as 45. I will attempt to place her on a noninvasive ventilator with the AVAPS mode and will adjust settings to comfort. I will check an overnight oximetry and ABG prior to removal of the noninvasive ventilation. 09/30: The patient tells me she is breathing at her baseline and feels much better after a day of rest. She denies cough, phlegm production or hemoptysis. Currently on 2 L with saturation 94%. White blood cell count is 14.1, creatinine 0.6, weight is 63 kilos and she has diuresed 230 mL since admission. Sniff test was normal. The patient tells me she wore the noninvasive ventilator last night with rate of 20, tidal volume 450, EPAP 5, minimal inspiratory pressure 6, maximal inspiratory pressure 25, inspiratory time 1.0, rise of 3 (middle setting) and FiO2 32% and did well and slept all night although the nursing staff reports that she did not sleep with this machine. On these settings the patient had an overnight oximetry with an average saturation 94%, low saturation 82%, time with saturation less than or equal to 88% was 0 minutes, oxygen desaturation index 1.5. Patient had a blood gas prior to removal with pH of 7.62/32/65. Etiology of hypoxemic and hypercarbic respiratory failure includes: Weak left hemidiaphragm with elevation but no paralysis, fluid overload, pneumonia and possible restrictive lung disease. Plan: I will discontinue the albuterol nebulizer today as she is has not responded to this in the past. Patient is being diuresed with 40 Lasix IV b.i.d.. The current settings provide adequate oxygen and too much minute ventilation and I will decrease the backup rate to 14 and decrease her tidal volume to 400 and check a blood gas in the morning prior to removal. Patient is being treated for pneumonia as below. I will check a chest x-ray on 10/01. Patient will need outpatient PFTs. Oxygenation is at her baseline of 2 L. It is unclear if the patient will be discharged to [facility] or require rehabilitation stay prior to going back to [place] and this may alter her DME company for noninvasive ventilator. Per clinic health care marketing manager note a referral has been made to [facility]. Discussed with son and [id number] on speaker phone in the patient's room. 10/01 the patient is pleasantly confused and tell me she is breathing better than she has in the last 2 months. She was sitting up in a chair and she was saturating 99% on 1.5 L and I switched her to room air and after 10 minutes her saturations were 97%. White blood cell count is 8.6, creatinine is 0.6, bicarb is greater than 40. She says she slept 9 hours with the hospit
--- NOTE | 2022-10-01 15:33 | PCOTNOTE ---
Attempted to see pt for Occupational Therapy treatment. Pt declined to participate in any therapeutic tasks/exercises and states that all self care tasks were completed prior to therapy. Pt states I want to take a snooze. Will continue per poc duration/frequency tomorrow.
--- NOTE | 2022-10-01 16:39 | PCSTNOTE ---
Bedside swallowing evaluation completed. Patient seen sitting upright in bed with head of bed elevated. Oral peripheral examination results within normal limits. Trials of thin liquid, pureed consistency, and solid consistency were given. Oral prepatory and oral stages of swallow within normal limits. No signs of penetration or aspiration. No coughing, and clear vocal quality following each swallow. Please note that silent aspiration cannot be ruled out at bedside and can only be evaluated with a modified barium swallow study. Recommendations: soft/bite sized diet (prior diet level), and thin liquids. No further speech therapy is recommended at this time. Thank you for the referral of this patient.
[2022-10-01] MEDS: DONEPEZIL HCL 10 MG TABLET PO (20:17)
[2022-10-01] MEDS: ATORVASTATIN 10 MG TABLET PO (20:17)
[2022-10-01] MEDS: ARIPiprazole 5 MG TABLET PO (20:17)
[2022-10-01] MEDS: LORATADINE 10 MG TABLET PO (20:18)
[2022-10-01] MEDS: MONTELUKAST SODIUM 10 MG TABLET PO (20:19)
[2022-10-02] VITALS (14 sets, daily range): BP systolic 108–128; BP diastolic 53–78; PULSE 77–107; RESP 14–24; TEMP 36.5–37.1; O2SAT 95–100
[2022-10-02 05:08] LABS: Blood Urea Nitrogen 21 mg/dL (7-17); Calcium 8.2 mg/dL (8.4-10.2); Carbon Dioxide > 40 mmol/L (22-30); Chloride 93 mmol/L (98-107); Estimated CRCL calculation 66 ml/min; Estimated Glomerular Filt Rate > 60; Glucose 124 mg/dL (65-110); Potassium 2.8 mmol/L (3.4-5.0); Sodium 137 mmol/L (137-145)
[2022-10-02] MEDS: POTASSIUM CHLORIDE 20 MEQ PACKET (FOR LIQUID) 40 MEQ PO ×2 (05:43→09:01)
[2022-10-02] MEDS: OPTI-GEN TAB 1 TABLET PO (08:58)
[2022-10-02] MEDS: oxyBUTYnin CHLORIDE XL 5 MG TAB.ER.24 10 MG PO (08:58)
[2022-10-02] MEDS: PYRIDOXINE HCL 50 MG TABLET 100 MG PO (08:58)
[2022-10-02] MEDS: CITALOPRAM HYDROBROMIDE 10 MG TABLET PO (08:59)
[2022-10-02] MEDS: MEMANTINE 5 MG TABLET PO (08:59)
[2022-10-02] MEDS: FUROSEMIDE INJ 40 MG/4 ML VIAL IV PUSH (08:59)
[2022-10-02] MEDS: EMPAGLIFLOZIN 10 MG TABLET PO (08:59)
[2022-10-02] MEDS: ACIDOPHILUS/BULGARICUS CHEWABLE TABLET 1 TABLET PO (08:59)
[2022-10-02] MEDS: busPIRone HCL 10 MG TABLET PO ×3 (08:59→16:25)
[2022-10-02] MEDS: METOPROLOL TARTRATE 12.5 MG TABLET PO (08:59)
[2022-10-02] MEDS: FLUTICASONE PROPIONATE 0.05% NA SPR 16 GM BTL (*BKC) 2 SPRAY NASAL (08:59)
[2022-10-02] MEDS: PANTOPRAZOLE 40 MG TABLET PO (08:59)
[2022-10-02] MEDS: OLOPATADINE 0.1% OPHTH SOLN 5 ML BTL 1 DROP EACH EYE (09:01)
--- NOTE | 2022-10-02 09:17 | P.PNPL_ITS ---
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 PFTs in 2016 with a moderate restrictive abnorm ality. ABG this admission on 09/28/2022 with a pH of 7.33/78/85 on BiPAP 16/8. ABG on 09/23/2022 on 2 L nasal cannula the pH of 7.49/52/83. ABG on 11/18/2021 with pH of 7.26/71/94. The patient has chronic hypercarbic and hypoxemic respiratory failure and would benefit from a noninvasive ventilator to prevent further deterioration and subsequent hospitalizations. She is a never smoker, has no obstructive abnormality on her PFTs and no bullous emphysema on her CT scan. She does not have COPD. I will discontinue prednisone and discontinue ipatroprium nebulizers at this time. I will continue albuterol nebulizers 2.5 q.6 at this time and reassess her on 09/30. TSH on 09/29/2022 is normal at 1.64 She has previously failed noninvasive ventilation but at this time is in agree ment to attempt another trial. She is having difficulty with BiPAP with high pressures and respiratory rates up as high as 45. I will attempt to place her on a noninvasive ventilator with the AVAPS mode and will adjust settings to comfort. I will check an overnight oximetry and ABG prior to removal of the noninvasive ventilation. 09/30: The patient tells me she is breathing at her baseline and feels much better after a day of rest. She denies cough, phlegm production or hemoptysis. Currently on 2 L with saturation 94%. White blood cell count is 14.1, creatinine 0.6, weight is 63 kilos and she has diuresed 230 mL since admission. Sniff test was normal. The patient tells me she wore the noninvasive ventilator last night with rate of 20, tidal volume 450, EPAP 5, minimal inspiratory pressure 6, maximal inspiratory pressure 25, inspiratory time 1.0, rise of 3 (middle setting) and FiO2 32% and did well and slept all night although the nursing staff reports that she did not sleep with this machine. On these settings the patient had an overnight oximetry with an average saturation 94%, low saturation 82%, time with saturation less than or equal to 88% was 0 minutes, oxygen desaturation index 1.5. Patient had a blood gas prior to removal with pH of 7.62/32/65. Etiology of hypoxemic and hypercarbic respiratory failure includes: Weak left hemidiaphragm with elevation but no paralysis, fluid overload, pneumonia and possible restrictive lung disease. Plan: I will discontinue the albuterol nebulizer today as she is has not responded to this in the past. Patient is being diuresed with 40 Lasix IV b.i.d.. The current settings provide adequate oxygen and too much minute ventilation and I will decrease the backup rate to 14 and decrease her tidal volume to 400 and check a blood gas in the morning prior to removal. Patient is being treated for pneumonia as below. I will check a chest x-ray on 10/01. Patient will need outpatient PFTs. Oxygenation is at her baseline of 2 L. It is unclear if the patient will be discharged to [facility] or require rehabilitation stay prior to going back to [facility] and this may alter her DME company for noninvasive ventilator. Per clinic pet care technician note a referral has been made to [facility]. Discussed with son and [id number] on speaker phone in the patient's room. 10/01 the patient is pleasantly confused and tell me she is breathing better than she has in the last 2 months. She was sitting up in a chair and sh
[2022-10-02] MEDS: POLYSACCHARIDE IRON COMPLEX 150 MG CAPSULE PO (11:25)
[2022-10-02 12:54] LABS: Potassium 4.3 mmol/L (3.4-5.0)
--- NOTE | 2022-10-02 14:16 | PM.DS ---
DS: Admitting Diagnosis Discharge Date 10/02/22 Admitting Diagnosis Shortness of breath DS: Discharge Diagnosis Discharge Diagnosis (1) Acute and chronic respiratory failure: Code(s): J96.20 - Acute and chronic respiratory failure, unspecified whether with hypoxia or hypercapnia Status: Acute (2) Congestive heart failure: Code(s): I50.9 - Heart failure, unspecified Status: Acute (3) Pneumonia: Code(s): J18.9 - Pneumonia, unspecified organism Status: Acute (4) Elevated hemidiaphragm: Code(s): J98.6 - Disorders of diaphragm Status: Acute (5) Hypertension: Code(s): I10 - Essential (primary) hypertension Status: Acute (6) Dementia: Code(s): F03.90 - Unspecified dementia, unspecified severity, without behavioral disturbance, psychotic disturbance, mood disturbance, and anxiety Status: Acute (7) Depression with anxiety: Code(s): F41.8 - Other specified anxiety disorders Status: Acute (8) Hx of deep vein thrombophlebitis of lower extremity: Code(s): Z86.72 - Personal history of thrombophlebitis Status: Acute DS: Summary Hospital Course Reason for hospitalization: 81yo female with CHF and chronic respiratory failure on 2L here for shortness of breath. Please see H&P for details. Hospital Course: Patient brought in for complaints of SOB. She has chronic hypercarbic and hypoxemic respiratory failure related to elevated left hemidiaphragm and is on 2L chronically.? She is a life long nonsmoker but was exposed to 2nd hand smoke. No obstructive abnormality on her PFTs and no bullous emphysema on her CT scan.? She does not have COPD.?She did have acute respiratory failure and BiPAP started. Initial ABG 7.33/ on BiPAP. Hospice was discussed with family by layout artist. She was weaned off BiPAP while awake and NIV with sleep. Pulmonary was consulted and changed her to AVAPS at night and with naps. She was weaned to her home 2L O2 while awake. Patient has a hx of brain bleed so consider central apnea. She has previously failed noninvasive ventilation but family and patient want to try again. Patient was recently diagnosed with PNA and she finished her treatment here. CXR reviewed showing worsening diffuse lung disease. ER note stating patient may have been off her O2 at some point for an unknown period. Aspiration was considered and speech evaluation was completed showing the patient can eat safely so we continued soft and bite sized (prior diet level) and thin liquids. [place] that she had acute/chronic diastolic CHF exacerbation. Echo in Nov 2021 showing EF 50-55% and Grade I diastolic dysfunction. Limited Echo here showing EF 55-60%. BNP 4580 (was 747 5 days before). Trop negative x1. She was started on IV lasix with good response. Losartan and metoprolol were on hold due to her low blood pressure but metoprolol able to be added back. Repeat CXR showing improvement. BCx NGTD. MRSA nasal swab negative. Also felt that part of the etiology of her chronic respiratory failure was the elevated elft john-diaphragm although sniff test was normal. Patient with known dementia and we continued Aricept and Namenda. She has known depression with anxiety but mood remained stable We continued Abilify, Buspar and Celexa. Patient overall did well and was able be discharged to a rehab facility on 10/02/2022. Status at Discharge Cognitive/behavioral status at discharge: Stable Time Spent with Patient Time attestation: Total time spent providing and/or coordinating discharge services: 38 minutes Time spent: Greater than 30 minutes Exam Narrative: AF 98.5 108/53 107 24 96% 1L NC Gen - NARD Chest -distant clear breath sounds. CV - RRR S1/S2. Tele showing 1 brief episode of narrow complex, regular tachycardia probably SVT. Abd - Soft, NT/ND, Positive BS Ext - No pedal edema Psych - nml mood Skin - Warm and dry DS: Data Data Completed
[2022-10-02 15:58] LABS: SARS-CoV-2 RNA PCR Negative (Negative)
[2022-10-04 06:04] LABS: Legionella pneumophila Ag Ur Not Detected (Not Detected)
--- NOTE | 2022-10-04 09:10 | PCRCNOTE ---
Patient D/C on bipap at [facility] 24/06 with rate of 14 with 3 l bleed in
--- NOTE | 2022-10-04 10:08 | PC.NURSE ---
Urine legionella is negative. Dr. Luis Manuel sainz.
[2022-10-05 05:14] LABS: Pneumococcal Antigen Urine Not Detected (Not Detected)
--- NOTE | 2022-10-07 10:19 | PC.NURSE ---
Urine pneumococcal Ag is not detected. Dr. Luis Manuel sainz.
== END 2022-10-02 18:37 | DRG 291 ==
LOC: ANHED 10:46 → ANHIMU 17:27
PROVIDERS: Internal Medicine Pulmonary Disease; Nurse Practitioner; Admitting Provider Family Medicine; Emergency Provider Emergency Medicine; PCP Nurse Practitioner Family; Visit Provider Internal Medicine
DX: I11.0 Hypertensive heart disease with heart failure (principal); I50.33 Acute on chronic diastolic (congestive) heart failure; J96.21 Acute and chronic respiratory failure with hypoxia; J18.9 Pneumonia, unspecified organism; J96.22 Acute and chronic respiratory failure with hypercapnia; J98.6 Disorders of diaphragm; Z66 Do not resuscitate; F41.8 Other specified anxiety disorders; F03.90 Unspecified dementia, unspecified severity, without behavioral disturbance, psychotic disturbance, mood disturbance, and anxiety; D64.9 Anemia, unspecified; M19.90 Unspecified osteoarthritis, unspecified site; K21.9 Gastro-esophageal reflux disease without esophagitis; E78.5 Hyperlipidemia, unspecified; N32.81 Overactive bladder; I48.0 Paroxysmal atrial fibrillation; F25.9 Schizoaffective disorder, unspecified; Z96.653 Presence of artificial knee joint, bilateral; Z86.711 Personal history of pulmonary embolism; Z86.718 Personal history of other venous thrombosis and embolism; Z95.810 Presence of automatic (implantable) cardiac defibrillator; Z99.81 Dependence on supplemental oxygen
CPT/HCPCS: 36415; 36600; 71045; 76000; 80048; 80053; 80069; 80202; 82375; 82607; 82746; 82805; 83050; 83605; 83735; 83880; 84132; 84145; 84443; 84484; 85025; 85610; 85730; 86140; 87040; 87081; 87449; 87635; 87899; 92610; 93005; 94002; 94640; 96374; 97110; 97116; 97161; 97165; 97535; 99285; A9270; C8929; G0378; J0692; J1940; J3370; J3480; J7040; J7512; Q9957

== ENCOUNTER 2024-06-29 09:57 | Inpatient (IN) | payer MEDICARE, SELFPAY ==
[2024-06-29] VITALS (17 sets, daily range): BP systolic 110–138; BP diastolic 54–75; PULSE 93–114; RESP 16–38; TEMP 36.1–37.6; O2SAT 94–97; BMI 27.3
--- NOTE | ~2024-06-29 | XR_ITS ---
EXAMINATION: XR chest 1V portable DATE: 06/29/2024 10:24 INDICATION: Shortness of breath TECHNIQUE: frontal view of the chest was obtained. COMPARISON: Chest radiograph dated 10/01/2022 FINDINGS: Biapical pleural-parenchymal scarring. Opacities at the bilateral lung bases with blunting at the car diophrenic and costophrenic angles consistent with small bilateral pleural effusions and associated b asilar atelectasis versus less likely pneumonia. No pulmonary edema or pneumothorax. Cardiomegaly. Du al lead pacemaker/AICD seen with leads projecting over the expected locations of the right atrium and right ventricle. Right total shoulder arthroplasty. Thoracic dextroscoliosis with mild to moderate s pondylosis. IMPRESSION: 1. Small bilateral pleural effusions with associated basilar atelectasis versus pneumonia in the appr opriate clinical setting. 2. Cardiomegaly. Reviewed, dictated and finalized at location A. IMPRESSION: 1. Small bilateral pleural effusions with associated basilar atelectasis versus pneumonia in the appropriate clinical setting. 2. Cardiomegaly.
--- NOTE | ~2024-06-29 | CT_ITS ---
EXAMINATION: CT brain wo con DATE: 06/29/2024 10:50 INDICATION: Altered mental status TECHNIQUE: Computed tomography (CT) of the head was performed without intravenous contrast. Sagittal and coronal reconstructions were performed. The mA was adjusted according to patient size. Iterative reconstruction technique was employed. The dose-length product was 605.33 mGy-cm. 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 No acute intracranial hemorrhage, acute infarc tion or abnormal extra axial fluid collection. There is mild scattered white matter hypoattenuation c onsistent with chronic small vessel ischemic disease. Symmetric prominence of the sulci consistent wi th mild age-appropriate diffuse cerebral volume loss. Ventricles are normal and symmetric. No mass/ma ss effect. Changes of bilateral intraocular lens replacement. The orbits and mastoid air cells are no rmal. Mild mucosal thickening along the right maxillary sinus. IMPRESSION: 1. 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 No acute intracranial process. 2. Age-related changes including mild diffuse volume loss and mild scattered white matter hypoattenua tion consistent with chronic small vessel ischemic disease. Reviewed, dictated and finalized at location A. IMPRESSION: 1. 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 No acute intracranial process. 2. Age-related changes including mild diffuse volume loss and mild scattered wh ite matter hypoattenuation consistent with chronic small vessel ischemic diseas e.
--- OUTSIDE RECORDS SUMMARY | 2024-06-29 10:12 | XMS_ITS | Encounter Summary ---
Author Organization [facility] Address [address] [place] [address] Phone Care Team Providers Care Cognos Lead Name Role Phone Saran Tyler MD Primary Care Provider [phone] Saran Tyler MD Primary Care Provider [phone] Saran Tyler MD Primary Care Provider [phone]- [phone] Miscellaneous, Not In File Primary Care Provider Unavailable No, Physician Primary Care Provider [phone] Stephanie Mueller NP Primary Care Provider [phone] Encounter Details Date Type Department Care Team (Late st Contact Info) Description 01/18/2016 Orders Only [facility] Provider, MD Hari [address] [place] [address] Social History Tobacco Use Types Packs/Day Years Used Date Smoking Tobacco: Never Alcohol Use Standard Drinks/Week Comments No 0 (1 standard drink = 0.6 oz pur e alcohol) Comments Unknown Sex and Gender Information Value Date Recorded Sex Assigned at Not on file 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 us Historical Provider [facility] NIKO DILLON Final Result documented in this encounter Visit Diagnoses Not on filedocumented in this encounter Care Teams Cognos Lead Relationship Specialty Start Date End Date Saran Tyler MD [address] [facility] [address] [place] [address] PCP - General 06/10/16 06/20/16 Saran Tyler MD [address] [address] PCP - General 11/08/12 06/09/16 Saran Tyler MD [address] [facility] [address] [place] [address] PCP - General 06/21/16 06/21/16 Miscellaneous, Not In File PCP - General 06/22/16 No, Physician PCP - General 07/21/20 12/09/21 Stephanie Mueller NP [address] [place] [address] PCP - General Nurse Practitioner 12/10/21 documented as of this encounter
--- OUTSIDE RECORDS SUMMARY | 2024-06-29 10:12 | XMS_ITS | Encounter Summary ---
Author Organization [facility] Address [address] [place] [address] Phone Care Team Providers Care Nursing Coordinator Name Role Phone No, Physician Primary Care Provider [phone] Stephanie Mueller NP Primary Care Provider [phone]- [phone] Encounter Details Date Type Department Care Team (Late st Contact Info) Description 07/28/2016 Orders Only [facility] Provider, MD Hari [address] [place] [address] Social History Tobacco Use Types Packs/Day Years Used Date Smoking Tobacco: Never Alcohol Use Standard Drinks/Week Comments No 0 (1 standard drink = 0.6 oz pur e alcohol) Comments Unknown Sex and Gender Information Value Date Recorded Sex Assigned at Not on file 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 Historical Provider [facility] NIKO DILLON Final Result documented in this encounter Visit Diagnoses Not on filedocumented in this encounter Care Teams Nursing Coordinator Relationship Specialty Start Date End Date No, Physician PCP - General 07/21/20 12/09/21 Stephanie Mueller NP [address] [place] [address] PCP - General Nurse Practitioner 12/10/21 documented as of this encounter
--- OUTSIDE RECORDS SUMMARY | 2024-06-29 10:12 | XMS_ITS | Encounter Summary ---
Author Organization [facility] Address [address] [place] [address] Phone Care Team Providers Care School Community Relations Coordinator Name Role Phone No, Physician Primary Care Provider [phone] Stephanie Mueller NP Primary Care Provider [phone] Encounter Details Date Type Department Care Team (Late st Contact Info) Description 08/18/2016 Orders Only [facility] Provider, MD Hari [address] [place] [address] Social History Tobacco Use Types Packs/Day Years Used Date Smoking Tobacco: Never Alcohol Use Standard Drinks/Week Comments No 0 (1 standard drink = 0.6 oz pur e alcohol) Comments Unknown Sex and Gender Information Value Date Recorded Sex Assigned at Not on file 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 Historical Provider [facility] NIKO DILLON Final Result documented in this encounter Visit Diagnoses Not on filedocumented in this encounter Care Teams School Community Relations Coordinator Relationship Specialty Start Date End Date No, Physician PCP - General 07/21/20 12/09/21 Stephanie Mueller NP [address] [place] [address] PCP - General Nurse Practitioner 12/10/21 documented as of this encounter
--- OUTSIDE RECORDS SUMMARY | 2024-06-29 10:12 | XMS_ITS | Clinical Summary ---
Author Organization [facility] Address [address] [place] [address] Care Team Providers Care Petrol Tanker Driver Name Role Phone Stephanie Muelelr NP Primary Care Provider [phone] Allergies Active Allergy Reactions Criticality Noted Date Comments Amiodarone Other (See comments) Low 07/22/2021 Ataxia and falls, 2016 Clarithromycin Edema High Lisinopril Edema High Nitrofurantoin Unknown 04/20/[address] (PROTONIX) 40 mg EC tablet take 1 tablet (40MG) by oral route every day 0 11/17/19 11 Active Additional Information Patient taking differently:40 mgoral, Reported on 04/04/2024 fluticasone (FLONASE) 50 mcg/actuation nasal spray Administer 2 sprays into each nostril daily 2 10/26/19 17 Active citalopram (CeleXA) 10 mg tablet Take 1 tablet (10 mg total) by mouth daily Active busPIRone (BUSPAR) 10 mg tabletIndicati ons:Generalize d Anxiety Disorder Take 1 tablet (10 mg total) by mouth 2 (two) times a day Active donepeziL (ARICEPT) 5 mg tablet Take 1 tablet (5 mg total) by mouth nightly Active ARIPiprazole (ABILIFY) 5 mg tablet Take 1 tablet (5 mg total) by mouth daily Active pyridoxine (VITAMIN B-6) 100 mg tablet Take 1 tablet (100 mg total) by mouth 2 (two) times a day Active loratadine (CLARITIN) 10 mg tablet Take 1 tablet (10 mg total) by mouth nightly Active acetaminophen 500 mg capsule Take 2 capsules (1,000 mg total) by mouth every 8 (eight) hours 30 tablet 05/23/19 Active Additional Information Patient taking differently:1,000 mg oralEvery 6 hours PRN, Reported on 04/04/2024 atorvastatin (LIPITOR) 10 mg tablet Take 1 tablet (10 mg total) by mouth daily 05/23/19 Active Additional Information Patient not taking.Reported on 04/04/2024 montelukast (SINGULAIR) 10 mg tablet Take 1 tablet (10 mg total) by mouth nightly 05/23/19 Active polyethylene glycol (MIRALAX) 17 gram packetIndicati ons:constipati on Take 1 packet (17 g total) by mouth daily 05/24/19 Active Additional Information Patient taking differently:17 g oralDaily PRN, constipation, Indications: constipation, Reported on 04/04/2024 ergocalciferol (VITAMIN D) 50,000 unit capsule Take 1 capsule (50,000 Units total) by mouth once a week Active polysaccharide iron complex (NU-IRON) 150 mg iron capsule Take 1 capsule (150 mg total) by mouth daily Active loperamide (IMODIUM A-D) 2 mg tablet as directed TAKE 2 TABLETS BY MOUTH AFTER 1ST LOOSE STOOL AND 1 TABLET AFTER EACH NEXT LOOSE STOOL NEEDED - DO NOT EXCEED 16 MG IN 24 HOURS Active olopatadine (PATADAY) 0.2 % ophthalmic solution Administer 1 drop into both eyes daily Active cyanocobalamin (Vitamin B-12) 1,000 mcg tabletIndicati ons:Prevention of Vitamin B12 Deficiency Take 1 tablet (1,000 mcg total) by mouth 3 (three) times a week Active vit C/E/Zn/coppr/l utein/zeaxan (PRESERVISION AREDS-2 ORAL) Take 1 tablet/capsule by mouth 2 (two) times a day Active albuterol HFA (PROVENTIL HFA,VENTOLIN HFA,PROAIR HFA) 90 mcg/actuation inhaler albuterol sulfate HFA 90 mcg/actuation aerosol inhaler Active ALPRAZolam (XANAX) 0.25 mg tablet alprazolam 0.25 mg tablet Active metoprolol XL (TOPROL-XL) 50 mg extended release tablet TAKE ONE TABLET BY MOUTH DAILY 30 tablet 11 08/27/19 23 Active azelastine (ASTELIN) 137 mcg (0.1 %) nasal spray SPRAY TWO SPRAYS TWICE DAILY BY INTRANASAL ROUTE NEEDED Active oxyBUTYnin XL (DITROPAN-XL) 10 mg 24 hr tablet TAKE ONE TABLET BY MOUTH DAILY 90 tablet 2 11/06/19 24 Active furosemide (LASIX) 40 mg tablet TAKE ONE TABLET BY MOUTH DAILY 90 tablet 1 06/04/19 25 Active furosemide (LASIX) 40 mg tablet TAKE ONE TABLET BY MOUTH DAILY 90 tablet 1 12/05/19 24 025 Discontinued Active Problems Problem Noted Date Diagnosed Date Hypokalemia 02/12/2023 Dementia 05/20/2020 GERD (gastroesophageal reflux disease) OAB (overactive bladder) 05/20/2020 HLD (hyperlipidemia) 05/20/2020 Periprosthetic fracture arou nd internal prosthetic left knee joint 05/19/2020 Overview (05/20/2020): Added automatically from request for surgery [id number] Vitamin D deficiency 02/07/2020 History of intracranial hemorrhage 01/21/2020 Allergic rhinitis 12/18/2019 Anemia 09/26/2019 Essential hypertension 09/26/2019 Osteoarthritis of multiple joints 09/26/2019 Contraindication to anticoagulation therapy 07/11 Encounter for screening mamm ogram for malignant neoplasm of breast 07/30/2018 Dilated cardiomyopathy 06/03/2018 Obstructive sleep apnea 06/03/2018 Supraventricular tachycardia 02/25/2016 Overview (06/17/2016): SVT (supraventricular tachycardia) Assessment & Plan (04/22/2017 3:54 PM NUT TAPPER): 2013: ICD interrogation also showed SVT with no clinical recurrence Assessment & Plan (11/02/2016 3:30 PM CDT): 2013: ICD interrogation also showed SVT with no clinical recurrence Orthostasis 02/25/2016 Overview (06/17/2016): Orthostasis 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 Diong better in this regard w/ no recent falls -- perhaps because amiodarone was discontinued? Assessment & Plan (11/02/2016 3:33 PM CDT): Reduce frequency of falls which have been blamed on orthostasis and perhaps amiodarone induced ataxia Intracranial hemorrhage 08/21/2015 Overview (06/17/2016): Intracranial hemorrhage Assessment & Plan (11/02/2016 3:33 PM CDT): Intracranial hemorrhage occurred as a result of a fall Paroxysmal atrial fibrillation 08/21/2015 Overview (06/17/2016): PAF (paroxysmal atrial fibrillation) Assessment & Plan (04/22/2017 4:00 PM NUT TAPPER): 2012: PAF with an inappropriate ICD shock No recurrence since amiodarone discontinued by ICD checks, currently taking metoprolol succinate 50 mg daily Has not been anticoagulated secondary to frequent falls and history of intercerebral hemorrhage (a result of her fall) Assessment & Plan (11/02/2016 3:30 PM CDT): 2013: PAF with an inappropriate ICD shock No recurrence since amiodarone discontinued, currently taking metoprolol succinate 50 mg daily Has not been anticoagulated secondary to frequent falls and history of intercerebral hemorrhage (a result of her fall) Chronic diastolic heart failure 08/21/2015 Overview (06/17/2016): Chronic systolic heart failure Assessment & Plan (11/02/2016 3:34 PM CDT): Mild edema noted recently. Add furosemide Fibroadenoma of breast 06/22/2015 History of pulmonary embolism 02/16/2015 Overview (06/17/2016): History of pulmonary embolus (PE) Depression 02/16/2015 Overview (06/17/2016): Depression ICD (implantable cardioverter-defibrillator) in place 02/16/2015 Overview (04/21/2021): Oropeza [place] Dual ICD. Dx; NICM, PAF. Gen Change 04/21/2021-Uppstrom, chronic leads 02/16/2011. [place] remote monitoring, office device checks Q1 year. Assessment & Plan (04/22/2017 4:00 PM NUT TAPPER): ICD was checked in February 2017, normal function, no recent defibrillations. Longevity 4 years. AFib burden iis less than 1% of the past couple of years. Assessment & Plan (11/02/2016 3:34 PM CDT): Overdue for checkup; the last 1 I can find is from October 2015.. Have not been receiving Dm remote monitoring Patient had been followed by Dr. Carlson so the may be an issue with converting to our device follow-up service Patient had a s dorothy recently as described above, wonder she had some type of arrhythmia. Primary cardiomyopathy 04/15/2014 Overview (06/17/2016): Primary cardiomyopathy Assessment & Plan (04/22/2017 3:55 PM NUT TAPPER): Cardiomyopathy diagnosed in 2010, EF 35-40% Echo 10/2016 showed improvement with mild global hypokinesis, EF 44%, diastolic dysfunction. Lidia 02/2017 showed EF 62%. Nice to see gradual improvement of LV funciton and Chf appears improved/stable. Class 2 symptoms, euvolemic, tolerating valsartan and metoprolol. Assessment & Plan (11/02/2016 3:29 PM CDT): Cardiomyopathy diagnosed in 2010, EF 35-40% Echo 10/2016 showed improvement with mild global hypokinesis, EF 44%, diastolic dysfunction. Basic the knee that is about the same as 1 year ago. Class 2 symptoms, euvolemic, tolerating valsartan and metoprolol. Paroxysmal ventricular tachycardia 04/15/2014 Overview (06/17/2016): Paroxysmal ventricular tachycardia Assessment & Plan (04/22/2017 3:56 PM NUT TAPPER): Patient has appropriate ICD discharge February 2014 for fast V-tach. Was on amiodarone, discontinued early 2015 because of ataxia No further V-tach clinically Assessment & Plan (11/02/2016 3:29 PM CDT): Patient has appropriate ICD discharge February 2014 for fast V-tach. Was on amiodarone, discontinued early 2015 because of ataxia No further V-tach clinically Resolved Problems Problem Noted Date Diagnosed Date Resolved Date Acute blood loss anemia 05/21/202001/12 Acute pain due to trauma 05/20/2020 Allergic conjunctivitis 12/18/201901/12 At risk for breast cancer 06/20/2016 Atrial fibrillation 12/30/2015 10/26/19 18 Ventricular tachycardia 12/30/201505/11 History of surgical procedure 12/30/2015 10/25/2017 Encounters Date Type Department Care Team Description 05/29/2024 9:30 AM CDT Ancillary Procedure [facility] [address] [facility] [address] [place] [id number] 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); NICM (nonischemic cardiomyopathy) (HCC); Paroxysmal atrial fibrillation (HCC) 05/14/[address] [facility] [address] [place] [address] [place] [phone] Gagandeep Dubose MD 04/23/[address] [facility] [address] [place] [address] [place] [phone] Gagandeep Dubose MD 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); Paroxysmal atrial fibrillation (HCC); NICM (nonischemic cardiomyopathy) (HCC) 04/04/2024 8:45 AM NUT TAPPER Office Visit [facility] at [address] [place] [address] Gagandeep Dubose MD Primary cardiomyopathy (HCC) (Primary Dx); ICD (implantable cardioverter-defibrill ator) in place; Paroxysmal ventricular tachycardia (HCC) from Last 3 Months Immunizations Immunization Administration Dates Next Due Influenza, Quadrivalent, Split, Intramuscular Influenza, Quadrivalent, Spl it, Preservative Free, Intramuscular 01/06/2014 Influenza, Trivalent, Adjuvanted, Intramuscular 12/29/2017,12/27/2016 Influenza, Trivalent, High D ose, Split, Preservative Free, Intramuscular 01/06/2016 Influenza, Trivalent, IM (MDV) 12/11/2012 Influenza, Trivalent, Preservative Free, Intramu scular 12/30/2014 Influenza, Unspecified 12/11/2018 Pneumococcal Conjugate PCV 13 06/26/2014 Pneumococcal Polysaccharide PPV23 01/05/2016 Tdap 05/19/2020 Surgical History Surgery Date Site/Laterality Comments BLADDER SUSPENSION Bladder Suspension KNEE SURGERY Bilateral Knee Surgery TONSILLECTOMY Tonsillectomy Medical History Medical History Date Comments Depression Depression Osteoarthritis Osteoarthritis Hx Other Medical DVT: LLE and RL E Hx Other Medical Pulmonary Embol us Hx Other Medical 2014 IVC filter put in out-of-town ; had one at also; Comments: [facility] 08/21/2015 - Hx Other Medical 2014 Brain bleed; Co mments: ELU 08/21/2015 - Hx Other Medical 2014 hematuria with high INR; had ureteral stent placed; Comments: [facility]U 05/17/2016 - ICD (implantable cardioverter-defibrillator) in place 2010 [facility], gen change 04/21/2021 Ventricular tachycardia (par oxysmal) (HCC) Appropriate ICD shocks 2021 Dementia (HCC) Nonischemic cardiomyopathy (HCC) 2012 PAF (paroxysmal atrial fibri llation) (HCC) History of pulmonary embolus (PE) DVT/PE PATY (obstructive sleep apnea) Orthostasis H/O falls andort hostasis Family History Medical History Relation Name Comments Other Father killed in milit roshan; Other Mother htn, breast ca; Cause of : htn, breast ca Cardiomyopathy Sister 2 Cardiomyopath y; icd Sister 2 Relation Name Status Comments Father Alive Mother (Age 81) Sister 1 Alive Sister 2 (Age 76) of [place] D but had ICD placed in in her 50's Social History Tobacco Use Types Packs/Day Years Used Date Smoking Tobacco: Never Smokeless Tobacco: Never Tobacco Cessation:Counseling Given: Not Answered Alcohol Use Standard Drinks/Week Comments No 0 (1 standard drink = 0.6 oz pur e alcohol) AUDIT-C Answer Date Recorded Q1: How often do you have a drink containing alc ohol? Never 05/20/2020 Average Number of Drinks Not on file 021 Q3: How often do you have si x or more drinks on one occasion? Never 05/20/2020 Comments No Sex and Gender Information Value Date Recorded Sex Assigned at Not on file Legal Sex Female 8:31 PM NUT TAPPER Gender Identity Not on file Sexual Orientation Not on file Obstetrics History Last Filed Vital Signs Vital Sign Reading Time Taken Comments Blood Pressure 126/86 04/04/2024 8:52 AM NUT TAPPER Pulse 85 04/04/2024 8:52 AM NUT TAPPER Temperature 37.1 C (98.7 F) 04/21/2021 11:56 AM NUT TAPPER Respiratory Rate 18 04/21/2021 11:56 AM NUT TAPPER Oxygen Saturation 92% 04/04/2024 8:52 AM NUT TAPPER Inhaled Oxygen Concentration - - Weight 68.5 kg (151 lb) 04/04/2024 8:52 AM NUT TAPPER Height 160 cm (5' 3 ) 04/04/2024 8:52 AM NUT TAPPER Body Mass Index 26.75 04/04/2024 8:52 AM NUT TAPPER Plan of Treatment Health Maintenance Due Date Last Done Comments Depression Screening 1940 Osteoporosis Screening-Bone Density Scan 1942 Hepatitis B Screening 1960 Zoster Vaccine (1 of 2) 1992 Well Visit 65+ 11/10/2007 Fall Risk Assessment 04/21/2022 04/21/2021 Influenza Vaccine (Season Ended) 2024 12/24/2020, 12/18/2019, 12/11/2018, Additional history exists DTaP/Tdap/Td Vaccine (2 - Td or Tdap) 05/19/2030 05/19/2020 Pneumococcal vaccine 65+ Completed 01/05/2016, 06/11 Medical Devices Implanted Type Area Spinner Iron Device Identifier Shelf Expiration Date Model / Serial / Lot Icd-02/16/2011 Implanted:02/16 (Quantity not on file) ICD Chest [facility] NICM, PAF Synthes 02.231.236 5mm 36mm Variable Angle Self Tap Lock Stardrive Condylar T25 - [id number] Implanted:Qty: 1 on 05/20/2020 by Veronique Tarango MD at [facility] Right: Femur Synthes I 02.231.23 6 / / Synthes 214.890 4.5mm 8mm 90mm Self Tap Large Hexagonal Socket Cortical Screw - [id number] Implanted:Qty: 1 on 05/20/2020 by Veronique Tarango MD at [facility] Right: Femur Synthes I 214.890 / / Synthes 02.124.418 Lcp Combi 370mm 18 Hole 4 Column Thread Variable Angle Condylar - [id number] Implanted:Qty: 1 on 05/20/2020 by Veronique Tarango MD at [facility] Right: Femur Synthes I 02.124.41 8 / / Synthes 214.836 4.5mm 8mm 36mm Self Tap Large Hexagonal Socket Cortex Screw Bone - [id number] Implanted:Qty: 1 on 05/20/2020 by Veronique Tarango MD at [facility] Right: Femur Synthes I 214.836 / / Synthes 02.231.275 5mm 75mm Variable Angle Self Tap Lock Stardrive Condylar T25 - [id number] Implanted:Qty: 2 on 05/20/2020 by Veronique Tarango MD at [facility] Right: Femur Synthes I 02.231.27 5 / / Synthes 214.838 4.5mm 8mm 38mm Self Tap Large Hexagonal Socket Cortex Screw Bone - [id number] Implanted:Qty: 1 on 05/20/2020 by Veronique Tarango MD at [facility] Right: Femur Synthes I 214.838 / / Synthes 02.231.280 5mm 80mm Variable Angle Self Tap Lock Stardrive Condylar T25 - [id number] Implanted:Qty: 3 on 05/20/2020 by Veronique Tarango MD at [facility] Right: Femur Synthes I 02.231.28 0 / / Synthes 02.231.270 5mm 70mm Variable Angle Self Tap Lock Stardrive Condylar T25 - [id number] Implanted:Qty: 1 on 05/20/2020 by Veronique Tarango MD at [facility] Right: Femur Synthes I .231.27 0 / / [employer] [id number] Defib Cardiac [id number] [id number] [place] Implantable 2 Chamber - [id number] - [id number] Implanted:Qty: 1 on 04/21/2021 by Brandy Ohara MD at [facility] [employer] [id number] 04/12/2023 CDDRA 500Q / [id number] / Med[employer]onic [employer] [id number] 3.3x2.9in Large Envelope Absorbable Polyarylate Minocycline - [id number] Implanted:Qty: 1 on 04/21/2021 by Brandy Ohara MD at [facility] [employer] [id number] / / Explanted Type Area Spinner Iron Device Identifier Shelf Expiration Date Model / Serial / Lot Ke Orthopaedics 1806-0050s Eduardo T2 3mm 285mm Retrograde Supracondylar Wire Fixation - [id number] Explanted:Qty: 1 on 05/20/2020 by Veronique aTrango MD at [facility] Right: Femur Ke Orthopaedics [id number] / / [employer] [id number] Steinmann 3/32mm 9in Trocar Point Pin Fixation Stainless Steel - [id number] Explanted:Qty: 1 on 05/20/2020 by Veronique Tarango MD at [facility] Right: Femur [employer] [id number] / / Procedures Procedure Name Priority Date/Time Associated Diagnosis Comments DEVICE CHECK - IN OFFICE Routine 05/29/2024 9:26 AM CDT NICM (nonischemic cardiomyopathy) (HCC) Paroxysmal atrial fibrillation (HCC) from Last 3 Months Results * DEVICE CHECK - IN OFFICE (05/29/2024 9:26 AM CDT) Anatomical Region Laterality Modality Other Narrative 05/31/2024 8:40 AM CDT Oropeza [place] Dual ICD. Dx; NICM, PAF. Gen Change 04/21/2021-Uppstrom, chronic leads 02/16/2011. [employer] remote monitoring, office device checks Q1 year. Supervising MD: Dr Tamayo. Office interrogation of DDD ICD demonstrated appropriate device function. Left pectoral incision well approximated without signs of infection noted. Battery function-Ok, 6.6 years remaining battery longevity to MUMTAZ. Charge time 8.8 seconds. Appropriate lead measurements noted-see report for results. Presenting rhythm-ASVS (SR) 88 bpm. AP-<1%, UM RN-<1%. 10 Atrial episodes recorded, all <1 minute duration, available iegm's Atach. 13-PMT episodes noted. 5 Ventricular tachy arrhythmias recorded, available iegm's show NSVT-SVT episodes-self terminated. 2 SVT episodes noted, iegm's SVT 150 bpm, 3 minutes max duration. Medications; Toprol XL. No AC d/t Intracranial Hemorrhage. PVARP increased to 350 ms. See scanned report. Office device f/u 12/18/2024. Dm remote f/u 09/03/2024. Of Note: Patient brought her old [employer] remote monitor and her new [employer] mobile monitor into office with her today. I contacted [employer] services and spoke with Jose. He assisted me with updating the ganesh to the latest version, repairing the monitor, and updating blue tooth settings. Patient was instructed to take her monitor home and plug it in next to her bed and to leave it plugged in. She will return to device clinic in 6 months to make sure all is working appropriately. 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 Use antibiotics, IV Fluids, and medical treatment unless specifically selected below: No intubationNo cardioversionNo vasopressors Care Teams Petrol Tanker Driver Relationship Specialty Start Date End Date Stephanie Mueller NP [address] [place] [address] PCP - General Nurse Practitioner 12/10/21
--- OUTSIDE RECORDS SUMMARY | 2024-06-29 10:12 | XMS_ITS | Data Portability ---
Author Organization [place] [facility] [employer] Address [address] [place] [address] Care Team Providers Care Manager Services Name Role Phone SINDI NOEL Professor Of Art JOEL SERRA Psychiatrist [facility] OTHER ALEA THOMAS [facility] Representative Assessment Encounter Date Assessment Date Assessment LastModified by Organization Details LastModified Time 03/29/2022 03/29/2022 Medication Changes labs to eval levels Signs and symptoms of when to seek further care reviewed with patient/caregiver /family/facility staff. Patient to follow up with primary care provider or return to clinic for any worsening signs and symptoms. Always present to ER or Urgent Care with any progression of/alarming symptoms, significant changes in symptoms or any concerning or urgent matters. Patient/caregiver /family/facility staff verbalized agreement and understanding of treatment plan. F/U 8 weeks, sooner if needed My total encounter time was 60 minutes which was spent in the activities documented in the note. This includes time spent prior to the visit, performing a medically appropriate examination with evaluation, and after the visit in direct care of the patient (history and exam; ordering prescriptions/lab s/imaging/home health/therapy/sp ecialists; communicating results to patient and/or other relative individuals; counseling/educat ing patient; documenting clinical information in patient s chart; coordination of care for the patient). This time does not include time spent in any separately reportable services. Not available 03/30/2022 10:34:23 05/23/2022 05/23/2022 Medication Changes Probiotic ordered for daily usage Signs and symptoms of when to seek further care reviewed with patient/caregiver /family/facility staff. Patient to follow up with primary care provider or return to clinic for any worsening signs and symptoms. Always present to ER or Urgent Care with any progression of/alarming symptoms, significant changes in symptoms or any concerning or urgent matters. Patient/caregiver /family/facility staff verbalized agreement and understanding of treatment plan. F/U 12 weeks, sooner if needed My total encounter time was 45 minutes which was spent in the activities documented in the note. This includes time spent prior to the visit, performing a medically appropriate examination with evaluation, and after the visit in direct care of the patient (history and exam; ordering prescriptions/lab s/imaging/home health/therapy/sp ecialists; communicating results to patient and/or other relative individuals; counseling/educat ing patient; documenting clinical information in patient s chart; coordination of care for the patient). This time does not include time spent in any separately reportable services. [email or web address] Not available 05/23/2022 12:10:23 07/18/2022 07/18/2022 Medication Changes reordered urine as lab noted abnormalities and needed to be repeated. Given the variation of confusion which could be also related to a medical cause and not as much Dementia especially with possibility of retaining CO2. labs ordered to further eval diarrhea. PT/OT ordered. Wellness Visit for Adults A wellness visit is when you see your healthcare provider to get screened for health problems. Your healthcare provider will also give you advice on how to stay healthy. Write down your questions so you remember to ask them. Ask your healthcare provider how often you should have a wellness visit. What happens at a wellness visit: Your healthcare provider will ask about your health, and your family history of health problems. This includes high blood pressure, heart disease, and cancer. He or she will ask if you have symptoms that concern you, if you smoke, and about your mood. You may also be asked about your intake of medicines, supplements, food, and alcohol. Any of the following may be done: Your weight will be checked. Your height may also be checked so your body mass index (BMI) can be calculated. Your BMI shows if you are at a healthy weight. Your blood pressure and heart rate will be checked. Your temperature may also be checked. Blood and urine tests may be done. Blood tests may be done to check your cholesterol levels. Abnormal cholesterol levels increase your risk for heart disease and stroke. You may also need a blood or urine test to check for diabetes if you are at increased risk. Urine tests may be done to look for signs of an infection or kidney disease. A physical exam includes checking your heartbeat and lungs with a stethoscope. Your healthcare provider may also check your skin to look for sun damage. Screening tests may be recommended. A screening test is done to check for diseases that may not cause symptoms. The screening tests you may need depend on your age, gender, family history, and lifestyle habits. For example, colorectal screening may be recommended if you are 50 years old or older. Screening tests you need if you are a woman: A Pap smear is used to screen for cervical cancer. Pap smears are usually done every 3 to 5 years depending on your age. You may need them more often if you have had abnormal Pap smear test results in the past. Ask your healthcare provider how often you should have a Pap smear. A mammogram is an x-ray of your breasts to screen for breast cancer. Experts recommend mammograms every 2 years starting at age 50 years. You may need a mammogram at age 49 years or younger if you have an increased risk for breast cancer. Talk to your healthcare provider about when you should start having mammograms and how often you need them. Vaccines you may need: Get an influenza vaccine every year. The influenza vaccine protects you from the flu. Several types of viruses cause the flu. The viruses changer fixer time, so new vaccines are made each year. Get a tetanus-diphtheri a (Td) booster vaccine every 10 years. This vaccine protects you against tetanus and diphtheria. Tetanus is a severe infection that may cause painful muscle spasms and lockjaw. Diphtheria is a severe bacterial infection that causes a thick covering in the back of your mouth and throat. Get a human papillomavirus (HPV) vaccine if you are female and aged 19 to 26 or male 19 to 21 and never received it. This vaccine protects you from HPV infection. HPV is the most common infection spread by sexual contact. HPV may also cause vaginal, penile, and anal cancers. Get a pneumococcal vaccine if you are aged 65 years or older. The pneumococcal vaccine is an injection given to protect you from pneumococcal disease. Pneumococcal disease is an infection caused by pneumococcal bacteria. The infection may cause pneumonia, meningitis, or an ear infection. Get a shingles vaccine if you are aged 60 or older, even if you have had shingles before. The shingles vaccine is an injection to protect you from the varicella-zoster virus. This is the same virus that causes chickenpox. Shingles is a painful rash that develops in people who had chickenpox or have been exposed to the virus. How to eat healthy: My Plate is a model for planning healthy meals. It shows the types and amounts of foods that should go on your plate. Fruits and vegetables make up about half of your plate, and grains and protein make up the other half. A serving of dairy is included on the side of your plate. The amount of calories and serving sizes you need depends on your age, gender, weight, and height. Examples of healthy foods are listed below: Eat a variety of vegetables such as dark green, red, and orange vegetables. You can also include canned vegetables low in sodium (salt) and frozen vegetables without added butter or sauces. Eat a variety of fresh fruits , canned fruit in 100% juice, frozen fruit, and dried fruit. Include whole grains. At least half of the grains you eat should be whole grains. Examples include whole-wheat bread, wheat pasta, brown rice, and whole-grain cereals such as oatmeal. Eat a variety of protein foods such as seafood (fish and shellfish), lean meat, and poultry without skin (turkey and chicken). Examples of lean meats include pork leg, shoulder, or tenderloin, and beef round, sirloin, tenderloin, and extra lean ground beef. Other protein foods include eggs and egg substitutes, beans, peas, soy products, nuts, and seeds. Choose low-fat dairy products such as skim or 1% milk or low-fat yogurt, cheese, and cottage cheese. Limit unhealthy fats such as butter, hard margarine, and shortening. Exercise: Exercise at least 30 minutes per day on most days of the week. Some examples of exercise include walking, biking, dancing, and swimming. You can also fit in more physical activity by taking the stairs instead of the elevator or parking farther away from stores. Include muscle strengthening activities 2 days each week. Regular exercise provides many health benefits. It helps you manage your weight, and decreases your risk for type 2 diabetes, heart disease, stroke, and high blood pressure. Exercise can also help improve your mood. Ask your healthcare provider about the best exercise plan for you. General health and safety guidelines: Do not smoke. Nicotine and other chemicals in cigarettes and cigars can cause lung damage. Ask your healthcare provider for information if you currently smoke and need help to quit. E-cigarettes or smokeless tobacco still contain nicotine. Talk to your healthcare provider before you use these products. Limit alcohol. A drink of alcohol is 12 ounces of beer, 5 ounces of wine, or 1 ounces of liquor. Lose weight, if needed. Being overweight increases your risk of certain health conditions. These include heart disease, high blood pressure, type 2 diabetes, and certain types of cancer. Protect your skin. Do not sunbathe or use tanning beds. Use sunscreen with a SPF 15 or higher. Apply sunscreen at least 15 minutes before you go outside. Reapply sunscreen every 2 hours. Wear protective clothing, hats, and sunglasses when you are outside. Drive safely. Always wear your seatbelt. Make sure everyone in your car wears a seatbelt. A seatbelt can save your life if you are in an accident. Do not use your cell phone when you are driving. This could distract you and cause an accident. waistline joiner overlock if you need to make a call or send a text message. Practice safe sex. Use latex condoms if are sexually active and have more than one partner. Your healthcare provider may recommend screening tests for sexually transmitted infections (STIs). Wear helmets, lifejackets, and protective gear. Always wear a helmet when you ride a bike or motorcycle, go skiing, or play sports that could cause a head injury. Wear protective equipment when you play sports. Wear a lifejacket when you are on a boat or doing water sports. Signs and symptoms of when to seek further care reviewed with patient/caregiver /family/facility staff. Patient to follow up with primary care provider or return to clinic for any worsening signs and symptoms. Always present to ER or Urgent Care with any progression of/alarming symptoms, significant changes in symptoms or any concerning or urgent matters. Patient/caregiver /family/facility staff verbalized agreement and understanding of treatment plan. F/U 4 weeks, sooner if needed [email or web address] Not available 07/18/2022 11:25:45 08/15/2022 08/15/2022 Medication Changes increasing anxiety noted today at visit. She reported about being hacked. Advised her to contact her children to help facilitate the process of getting such taken care of. Signs and symptoms of when to seek further care reviewed with patient/caregiver /family/facility staff. Patient to follow up with primary care provider or return to clinic for any worsening signs and symptoms. Always present to ER or Urgent Care with any progression of/alarming symptoms, significant changes in symptoms or any concerning or urgent matters. Patient/caregiver /family/facility staff verbalized agreement and understanding of treatment plan. F/U 12 weeks, sooner if needed [email or web address] Not available 08/15/2022 14:01:02 11/01/2022 11/01/2022 Medication Changes Reconciliation done based on hospital as we do not have any documentation from SNF. weakness from being ill and in the hospital. Needs therapy. has been spending more time in wheelchair. -PT/OT ordered Patient to f/u with cardiology, pulmonary, and psychiatry. doing better with CHF s/p hospitalization. Medication changes. respiratory failure doing better with the use of bipap. -CO2 retainer and bipap helps burn off such. not on oxygen. Signs and symptoms of when to seek further care reviewed with patient/caregiver /family/facility staff. Patient to follow up with primary care provider or return to clinic for any worsening signs and symptoms. Always present to ER or Urgent Care with any progression of/alarming symptoms, significant changes in symptoms or any concerning or urgent matters. Patient/caregiver /family/facility staff verbalized agreement and understanding of treatment plan. F/U 12 weeks, sooner if needed [email or web address] Not available 11/01/2022 21:18:11 Plan of Treatment Reminders Order Date Submit Date Provider Last Modified By Organization Details Last Modified Time Details Appointments None recorded. Lab culture, stool 2022 023 [email or web address] [facility], [address] [place] [address] , [place], [address], 07:46:35 unlisted lab - vitamin D total, 25-hydroxy* 2022 023 [facility], [address], [place], [address], 3 12:14:03 iron, serum [address], [place], [address], 3 12:14:01 vitamin B12, serum [address], [place], [address], 3 12:14:02 unlisted lab - folate [address], [place], [address], 3 12:14:01 unlisted lab - complete blood count with auto diff* [address], [place], [address], 3 12:14:00 CMP, serum or plasma [address], [place], [address], 3 12:14:00 magnesium, serum or plasma [address], [place], [address], 3 12:14:02 urinalysis complete, reflex culture 2022 023 [email or web address] [facility], [address] [place] [address] , [place], [address], 3 10:09:32 Referral physical therapist referral 2022 023 [email or web address] [facility], [address] [place] [address] [place], [address], 3 21:42:20 occupationa l therapist referral [email or web address] [facility], [address] , [place], [address], 3 21:42:20 physical therapist referral 2022 023 [facility], [address] , [place], [address], 3 10:14:23 occupationa l therapist referral 2022 023 [facility], [address] , [place], [address], 18:54:05 Procedures None recorded. Surgeries None recorded. Imaging None recorded. Medication Orders Probiotic 10 billion cell capsule 2022 023 [facility] B[facility], [address], [place], [id number], 15:13:23 Patient TargetsNo targets recorded. Patient Instructions Encounter Date Encounter Id Patient Instructions Last Modified By Organization Details Last Modified Time 03/29/2022 [id number] instructions to assisted living home* - Hypotension. She is more fatigued. I would contact cardiology to discuss her BP medication regimen as it could be too much and may need dose reduction. [email or web address] Not available 05/23/2022 11:32:33 specimen collection & handling* - Please obtain Urine for UA and then if abn reflex to culture [email or web address] Not available 05/23/2022 11:32:34 05/23/2022 [id number] instructions to assisted living home* - Probiotic daily ordered for altered bowels [email or web address] Not available 05/23/2022 12:15:20 07/18/2022 [id number] care plan* Not available 10/2022 11:25:49 fall risk screening* Not available 07/18/2022 11:25:49 Reason for Referral Physical Therapist Referral for Dementia Referring Physician: Stephanie Mueller, Internal Medicine, Encounter Date: 07/18/2022 Occupational Therapist Refer ral for Dementia Referring Physician: Stephanie Mueller Internal Medicine, Encounter Date: 07/18/2022 Physical Therapist Referral for Abnormal gait due to muscle weakness Referring Physician: Stephanie Mueller Internal Medicine, Encounter Date: 11/01/2022 Occupational Therapist Refer ral for Abnormal gait due to muscle weakness Referring Physician: Nestor Epstein Medicine, Encounter Date: 11/01/2022 Results Created Date Observation Date Name Description Value Unit Range Abnormal Flag Note LastModifiedBy Organization Detail LastModifiedTime 03/31/19 23 03/31/2022 COMPL ETE BLOOD COUNT WITH AUTO DIFF* WBC 5.77 10E3/ uL 4.50-1 1.50 Not Available [facility] [address], [place], [address], 04/01/2022 12:14:00 03/31/19 23 03/31/2022 COMPL ETE BLOOD COUNT WITH AUTO DIFF* RBC 4.06 10E6/ uL 4.00-5 .40 Not Available [facility] [address], [place], [address], 04/01/2022 12:14:00 03/31/19 23 03/31/2022 COMPL ETE BLOOD COUNT WITH AUTO DIFF* HGB 13.0 g/dL 12.0-1 5.0 Not Available [facility] [address], [place], [address], 04/01/2022 12:14:00 03/31/19 23 03/31/2022 COMPL ETE BLOOD COUNT WITH AUTO DIFF* HCT 40.4 % 35.0-4 9.0 Not Available [facility] [address], [place], [address], 04/01/2022 12:14:00 03/31/19 23 03/31/2022 COMPL ETE BLOOD COUNT WITH AUTO DIFF* MCV 100 fL 80-100 Not Available [facility] [address], [place], [address], 04/01/2022 12:14:00 03/31/19 23 03/31/2022 COMPL ETE BLOOD COUNT WITH AUTO DIFF* MCH 32 pg 26-32 Not Available [facility] [address], [place], [address], 04/01/2022 12:14:00 03/31/19 23 03/31/2022 COMPL ETE BLOOD COUNT WITH AUTO DIFF* MCHC 32 g/dL 32-36 Not Available [facility] [address], [place], [address], 04/01/2022 12:14:00 03/31/19 23 03/31/2022 COMPL ETE BLOOD COUNT WITH AUTO DIFF* RDW 13.8 % 11.5-1 4.5 Not Available [facility] [address], [place], [address], 04/01/2022 12:14:00 03/31/19 23 03/31/2022 COMPL ETE BLOOD COUNT WITH AUTO DIFF* plt 282 10E3/ uL 150-45 0 Not Available [facility] [address], [place], [address], 04/01/2022 12:14:00 03/31/19 23 03/31/2022 COMPL ETE BLOOD COUNT WITH AUTO DIFF* neut% 62.1 % 50.0-7 0.0 Not Available [facility] [address], [place], [address], 04/01/2022 12:14:00 03/31/19 23 03/31/2022 COMPL ETE BLOOD COUNT WITH AUTO DIFF* lymph% 22.9 % 18.0-4 2.0 Not Available [facility] [address], [place], [address], 04/01/2022 12:14:00 03/31/19 23 03/31/2022 COMPL ETE BLOOD COUNT WITH AUTO DIFF* mono% 9.5 % 2.0-11 .0 Not Available [facility] [address], [place], [address], 04/01/2022 12:14:00 03/31/19 23 03/31/2022 COMPL ETE BLOOD COUNT WITH AUTO DIFF* eos% 4.9 % 1.0-3. 0 high Not Available [facility] [address], [place], [address], 04/01/2022 12:14:00 03/31/19 23 03/31/2022 COMPL ETE BLOOD COUNT WITH AUTO DIFF* baso% 0.3 % 0.0-2. 0 Not Available [facility] [address], [place], [address], 04/01/2022 12:14:00 03/31/19 23 03/31/2022 COMPL ETE BLOOD COUNT WITH AUTO DIFF* Ig% 0.3 % 0.0-0. 6 Not Available [facility] [address], [place], [address], 04/01/2022 12:14:00 03/31/19 23 03/31/2022 COMPL ETE BLOOD COUNT WITH AUTO DIFF* neut# 3.58 10E3/ uL 2.30-8 .10 Not Available [facility] [address], [place], [address], 04/01/2022 12:14:00 03/31/19 23 03/31/2022 COMPL ETE BLOOD COUNT WITH AUTO DIFF* lymph# 1.32 10E3/ uL 0.80-4 .80 Not Available [facility] [address], [place], [address], 04/01/2022 12:14:00 03/31/19 23 03/31/2022 COMPL ETE BLOOD COUNT WITH AUTO DIFF* mono# 0.55 10E3/ uL 0.45-1 .30 Not Available [facility] [address], [place], [address], 04/01/2022 12:14:00 03/31/19 23 03/31/2022 COMPL ETE BLOOD COUNT WITH AUTO DIFF* eos# 0.28 10E3/ uL 0.00-0 .40 Not Available [facility] [address], [place], [address], 04/01/2022 12:14:00 03/31/19 23 03/31/2022 COMPL ETE BLOOD COUNT WITH AUTO DIFF* baso# 0.02 10E3/ uL 0.00-0 .10 Not Available [facility] [address], [place], [address], 04/01/2022 12:14:00 03/31/19 23 03/31/2022 COMPL ETE BLOOD COUNT WITH AUTO DIFF* Ig# 0.02 10E3/ uL 0.00-0 .09 Not Available [facility] [address], [place], [address], 04/01/2022 12:14:00 03/31/19 23 03/31/2022 COMPR EHENS KASH METAB OLIC PANEL * glucose 69 mg/dL 82-115 low Not Available [facility] [address], [place], [address], 04/01/2022 12:14:00 03/31/19 23 03/31/2022 COMPR EHENS KASH METAB OLIC PANEL * BUN 15 mg/dL 8-23 Not Available [facility] [address], [place], [address], 04/01/2022 12:14:00 03/31/19 23 03/31/2022 COMPR EHENS KASH METAB OLIC PANEL * calcium 8.7 mg/dL 8.8-10 .2 low Not Available [facility] [address], [place], [address], 04/01/2022 12:14:00 03/31/19 23 03/31/2022 COMPR EHENS KASH METAB OLIC PANEL * creatinine 0.55 mg/dL 0.60-1 .20 low Not Available [facility] [address], [place], [address], 04/01/2022 12:14:00 03/31/19 23 03/31/2022 COMPR EHENS KASH METAB OLIC PANEL * egfraa >60.00 mL/mi n/1.7 3m2 >60.00 Not Available [facility] [address], [place], [address], 04/01/2022 12:14:00 03/31/19 23 03/31/2022 COMPR EHENS KASH METAB OLIC PANEL * egfrnaa >60.00 mL/mi n/1.7 3m2 >60.00 Not Available [facility] [address], [place], [address], 04/01/2022 12:14:00 03/31/19 23 03/31/2022 COMPR EHENS KASH METAB OLIC PANEL * sodium 146 mmol/ L 136-14 5 high Not Available [facility] [address], [place], [address], 04/01/2022 12:14:00 03/31/19 23 03/31/2022 COMPR EHENS KASH METAB OLIC PANEL * potassium 4.7 mmol/ L 3.5-5. 1 Not Available [facility] [address], [place], [address], 04/01/2022 12:14:00 03/31/19 23 03/31/2022 COMPR EHENS KASH METAB OLIC PANEL * chloride 104 mEq/L 98-107 Not Available [facility] [address], [place], [address], 04/01/2022 12:14:00 03/31/19 23 03/31/2022 COMPR EHENS KASH METAB OLIC PANEL * carbon dioxide 38 mmol/ L 23-30 high Not Available [facility] [address], [place], [address], 04/01/2022 12:14:00 03/31/19 23 03/31/2022 COMPR EHENS KASH METAB OLIC PANEL * total protein 5.9 g/dL 6.2-8. 1 low Not Available [facility] [address], [place], [address], 04/01/2022 12:14:00 03/31/19 23 03/31/2022 COMPR EHENS KASH METAB OLIC PANEL * albumin 3.2 g/dL 3.2-4. 6 Not Available [facility] [address], [place], [address], 04/01/2022 12:14:00 03/31/19 23 03/31/2022 COMPR EHENS KASH METAB OLIC PANEL * globulin 2.7 g/dL 2.3-3. 4 Not Available [facility] [address], [place], [address], 04/01/2022 12:14:00 03/31/19 23 03/31/2022 COMPR EHENS KASH METAB OLIC PANEL * A/G ratio 1.2 g/dL 0.8-2. 0 Not Available [facility] [address], [place], [address], 04/01/2022 12:14:00 03/31/19 23 03/31/2022 COMPR EHENS KASH METAB OLIC PANEL * alkaline phosphatase 100 U/L 30-120 Not Available [facility] [address], [place], [address], 04/01/2022 12:14:00 03/31/19 23 03/31/2022 COMPR EHENS KASH METAB OLIC PANEL * ALT (SGPT) 24 U/L 10-28 Not Available [facility] [address], [place], [address], 04/01/2022 12:14:00 03/31/19 23 03/31/2022 COMPR EHENS KASH METAB OLIC PANEL * AST (SGOT) 19 U/L 9-36 Not Available [facility] [address], [place], [address], 04/01/2022 12:14:00 03/31/19 23 03/31/2022 COMPR EHENS KASH METAB OLIC PANEL * bilirubin, total 0.30 mg/dL 0.20-1 .10 Not Available [facility] [address], [place], [address], 04/01/2022 12:14:00 03/31/19 23 03/31/2022 FOLAT E* folate 9.7 NG/mL 8.6-58 .9 Not Available [facility] [address], [place], [address], 04/01/2022 12:14:01 03/31/19 23 03/31/2022 IRON* iron 96 ug/dL 50-170 Intox icate d Child : 280 - 2250 ug/dL Fatal ly Poiso jennifer Child : >1800 ug/dL Intox icate d Child : 280 - 2250 ug/dL Fatal ly Poiso jennifer Child : >1800 ug/dL Not Available [facility] [address] [address], [place], [address], 04/01/2022 12:14:01 03/31/19 23 03/31/2022 MAGNE SIUM* magnesium 2.00 mg/dL 1.60-2 .40 Not Available [facility] [address], [place], [address], 04/01/2022 12:14:02 03/31/19 23 03/31/2022 VITAM IN B12* vitamin B12 957 pg/mL 250-11 00 Not Available [facility] [address], [place], [address], 04/01/2022 12:14:02 03/31/19 23 03/31/2022 VITAM IN D TOTAL , 25-HY DROXY * vitamin D total, 25-hydroxy 50.1 NG/mL Refer ence Range and Inter preta tion: 0 - 17 Years : ----- ----- --- Defic iency <20 ng/mL Optim um Level >80 ng/mL 18 Years and Older : ----- ----- ----- ---- Sever e Defic iency <10 ng/mL Mild- Moder ate Defic iency 10 - 24 ng/mL Optim al Level 25 - 80 ng/mL Toxic ity Possi ble >80 ng/mL Not Available [facility] [address], [place], [address], 04/01/2022 12:14:03 07/13/19 23 07/16/2022 BINA TRATI ON REJEC TION - UNLAB ELED rejection SEE COMMEN T Unabl e to perfo rm test due to the speci men recei nerissa unlab eled. If testi ng is still neede d, recol lect and resub brandon a speci men label ed with two uniqu e ident ifier s. Not Available [facility] [address], [place], [address], 07/16/2022 02:38:54 07/15/19 23 07/14/2022 COMPL ETE BLOOD COUNT WITH AUTO DIFF* WBC 4.55 10E3/ uL 4.50-1 1.50 Not Available [facility] [address], [place], [address], 07/15/2022 15:29:34 07/15/19 23 07/14/2022 COMPL ETE BLOOD COUNT WITH AUTO DIFF* RBC 3.84 10E6/ uL 4.00-5 .40 low Not Available [facility] [address], [place], [address], 07/15/2022 15:29:34 07/15/19 23 07/14/2022 COMPL ETE BLOOD COUNT WITH AUTO DIFF* HGB 12.4 g/dL 12.0-1 5.0 Not Available [facility] [address], [place], [address], 07/15/2022 15:29:34 07/15/19 23 07/14/2022 COMPL ETE BLOOD COUNT WITH AUTO DIFF* HCT 41.5 % 35.0-4 9.0 Not Available [facility] [address], [place], [address], 07/15/2022 15:29:34 07/15/19 23 07/14/2022 COMPL ETE BLOOD COUNT WITH AUTO DIFF* MCV 108 fL 80-100 high Not Available [facility] [address], [place], [address], 07/15/2022 15:29:34 07/15/19 23 07/14/2022 COMPL ETE BLOOD COUNT WITH AUTO DIFF* MCH 32 pg 26-32 Not Available [facility] [address], [place], [address], 07/15/2022 15:29:34 07/15/19 23 07/14/2022 COMPL ETE BLOOD COUNT WITH AUTO DIFF* MCHC 30 g/dL 32-36 low Not Available [facility] [address], [place], [address], 07/15/2022 15:29:34 07/15/19 23 07/14/2022 COMPL ETE BLOOD COUNT WITH AUTO DIFF* RDW 15.0 % 11.5-1 4.5 high Not Available [facility] [address], [place], [address], 07/15/2022 15:29:34 07/15/19 23 07/14/2022 COMPL ETE BLOOD COUNT WITH AUTO DIFF* plt 262 10E3/ uL 150-45 0 Not Available [facility] [address], [place], [address], 07/15/2022 15:29:34 07/15/19 23 07/14/2022 COMPL ETE BLOOD COUNT WITH AUTO DIFF* neut% 61.8 % 50.0-7 0.0 Not Available [facility] [address], [place], [address], 07/15/2022 15:29:34 07/15/19 23 07/14/2022 COMPL ETE BLOOD COUNT WITH AUTO DIFF* lymph% 26.6 % 18.0-4 2.0 Not Available [facility] [address], [place], [address], 07/15/2022 15:29:34 07/15/19 23 07/14/2022 COMPL ETE BLOOD COUNT WITH AUTO DIFF* mono% 9.2 % 2.0-11 .0 Not Available [facility] [address], [place], [address], 07/15/2022 15:29:34 07/15/19 23 07/14/2022 COMPL ETE BLOOD COUNT WITH AUTO DIFF* eos% 2.0 % 1.0-3. 0 Not Available [facility] [address], [place], [address], 07/15/2022 15:29:34 07/15/19 23 07/14/2022 COMPL ETE BLOOD COUNT WITH AUTO DIFF* baso% 0.2 % 0.0-2. 0 Not Available [facility] [address], [place], [address], 07/15/2022 15:29:34 07/15/19 23 07/14/2022 COMPL ETE BLOOD COUNT WITH AUTO DIFF* Ig% 0.2 % 0.0-0. 6 Not Available [facility] [address], [place], [address], 07/15/2022 15:29:34 07/15/19 23 07/14/2022 COMPL ETE BLOOD COUNT WITH AUTO DIFF* neut# 2.81 10E3/ uL 2.30-8 .10 Not Available [facility] [address], [place], [address], 07/15/2022 15:29:34 07/15/19 23 07/14/2022 COMPL ETE BLOOD COUNT WITH AUTO DIFF* lymph# 1.21 10E3/ uL 0.80-4 .80 Not Available [facility] [address], [place], [address], 07/15/2022 15:29:34 07/15/19 23 07/14/2022 COMPL ETE BLOOD COUNT WITH AUTO DIFF* mono# 0.42 10E3/ uL 0.45-1 .30 low Not Available [facility] [address], [place], [address], 07/15/2022 15:29:34 07/15/19 23 07/14/2022 COMPL ETE BLOOD COUNT WITH AUTO DIFF* eos# 0.09 10E3/ uL 0.00-0 .40 Not Available [facility] [address], [place], [address], 07/15/2022 15:29:34 07/15/19 23 07/14/2022 COMPL ETE BLOOD COUNT WITH AUTO DIFF* baso# 0.01 10E3/ uL 0.00-0 .10 Not Available [facility] [address], [place], [address], 07/15/2022 15:29:34 07/15/19 23 07/14/2022 COMPL ETE BLOOD COUNT WITH AUTO DIFF* Ig# 0.01 10E3/ uL 0.00-0 .09 Not Available [facility] [address], [place], [address], 07/15/2022 15:29:34 07/15/19 23 07/14/2022 COMPL ETE BLOOD COUNT WITH AUTO DIFF* reflex SMEAR REVIEW Not Available [facility] [address], [place], [address], 07/15/2022 15:29:34 07/15/19 23 07/14/2022 COMPR EHENS KASH METAB OLIC PANEL * glucose 91 mg/dL 82-115 Not Available [facility] [address], [place], [address], 07/15/2022 15:29:34 07/15/19 23 07/14/2022 COMPR EHENS KASH METAB OLIC PANEL * BUN 17 mg/dL 8-23 Not Available [facility] [address], [place], [address], 07/15/2022 15:29:34 07/15/19 23 07/14/2022 COMPR EHENS KASH METAB OLIC PANEL * calcium 8.5 mg/dL 8.8-10 .2 low Not Available [facility] [address], [place], [address], 07/15/2022 15:29:34 07/15/19 23 07/14/2022 COMPR EHENS KASH METAB OLIC PANEL * creatinine 0.48 mg/dL 0.60-1 .20 low Not Available [facility] [address], [place], [address], 07/15/2022 15:29:34 07/15/19 23 07/14/2022 COMPR EHENS KASH METAB OLIC PANEL * egfraa >60.00 mL/mi n/1.7 3m2 >60.00 Not Available [facility] [address], [place], [address], 07/15/2022 15:29:34 07/15/19 23 07/14/2022 COMPR EHENS KASH METAB OLIC PANEL * egfrnaa >60.00 mL/mi n/1.7 3m2 >60.00 Not Available [facility] [address], [place], [address], 07/15/2022 15:29:34 07/15/19 23 07/14/2022 COMPR EHENS KASH METAB OLIC PANEL * sodium 144 mmol/ L 136-14 5 Not Available [facility] [address], [place], [address], 07/15/2022 15:29:34 07/15/19 23 07/14/2022 COMPR EHENS KASH METAB OLIC PANEL * potassium 4.3 mmol/ L 3.5-5. 1 Not Available [facility] [address], [place], [address], 07/15/2022 15:29:34 07/15/19 23 07/14/2022 COMPR EHENS KASH METAB OLIC PANEL * chloride 103 mEq/L 98-107 Not Available [facility] [address], [place], [address], 07/15/2022 15:29:34 07/15/19 23 07/14/2022 COMPR EHENS KASH METAB OLIC PANEL * carbon dioxide 36 mmol/ L 23-30 high Not Available [facility] [address], [place], [address], 07/15/2022 15:29:34 07/15/19 23 07/14/2022 COMPR EHENS KASH METAB OLIC PANEL * total protein 6.1 g/dL 6.2-8. 1 low Not Available [facility] [address], [place], [address], 07/15/2022 15:29:34 07/15/19 23 07/14/2022 COMPR EHENS KASH METAB OLIC PANEL * albumin 3.6 g/dL 3.2-4. 6 Not Available [facility] [address], [place], [address], 07/15/2022 15:29:34 07/15/19 23 07/14/2022 COMPR EHENS KASH METAB OLIC PANEL * globulin 2.5 g/dL 2.3-3. 4 Not Available [facility] [address], [place], [address], 07/15/2022 15:29:34 07/15/19 23 07/14/2022 COMPR EHENS KASH METAB OLIC PANEL * A/G ratio 1.4 g/dL 0.8-2. 0 Not Available [facility] [address], [place], [address], 07/15/2022 15:29:34 07/15/19 23 07/14/2022 COMPR EHENS KASH METAB OLIC PANEL * alkaline phosphatase 94 U/L 30-120 Not Available [facility] [address], [place], [address], 07/15/2022 15:29:34 07/15/19 23 07/14/2022 COMPR EHENS KASH METAB OLIC PANEL * ALT (SGPT) 30 U/L 10-28 high Not Available [facility] [address], [place], [address], 07/15/2022 15:29:34 07/15/19 23 07/14/2022 COMPR EHENS KASH METAB OLIC PANEL * AST (SGOT) 21 U/L 9-36 Not Available [facility] [address], [place], [address], 07/15/2022 15:29:34 07/15/19 23 07/14/2022 COMPR EHENS KASH METAB OLIC PANEL * bilirubin, total 0.24 mg/dL 0.20-1 .10 Not Available [facility] [address], [place], [address], 07/15/2022 15:29:34 04/11/19 23 04/11/2022 CT, brain , w/o contr ast No observ ation record ed. [email or web address] [facility] [address], [place], [address], 05/23/2022 11:32:33 04/11/19 23 04/11/2022 XR, chest , 2 view No observ ation record ed. [address] [address], [place], [address], 05/23/2022 11:32:33 04/12/19 23 XR, chest , 1 view No observ ation record ed. [address] [address], [place], [address], 05/23/2022 11:32:32 04/12/[address], brain , w/o contr ast No observ ation record ed. [address] [address], [place], [address], 05/23/2022 11:32:32 04/13/19 23 04/12/2022 CT, angio gram, head + neck, w/ contr ast No observ ation record ed. [address] [address], [place], [address], 05/23/2022 11:32:32 04/22/19 23 04/21/2022 CT, brain , w/o contr ast No observ ation record ed. [address] [address], [place], [address], 05/23/2022 11:32:32 04/26/19 23 04/11/2022 stres s echoc ardio gram (PROC ) No observ ation record ed. [email or web address] [id number] Not Available 2022 11:32:33 09/15/19 23 09/14/2022 CT, brain , w/o contr ast No observ ation record ed. [address] [address], [place], [address], 09/14/2022 12:14:18 09/15/19 23 09/14/2022 CT, brain , w/o contr ast No observ ation record ed. [address] [id number], [place], [address], 09/14/2022 15:02:35 09/15/19 XR, chest , 1 view No observ ation record ed. [address], [place], [address], 09/14/2022 15:03:14 09/24/19 23 09/23/2022 CT, abdom en + pelvi s, w/o contr ast No observ ation record ed. [email or web address] [place] [address] [address], [place], [address], 09/23/2022 16:57:12 09/26/19 23 09/24/2022 CT, abdom en, w/o contr ast No observ ation record ed. [address], [place], [address], 09/26/2022 06:12:31 09/29/19 23 09/28/2022 XR, chest , 1 view No observ ation record ed. [address], [place], [address], 09/28/2022 16:18:25 10/02/19 23 10/01/2022 XR, chest , 2 view No observ ation record ed. [email or web address] [address], [place], [address], 10/01/2022 14:39:30 10/09/19 23 09/28/2022 , [facility] ardio gram, trans esoph ageal No observ ation record ed. [email or web address] Not Available 2022 16:55:11 Result Notes None recorded. Problems Name Problem SNOMED Code Status Onset Date Resolution Date Notes Provider Name and Address Organization Details Recorded Time Essential hypertensio n 80848712 Active 2019 Stephanie Mueller, DIE CAST TECHNICIAN-BC, PMHNP-BC [address] [place], [address], [place] [facility] 0 09:54:40 Hyperlipide libia 11263121 Active 2019 Crystal Chao Mueller, DIE CAST TECHNICIAN-BC, PMHNP-BC [address] [place], [place], [address] [place] [address] 4, [facility] 0 09:55:31 Anemia 643668742 Active 2019 Crystal Chao Mueller, DIE CAST TECHNICIAN-BC, PMHNP-BC [address] [place], [place], [address] [place] [address] 4, [facility] 0 09:55:34 Osteoarthri tis of multiple joints 549861778 Active 2019 Crystal Chao Mueller, DIE CAST TECHNICIAN-BC, PMHNP-BC [address] [place], [place], [address] [place] [address] 4, [facility] 0 09:59:15 Allergic rhinitis 52727797 Active 2019 Crystal Chao Mueller DIE CAST TECHNICIAN-BC, PMHNP-BC [address] [place], [place], [address] [place] [address] 4, [facility] 0 11:52:57 Allergic conjunctivi tis 079492313 Active 2019 Crystal Chao Mueller DIE CAST TECHNICIAN-BC, PMHNP-BC [address], [place], [address] [place] [address] 4, [facility] 0 17:14:33 Vitamin D deficiency 25006155 Active 2019 Crystal Chao Mueller, DIE CAST TECHNICIAN-BC, PMHNP-BC [address] [place], [address] [place] [address] 4, [facility] 0 12:40:57 Diarrhea 50783956 Active 2021 Crystal Chao Mueller DIE CAST TECHNICIAN-BC, PMHNP-BC [address] [place], [address] [place] [address] 4, [facility] 2 18:51:14 Chronic obstructive pulmonary disease 92705607 Active 2021 Crystal Chao Mueller, DIE CAST TECHNICIAN-BC, PMHNP-BC [address] [place], [address], [facility] 2 10:58:03 Congestive heart failure 40193453 Active 2021 TYSHAWN Solomon-BC, PMHNP-BC [address], [place], [address], [facility] 2 16:36:38 Dependence on supplementa l oxygen 535187532473 Active 2021 TYSHAWN Solomon-BC, PMHNP-BC [address], [place], [address], [facility] 2 16:39:26 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 Procedures Surgical History Date Name Laterality Status Provider Name and Address Organization Details Recorded Time Cystourethroscopy completed Stephanie Guidry Ervin DIE CAST TECHNICIAN-BC, PMHNP-BC [address], [place], [address], [facility] 09/20/2019 15:03:49 cardiac catheterization completed John Ervin [facility] 09/16/2019 09:33:03 tonsillectomy completed John Mueller [facility] 09/16/2019 09:33:10 open reduction of fracture of ankle with internal fixation completed Stephanie SergeEdson Mueller DIE CAST TECHNICIAN-BC, PMHNP-BC [address], [place], [place], [address] [place] [address], [facility] 09/20/2019 15:03:15 total knee replacement completed GLORIA SolomonP-BC, PMHNP-BC [address], [place], [address] [place] [address], [facility] 09/20/2019 15:04:05 Nephrectomy completed GLORIA SolomonP-BC, PMHNP-BC [address], [place], [address] [place] [address], [facility] 09/20/2019 15:12:25 total shoulder replacement completed Stephanie Mueller DIE CAST TECHNICIAN-BC, PMHNP-BC [address], [place], [address] [place] [address], [facility] 09/25/2019 11:39:57 insertion of carotid artery stent completed GLORIA SolomonP-BC, PMHNP-BC [address], [place], [address] [place] [address], [facility] 09/20/2019 15:16:40 bilateral extraction of cataracts completed GLORIA SolomonP-BC, PMHNP-BC [address] [place], [place], [address] [place] [address], [facility] 09/25/2019 11:40:07 Imaging Results Imaging Date Name Status LastModified by Organization Details LastModified Time 04/11/2022 CT, brain, w/o contrast completed [address], [address], 05/23/2022 11:32:33 04/11/2022 XR, chest, 2 view completed [address], [address], 05/23/2022 11:32:33 04/12/2022 XR, chest, 1 view completed [address], [address], 05/23/2022 11:32:32 04/12/2022 CT, brain, w/o contrast completed [address], [place], [address], 05/23/2022 11:32:32 04/12/2022 CT, angiogram, head + neck, w/ contrast completed [address], [place], [address], 05/23/2022 11:32:32 04/21/2022 CT, brain, w/o contrast completed [address], [place], [address], 05/23/2022 11:32:32 04/11/2022 stress echocardiogram (PROC) completed [place] [id number] Information not available 05/23/2022 11:32:33 09/14/2022 CT, brain, w/o contrast completed [address] [address], [place], [address], 09/14/2022 12:14:18 09/14/2022 CT, brain, w/o contrast completed [address] [facility] [place], [address], 09/14/2022 15:02:35 09/14/2022 XR, chest, 1 view completed [address] [address], [place], [address], 09/14/2022 15:03:14 09/23/2022 CT, abdomen + pelvis, w/o contrast completed [address], [place], [address], 09/23/2022 16:57:12 09/24/2022 CT, abdomen, w/o contrast completed [address], [place], [address], 09/26/2022 06:12:31 09/28/2022 XR, chest, 1 view completed [address], [address], 09/28/2022 16:18:25 10/01/2022 XR, chest, 2 view completed [email or web address] [address], [place], [address], 10/01/2022 14:39:30 09/28/2022 US, echocardiogram, transesophageal completed [email or web address] Information not available 10/08/2022 16:55:11 Procedure Notes None recorded. 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 Serial Number Lot Number Status Provider Name and Address Organization Details Recorded Time Cardiac pacemaker FDA Stephanie Mueller, DIE CAST TECHNICIAN-BC, PMHNP-BC [address] [place], [address] , [facility] 09/20/2019 15:14:13 AICD FDA Y Stephanie Mueller, DIE CAST TECHNICIAN-BC, PMHNP-BC [address] [place], [address] , [place] [facility] 09/20/2019 15:14:23 Allergies Allergen ID Allergen Name Allergen Category Reaction Reaction Severity Criticality Documentation Date Start Date Code Code System Note Provider Name and Address Organization Details Recorded Time 2707 clarithro mycin medicatio n edema severe Not available 09/13/2019 77814 RxNorm Stephanie Mueller DIE CAST TECHNICIAN-BC, PMHNP-BC [address] , [place], [address], [place] [facility] 0 16:20:12 2708 lisinopri l medicatio n edema severe Not available 09/13/2019 28632 RxNorm Stephanie Mueller DIE CAST TECHNICIAN-BC, PMHNP-BC [address] , [place], [address], [place] [facility] 0 16:20:45 2709 nitrofura ntoin medicatio n Not available Not available Not available 09/13/2019 7454 RxNorm Crystal Chao Mueller DIE CAST TECHNICIAN-BC, PMHNP-BC [address], [place], [address], [place] [facility] 0 16:21:00 5291 amiodaron e medicatio n Not available Not available Not available 12/10/2021 703 RxNorm Shanika Garcia [facility], [place] [facility] 2 12:27:21 Medications Name Sig Start Date Stop Date Status Note LastModified by Organization Details LastModified Time losartan 50 mg tablet TAKE ONE TABLET BY MOUTH DAILY 08/06 completed Not Available Not Available Not Available quetiapin e 25 mg tablet Take 1 tablet twice a day by oral route. 01/20 completed Not Available Not Available Not Available furosemid e 40 mg tablet TAKE ONE TABLET BY MOUTH DAILY active Not Available Not Available No t Available Miralax 17 gram/dose oral powder Take 17 g every day by oral route as needed. active Not Available Not Available No t Available prednison e 10 mg tablet 40mg x [id number] 12/11 completed Not Available Not Available Not Available ipratropi um 0.5 mg-albute rol 3 mg (2.5 mg base)/3 mL nebulizat ion soln Inhale 3 mL 4 times a day by nebuliza tion route for 90 days. 11/01 completed Not Available Not Available Not Available donepezil 5 mg tablet Take 1 tablet every day by oral route at bedtime for 30 days. 11/01 completed Not Available Not Available Not Available citalopra m 40 mg tablet 09/25 completed Not Available Not Available Not Available loperamid e 2 mg capsule 11/01 completed Not Available Not Available Not Available trazodone 50 mg tablet 05/22 completed Not Available Not Available Not Available atorvasta tin 10 mg tablet Take 1 tablet every day by oral route at bedtime. active Not Available Not Available No t Available oxybutyni n chloride ER 10 mg tablet,ex tended release 24 hr Take 1 tablet every day by oral route. active Not Available Not Available No t Available Glucagon Emergency Kit 1 mg solution for injection 11/01 completed Not Available Not Available Not Available metoprolo l succinate ER 50 mg tablet,ex tended release 24 hr Take 1 tablet every day by oral route for 30 days. 09/20 completed disconti nued medicati on stopped by Hospital Not Available Not Available Not Available citalopra m 10 mg tablet Take 1 tablet every day by oral route for 30 days. active Not Available Not Available No t Available donepezil 10 mg tablet Take 1 tablet every day by oral route at bedtime for 90 days. active Not Available Not Available No t Available prednison e 20 mg tablet 11/01 completed Not Available Not Available Not Available metoprolo l succinate ER 100 mg tablet,ex tended release 24 hr TAKE ONE TABLET BY MOUTH DAILY EVERY MORNING 11/26 completed Not Available Not Available Not Available loperamid e 2 mg tablet Take 1 tablet 4 times a day by oral route as needed. active Not Available Not Available No t Available cyanocoba neo (vit B-12) 1,000 mcg tablet TAKE ONE TABLET BY MOUTH THREE TIMES WEEKLY () active Not Available Not Available No t Available valacyclo vir 500 mg tablet Take 1 tablet twice a day by oral route. 09/15 completed Not Available Not Available Not Available ciproflox acin 500 mg tablet 11/01 completed Not Available Not Available Not Available tramadol 50 mg tablet 08/26 completed Not Available Not Available Not Available quetiapin e 100 mg tablet Take 1 tablet every day by oral route at bedtime. 01/20 completed Not Available Not Available Not Available hydrocort isone 2.5 % topical cream with perineal applicato r APPLY A THIN LAYER TO THE AFFECTED AREA(S) BY TOPICAL ROUTE 3 TIMES DAILY PRN 11/01 completed Not Available Not Available Not Available potassium chloride 20 mEq oral packet Take 1 packet every day by oral route for 30 days. active Not Available Not Available No t Available amoxicill in 875 mg tablet 09/12 completed Not Available Not Available Not Available alprazola m 0.25 mg tablet 05/22 completed Not Available Not Available Not Available citalopra m 20 mg tablet Take 1 tablet every day by oral route. 09/25 completed Not Available Not Available Not Available magnesium hydroxide 400 mg/5 mL oral suspensio n Take 30 mL every day by oral route as needed. 09/25 completed Not Available Not Available Not Available cephalexi n 500 mg capsule Take 1 capsule every 12 hours by oral route. 06/07 completed Not Available Not Available Not Available pantopraz ole 40 mg tablet,de layed release TAKE ONE TABLET BY MOUTH EVERY MORNING active Not Available Not Available No t Available simvastat in 20 mg tablet Take 1 tablet every day by oral route at bedtime. 02/06 completed Not Available Not Available Not Available buspirone 10 mg tablet Take 1 tablet 3 times a day by oral route. active Not Available Not Available No t Available prednison e 50 mg tablet Take 1 tablet every day by oral route for 3 days. 11/26 completed Not Available Not Available Not Available losartan 25 mg tablet TAKE ONE TABLET BY MOUTH DAILY 11/01 completed Not Available Not Available Not Available aspirin 81 mg chewable tablet TAKE ONE TABLET BY MOUTH DAILY active Not Available Not Available No t Available hydrocort isone 2.5 % topical cream 05/22 completed Not Available Not Available Not Available monteluka st 10 mg tablet Take 1 tablet every day by oral route at bedtime. active Not Available Not Available No t Available furosemid e 20 mg tablet Take 1 tablet orally q 1400 daily active Not Available Not Available No t Available pyridoxin e (vitamin B6) 100 mg tablet Take 1 tablet every 12 hours by oral route for 30 days. active Not Available Not Available No t Available metoprolo l succinate ER 25 mg tablet,ex tended release 24 hr Take 1 tablet every day by oral route in the morning. active Not Available Not Available No t Available lorazepam 1 mg tablet Take 1 tablet twice a day by oral route as needed. 09/25 completed Not Available Not Available Not Available azelastin e 137 mcg (0.1 %) nasal spray SPRAY TWO SPRAYS TWICE DAILY BY INTRANAS AL ROUTE NEEDED active Not Available Not Available No t Available albuterol sulfate HFA 90 mcg/actua tion aerosol inhaler Inhale 2 puffs every 4 hours by inhalati on route as needed for 30 days. active Not Available Not Available No t Available Vitamin D2 1,250 mcg (50,000 unit) capsule TAKE ONE CAPSULE BY MOUTH WEEKLY active Not Available Not Available No t Available oxybutyni n chloride 5 mg tablet 09/25 completed Not Available Not Available Not Available cefdinir 300 mg capsule 11/01 completed Not Available Not Available Not Available losartan 100 mg tablet Take 1 tablet every day by oral route. 09/25 completed Not Available Not Available Not Available fluticaso ne propionat e 50 mcg/actua tion nasal spray,josé miguel pension INSTILL 2 SPRAYS IN EACH NOSTRIL DAILY active Not Available Not Available No t Available loratadin e 10 mg tablet Take 1 tablet every day by oral route at bedtime. active Not Available Not Available No t Available amoxicill in 875 mg-potass ium clavulana te 125 mg tablet Take 1 tablet every 12 hours by oral route for 14 days. 02/06 completed Not Available Not Available Not Available ferrous sulfate 134 mg (27 mg iron) tablet Take 1 tablet every day by oral route. 09/25 completed Not Available Not Available Not Available Poly-Iron 150 mg iron capsule TAKE ONE CAPSULE BY MOUTH DAILY active Not Available Not Available No t Available aripipraz ole 5 mg tablet Take 1 tablet every day by oral route in the evening for 16 days. active Not Available Not Available No t Available memantine 5 mg tablet Take 1 tablet every 12 hours by oral route for 30 days. active Not Available Not Available No t Available Pain Relief Extra Strength (acetamin ophen) 500 mg tablet TAKE TWO TABLETS BY MOUTH EVERY SIX HOURS NEEDED active Not Available Not Available No t Available PreserVis ion AREDS 4,296 mcg-226 mg-90 mg capsule Take 1 capsule twice a day by oral route. 06/07 completed Not Available Not Available Not Available aripipraz ole 2 mg tablet 08/23 completed Not Available Not Available Not Available quetiapin e 50 mg tablet Take 1 tablet twice a day by oral route for 30 days. 01/20 completed Not Available Not Available Not Available olopatadi ne 0.2 % eye drops INSTILL 1 DROP INTO BOTH EYES ONCE A DAY active Not Available Not Available No t Available FeroSul 325 mg (65 mg iron) tablet 11/01 completed Not Available Not Available Not Available Culturell e Digestive Health 10 billion cell-200 mg sprinkle capsule Take 1 capsule every day by oral route for 30 days. active Not Available Not Available No t Available Probiotic 10 billion cell capsule Take 1 capsule every day by oral route for 90 days. 06/09 completed Not Available Not Available Not Available Probiotic with Prebiotic 1 billion cell-250 mg capsule Take 1 capsule every day by oral route for 90 days. 06/09 completed Not Available Not Available Not Available BearTail 1.5 billion cell capsule active Not Available Not Available Not Available PreserVis ion AREDS-2 250 mg-90 mg-40 mg-1 mg capsule Take 1 capsule every 12 hours by oral route for 30 days. active Not Available Not Available No t Available guaifenes in ER 600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 formulated concepts;difficulty with fine manipulative tasks;difficulty writing/copying;slowe d reaction time 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 Vision:worsening Activities of Daily Living:able to feed self with limited or no assistance;unable to bathe without assistance;unable to dress without assistance;unable to contol urination and bowels;unable to get out of chair or bed without assistance;unable to groom without assistance;unable to toilet without assistance Instrumental Activities of Daily Living:able to use the phone with limited or no assistance;unable to do house work without assistance;unable to grocery shop without assistance;unable to manage medications without assistance;unable to manage money without assistance;unable to to prepare meals without assistance Falls Risk Assessment:no fall since last visit; no dizziness/vertigo Home Safety:no unsafe miranda hazzards; no unsafe stairs; no unsafe gas appliances; working smoke/CO detectors; use of seatbelts; no fire arms; has hand bars in the bathroom/shower; good lighting in the home Altered Bowels - having significant episodes of diarrhea daily at least 2-3 per facility staff. Tish Esquivel [facility] 07/18/2022 15:21:25 08/15/2022 text/html Allergies - taki ng medications and has been doing better.Altered Bowel - has been doing better. DYLAN Solomon, [facility] [address] [place], [address], [facility] 08/15/2022 14:01:18 11/01/2022 text/html Patient was admi tted to [facility] in September for shortness of breath. She was discharged and treated for respiratory failure, CHF, PNE. She was started on Bipap and she is to use at HS and when napping. She is not on oxygen.She is back at [place] and doing much better. DYLAN Solomon, [facility] [address] [place], [address], [facility] 11/01/2022 21:18:23 OBGyn Episode No OBEpisode recorded.
--- OUTSIDE RECORDS SUMMARY | 2024-06-29 10:12 | XMS_ITS | Referral Summary ---
Author Organization [facility] Address [address] [place] [address] Care Team Providers Care Executive Services Administrator Name Role Phone Stephanie Mueller NP Primary Care Provider [phone] Encounters Date Type Department Care Team Description 05/29/2024 9:30 AM CDT Ancillary Procedure [facility] [address] [address] [address] [place] [address] 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); NICM (nonischemic cardiomyopathy) (HCC); Paroxysmal atrial fibrillation (HCC) 05/14/2024 Telephone [facility] [address] [place] [address] [place] [address] Gagandeep Dubose MD 04/23/2024 Orders Only [facility] [address] [place] [address] [place] [address] Gagandeep Dubose MD 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); Paroxysmal atrial fibrillation (HCC); NICM (nonischemic cardiomyopathy) (HCC) 04/04/2024 8:45 AM STENOTYPE MACHINE OPERATOR Office Visit [facility] at [address] [place] [address] Gagandeep Dubose MD Primary cardiomyopathy (HCC) (Primary Dx); ICD (implantable cardioverter-defibrill ator) in place; Paroxysmal ventricular tachycardia (HCC) from Last 3 Months Allergies Active Allergy Reactions Criticality Noted Date [...] every 8 (eight) hours 30 tablet 05/23/19 21 Active Additional Information Patient taking differently:1,000 mg oralEvery 6 hours PRN, Reported on 04/04/2024 atorvastatin (LIPITOR) 10 mg tablet Take 1 tablet (10 mg total) by mouth daily 05/23/19 21 Active Additional Information Patient not taking.Reported on 04/04/2024 montelukast (SINGULAIR) 10 mg tablet Take 1 tablet (10 mg total) by mouth nightly 05/23/19 21 Active polyethylene glycol (MIRALAX) 17 gram packetIndicati ons:constipati on Take 1 packet (17 g total) by mouth daily 05/24/19 21 Active Additional Information Patient taking differently:17 g [...] by mouth 3 (three) times a week -- Active vit C/E/Zn/coppr/l utein/zeaxan (PRESERVISION AREDS-2 ORAL) [...] (05/20/2020): Added automatically from request for surgery [id number] Vitamin D deficiency 02/07/2020 History of intracranial hemorrhage 01/21/2020 Allergic rhinitis 12/18/2019 Anemia 09/26/2019 Essential hypertension 09/26/2019 Osteoarthritis of multiple joints 09/26/2019 Contraindication to anticoagulation therapy 07/11 Encounter for screening mamm ogram for malignant neoplasm of breast 07/30/2018 Dilated cardiomyopathy 06/03/2018 Obstructive sleep apnea 06/03/2018 Supraventricular tachycardia 02/25/2016 Overview (06/17/2016): SVT (supraventricular tachycardia) Assessment & Plan (04/22/2017 3:54 PM STENOTYPE MACHINE OPERATOR): 2013: ICD interrogation also showed SVT with no clinical recurrence Assessment & Plan (11/02/2016 3:30 PM CDT): 2014: ICD interrogation also showed SVT with no clinical recurrence Orthostasis 02/25/2016 Overview (06/17/2016): Orthostasis 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 Recurrent falls 08/21/2015 Overview (06/17/2016): Multiple falls Assessment & Plan (04/22/2017 3:57 PM STENOTYPE MACHINE OPERATOR): History of falls which have been blamed [...] fibrillation) Assessment & Plan (04/22/2017 4:00 PM STENOTYPE MACHINE OPERATOR): 2012: PAF with an inappropriate ICD shock No recurrence since amiodarone discontinued by ICD checks, currently taking metoprolol succinate 50 mg daily Has not been anticoagulated secondary to frequent falls and history of intercerebral hemorrhage (a result of her fall) Assessment & Plan (11/02/2016 3:30 PM CDT): 2012: PAF with an inappropriate ICD shock [...] cardioverter-defibrillator) in place 02/16/2015 Overview (04/21/2021): Oropeza Puposky Dual ICD. Dx; NICM, PAF. Gen Change 04/21/2021-Uppstrom, chronic leads 02/16/2011. Dm remote monitoring, office device checks Q1 year. Assessment & Plan (04/22/2017 4:00 PM STENOTYPE MACHINE OPERATOR): ICD was checked in February 2017, normal function, no recent defibrillations. Longevity 4 years. AFib burden iis less than 1% of the past couple of years. Assessment & Plan (11/02/2016 3:34 PM CDT): Overdue for checkup; the last 1 I can find is from October 2015.. Have not been receiving [place] remote monitoring Patient had been followed by Dr. Carlson so the may be an issue with converting to our device follow-up service Patient had a s dorothy recently as described above, wonder she had some type of arrhythmia. Primary cardiomyopathy 04/15/2014 Overview (06/17/2016): Primary cardiomyopathy Assessment & Plan (04/22/2017 3:55 PM STENOTYPE MACHINE OPERATOR): Cardiomyopathy diagnosed in 2010, EF 35-40% Echo [...] tachycardia Assessment & Plan (04/22/2017 3:56 PM STENOTYPE MACHINE OPERATOR): Patient has appropriate ICD discharge February 2014 [...] 12/30/201505/11 History of surgical procedure 12/30/2015 10/25/2017 Immunizations Immunization Administration Dates Next Due Influenza, Quadrivalent, Split, Intramuscular Influenza, Quadrivalent, Spl it, Preservative Free, Intramuscular 01/06/2014 Influenza, Trivalent, Adjuvanted, Intramuscular 12/29/2017,12/27/2016 Influenza, Trivalent, High D ose, Split, Preservative Free, Intramuscular 01/06/2016 Influenza, Trivalent, IM (MDV) 12/11/2012 Influenza, Trivalent, Preservative Free, Intramu scular 12/30/2014 Influenza, Unspecified 12/11/2018 Pneumococcal Conjugate PCV 13 06/26/2014 Pneumococcal Polysaccharide PPV23 01/05/2016 Tdap 05/19/2020 Social History Tobacco Use Types Packs/Day Years [...] on file Legal Sex Female 8:31 PM STENOTYPE MACHINE OPERATOR Gender Identity Not on file Sexual Orientation Not on file Last Filed Vital Signs Vital Sign Reading Time Taken Comments Blood Pressure 126/86 04/04/2024 8:52 AM STENOTYPE MACHINE OPERATOR Pulse 85 04/04/2024 8:52 AM STENOTYPE MACHINE OPERATOR Temperature 37.1 C (98.7 F) 04/21/2021 11:56 AM STENOTYPE MACHINE OPERATOR Respiratory Rate 18 04/21/2021 11:56 AM STENOTYPE MACHINE OPERATOR Oxygen Saturation 92% 04/04/2024 8:52 AM STENOTYPE MACHINE OPERATOR Inhaled Oxygen Concentration - - Weight 68.5 kg (151 lb) 04/04/2024 8:52 AM STENOTYPE MACHINE OPERATOR Height 160 cm (5' 3 ) 04/04/2024 8:52 AM STENOTYPE MACHINE OPERATOR Body Mass Index 26.75 04/04/2024 8:52 AM STENOTYPE MACHINE OPERATOR Plan of Treatment Not on file Medical Devices Implanted Type Area Resistor Testing Machine Operator Device Identifier Shelf Expiration Date Model / Serial / Lot Icd-02/16/2011 Implanted:02/16 (Quantity not on file) ICD Chest [employer] NICM, PAF Synthes 02.231.236 5mm 36mm Variable Angle Self Tap Lock Stardrive Condylar T25 - [id number] Implanted:Qty: 1 on 05/20/2020 by Veronique Tarango MD at [facility] Right: Femur Synthes I 02.231.23 6 / / Synthes 214.890 4.5mm 8mm 90mm Self Tap Large Hexagonal Socket Cortical Screw - [id number] Implanted:Qty: 1 on 05/20/2020 by Veronique Tarango MD at [facility] Right: Femur Synthes I 214.890 / / Synthes 02.124.418 Lcp Combi 370mm 18 Hole 4 Column Thread Variable Angle Condylar - [id number] Implanted:Qty: 1 on 05/20/2020 by Veronique Tarango MD at [facility] Right: Femur Synthes I 02.124.41 8 / / Synthes 214.836 4.5mm 8mm 36mm Self Tap Large Hexagonal Socket Cortex Screw Bone - [id number] Implanted:Qty: 1 on 05/20/2020 by Veronique Tarango MD at [facility] Right: Femur Synthes I 214.836 / / Synthes 02.231.275 5mm 75mm Variable Angle Self Tap Lock Stardrive Condylar T25 - [id number] Implanted:Qty: 2 on 05/20/2020 by Veronique Tarango MD at [facility] Right: Femur Synthes I 02.231.27 5 / / Synthes 214.838 4.5mm 8mm 38mm Self Tap Large Hexagonal Socket Cortex Screw Bone - [id number] Implanted:Qty: 1 on 05/20/2020 by Veronique Tarango MD at [facility] Right: Femur Synthes I 214.838 / / Synthes .231.280 5mm 80mm Variable Angle Self Tap Lock Stardrive Condylar T25 - [id number] Implanted:Qty: 3 on 05/20/2020 by Veronique Tarango MD at [facility] Right: Femur Synthes I 02.231.28 0 / / Synthes 02.231.270 5mm 70mm Variable Angle Self Tap Lock Stardrive Condylar T25 - [id number] Implanted:Qty: 1 on 05/20/2020 by Veronique Tarango MD at [facility] Right: Femur Synthes I 02.231.27 0 / / [employer] [id number] Defib Cardiac [id number] Puposky Implantable 2 Chamber - [id number] - [id number] Implanted:Qty: 1 on 04/21/2021 by Brandy Ohara MD at [facility] [employer] [id number] 04/12/2023 CDDRA 500Q / [id number] / [employer] [id number] 3.3x2.9in Large Envelope Absorbable Polyarylate Minocycline - [id number] Implanted:Qty: 1 on 04/21/2021 by Brandy Ohara MD at [facility] [employer] [id number] / / Explanted Type Area Resistor Testing Machine Operator Device Identifier Shelf Expiration Date Model / Serial / Lot [employer] 180-49s Eduardo T2 3mm 285mm Retrograde Supracondylar Wire Fixation - [id number] Explanted:Qty: 1 on 05/20/2020 by Veronique Tarango MD at [facility] Right: Femur [employer] S / / [employer] [id number] Steinmann 3/32mm 9in Trocar Point Pin Fixation Stainless Steel - [id number] Explanted:Qty: 1 on 05/20/2020 by Veronique Tarango MD at [facility] Right: Femur [employer] [id number] / / Procedures Procedure Name Priority Date/Time Associated Diagnosis Comments DEVICE CHECK - IN OFFICE Routine 05/29/2024 9:26 AM CDT NICM (nonischemic cardiomyopathy) (HCC) Paroxysmal atrial fibrillation (HCC) from Last 3 Months Results * DEVICE CHECK - IN OFFICE (05/29/2024 9:26 AM CDT) Anatomical Region Laterality Modality Other Narrative 05/31/2024 8:40 AM CDT Oropeza Puposky Dual ICD. Dx; NICM, PAF. Gen Change 04/21/2021-Uppstrom, chronic leads 02/16/2011. [employer] remote monitoring, office device checks Q1 year. Supervising MD: Dr Tamayo. Office interrogation of DDD ICD demonstrated appropriate device function. Left pectoral incision well approximated without signs of infection noted. Battery function-Ok, 6.6 years remaining battery longevity to MUMTAZ. Charge time 8.8 seconds. Appropriate lead measurements noted-see report for results. Presenting rhythm-ASVS (SR) 88 bpm. AP-<1%, TRAIN ENGINEER-<1%. 10 Atrial episodes recorded, all <1 minute [...] 09/03/2024. Of Note: Patient brought her old dm remote monitor and her new Vilynx mobile monitor into office with her today. I contacted [employer] and spoke with Jose. He assisted [...] Final Result from Last 3 Months Insurance [facility] MEDICARE MEDICARE [facility] [address] [place] [address] MEDICARE [facility] Advance Directives For more information, please contact: [phone] Documents on File Type Date Recorded Patient Strip Machine Tender Expl anation ADVANCE DIRECTIVE 05/24/2020 6:08 AM POWER OF CHIMNEY BUILDER HELPER-MEDICAL * LIMITED - No CPR (Latest Code Status on File) Date Activated Date Inactivated Comments 05/20/2020 3:03 AM 05/23/2020 7:06 PM Question Answer Comments Provide aggressive medical m anagement before a full cardiopulmonary arrest occurs. Use antibiotics, IV Fluids, and medical treatment unless specifically selected below: No intubationNo cardioversionNo vasopressors Care Teams Executive Services Administrator Relationship Specialty Start Date End Date Stephanie Mueller NP [address] [place] [address] PCP - General Nurse Practitioner 12/10/21
--- NOTE | 2024-06-29 10:13 | ECG_ITS ---
Test Date: 2024-06-29 10:04:14 Measurements Intervals [place] Rate: 92 P: 24 [place]: 193 QRS: -54 QRSD: 124 T: 112 QT: 375 QTc: 464 Interpretive Statements SINUS RHYTHM LEFT AXIS DEVIATION INTRAVENTRICULAR CONDUCTION DELAY LEFT VENTRICULAR HYPERTROPHY WITH ST-T CHANGE POSSIBLE ANTERIOR MYOCARDIAL INFARCTION , OF INDETERMINATE AGE BASELINE ARTIFACT- I, II, III, AVR, AVL, AVF, V1-V2, V4-V6 ABNORMAL ECG No previous ECG available for comparison Electronically Signed On 06-29-2024 14:21:31 CDT by Kuldeep Salgado D.O.
[2024-06-29 10:24] LABS: Basophils Percent Auto 0.2 % (0.2-1.2); Hematocrit 47.5 % (37.0-47.0); Hemoglobin 13.9 g/dL (12.0-15.0); Immature Granulocyte Absolute 0.04 K/mm3 (0.00-0.031); Immature Granulocyte Percent A 0.4 % (0-0.5); Lymphocytes Absolute Auto 0.74 K/mm3 (0.9-3.2); Lymphocytes Percent Auto 7.2 % (18.3-44.2); Mean Corpuscular HGB Conc 29.3 g/dl (32-36); Mean Platelet Volume 9.2 fl (7.4-10.4); Monocytes Percent Auto 9.9 % (2.6-8.5); Neutrophils Absolute Auto 8.5 K/mm3 (1.3-6.7); Neutrophils Percent Auto 82.3 % (45.5-73.1); Platelet Count Result 215 k/mm3 (150-375); Red Blood Count 4.48 M/mm3 (4.2-5.4); Red Cell Distribution Width 13.5 % (11.5-14.5); White Blood Count 10.3 K/mm3 (4.5-10.0)
--- NOTE | 2024-06-29 10:26 | ED.GENADULT ---
HPI - General Adult General Chief complaint: Altered Mental Status Stated complaint: AMS, SOB Time Seen by Provider: 06/29/24 10:07 History of Present Illness HPI narrative: Patient is a 83-year-old female who presents emergency department with chief complaint of altered mental status and shortness of breath. The patient normally is on 3 L nasal cannula oxygen and and is normally alert oriented x1 Related Data Home Medications ?Medication ?Instructions ?Recorded ?Confirmed ?Last Taken ?Type montelukast 10 mg tablet 10 mg PO HS 05/19/20 10/26/22 Unknown History acetaminophen 500 mg capsule 1,000 mg PO Q6H PRN Pain 11/18/21 10/26/22 Unknown History albuterol sulfate 90 mcg/actuation 2 puff inhalation Q4H PRN 11/18/21 10/26/22 Unknown History aerosol inhaler Shortness Of Breath aripiprazole 5 mg tablet 5 mg PO HS 11/18/21 10/26/22 Unknown History atorvastatin 10 mg tablet 10 mg PO HS 11/18/21 10/26/22 Unknown History azelastine 137 mcg (0.1 %) nasal 2 spray intranasal BID PRN Dry 11/18/21 10/26/22 Unknown History spray Nasal Passages citalopram 10 mg tablet 10 mg PO DAILY 11/18/21 10/26/22 Unknown History cyanocobalamin (vitamin B-12) 1,000 mcg PO QMWF 11/18/21 10/26/22 Unknown History 1,000 mcg tablet donepezil 5 mg tablet (Aricept) 10 mg PO HS 11/18/21 10/26/22 Unknown History ergocalciferol (vitamin D2) 1,250 1,250 mcg PO WEEKLY 11/18/21 10/26/22 Unknown History mcg (50,000 unit) capsule (Vitamin D2) loperamide 2 mg tablet (Imodium 2 mg PO QID PRN Diarrhea 11/18/21 10/26/22 Unknown History A-D) olopatadine 0.2 % eye drops 1 drp EACH EYE DAILY 11/18/21 10/26/22 Unknown History (Pataday Once Daily Relief) polyethylene glycol 3350 17 gram 17 g PO DAILY PRN Constipation 11/18/21 10/26/22 Unknown History oral powder packet losartan 25 mg tablet 25 mg PO DAILY 04/11/22 10/26/22 Unknown History Lactobacillus rhamnosus GG 10 1 cap PO DAILY 09/14/22 10/26/22 Unknown History billion cell capsule (Culturelle) buspirone 10 mg tablet 10 mg PO TID 09/14/22 10/26/22 Unknown History memantine 5 mg tablet 5 mg PO Q12H 09/14/22 10/26/22 Unknown History pyridoxine (vitamin B6) 100 mg 100 mg PO Q12H 09/14/22 10/26/22 Unknown History tablet loratadine 10 mg tablet 10 mg PO HS 09/28/22 10/26/22 Unknown History metoprolol succinate 25 mg 25 mg PO QAM 09/28/22 10/26/22 Unknown History tablet,extended release 24 hr (Toprol XL) vit C 250 mg-vit E 90 mg-zinc 40 1 cap PO Q12H 09/28/22 10/26/22 Unknown History mg-copper 1 [id number] capsule (PreserVision AREDS-2) Allergies Allergy/AdvReac Type Severity Reaction Status Date / Time clarithromycin Allergy Unknown Unknown Verified 06/29/24 10:23 nitrofurantoin Allergy Unknown Palpitation Verified 06/29/24 10:23 s lisinopril Allergy Unknown Verified 06/29/24 10:23 Review of Systems Review of Systems: A 10 system review of systems was completed on the patient and is negative except for what is stated in the HPI. Nursing and ancillary documentation was reviewed. [facility] Past Medical History Medical History Pneumonia Acute exacerbation of chronic obstructive pulmonary disease [place] (hard of hearing) Chronic respiratory failure with hypoxia and hypercapnia Schizoaffective disorder Depression with anxiety Overactive bladder Gastroesophageal reflux disease Hypertension Dementia Deep venous thrombosis Chronic obstructive pulmonary disease She does not have COPD Congestive heart failure EF 50 to 55% with grade 1 diastolic dysfunction on echo in November 2021. Paroxysmal atrial fibrillation COPD (chronic obstructive pulmonary disease) Anemia Anxiety Arthritis Rhabdomyolysis Kidney stone GI bleed Pulmonary embolism Asthma Hyperlipidemia Cardiomyopathy Status post defibrillator. Brain bleed Status post fall. Seasonal allergies Surgical History Surgical History History of bladder surgery tvt History of ankle surgery H/O breast biopsy S/P IVC filter History of arthroscopy of right shoulder History of open reduction and internal fixation (ORIF) procedure Repair of left ankle fracture. History of bilateral knee arthroplasty History of tonsillectomy History of ureter stent History of cystoscopy Presence of combination internal cardiac defibrillator (ICD) and pacemaker History of implantable cardiac defibrillator (ICD) History of cardiac catheterization Family History Family History Sibling Family history of cardiomyopathy Family history of malignant neoplasm of breast Mother Patient's mother is Hypertension Family history of cardiovascular disease Family history of malignant neoplasm of breast Other Family history of arthritis Family history of malignant neoplasm Social History Social History Social History: She has 2 children and 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 She is . She resides at [facility] Surrogate medical decision maker: [place]in [place], children. Code status: dnr Smoking status: Never smoker Second hand tobacco smoke exposure: No Alcohol intake: never Substance use: never Substance use type: does not use Lack of Transportation: No Lack of Food: Never True Current Housing: I Have Housing Concerned About Future Housing: No Difficulty Paying Gas/Electric Bills: No Difficulty Paying for Meds: No Currently Unemployed: No Education: Associate Degree Difficulty w/ Childcare or Family Care: No Additional living arrangements comments: with 2 children. Lives at [place]. Spiritual care concerns: No Exam Narrative: GENERAL: Well-appearing, well-nourished, and in no acute distress. HEAD: Normocephalic, atraumatic. EYES: PERRLA and EOMI. ENT: Nares clear, no rhinorrhea or epistaxis. Mucous membranes moist. NECK: Supple. CHEST: Clear to auscultation. No respiratory distress. HEART: Regular rate and rhythm. No murmur heard. Normal peripheral pulses. ABDOMEN: Soft, nontender, nondistended, normal active bowel sounds. EXTREMITIES: Normal range of motion. No edema. SKIN: Warm, dry, no rash. NEURO: No focal deficits. Alert and oriented x1. PSYCH: Normal mood and affect. Course Vital Signs Vital signs: Vital Signs Temperature 37.6 C H 06/29/24 09:52 Pulse Rate 93 06/29/24 09:52 Respiratory Rate 20 06/29/24 09:52 Blood Pressure 122/75 06/29/24 09:52 Pulse Oximetry 94 06/29/24 09:52 Oxygen Delivery Nasal Cannula 06/29/24 09:52 Oxygen Flow Rate 3 06/29/24 09:52 Temperature 37.6 C H 06/29/24 09:52 Pulse Rate 93 06/29/24 11:37 Respiratory Rate 25 H 06/29/24 11:37 Blood Pressure 110/75 06/29/24 11:37 Pulse Oximetry 97 06/29/24 11:37 Oxygen Delivery Nasal Cannula 06/29/24 11:36 Oxygen Flow Rate 2 06/29/24 11:36 Medical Decision Making Vital Signs Vital Signs: Vital Signs Temperature 37.6 C H 06/29/24 09:52 Pulse Rate 93 06/29/24 09:52 Respiratory Rate 20 06/29/24 09:52 Blood Pressure 122/75 06/29/24 09:52 Pulse Oximetry 94 06/29/24 09:52 Oxygen Delivery Nasal Cannula 06/29/24 09:52 Oxygen Flow Rate 3 06/29/24 09:52 Temperature 37.6 C H 06/29/24 09:52 Pulse Rate 93 06/29/24 11:37 Respiratory Rate 25 H 06/29/24 11:37 Blood Pressure 110/75 06/29/24 11:37 Pulse Oximetry 97 06/29/24 11:37 Oxygen Delivery Nasal Cannula 06/29/24 11:36 Oxygen Flow Rate 2 06/29/24 11:36 Lab Data 06/29/24 10:16 06/29/24 10:16 Labs: Lab Results 06/29/24 06/29/24 Range/Units 10:16 10:29 WBC 10.3 H (4.5-10.0) K/mm3 RBC 4.48 (4.2-5.4) M/mm3 Hgb 13.9 (12.0-15.0) g/dL Hct 47.5 H (37.0-47.0) % MCV 106.0 H (80-100) fl MCH 31.0 (26-34) pg MCHC 29.3 L (32-36) g/dl RDW 13.5 (11.5-14.5) % Plt Count 215 (150-375) k/mm3 MPV 9.2 (7.4-10.4) fl Immature Gran % (Auto) 0.4 (0-0.5) % Neut % (Auto) 82.3 H (45.5-73.1) % Lymph % (Auto) 7.2 L (18.3-44.2) % [place] % (Auto) 9.9 H (2.6-8.5) % Eos % (Auto) 0.0 (0-4.4) % Baso % (Auto) 0.2 (0.2-1.2) % Lymph # (Auto) 0.74 L (0.9-3.2) K/mm3 [place] # (Auto) 1.0 H (0.1-0.6) K/mm3 Eos # (Auto) 0.0 (0-0.3) K/mm3 Baso # (Auto) 0.0 (0.0-0.1) K/mm3 Abs Immat Gran (auto) 0.04 H (0.00-0.031) K/mm3 Absolute Neuts (auto) 8.5 H (1.3-6.7) K/mm3 Absolute Nucleated RBC 0.000 (0.0-0.012) K/mm3 Band Neutrophils % Not Reportable Nucleated RBC % 0.0 (0.0-0.2) % Platelet Estimate Adequate (Adequate) Macrocytosis 1+ (NORMAL) Schistocytes None seen PT 13.5 (11.1-14.7) Seconds INR 1.0 APTT 26.5 (22.3-36.8) Seconds Sodium 145 (137-145) mmol/L Potassium 5.2 H (3.4-5.0) mmol/L Chloride 99 (98-107) mmol/L Carbon Dioxide > 40 H (22-30) mmol/L Anion Gap (4-12) mmol/L BUN 24 H (7-17) mg/dL Creatinine 0.61 L (0.7-1.0) mg/dL Estim Creat Clear Calc 58 ml/min Estimated GFR > 60 (59 - ) Glucose 125 H (65-110) mg/dL Lactic Acid 1.1 (0.7-2.0) mmol/L Calcium 9.0 (8.4-10.2) mg/dL Magnesium 2.6 H (1.6-2.3) mg/dL Total Bilirubin 0.5 (0.2-1.3) mg/dL AST 25 (14-36) U/L ALT 16 (6-35) U/L Alkaline Phosphatase 102 (38-126) U/L Troponin I < 0.012 (0.000-0.034) ng/mL NT-Pro-B Natriuret Pep 756 H (19.9-100) pg/mL Total Protein 7.0 (6.3-8.2) g/dL Albumin 3.6 (3.5-5.1) g/dL Procalcitonin 0.1 ng/mL Urine Color Yellow (Yellow) Urine Appearance Clear (Clear) Urine pH 5.5 (5.0-9.0) Ur Specific Ideal 1.024 (1.001-1.035) Urine Protein Negative (Negative) mg/dL Urine Glucose (UA) 3+ H (Negative) mg/dL Urine Ketones Trace H (Negative) mg/dL Ur Blood (Man) Negative (Negative) Urine Nitrate Positive H (Negative) Urine Bilirubin Negative (Negative) Urine Urobilinogen 0.2 (<2.0) mg/dL Add Ur Microanalysis Reviewed Leukocyte Esterase Rfl Trace H (Negative) AMAURY/UL Urine RBC 0-2 (0-2) /hpf Urine WBC 11-20 H (0-3) /hpf Ur Squamous Epith Cells None seen (Few) /hpf Urine Bacteria 4+ H /hpf Urine Casts 0-2 Influenza A (RT-PCR) Negative (Negative) Influenza B (RT-PCR) Negative (Negative) RSV (RT-PCR) Negative (Negative) SARS-CoV-2 RNA (RT-PCR) Negative (Negative) ABG Data ABG results: 06/29/24 10:50 Puncture Site Right radial ABG pH 7.354 ABG pCO2 77.5 H* ABG pO2 79.9 L ABG PO2/FiO2 Ratio 2.50 ABG HCO3 42.2 H ABG O2 Saturation 94.7 L ABG O2 Content 19.8 ABG Base Excess 12.8 A-a Gradient 57.6 Oxyhemoglobin 95.0 Total Hemoglobin 14.8 O2 Delivery Device Nasal cannula O2 Liters/Min 3.0 FiO2 32 Discharge Plan Discharge Clinical Impression: Acute UTI, Altered mental status, Pneumonia Patient Disposition: Still a Patient Condition: Stable Patient Language: British Prescriptions: No Action olopatadine [Pataday Once Daily Relief] 0.2 % Drops 1 drp EACH EYE DAILY donepezil [Aricept] 5 mg tablet 10 mg PO HS atorvastatin 10 mg tablet 10 mg PO HS citalopram 10 mg tablet 10 mg PO DAILY aripiprazole 5 mg tablet 5 mg PO HS ergocalciferol (vitamin D2) [Vitamin D2] 1,250 mcg (50,000 unit) Capsule 1,250 mcg PO WEEKLY Rx Instructions: takes on Monday cyanocobalamin (vitamin B-12) 1,000 mcg tablet 1,000 mcg PO QMWF acetaminophen 500 mg Capsule 1,000 mg PO Q6H PRN (Reason: Pain) albuterol sulfate 90 mcg/actuation Hfa Aerosol Inhaler 2 puff INHALATION Q4H PRN (Reason: Shortness Of Breath) azelastine 137 mcg (0.1 %) Aerosol,[place] 2 spray INTRANASAL BID PRN (Reason: Dry Nasal Passages) Rx Instructions: administer into each nostril polyethylene glycol 3350 17 gram Powder In Packet 17 g PO DAILY PRN (Reason: Constipation) loperamide [Imodium A-D] 2 mg Tablet 2 mg PO QID PRN (Reason: Diarrhea) furosemide 40 mg Tablet 40 mg PO DAILY 30 Days Qty: 30 0RF losartan 25 mg tablet 25 mg PO DAILY Culturelle 10 billion cell Capsule 1 cap PO DAILY memantine 5 mg tablet 5 mg PO Q12H buspirone 10 mg tablet 10 mg PO TID pyridoxine (vitamin B6) 100 mg tablet 100 mg PO Q12H montelukast 10 mg Tablet 10 mg PO HS metoprolol succinate [Toprol XL] 25 mg tablet extended release 24 hr 25 mg PO QAM loratadine 10 mg tablet 10 mg PO HS PreserVision AREDS-2 250-90-40-1 mg capsule 1 cap PO Q12H Jardiance 10 mg Tablet 10 mg PO DAILY Qty: 30 0RF potassium chloride 20 mEq Packet 20 meq PO DAILY Qty: 10 0RF furosemide 20 mg tablet 20 mg PO 1400 Qty: 30 0RF fluticasone propionate [Flonase Allergy Relief] 50 mcg/actuation spray,suspension 2 spray INTRANASAL DAILY Qty: 18.2 0RF oxybutynin chloride 10 mg tablet extended release 24hr 10 mg PO DAILY Qty: 93 1RF pantoprazole [Protonix] 40 mg tablet,delayed release (DR/EC) 40 mg PO QAM Qty: 90 1RF polysaccharide iron complex [Poly-Iron] 150 mg iron capsule 150 mg PO DAILY Qty: 93 1RF Follow-up/Referrals: Stone,Stephanie Guidry, SAFETY DEPOSIT CLERK-BC [Primary Care Provider] - Time of Disposition: 11:41
[2024-06-29 10:35] LABS: Prothrombin Time 13.5 Seconds (11.1-14.7)
[2024-06-29 10:36] LABS: Partial Thromboplastin Time 26.5 Seconds (22.3-36.8)
[2024-06-29 10:37] LABS: Add Urine Microscopic? YES; Appearance Urine Clear (Clear); Bacteria Urine 4+ /hpf; Bilirubin Urine Negative (Negative); Blood Urine Negative (Negative); Color Urine Yellow (Yellow); Glucose Urine UA 3+ mg/dL (Negative); Ketones Urine Trace mg/dL (Negative); Leukocyte Esterase Ur Trace LEU/UL (Negative); Need Manual Microscopic Reviewed; Nitrate Urine Positive (Negative); Non Pathogenic Casts 0-2; Protein Urine Negative (Negative); RBC Urine 0-2 /hpf (0-2); Specific Grav Ur 1.024 (1.001-1.035); Squamous Epithelial Cell Urine None Seen /hpf (Few); Urobilinogen Urine 0.2 mg/dL (<2.0); pH Urine 5.5 (5.0-9.0)
[2024-06-29 10:40] LABS: Alanine Aminotransferase 16 U/L (6-35); Albumin Level 3.6 g/dL (3.5-5.1); Alkaline Phosphatase 102 U/L (38-126); Aspartate Amino Transferase 25 U/L (14-36); Bilirubin,Total 0.5 mg/dL (0.2-1.3); Blood Urea Nitrogen 24 mg/dL (7-17); Carbon Dioxide > 40 mmol/L (22-30); Chloride 99 mmol/L (98-107); Estimated CRCL calculation 58 ml/min; Estimated Glomerular Filt Rate > 60; Glucose 125 mg/dL (65-110); Magnesium 2.6 mg/dL (1.6-2.3); Potassium 5.2 mmol/L (3.4-5.0); Sodium 145 mmol/L (137-145)
[2024-06-29 10:44] LABS: Macrocytosis 1+ (NORMAL); Platelet Estimate Adequate (Adequate); Schistocytes None Seen
[2024-06-29 10:47] LABS: Lactic Acid Reflex 1.1 mmol/L (0.7-2.0)
[2024-06-29 10:51] LABS: NT Pro B Type Natriuretic Pept 756 pg/mL (19.9-100); Troponin I < 0.012 ng/mL (0.000-0.034)
[2024-06-29 10:57] LABS: Procalcitonin 0.1 ng/mL
--- NOTE | 2024-06-29 10:57 | PC.NURSE ---
Spoke with Bhavik DELGADO at [facility] who states pt is supposed to wear 2L O2 at all times but is non compliant with tx. Bhavik DELGADO also states pt has been having increase in confusion and is now needing assistance with ADL's that she usually is able to accomplish on her own.
[2024-06-29 10:58] LABS: Alveolar/Arterial O2 Gradient 57.6 mmHg; Base Excess ABG 12.8 mEq/l (+/-2.0); Fractional Inspired Oxygen 32 %; HCO3 ABG 42.2 mEq/l (22.0-26.0); Oxygen Content ABG 19.8 %vol (16.0-22.0); Oxygen Saturation ABG 94.7 % (95.0-100.0); PO2 ABG 79.9 mmHg (80.0-100.0); Total Hemoglobin 14.8 g/dL (12.0-18.0); pH ABG 7.354 (7.350-7.450)
[2024-06-29 11:02] LABS: Device NASAL CANNULA; Modified Allen's Test Pass; PCO2 ABG 77.5 mmHg (35.0-45.0); Site Drawn RIGHT RADIAL
[2024-06-29 11:13] LABS: Influenza A QL RT-PCR Negative (Negative); Influenza B QL RT-PCR Negative (Negative); RSV RNA, RT-PCR Negative (Negative); SARS-CoV-2 RNA PCR Negative (Negative)
[2024-06-29] MEDS: levoFLOXacin 750 MG/D5W 150 ML 750 MG/150 ML BAG 100 MG IVPB (12:12)
--- NOTE | 2024-06-29 12:20 | PC.NURSE ---
This RN spoke with Raquel DELGADO at [facility] and informed her pt is being admitted to this hospital
--- NOTE | 2024-06-29 12:59 | ADMGEN ---
This patient, Maria [place], was admitted to [facility] Surg Room 305-01. Patient/family oriented to hospital policies and general routines including ID bracelet, bed and alarms, visiting hours, pain management, procedures, bathroom and other care routines, personal items, smoking policy, room service/diet, and visiting hours. Information on how to activate the Rapid Response Team has been discussed. Patient/Family are encouraged to report perceived risks to care and to ask questions if they do not understand what they are told or what they should do.
[2024-06-29 13:46] LABS: Troponin I < 0.012 ng/mL (0.000-0.034)
[2024-06-29] MEDS: IPRATROPIUM 0.5 MG/ALBUTEROL SULFATE 2.5 MG AMPUL.NEB 3 ML INHALATION ×2 (14:27→19:49)
--- NOTE | 2024-06-29 15:13 | P.HP_ITS ---
H&P: HPI History of Present Illness Date/Time: 06/29/24 15:13 Chief Complaint: Altered mental status Narrative: This is a 83-year-old female [facility] resident who presents to the ER with complaint of altered mental status and shortness of breath. History is limited. Patient reports no urinary symptoms abdominal pain nausea vomiting cough chest pain. In the ED her vitals were stable oxygen saturation was adequate on 2-3 L oxygen via nasal cannula which is chronic. Laboratory workup revealed WBC of 10.3 hemoglobin 13.9 platelet 215 sodium 145 potassium 5.2 bicarbonate more than 40 BUN 24 creatinine 0.6 blood glucose 125 lactate normal at 1.1 troponin negative less than 0.012 BNP elevated at 756 procalcitonin 0.1 urinalysis positive for UTI. Influenza RSV COVID swab was negative. ABG 7.35/77/7 . Chest x-ray with small bilateral pleural effusion with that associated bibasilar atelectasis versus pneumonia in the appropriate clinical setting with cardiomegaly. 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 Age-related changes including deep mild diffuse volume loss and mild scattered white matter hypoattenuation consistent with chronic small-vessel ischemic disease noted. Patient received IV fluids with some improvement in her mental status. She is also given IV antibiotics for UTI and is admitted for further treatment. Review of Systems Review of Systems: - CONSTITUTIONAL: Denies weight loss, fe lionel and chills. - HEENT: Denies changes in vision and he aring - RESPIRATORY: Reports SOB and denies c ough. - CV: Denies palpitations and CP. - GI: Denies abdominal pain, nausea, vom iting and diarrhea. - : Denies dysuria and urinary frequen cy. - MSK: Denies myalgia and joint pain. - SKIN: Denies rash and pruritus. - NEUROLOGICAL: Denies headache and sync ope. See HPI - PSYCHIATRIC: Denies recent changes in mood. Denies anxiety and depression. [facility] Past Medical History Medical History Pneumonia Acute exacerbation of chronic obstructive pulmonary disease [place] (hard of hearing) Chronic respiratory failure with hypoxia and hypercapnia Schizoaffective disorder Depression with anxiety Overactive bladder Gastroesophageal reflux disease Hypertension Dementia Deep venous thrombosis Chronic obstructive pulmonary disease She does not have COPD Congestive heart failure EF 50 to 55% with grade 1 diastolic dysfunction on echo in November 2021. Paroxysmal atrial fibrillation COPD (chronic obstructive pulmonary disease) Anemia Anxiety Arthritis Rhabdomyolysis Kidney stone GI bleed Pulmonary embolism Asthma Hyperlipidemia Cardiomyopathy Status post defibrillator. Brain bleed Status post fall. Seasonal allergies Surgical History Surgical History History of bladder surgery tvt History of ankle surgery H/O breast biopsy S/P IVC filter History of arthroscopy of right shoulder History of open reduction and internal fixation (ORIF) procedure Repair of left ankle fracture. History of bilateral knee arthroplasty History of tonsillectomy History of ureter stent History of cystoscopy Presence of combination internal cardiac defibrillator (ICD) and pacemaker History of implantable cardiac defibrillator (ICD) History of cardiac catheterization Family History Family History Sibling Family history of cardiomyopathy Family history of malignant neoplasm of breast Mother Patient's mother is Hypertension Family history of cardiovascular disease Family history of malignant neoplasm of breast Other Family history of arthritis Family history of malignant neoplasm Social History Social History Social History: She has 2 children and 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 She is . She resides at [facility] Surrogate medical decision maker: Darin or [place], children. Code status: dnr Smoking status: Never smoker Second hand tobacco smoke exposure: No Alcohol intake: never Substance use: never Substance use type: does not use Lack of Transportation: No Lack of Food: Never True Current Housing: I Have Housing Concerned About Future Housing: No Difficulty Paying Gas/Electric Bills: No Difficulty Paying for Meds: No Currently Unemployed: No Education: Associate Degree Difficulty w/ Childcare or Family Care: No Additional living arrangements comments: with 2 children. Lives at [place]. Spiritual care concerns: No Meds Home Medications and Allergies Home Medications ?Medication ?Instructions ?Recorded ?Confirmed ?Type fluticasone propionate 50 2 spray intranasal DAILY #18.2 mL 04/01/19 10/26/22 Rx mcg/actuation nasal spray,suspension (Flonase Allergy Relief) oxybutynin chloride 10 mg 10 mg PO DAILY #93 tabs 09/07/19 10/26/22 Rx tablet,extended release 24 hr pantoprazole 40 mg tablet,delayed 40 mg PO QAM #90 tabs 09/07/19 10/26/22 Rx release (Protonix) polysaccharide iron complex 150 mg 150 mg PO DAILY #93 caps 09/07/19 10/26/22 Rx iron capsule (Poly-Iron) montelukast 10 mg tablet 10 mg PO HS 05/19/20 10/26/22 History acetaminophen 500 mg capsule 1,000 mg PO Q6H PRN Pain 11/18/21 10/26/22 History albuterol sulfate 90 mcg/actuation 2 puff inhalation Q4H PRN 11/18/21 10/26/22 History aerosol inhaler Shortness Of Breath aripiprazole 5 mg tablet 5 mg PO HS 11/18/21 10/26/22 History atorvastatin 10 mg tablet 10 mg PO HS 11/18/21 10/26/22 History azelastine 137 mcg (0.1 %) nasal 2 spray intranasal BID PRN Dry 11/18/21 10/26/22 History spray Nasal Passages citalopram 10 mg tablet 10 mg PO DAILY 11/18/21 10/26/22 History cyanocobalamin (vitamin B-12) 1,000 mcg PO QMWF 11/18/21 10/26/22 History 1,000 mcg tablet donepezil 5 mg tablet (Aricept) 10 mg PO HS 11/18/21 10/26/22 History ergocalciferol (vitamin D2) 1,250 1,250 mcg PO WEEKLY 11/18/21 10/26/22 History mcg (50,000 unit) capsule (Vitamin D2) loperamide 2 mg tablet (Imodium 2 mg PO QID PRN Diarrhea 11/18/21 10/26/22 History A-D) olopatadine 0.2 % eye drops 1 drp EACH EYE DAILY 11/18/21 10/26/22 History (Pataday Once Daily Relief) polyethylene glycol 3350 17 gram 17 g PO DAILY PRN Constipation 11/18/21 10/26/22 History oral powder packet furosemide 40 mg tablet 40 mg PO DAILY 1 month #30 tabs 11/24/21 10/26/22 Rx losartan 25 mg tablet 25 mg PO DAILY 04/11/22 10/26/22 History Lactobacillus rhamnosus GG 10 1 cap PO DAILY 09/14/22 10/26/22 History billion cell capsule (Culturelle) buspirone 10 mg tablet 10 mg PO TID 09/14/22 10/26/22 History memantine 5 mg tablet 5 mg PO Q12H 09/14/22 10/26/22 History pyridoxine (vitamin B6) 100 mg 100 mg PO Q12H 09/14/22 10/26/22 History tablet loratadine 10 mg tablet 10 mg PO HS 09/28/22 10/26/22 History metoprolol succinate 25 mg 25 mg PO QAM 09/28/22 10/26/22 History tablet,extended release 24 hr (Toprol XL) vit C 250 mg-vit E 90 mg-zinc 40 1 cap PO Q12H 09/28/22 10/26/22 History mg-copper 1 [id number] capsule (PreserVision AREDS-2) empagliflozin 10 mg tablet 10 mg PO DAILY #30 tabs 10/02/22 10/26/22 Rx (Jardiance) furosemide 20 mg tablet 20 mg PO 1400 #30 tabs 10/02/22 10/26/22 Rx potassium chloride 20 mEq oral 20 meq PO DAILY #10 ea 10/02/22 10/26/22 Rx packet Allergies Allergy/AdvReac Type Severity Reaction Status Date / Time clarithromycin Allergy Unknown Unknown Verified 06/29/24 10:23 nitrofurantoin Allergy Unknown Palpitation Verified 06/29/24 10:23 s lisinopril Allergy Unknown Verified 06/29/24 10:23 Vital Signs Vital Signs - 24 hr 06/29/24 09:52 06/29/24 09:52 06/29/24 10:05 Temperature 99.7 F H Pulse Rate 93 96 Respiratory Rate 20 Blood Pressure 122/75 Pulse Oximetry 94 96 Oxygen Delivery Nasal Cannula Nasal Cannula Oxygen Flow Rate 3 3 06/29/24 10:15 06/29/24 11:36 06/29/24 11:37 Temperature Pulse Rate 93 Respiratory Rate 25 H Blood Pressure 110/75 Pulse Oximetry 94 97 97 Oxygen Delivery Nasal Cannula Nasal Cannula Oxygen Flow Rate 3 2 06/29/24 12:13 06/29/24 12:33 06/29/24 12:59 Temperature 99.4 F 97.0 F L Pulse Rate 102 H 96 Respiratory Rate 20 20 Blood Pressure 138/54 L 128/56 L Pulse Oximetry 96 96 95 Oxygen Delivery Nasal Cannula Oxygen Flow Rate 2 06/29/24 14:28 06/29/24 14:33 06/29/24 14:41 Temperature Pulse Rate 106 H 106 H 102 H Respiratory Rate 32 H 32 H 38 H Blood Pressure Pulse Oximetry 94 Oxygen Delivery Nasal Cannula Oxygen Flow Rate 2 Exam Narrative: GENERAL: Well-appearing, well-nourished, confused and in no acute distress. HEAD: Normocephalic, atraumatic. EYES: PERRLA and EOMI. ENT: Nares clear, no rhinorrhea or epistaxis. Mucous membranes moist. NECK: Supple. CHEST: Clear to auscultation. No respiratory distress. HEART: Regular rate and rhythm. No murmur heard. Normal peripheral pulses. ABDOMEN: Soft, nontender, nondistended, normal active bowel sounds. EXTREMITIES: Normal range of motion. No edema. SKIN: Warm, dry, no rash. NEURO: No focal deficits. Alert and oriented x 2. PSYCH: Normal mood and affect. H&P: Results Labs Labs: Short CBC 06/29/24 Range/Units 10:16 WBC 10.3 H (4.5-10.0) K/mm3 Hgb 13.9 (12.0-15.0) g/dL Hct 47.5 H (37.0-47.0) % Plt Count 215 (150-375) k/mm3 BMP 06/29/24 10:16 Sodium 145 Potassium 5.2 H Chloride 99 Carbon Dioxide > 40 H BUN 24 H Creatinine 0.61 L Glucose 125 H Calcium 9.0 Cardiac Enzymes 06/29/24 06/29/24 Range/Units 10:16 13:17 Troponin I < 0.012 < 0.012 (0.000-0.034) ng/mL Liver Function 06/29/24 Range/Units 10:16 Total Bilirubin 0.5 (0.2-1.3) mg/dL AST 25 (14-36) U/L ALT 16 (6-35) U/L Alkaline Phosphatase 102 (38-126) U/L Albumin 3.6 (3.5-5.1) g/dL Urine 06/29/24 Range/Units 10:16 Urine Color Yellow (Yellow) Urine Appearance Clear (Clear) Urine pH 5.5 (5.0-9.0) Ur Specific Hall 1.024 (1.001-1.035) Urine Protein Negative (Negative) mg/dL Urine Glucose (UA) 3+ H (Negative) mg/dL Assessment and Plan Assessment and plan (1) Psychiatric illness: Code(s): F99 - Mental disorder, not otherwise specified Status: Acute (2) Hypertension: Code(s): I10 - Essential (primary) hypertension Status: Acute (3) Congestive heart failure: Code(s): I50.9 - Heart failure, unspecified Status: Acute (4) Coronary artery disease: Code(s): I25.10 - Atherosclerotic heart disease of [place] coronary artery without angina pectoris Status: Acute (5) Paroxysmal atrial fibrillation: Code(s): I48.0 - Paroxysmal atrial fibrillation Status: Acute (6) Hx of ventricular tachycardia: Code(s): Z86.79 - Personal history of other diseases of the circulatory system Status: Acute (7) History of implantable cardioverter-defibrillator (ICD) placement: Code(s): Z95.810 - Presence of automatic (implantable) cardiac defibrillator Status: Acute (8) Hx of deep vein thrombophlebitis of lower extremity: Code(s): Z86.72 - Personal history of thrombophlebitis Status: Acute (9) GERD (gastroesophageal reflux disease): Code(s): K21.9 - Gastro-esophageal reflux disease without esophagitis Status: Acute (10) UTI (urinary tract infection): Code(s): N39.0 - Urinary tract infection, site not specified Status: Acute (11) Altered mental status: Code(s): R41.82 - Altered mental status, unspecified Status: Acute (12) Dementia: Code(s): F03.90 - Unspecified dementia, unspecified severity, without behavioral disturbance, psychotic disturbance, mood disturbance, and anxiety Status: Acute (13) Chronic respiratory failure with hypoxia and hypercapnia: Code(s): J96.11 - Chronic respiratory failure with hypoxia; J96.12 - Chronic respiratory failure with hypercapnia Status: Acute (14) Chronic obstructive pulmonary disease: Code(s): J44.9 - Chronic obstructive pulmonary disease, unspecified Status: Acute Plan This is a 83-year-old female [facility] resident who presents to the ER with complaint of altered mental status and shortness of breath. History is limited. Patient reports no urinary symptoms abdominal pain nausea vomiting cough chest pain. In the ED her vitals were stable oxygen saturation was adequate on 2-3 L oxygen via nasal cannula which is chronic. Laboratory workup revealed WBC of 10.3 hemoglobin 13.9 platelet 215 sodium 145 potassium 5.2 bicarbonate more than 40 BUN 24 creatinine 0.6 blood glucose 125 lactate normal at 1.1 troponin negative less than 0.012 BNP elevated at 756 procalcitonin 0.1 urinalysis positive for UTI. Influenza RSV COVID swab was negative. ABG 7.35/77/7 . Chest x-ray with small bilateral pleural effusion with that associated bibasilar atelectasis versus pneumonia in the appropriate clinical setting with cardiomegaly. 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 Age-related changes including deep mild diffuse volume loss and mild scattered white matter hypoattenuation consistent with chronic small-vessel ischemic disease noted. EKG showed sinus rhythm with nonspecific ST-T changes and intraventricular conduction delay Patient received IV fluids with some improvement in her mental status. She is also given IV antibiotics for UTI and is admitted for further treatment. Acute encephalopathy UTI Underlying dementia Chronic respiratory failure with hypoxia and hypercapnia on home oxygen 2-3 L via nasal cannula at baseline. She was seen by Pulmonary in the past and has recommended noninvasive home ventilator unsure if she is currently on this will check with [facility]. COPD Anxiety depression Hypertension Congestive heart failure echo 09/2022 with normal EF no significant valvular abnormality History of brain bleed Schizoaffective disorder/anxiety/depression Status post defibrillator placement Proximal atrial fibrillation Overactive bladder Cardiomyopathy Status post IVC filter placement Hyperlipidemia History of DVT/PE not currently on any anticoagulation likely due to fall and history of brain bleed [facility] Code status do not resuscitate D[facility] Advance Care Plan I have confirmed that the patient's Advanced Care Plan is present, code status is documented, or surrogate decision maker is listed in patient medical record.: Yes Medication Reconciliation I have utilized all available resources to obtain, update and review the patients current medications (includes all prescriptions, OTC, herbals, cannabis, and nutritional supplements).: Yes
[2024-06-29] MEDS: busPIRone HCL 10 MG TABLET PO (16:50)
[2024-06-29] MEDS: MONTELUKAST SODIUM 10 MG TABLET PO (21:03)
[2024-06-29] MEDS: ATORVASTATIN 10 MG TABLET PO (21:03)
[2024-06-29] MEDS: OPTI-GEN TAB 1 TABLET PO (21:03)
[2024-06-29] MEDS: ARIPiprazole 5 MG TABLET PO (21:03)
[2024-06-29] MEDS: PYRIDOXINE HCL 50 MG TABLET 100 MG PO (21:04)
[2024-06-29] MEDS: DONEPEZIL HCL 5 MG TABLET 10 MG PO (21:04)
[2024-06-29] MEDS: MEMANTINE 5 MG TABLET PO (21:04)
[2024-06-29] MEDS: LORATADINE 10 MG TABLET PO (21:04)
[2024-06-29] MEDS: ACETAMINOPHEN 500 MG TABLET 1000 MG PO (21:06)
[2024-06-29] MEDS: ARTIFICIAL TEARS OPHTH SOLN 15 ML BOTTLE 1 DROP EACH EYE (21:43)
[2024-06-30] VITALS (14 sets, daily range): BP systolic 109–128; BP diastolic 56–62; PULSE 89–106; RESP 18–24; TEMP 36.3–37; O2SAT 93–98
[2024-06-30] MEDS: IPRATROPIUM 0.5 MG/ALBUTEROL SULFATE 2.5 MG AMPUL.NEB 3 ML INHALATION ×4 (02:57→20:40)
[2024-06-30] MEDS: ACIDOPHILUS/BULGARICUS CHEWABLE TABLET 1 TABLET BY MOUTH (08:34)
[2024-06-30] MEDS: POTASSIUM CHLORIDE 20 MEQ PACKET (FOR LIQUID) PO (08:34)
[2024-06-30] MEDS: FUROSEMIDE 40 MG TABLET PO (08:35)
[2024-06-30] MEDS: POLYSACCHARIDE IRON COMPLEX 150 MG CAPSULE PO (08:35)
[2024-06-30] MEDS: PYRIDOXINE HCL 50 MG TABLET 100 MG PO ×2 (08:35→21:33)
[2024-06-30] MEDS: oxyBUTYnin CHLORIDE XL 5 MG TAB.ER.24 10 MG PO (08:35)
[2024-06-30] MEDS: CITALOPRAM HYDROBROMIDE 10 MG TABLET PO (08:35)
[2024-06-30] MEDS: OPTI-GEN TAB 1 TABLET PO ×2 (08:36→21:33)
[2024-06-30] MEDS: FERROUS SULFATE 325 MG TABLET DR BY MOUTH (08:36)
[2024-06-30] MEDS: METOPROLOL SUCCINATE EXT REL 25 MG TABCR PO (08:36)
[2024-06-30] MEDS: MEMANTINE 5 MG TABLET PO ×2 (08:36→21:34)
[2024-06-30] MEDS: EMPAGLIFLOZIN 10 MG TABLET PO (08:36)
[2024-06-30] MEDS: PANTOPRAZOLE 40 MG TABLET PO (08:36)
[2024-06-30] MEDS: OLOPATADINE 0.1% OPHTH SOLN 5 ML BTL 1 DROP EACH EYE (08:45)
[2024-06-30] MEDS: busPIRone HCL 10 MG TABLET PO ×3 (10:15→18:55)
[2024-06-30] MEDS: levoFLOXacin 750 MG/D5W 150 ML 750 MG/150 ML BAG 100 MG IVPB (11:34)
--- NOTE | 2024-06-30 12:14 | P.PNIM_ITS ---
Progress Note: A&P Assessment and Plan (1) Psychiatric illness: Code(s): F99 - Mental disorder, not otherwise specified Status: Acute (2) Hypertension: Code(s): I10 - Essential (primary) hypertension Status: Acute (3) Congestive heart failure: Code(s): I50.9 - Heart failure, unspecified Status: Acute (4) Coronary artery disease: Code(s): I25.10 - Atherosclerotic heart disease of [place] coronary artery without angina pectoris Status: Acute (5) Paroxysmal atrial fibrillation: Code(s): I48.0 - Paroxysmal atrial fibrillation Status: Acute (6) Hx of ventricular tachycardia: Code(s): Z86.79 - Personal history of other diseases of the circulatory system Status: Acute (7) History of implantable cardioverter-defibrillator (ICD) placement: Code(s): Z95.810 - Presence of automatic (implantable) cardiac defibrillator Status: Acute (8) Hx of deep vein thrombophlebitis of lower extremity: Code(s): Z86.72 - Personal history of thrombophlebitis Status: Acute (9) GERD (gastroesophageal reflux disease): Code(s): K21.9 - Gastro-esophageal reflux disease without esophagitis Status: Acute (10) UTI (urinary tract infection): Code(s): N39.0 - Urinary tract infection, site not specified Status: Acute (11) Altered mental status: Code(s): R41.82 - Altered mental status, unspecified Status: Acute (12) Dementia: Code(s): F03.90 - Unspecified dementia, unspecified severity, without behavioral disturbance, psychotic disturbance, mood disturbance, and anxiety Status: Acute (13) Chronic respiratory failure with hypoxia and hypercapnia: Code(s): J96.11 - Chronic respiratory failure with hypoxia; J96.12 - Chronic respiratory failure with hypercapnia Status: Acute (14) Chronic obstructive pulmonary disease: Code(s): J44.9 - Chronic obstructive pulmonary disease, unspecified Status: Acute Plan This is a 83-year-old female assisted resident who presents to the ER with complaint of altered mental status and shortness of breath. History is limited. Patient reports no urinary symptoms abdominal pain nausea vomiting cough chest pain. In the ED her vitals were stable oxygen saturation was adequate on 2-3 L oxygen via nasal cannula which is chronic. Laboratory workup revealed WBC of 10.3 hemoglobin 13.9 platelet 215 sodium 145 potassium 5.2 bicarbonate more than 40 BUN 24 creatinine 0.6 blood glucose 125 lactate normal at 1.1 troponin negative less than 0.012 BNP elevated at 756 procalcitonin 0.1 urinalysis positive for UTI. Influenza RSV COVID swab was negative. ABG 7.35/77/7 . Chest x-ray with small bilateral pleural effusion with that associated bibasilar atelectasis versus pneumonia in the appropriate clinical setting with cardiomegaly. 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 Age-related changes including deep mild diffuse volume loss and mild scattered white matter hypoattenuation consistent with chronic small-vessel ischemic disease noted. EKG showed sinus rhythm with nonspecific ST-T changes and intraventricular conduction delay Patient received IV fluids with some improvement in her mental status. She is also given IV antibiotics for UTI and is admitted for further treatment. Acute encephalopathy UTI Underlying dementia Chronic respiratory failure with hypoxia and hypercapnia on home oxygen 2-3 L via nasal cannula at baseline. She was seen by Pulmonary in the past and has recommended noninvasive home ventilator. this is been discontinued as she has not been able to tolerate. With her CO2 in 78 will restart here tonight. ABG in a.m. COPD Anxiety depression Hypertension Congestive heart failure echo 09/2022 with normal EF no significant valvular abnormality History of brain bleed Schizoaffective disorder/anxiety/depression Status post defibrillator placement Proximal atrial fibrillation Overactive bladder Cardiomyopathy Status post IVC filter placement Hyperlipidemia History of DVT/PE not currently on any anticoagulation likely due to fall and history of brain bleed [facility] resident Code status do not resuscitate DVT prophylaxis Lovenox Subjective Date/time seen: 06/30/24 12:14 Interval history: Still confused. Family at bedside. She has not been able to tolerate BiPAP and hence has been discontinued for past few months. Review of Systems Review of Systems: All systems reviewed & are unremarkable except as noted in HPI and below Exam Narrative: GENERAL: Well-appearing, well-nourished, confused and in no acute distress. HEAD: Normocephalic, atraumatic. EYES: PERRLA and EOMI. ENT: Nares clear, no rhinorrhea or epistaxis. Mucous membranes moist. NECK: Supple. CHEST: Clear to auscultation. No respiratory distress. HEART: Regular rate and rhythm. No murmur heard. Normal peripheral pulses. ABDOMEN: Soft, nontender, nondistended, normal active bowel sounds. EXTREMITIES: Normal range of motion. No edema. SKIN: Warm, dry, no rash. NEURO: No focal deficits. Alert and oriented x 2. PSYCH: Normal mood and affect. Objective Data Vital Signs Vital Signs: Vital Signs - 24 hr 06/29/24 12:33 06/29/24 12:58 06/29/24 12:59 Temperature 99.4 F 97.0 F L Pulse Rate 102 H 96 Respiratory Rate 20 20 Blood Pressure 138/54 L 128/56 L Pulse Oximetry 96 94 95 Oxygen Delivery Nasal Cannula Oxygen Flow Rate 2 Fraction of Inspired Oxygen 06/29/24 14:28 06/29/24 14:33 06/29/24 14:41 Temperature Pulse Rate 106 H 106 H 102 H Respiratory Rate 32 H 32 H 38 H Blood Pressure Pulse Oximetry 94 Oxygen Delivery Nasal Cannula Oxygen Flow Rate 2 Fraction of Inspired Oxygen 06/29/24 15:59 06/29/24 19:49 06/29/24 19:55 Temperature Pulse Rate 107 H 107 H 105 H Respiratory Rate 24 H 20 24 H Blood Pressure Pulse Oximetry 95 Oxygen Delivery Nasal Cannula Oxygen Flow Rate 2 Fraction of Inspired Oxygen 06/29/24 21:28 06/29/24 22:03 06/30/24 02:59 Temperature 97.3 F L Pulse Rate 114 H 111 H 102 H Respiratory Rate 20 16 20 Blood Pressure 131/70 Pulse Oximetry 94 95 Oxygen Delivery High Flow Nasal Cannula Oxygen Flow Rate 2 Fraction of Inspired Oxygen 06/30/24 03:12 06/30/24 06:00 06/30/24 07:41 Temperature 98.1 F Pulse Rate 106 H 91 Respiratory Rate 20 18 Blood Pressure 128/56 L Pulse Oximetry 98 94 Oxygen Delivery High Flow Nasal Cannula Oxygen Flow Rate 4 Fraction of Inspired Oxygen 36 06/30/24 07:41 06/30/24 07:47 06/30/24 08:30 Temperature Pulse Rate 105 H 102 H Respiratory Rate 20 20 Blood Pressure Pulse Oximetry 94 Oxygen Delivery High Flow Nasal Cannula Oxygen Flow Rate 2 Fraction of Inspired Oxygen 06/30/24 08:36 Temperature Pulse Rate 102 H Respiratory Rate Blood Pressure Pulse Oximetry Oxygen Delivery Oxygen Flow Rate Fraction of Inspired Oxygen Intake/Output Intake/Output: Intake & Output 06/27/24 06/28/24 06/29/24 06/30/24 23:59 23:59 23:59 23:59 Intake Total 670 540 Balance 670 540 Meds/Results Medications: Active Medications Generic Name Dose Route Start Last Admin Trade Name Freq PRN Reason Stop Dose Admin Acetaminophen 1,000 mg 06/29/24 15:59 06/29/24 21:06 Acetaminophen 500 Mg Tablet PO 1,000 mg Q6H PRN Administration Pain Albuterol 2 puff 06/29/24 15:59 Albuterol Sulfate (*Sp) Aerosol 1 Puff INHALATION Q4HRT PRN Shortness Of Breath Albuterol/Ipratropium 3 ml 06/29/24 14:00 06/30/24 07:41 Ipratropium 0.5 Mg/Albuterol Sulfate 2.5 Mg Ampul.Neb 3 Ml INHALATION 3 ml Q6HRT JET Administration Aripiprazole 5 mg 06/29/24 21:00 06/29/24 21:03 Aripiprazole 5 Mg Tablet PO 5 mg HS JET Administration Artificial Tears 1 drop 06/29/24 21:00 06/29/24 21:43 Artificial Tears Ophth Soln 15 Ml Bottle EACH EYE 1 drop HS JET Administration Atorvastatin Calcium 10 mg 06/29/24 21:00 06/29/24 21:03 Atorvastatin 10 Mg Tablet PO 10 mg HS JET Administration Azelastine HCl 2 spray 06/29/24 15:59 Azelastine Hcl Nasal 0.1% 137 Mcg/Spr 30 Ml Btl NASAL BID PRN Dry Nasal Passages Buspirone HCl 10 mg 06/29/24 17:00 06/30/24 10:15 Buspirone Hcl 10 Mg Tablet PO 10 mg TID JET Administration Citalopram Hydrobromide 10 mg 06/30/24 09:00 06/30/24 08:35 Citalopram Hydrobromide 10 Mg Tablet PO 10 mg DAILY JET Administration Cyanocobalamin 1,000 mcg 07/01/24 16:00 Cyanocobalamin 1,000 Mcg Tablet PO MoWeFr JET Docusate Sodium 100 mg 06/29/24 15:59 Docusate Sodium 100 Mg Capsule PO BID PRN to soften stools while hemorrhoids flared up Donepezil HCl 10 mg 06/29/24 21:00 06/29/24 21:04 Donepezil Hcl 5 Mg Tablet PO 10 mg HS JET Administration Empagliflozin 10 mg 06/30/24 09:00 06/30/24 08:36 Empagliflozin 10 Mg Tablet PO 10 mg DAILY JET Administration Ergocalciferol 50,000 units 07/03/24 09:00 Ergocalciferol 50,000 Units Capsule PO WEEKLY JET Ferrous Sulfate 325 mg 06/30/24 09:00 06/30/24 08:36 Ferrous Sulfate [address] BY MOUTH 325 mg DAILY JET Administration Fluticasone Propionate 2 spray 06/30/24 09:00 06/30/24 08:35 Fluticasone Propionate 0.05% Na Spr 16 Gm Btl (*Bkc) NASAL Not Given DAILY [facility] Furosemide 40 mg 06/30/24 09:00 06/30/24 08:35 Furosemide 40 Mg Tablet PO 40 mg DAILY JET Administration Furosemide 20 mg 06/30/24 14:00 Furosemide 20 Mg Tablet PO 1400 JET Levofloxacin/Dextrose 750 mg in 150 mls @ 100 mls/hr 06/30/24 12:00 06/30/24 11:34 Levaquin 750 Mg/D5w 150 Ml IVPB 100 mls/hr Q24H JET Administration Lactobacillus Acidophilus 1 tablet 06/30/24 09:00 06/30/24 08:34 Acidophilus/[place] Chewable Tablet BY MOUTH 1 tablet DAILY JET Administration Loperamide HCl 2 mg 06/29/24 15:59 Loperamide Hcl 2 Mg Capsule PO QID PRN Diarrhea Loratadine 10 mg 06/29/24 21:00 06/29/24 21:04 Loratadine 10 Mg Tablet PO 10 mg HS JET Administration Memantine 5 mg 06/29/24 21:00 06/30/24 08:36 Memantine 5 Mg Tablet PO 5 mg Q12HR JET Administration Metoprolol Succinate 25 mg 06/30/24 09:00 06/30/24 08:36 Metoprolol Succinate Ext Rel 25 Mg Tabcr PO 25 mg QAM JET Administration Montelukast Sodium 10 mg 06/29/24 21:00 06/29/24 21:03 Montelukast Sodium 10 Mg Tablet PO 10 mg HS JET Administration Multivitamins/Minerals 1 tablet 06/29/24 21:00 06/30/24 08:36 Opti-Gen Tab PO 1 tablet Q12HR JET Administration Olopatadine HCl 1 drop 06/30/24 09:00 06/30/24 08:45 Olopatadine 0.1% Ophth Soln 5 Ml Btl EACH EYE 1 drop DAILY JET Administration Ondansetron HCl 4 mg 06/29/24 11:37 Ondansetron Inj 4 Mg/2 Ml Vial IV PUSH Q4H PRN Nausea Oxybutynin Chloride 10 mg 06/30/24 09:00 06/30/24 08:35 Oxybutynin Chloride Xl 5 Mg Tab.Er.24 PO 10 mg DAILY JET Administration Pantoprazole Sodium 40 mg 06/30/24 09:00 06/30/24 08:36 Pantoprazole 40 Mg Tablet PO 40 mg QAM JET Administration Polyethylene Glycol 17 gm 06/29/24 15:59 Polyethylene Glycol 3350 17 Gm Powd.Pack PO DAILY PRN Constipation Polysaccharide Iron Complex 150 mg 06/30/24 09:00 06/30/24 08:35 Polysaccharide Iron Complex 150 Mg Capsule PO 150 mg DAILY JET Administration Potassium Chloride 20 meq 06/30/24 09:00 06/30/24 08:34 Potassium Chloride 20 Meq Packet (For Liquid) PO 20 meq DAILY JET Administration Pyridoxine HCl 100 mg 06/29/24 21:00 06/30/24 08:35 Pyridoxine Hcl 50 Mg Tablet PO 100 mg Q12HR JET Administration Witch Silvia 1 pad 06/29/24 15:59 Witch Silvia 40 Pads TOPICAL 6XD PRN comfort Zinc Oxide 1 applic 06/29/24 15:59 Zinc Oxide 20% Oint 30 Gm Tube TOPICAL DAILY PRN hemorrhoids Radiology Results: ITS Impressions Chest X-Ray 06/29/24 10:47 IMPRESSION: 1. Small bilateral pleural effusions with associated basilar atelectasis versus pneumonia in the appropriate clinical setting. 2. Cardiomegaly. Head CT 06/29/24 10:56 IMPRESSION: 1. 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 No acute intracranial process. 2. Age-related changes including mild diffuse volume loss and mild scattered white matter hypoattenuation consistent with chronic small vessel ischemic disease. Labs Labs: Laboratory Results - last 24 hr 06/29/24 13:17 Troponin I < 0.012
[2024-06-30] MEDS: FUROSEMIDE 20 MG TABLET PO (15:13)
[2024-06-30] MEDS: DONEPEZIL HCL 5 MG TABLET 10 MG PO (21:33)
[2024-06-30] MEDS: ARIPiprazole 5 MG TABLET PO (21:33)
[2024-06-30] MEDS: ATORVASTATIN 10 MG TABLET PO (21:33)
[2024-06-30] MEDS: LORATADINE 10 MG TABLET PO (21:33)
[2024-06-30] MEDS: MONTELUKAST SODIUM 10 MG TABLET PO (21:33)
[2024-07-01] VITALS (10 sets, daily range): BP systolic 108–123; BP diastolic 60–67; PULSE 83–92; RESP 14–20; TEMP 36.1–36.8; O2SAT 94–98
[2024-07-01 05:05] LABS: Alveolar/Arterial O2 Gradient 66.3 mmHg; Base Excess ABG 7.8 mEq/l (+/-2.0); Fractional Inspired Oxygen 28 %; HCO3 ABG 33.9 mEq/l (22.0-26.0); Oxygen Saturation ABG 94.2 % (95.0-100.0); Oxyhemoglobin 93.8 % THb (90.0-100.0); PCO2 ABG 53.2 mmHg (35.0-45.0); PO2 ABG 70.6 mmHg (80.0-100.0); PO2 FiO2 Ratio Arterial Blood 2.52 %; Total Hemoglobin 14.4 g/dL (12.0-18.0); pH ABG 7.422 (7.350-7.450)
[2024-07-01 05:06] LABS: Device NASAL CANNULA; Modified Allen's Test Pass; Site Drawn RIGHT RADIAL
[2024-07-01 06:03] LABS: Basophils Percent Auto 0.2 % (0.2-1.2); Eosinophils Percent Auto 0.2 % (0-4.4); Hematocrit 43.2 % (37.0-47.0); Hemoglobin 13.1 g/dL (12.0-15.0); Immature Granulocyte Absolute 0.03 K/mm3 (0.00-0.031); Immature Granulocyte Percent A 0.3 % (0-0.5); Lymphocytes Absolute Auto 0.66 K/mm3 (0.9-3.2); Lymphocytes Percent Auto 6.4 % (18.3-44.2); Mean Corpuscular HGB Conc 30.3 g/dl (32-36); Mean Corpuscular Hemoglobin 30.7 pg (26-34); Mean Corpuscular Volume 101.2 fl (80-100); Mean Platelet Volume 9.5 fl (7.4-10.4); Monocytes Absolute Auto 1.1 K/mm3 (0.1-0.6); Monocytes Percent Auto 10.2 % (2.6-8.5); Neutrophils Absolute Auto 8.5 K/mm3 (1.3-6.7); Neutrophils Percent Auto 82.7 % (45.5-73.1); Platelet Count Result 210 k/mm3 (150-375); Red Blood Count 4.27 M/mm3 (4.2-5.4); Red Cell Distribution Width 13.6 % (11.5-14.5); White Blood Count 10.3 K/mm3 (4.5-10.0)
[2024-07-01 06:13] LABS: Alanine Aminotransferase 20 U/L (6-35); Albumin Level 3.4 g/dL (3.5-5.1); Alkaline Phosphatase 96 U/L (38-126); Aspartate Amino Transferase 45 U/L (14-36); Bilirubin,Total 0.5 mg/dL (0.2-1.3); Blood Urea Nitrogen 24 mg/dL (7-17); Calcium 9.2 mg/dL (8.4-10.2); Carbon Dioxide > 40 mmol/L (22-30); Chloride 93 mmol/L (98-107); Estimated CRCL calculation 65 ml/min; Estimated Glomerular Filt Rate > 60; Glucose 113 mg/dL (65-110); Magnesium 2.1 mg/dL (1.6-2.3); Potassium 3.8 mmol/L (3.4-5.0); Sodium 138 mmol/L (137-145)
[2024-07-01] MEDS: PYRIDOXINE HCL 50 MG TABLET 100 MG PO ×2 (08:49→20:50)
[2024-07-01] MEDS: POTASSIUM CHLORIDE 20 MEQ PACKET (FOR LIQUID) PO (08:49)
[2024-07-01] MEDS: EMPAGLIFLOZIN 10 MG TABLET PO (08:50)
[2024-07-01] MEDS: METOPROLOL SUCCINATE EXT REL 25 MG TABCR PO (08:50)
[2024-07-01] MEDS: FUROSEMIDE 40 MG TABLET PO (08:50)
[2024-07-01] MEDS: OPTI-GEN TAB 1 TABLET PO ×2 (08:50→20:50)
[2024-07-01] MEDS: ACIDOPHILUS/BULGARICUS CHEWABLE TABLET 1 TABLET BY MOUTH (08:50)
[2024-07-01] MEDS: oxyBUTYnin CHLORIDE XL 5 MG TAB.ER.24 10 MG PO (08:50)
[2024-07-01] MEDS: busPIRone HCL 10 MG TABLET PO ×3 (08:52→16:36)
[2024-07-01] MEDS: POLYSACCHARIDE IRON COMPLEX 150 MG CAPSULE PO (08:52)
[2024-07-01] MEDS: CITALOPRAM HYDROBROMIDE 10 MG TABLET PO (08:52)
[2024-07-01] MEDS: PANTOPRAZOLE 40 MG TABLET PO (08:52)
[2024-07-01] MEDS: FERROUS SULFATE 325 MG TABLET DR BY MOUTH (08:52)
[2024-07-01] MEDS: FLUTICASONE PROPIONATE 0.05% NA SPR 16 GM BTL (*BKC) 2 SPRAY NASAL (08:53)
[2024-07-01] MEDS: OLOPATADINE 0.1% OPHTH SOLN 5 ML BTL 1 DROP EACH EYE (08:53)
[2024-07-01] MEDS: MEMANTINE 5 MG TABLET PO ×2 (08:57→20:50)
--- NOTE | 2024-07-01 11:07 | P.CDI_ITS ---
CDI Query Clarification Request Encephalopathy has been documented. Please clarify type of encephalopathy: * Metabolic * Toxic * Hepatic * Hypertensive * Other * Unable to Determine The medical chart reflects the following: Plan This is a 83-year-old female alf resident who presents to the ER with complaint of altered mental status and shortness of breath. History is limited. Patient reports no urinary symptoms abdominal pain nausea vomiting cough chest pain. In the ED her vitals were stable oxygen saturation was adequate on 2-3 L oxygen via nasal cannula which is chronic. Laboratory workup revealed WBC of 10.3 hemoglobin 13.9 platelet 215 sodium 145 potassium 5.2 bicarbonate more than 40 BUN 24 creatinine 0.6 blood glucose 125 lactate normal at 1.1 troponin negative less than 0.012 BNP elevated at 756 procalcitonin 0.1 urinalysis positive for UTI. Influenza RSV COVID swab was negative. ABG 7.35/77/7 . Chest x-ray with small bilateral pleural effusion with that associated bibasilar atelectasis versus pneumonia in the appropriate clinical setting with cardiomegaly. 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 Age-related changes including deep mild diffuse volume loss and mild scattered white matter hypoattenuation consistent with chronic small-vessel ischemic disease noted. EKG showed sinus rhythm with nonspecific ST-T changes and intraventricular conduction delay Patient received IV fluids with some improvement in her mental status. She is also given IV antibiotics for UTI and is admitted for further treatment. Acute encephalopathy UTI Underlying dementia Chronic respiratory failure with hypoxia and hypercapnia on home oxygen 2-3 L via nasal cannula at baseline. She was seen by Pulmonary in the past and has recommended noninvasive home ventilator unsure if she is currently on this will check with alf. COPD Anxiety depression Hypertension Congestive heart failure echo 09/2022 with normal EF no significant valvular abnormality History of brain bleed Schizoaffective disorder/anxiety/depression Status post defibrillator placement Proximal atrial fibrillation Overactive bladder Cardiomyopathy Status post IVC filter placement Hyperlipidemia History of DVT/PE not currently on any anticoagulation likely due to fall and history of brain bleed group home resident Code status do not resuscitate DVT prophylaxis Lovenox <Ping Gutiérrez RN - Last Filed: 07/01/24 11:08> Provider Comments Metabolic encephalopathy <Aaron Floyd MD - Last Filed: 07/02/24 17:23>
--- NOTE | 2024-07-01 11:18 | PM.IMPN ---
Progress Note: A&P Assessment and Plan (1) Psychiatric illness: Code(s): F99 - Mental disorder, not otherwise specified Status: Acute (2) Hypertension: Code(s): I10 - Essential (primary) hypertension Status: Acute (3) Congestive heart failure: Code(s): I50.9 - Heart failure, unspecified Status: Acute (4) Coronary artery disease: Code(s): I25.10 - Atherosclerotic heart disease of [place] coronary artery without angina pectoris Status: Acute (5) Paroxysmal atrial fibrillation: Code(s): I48.0 - Paroxysmal atrial fibrillation Status: Acute (6) Hx of ventricular tachycardia: Code(s): Z86.79 - Personal history of other diseases of the circulatory system Status: Acute (7) History of implantable cardioverter-defibrillator (ICD) placement: Code(s): Z95.810 - Presence of automatic (implantable) cardiac defibrillator Status: Acute (8) Hx of deep vein thrombophlebitis of lower extremity: Code(s): Z86.72 - Personal history of thrombophlebitis Status: Acute (9) GERD (gastroesophageal reflux disease): Code(s): K21.9 - Gastro-esophageal reflux disease without esophagitis Status: Acute (10) UTI (urinary tract infection): Code(s): N39.0 - Urinary tract infection, site not specified Status: Acute (11) Altered mental status: Code(s): R41.82 - Altered mental status, unspecified Status: Acute (12) Dementia: Code(s): F03.90 - Unspecified dementia, unspecified severity, without behavioral disturbance, psychotic disturbance, mood disturbance, and anxiety Status: Acute (13) Chronic respiratory failure with hypoxia and hypercapnia: Code(s): J96.11 - Chronic respiratory failure with hypoxia; J96.12 - Chronic respiratory failure with hypercapnia Status: Acute (14) Chronic obstructive pulmonary disease: Code(s): J44.9 - Chronic obstructive pulmonary disease, unspecified Status: Acute Plan This is a 83-year-old female jail resident who presents to the ER with complaint of altered mental status and shortness of breath. History is limited. Patient reports no urinary symptoms abdominal pain nausea vomiting cough chest pain. In the ED her vitals were stable oxygen saturation was adequate on 2-3 L oxygen via nasal cannula which is chronic. Laboratory workup revealed WBC of 10.3 hemoglobin 13.9 platelet 215 sodium 145 potassium 5.2 bicarbonate more than 40 BUN 24 creatinine 0.6 blood glucose 125 lactate normal at 1.1 troponin negative less than 0.012 BNP elevated at 756 procalcitonin 0.1 urinalysis positive for UTI. Influenza RSV COVID swab was negative. ABG 7.35/77/7 . Chest x-ray with small bilateral pleural effusion with that associated bibasilar atelectasis versus pneumonia in the appropriate clinical setting with cardiomegaly. 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 Age-related changes including deep mild diffuse volume loss and mild scattered white matter hypoattenuation consistent with chronic small-vessel ischemic disease noted. EKG showed sinus rhythm with nonspecific ST-T changes and intraventricular conduction delay Patient received IV fluids with some improvement in her mental status. She is also given IV antibiotics for UTI and is admitted for further treatment. Acute encephalopathy UTI Underlying dementia Chronic respiratory failure with hypoxia and hypercapnia on home oxygen 2-3 L via nasal cannula at baseline. She was seen by Pulmonary in the past and has recommended noninvasive home ventilator. this is been discontinued as she has not been able to tolerate. With her CO2 in 78 will restart here tonight. However she did not tolerate AVAPS. And refused to use it. ABG this a.m. with lowered pCO2. 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 Did not wear AVAPS last night. ABG reviewed this a.m.. Remains confused similar Review of Systems Review of Systems: All systems reviewed & are unremarkable except as noted in HPI and below Exam Narrative: GENERAL: Well-appearing, well-nourished, confused and in no acute distress. HEAD: Normocephalic, atraumatic. EYES: PERRLA and EOMI. ENT: Nares clear, no rhinorrhea or epistaxis. Mucous membranes moist. NECK: Supple. CHEST: Clear to auscultation. No respiratory distress. HEART: Regular rate and rhythm. No murmur heard. Normal peripheral pulses. ABDOMEN: Soft, nontender, nondistended, normal active bowel sounds. EXTREMITIES: Normal range of motion. No edema. SKIN: Warm, dry, no rash. NEURO: No focal deficits. Alert and oriented x 2. PSYCH: Normal mood and affect. Objective Data Vital Signs Vital Signs: Vital Signs - 24 hr 06/30/24 14:00 06/30/24 14:13 06/30/24 14:13 Temperature 97.4 F L Pulse Rate 89 100 Respiratory Rate 24 H 20 Blood Pressure 109/62 Pulse Oximetry 98 95 Oxygen Delivery High Flow Nasal Cannula Oxygen Flow Rate 2 Fraction of Inspired Oxygen 28 06/30/24 14:23 06/30/24 20:00 06/30/24 20:40 Temperature Pulse Rate 105 H 102 H Respiratory Rate 20 20 Blood Pressure Pulse Oximetry 93 Oxygen Delivery High Flow Nasal Cannula Oxygen Flow Rate 2 Fraction of Inspired Oxygen 06/30/24 20:40 06/30/24 20:50 06/30/24 21:12 Temperature 98.6 F Pulse Rate 101 H 92 Respiratory Rate 18 Blood Pressure 113/61 Pulse Oximetry 94 93 Oxygen Delivery High Flow Nasal Cannula Oxygen Flow Rate 2 Fraction of Inspired Oxygen 07/01/24 05:08 07/01/24 08:32 07/01/24 08:50 Temperature 98.3 F Pulse Rate 92 90 Respiratory Rate 14 Blood Pressure 110/60 Pulse Oximetry 95 Oxygen Delivery Nasal Cannula Oxygen Flow Rate 2 Fraction of Inspired Oxygen 07/01/24 09:31 Temperature Pulse Rate Respiratory Rate Blood Pressure Pulse Oximetry Oxygen Delivery Nasal Cannula Oxygen Flow Rate 2 Fraction of Inspired Oxygen Intake/Output Intake/Output: Intake & Output 06/28/24 06/29/24 06/30/24 07/01/24 23:59 23:59 23:59 23:59 Intake Total 670 1720 550 Output Total 275 Balance 670 1720 275 Meds/Results Medications: Active Medications Generic Name Dose Route Start Last Admin Trade Name Freq PRN Reason Stop Dose Admin Acetaminophen 1,000 mg 06/29/24 15:59 06/29/24 21:06 Acetaminophen 500 Mg Tablet PO 1,000 mg Q6H PRN Administration Pain Albuterol 2 puff 06/29/24 15:59 Albuterol Sulfate (*Sp) Aerosol 1 Puff INHALATION Q4HRT PRN Shortness Of Breath Albuterol/Ipratropium 3 ml 06/29/24 14:00 07/01/24 08:47 Ipratropium 0.5 Mg/Albuterol Sulfate 2.5 Mg Ampul.Neb 3 Ml INHALATION Not Given Q6HRT [facility] Aripiprazole 5 mg 06/29/24 21:00 06/30/24 21:33 Aripiprazole 5 Mg Tablet PO 5 mg HS [facility] Administration Artificial Tears 1 drop 06/29/24 21:00 06/30/24 21:35 Artificial Tears Ophth Soln 15 Ml Bottle EACH EYE Not Given HS [facility] Atorvastatin Calcium 10 mg 06/29/24 21:00 06/30/24 21:33 Atorvastatin 10 Mg Tablet PO 10 mg HS [facility] Administration Azelastine HCl 2 spray 06/29/24 15:59 Azelastine Hcl Nasal 0.1% 137 Mcg/Spr 30 Ml Btl NASAL BID PRN Dry Nasal Passages Buspirone HCl 10 mg 06/29/24 17:00 07/01/24 08:52 Buspirone Hcl 10 Mg Tablet PO 10 mg TID [facility] Administration Citalopram Hydrobromide 10 mg 06/30/24 09:00 07/01/24 08:52 Citalopram Hydrobromide 10 Mg Tablet PO 10 mg DAILY JET Administration Cyanocobalamin 1,000 mcg 07/01/24 16:00 Cyanocobalamin 1,000 Mcg Tablet PO MoWeFr [facility] Docusate Sodium 100 mg 06/29/24 15:59 Docusate Sodium 100 Mg Capsule PO BID PRN to soften stools while hemorrhoids flared up Donepezil HCl 10 mg 06/29/24 21:00 06/30/24 21:33 Donepezil Hcl 5 Mg Tablet PO 10 mg HS [facility] Administration Empagliflozin 10 mg 06/30/24 09:00 07/01/24 08:50 Empagliflozin 10 Mg Tablet PO 10 mg DAILY JET Administration Ergocalciferol 50,000 units 07/03/24 09:00 Ergocalciferol 50,000 Units Capsule PO WEEKLY [facility] Ferrous Sulfate 325 mg 06/30/24 09:00 07/01/24 08:52 Ferrous Sulfate [address] BY MOUTH 325 mg DAILY JET Administration Fluticasone Propionate 2 spray 06/30/24 09:00 07/01/24 08:53 Fluticasone Propionate 0.05% Na Spr 16 Gm Btl (*Bkc) NASAL 2 spray DAILY JET Administration Furosemide 40 mg 06/30/24 09:00 07/01/24 08:50 Furosemide 40 Mg Tablet PO 40 mg DAILY JET Administration Furosemide 20 mg 06/30/24 14:00 06/30/24 15:13 Furosemide 20 Mg Tablet PO 20 mg 1400 JET Administration Levofloxacin/Dextrose 750 mg in 150 mls @ 100 mls/hr 06/30/24 12:00 06/30/24 13:04 Levaquin 750 Mg/D5w 150 Ml IVPB Infused Q24H JET Infusion Lactobacillus Acidophilus 1 tablet 06/30/24 09:00 07/01/24 08:50 Acidophilus/[place] Chewable Tablet BY MOUTH 1 tablet DAILY JET Administration Loperamide HCl 2 mg 06/29/24 15:59 Loperamide Hcl 2 Mg Capsule PO QID PRN Diarrhea Loratadine 10 mg 06/29/24 21:00 06/30/24 21:33 Loratadine 10 Mg Tablet PO 10 mg HS JET Administration Memantine 5 mg 06/29/24 21:00 07/01/24 08:57 Memantine 5 Mg Tablet PO 5 mg Q12HR JET Administration Metoprolol Succinate 25 mg 06/30/24 09:00 07/01/24 08:50 Metoprolol Succinate Ext Rel 25 Mg Tabcr PO 25 mg QAM JET Administration Montelukast Sodium 10 mg 06/29/24 21:00 06/30/24 21:33 Montelukast Sodium 10 Mg Tablet PO 10 mg HS JET Administration Multivitamins/Minerals 1 tablet 06/29/24 21:00 07/01/24 08:50 Opti-Gen Tab PO 1 tablet Q12HR JET Administration Olopatadine HCl 1 drop 06/30/24 09:00 07/01/24 08:53 Olopatadine 0.1% Ophth Soln 5 Ml Btl EACH EYE 1 drop DAILY JET Administration Ondansetron HCl 4 mg 06/29/24 11:37 Ondansetron Inj 4 Mg/2 Ml Vial IV PUSH Q4H PRN Nausea Oxybutynin Chloride 10 mg 06/30/24 09:00 07/01/24 08:50 Oxybutynin Chloride Xl 5 Mg Tab.Er.24 PO 10 mg DAILY JET Administration Pantoprazole Sodium 40 mg 06/30/24 09:00 07/01/24 08:52 Pantoprazole 40 Mg Tablet PO 40 mg QAM JET Administration Polyethylene Glycol 17 gm 06/29/24 15:59 Polyethylene Glycol 3350 17 Gm Powd.Pack PO DAILY PRN Constipation Polysaccharide Iron Complex 150 mg 06/30/24 09:00 07/01/24 08:52 Polysaccharide Iron Complex 150 Mg Capsule PO 150 mg DAILY JET Administration Potassium Chloride 20 meq 06/30/24 09:00 07/01/24 08:49 Potassium Chloride 20 Meq Packet (For Liquid) PO 20 meq DAILY JET Administration Pyridoxine HCl 100 mg 06/29/24 21:00 07/01/24 08:49 Pyridoxine Hcl 50 Mg Tablet PO 100 mg Q12HR JET Administration Witch Silvia 1 pad 06/29/24 15:59 Witch Silvia 40 Pads TOPICAL 6XD PRN comfort Zinc Oxide 1 applic 06/29/24 15:59 Zinc Oxide 20% Oint 30 Gm Tube TOPICAL DAILY PRN hemorrhoids Radiology Results: ITS Impressions Chest X-Ray 06/29/24 10:47 IMPRESSION: 1. Small bilateral pleural effusions with associated basilar atelectasis versus pneumonia in the appropriate clinical setting. 2. Cardiomegaly. Head CT 06/29/24 10:56 IMPRESSION: 1. 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 No acute intracranial process. 2. Age-related changes including mild diffuse volume loss and mild scattered white matter hypoattenuation consistent with chronic small vessel ischemic disease. Labs Labs: Laboratory Results - last 24 hr 07/01/24 07/01/24 04:52 05:36 WBC 10.3 H RBC 4.27 Hgb 13.1 Hct 43.2 MCV 101.2 H MCH 30.7 MCHC 30.3 L RDW 13.6 Plt Count 210 MPV 9.5 Immature Gran % (Auto) 0.3 Neut % (Auto) 82.7 H Lymph % (Auto) 6.4 L [place] % (Auto) 10.2 H Eos % (Auto) 0.2 Baso % (Auto) 0.2 Lymph # (Auto) 0.66 L [place] # (Auto) 1.1 H Eos # (Auto) 0.0 Baso # (Auto) 0.0 Abs Immat Gran (auto) 0.03 Absolute Neuts (auto) 8.5 H Absolute Nucleated RBC 0.000 Nucleated RBC % 0.0 Puncture Site Right radial ABG pH 7.422 ABG pCO2 53.2 H ABG pO2 70.6 L ABG PO2/FiO2 Ratio 2.52 ABG HCO3 33.9 H ABG O2 Saturation 94.2 L ABG O2 Content 19.0 ABG Base Excess 7.8 A-a Gradient 66.3 Oxyhemoglobin 93.8 Total Hemoglobin 14.4 O2 Delivery Device Nasal cannula O2 Liters/Min 2.0 FiO2 28 Sodium 138 Potassium 3.8 Chloride 93 L Carbon Dioxide > 40 H Anion Gap BUN 24 H Creatinine 0.54 L Estim Creat Clear Calc 65 Estimated GFR > 60 Glucose 113 H Calcium 9.2 Magnesium 2.1 Total Bilirubin 0.5 AST 45 H ALT 20 Alkaline Phosphatase 96 Total Protein 6.0 L Albumin 3.4 L
[2024-07-01] MEDS: levoFLOXacin 750 MG/D5W 150 ML 750 MG/150 ML BAG 100 MG IVPB (12:12)
[2024-07-01] MEDS: IPRATROPIUM 0.5 MG/ALBUTEROL SULFATE 2.5 MG AMPUL.NEB 3 ML INHALATION ×2 (14:02→19:36)
[2024-07-01] MEDS: cefTRIAXone 2 GM/NS 100 ML 2 GM/100 ML BAG IVPB (16:36)
[2024-07-01] MEDS: FUROSEMIDE 20 MG TABLET PO (16:37)
[2024-07-01] MEDS: CYANOCOBALAMIN 1,000 MCG TABLET 1000 MCG PO (16:39)
[2024-07-01] MEDS: ARIPiprazole 5 MG TABLET PO (20:50)
[2024-07-01] MEDS: MONTELUKAST SODIUM 10 MG TABLET PO (20:50)
[2024-07-01] MEDS: ATORVASTATIN 10 MG TABLET PO (20:50)
[2024-07-01] MEDS: DONEPEZIL HCL 5 MG TABLET 10 MG PO (20:50)
[2024-07-01] MEDS: LORATADINE 10 MG TABLET PO (20:50)
[2024-07-01] MEDS: ARTIFICIAL TEARS OPHTH SOLN 15 ML BOTTLE 1 DROP EACH EYE (20:51)
[2024-07-02] VITALS (17 sets, daily range): BP systolic 102–117; BP diastolic 52–69; PULSE 75–97; RESP 16–20; TEMP 35.9–36.3; O2SAT 92–98
[2024-07-02] MEDS: IPRATROPIUM 0.5 MG/ALBUTEROL SULFATE 2.5 MG AMPUL.NEB 3 ML INHALATION ×4 (02:16→19:48)
[2024-07-02 05:50] LABS: Basophils Percent Auto 0.4 % (0.2-1.2); Eosinophils Absolute Auto 0.2 K/mm3 (0-0.3); Eosinophils Percent Auto 2.8 % (0-4.4); Hemoglobin 13.3 g/dL (12.0-15.0); Immature Granulocyte Absolute 0.02 K/mm3 (0.00-0.031); Immature Granulocyte Percent A 0.4 % (0-0.5); Lymphocytes Percent Auto 22.9 % (18.3-44.2); Mean Corpuscular HGB Conc 30.2 g/dl (32-36); Mean Corpuscular Hemoglobin 30.8 pg (26-34); Mean Corpuscular Volume 101.9 fl (80-100); Mean Platelet Volume 9.4 fl (7.4-10.4); Monocytes Absolute Auto 0.6 K/mm3 (0.1-0.6); Monocytes Percent Auto 10.1 % (2.6-8.5); Neutrophils Absolute Auto 3.6 K/mm3 (1.3-6.7); Neutrophils Percent Auto 63.4 % (45.5-73.1); Platelet Count Result 214 k/mm3 (150-375); Red Blood Count 4.32 M/mm3 (4.2-5.4); Red Cell Distribution Width 13.7 % (11.5-14.5); White Blood Count 5.7 K/mm3 (4.5-10.0)
[2024-07-02 06:06] LABS: Alanine Aminotransferase 21 U/L (6-35); Albumin Level 3.2 g/dL (3.5-5.1); Alkaline Phosphatase 84 U/L (38-126); Aspartate Amino Transferase 37 U/L (14-36); Bilirubin,Total 0.3 mg/dL (0.2-1.3); Blood Urea Nitrogen 24 mg/dL (7-17); Calcium 8.7 mg/dL (8.4-10.2); Carbon Dioxide > 40 mmol/L (22-30); Chloride 94 mmol/L (98-107); Estimated CRCL calculation 60 ml/min; Estimated Glomerular Filt Rate > 60; Glucose 92 mg/dL (65-110); Magnesium 2.4 mg/dL (1.6-2.3); Potassium 3.6 mmol/L (3.4-5.0); Sodium 140 mmol/L (137-145)
[2024-07-02] MEDS: POTASSIUM CHLORIDE 20 MEQ PACKET (FOR LIQUID) PO (08:25)
[2024-07-02] MEDS: EMPAGLIFLOZIN 10 MG TABLET PO (08:28)
[2024-07-02] MEDS: MEMANTINE 5 MG TABLET PO ×2 (08:28→21:32)
[2024-07-02] MEDS: oxyBUTYnin CHLORIDE XL 5 MG TAB.ER.24 10 MG PO (08:29)
[2024-07-02] MEDS: FERROUS SULFATE 325 MG TABLET DR BY MOUTH (08:29)
[2024-07-02] MEDS: PYRIDOXINE HCL 50 MG TABLET 100 MG PO ×2 (08:29→21:32)
[2024-07-02] MEDS: FUROSEMIDE 40 MG TABLET PO (08:30)
[2024-07-02] MEDS: PANTOPRAZOLE 40 MG TABLET PO (08:30)
[2024-07-02] MEDS: CITALOPRAM HYDROBROMIDE 10 MG TABLET PO (08:31)
[2024-07-02] MEDS: OPTI-GEN TAB 1 TABLET PO ×2 (08:31→21:32)
[2024-07-02] MEDS: ACIDOPHILUS/BULGARICUS CHEWABLE TABLET 1 TABLET BY MOUTH (08:31)
[2024-07-02] MEDS: busPIRone HCL 10 MG TABLET PO ×3 (08:31→16:34)
[2024-07-02] MEDS: METOPROLOL SUCCINATE EXT REL 25 MG TABCR PO (08:31)
[2024-07-02] MEDS: POLYSACCHARIDE IRON COMPLEX 150 MG CAPSULE PO (08:31)
[2024-07-02] MEDS: FLUTICASONE PROPIONATE 0.05% NA SPR 16 GM BTL (*BKC) 2 SPRAY NASAL (08:32)
[2024-07-02] MEDS: OLOPATADINE 0.1% OPHTH SOLN 5 ML BTL 1 DROP EACH EYE (08:33)
--- NOTE | 2024-07-02 12:48 | PM.IMPN ---
Progress Note: A&P Assessment and Plan (1) Psychiatric illness: Code(s): F99 - Mental disorder, not otherwise specified Status: Acute (2) Hypertension: Code(s): I10 - Essential (primary) hypertension Status: Acute (3) Congestive heart failure: Code(s): I50.9 - Heart failure, unspecified Status: Acute (4) Coronary artery disease: Code(s): I25.10 - Atherosclerotic heart disease of [place] coronary artery without angina pectoris Status: Acute (5) Paroxysmal atrial fibrillation: Code(s): I48.0 - Paroxysmal atrial fibrillation Status: Acute (6) Hx of ventricular tachycardia: Code(s): Z86.79 - Personal history of other diseases of the circulatory system Status: Acute (7) History of implantable cardioverter-defibrillator (ICD) placement: Code(s): Z95.810 - Presence of automatic (implantable) cardiac defibrillator Status: Acute (8) Hx of deep vein thrombophlebitis of lower extremity: Code(s): Z86.72 - Personal history of thrombophlebitis Status: Acute (9) GERD (gastroesophageal reflux disease): Code(s): K21.9 - Gastro-esophageal reflux disease without esophagitis Status: Acute (10) UTI (urinary tract infection): Code(s): N39.0 - Urinary tract infection, site not specified Status: Acute (11) Altered mental status: Code(s): R41.82 - Altered mental status, unspecified Status: Acute (12) Dementia: Code(s): F03.90 - Unspecified dementia, unspecified severity, without behavioral disturbance, psychotic disturbance, mood disturbance, and anxiety Status: Acute (13) Chronic respiratory failure with hypoxia and hypercapnia: Code(s): J96.11 - Chronic respiratory failure with hypoxia; J96.12 - Chronic respiratory failure with hypercapnia Status: Acute (14) Chronic obstructive pulmonary disease: Code(s): J44.9 - Chronic obstructive pulmonary disease, unspecified Status: Acute Plan This is a 83-year-old female detention resident who presents to the ER with complaint of altered mental status and shortness of breath. History is limited. Patient reports no urinary symptoms abdominal pain nausea vomiting cough chest pain. In the ED her vitals were stable oxygen saturation was adequate on 2-3 L oxygen via nasal cannula which is chronic. Laboratory workup revealed WBC of 10.3 hemoglobin 13.9 platelet 215 sodium 145 potassium 5.2 bicarbonate more than 40 BUN 24 creatinine 0.6 blood glucose 125 lactate normal at 1.1 troponin negative less than 0.012 BNP elevated at 756 procalcitonin 0.1 urinalysis positive for UTI. Influenza RSV COVID swab was negative. ABG 7.35/77/7 . Chest x-ray with small bilateral pleural effusion with that associated bibasilar atelectasis versus pneumonia in the appropriate clinical setting with cardiomegaly. 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 Age-related changes including deep mild diffuse volume loss and mild scattered white matter hypoattenuation consistent with chronic small-vessel ischemic disease noted. EKG showed sinus rhythm with nonspecific ST-T changes and intraventricular conduction delay Patient received IV fluids with some improvement in her mental status. She is also given IV antibiotics for UTI and is admitted for further treatment. Acute encephalopathy UTI urine culture resistant to levofloxacin has been switched to ceftriaxone will switch to Bactrim in a.m to Complete 7 days course Underlying dementia Chronic respiratory failure with hypoxia and hypercapnia on home oxygen 2-3 L via nasal cannula at baseline. She was seen by Pulmonary in the past and has recommended noninvasive home ventilator. this is been discontinued as she has not been able to tolerate. With her CO2 in 78 will restart here tonight. However she did not tolerate AVAPS. And refused to use it. ABG this a.m. with lowered pCO2 without use of AVAPS. 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 Feeling better. Did not use BiPAP. Patient confused has underlying dementia. More fluent in her speech today Review of Systems Review of Systems: All systems reviewed & are unremarkable except as noted in HPI and below Exam Narrative: GENERAL: Well-appearing, well-nourished, confused and in no acute distress. HEAD: Normocephalic, atraumatic. EYES: PERRLA and EOMI. ENT: Nares clear, no rhinorrhea or epistaxis. Mucous membranes moist. NECK: Supple. CHEST: Clear to auscultation. No respiratory distress. HEART: Regular rate and rhythm. No murmur heard. Normal peripheral pulses. ABDOMEN: Soft, nontender, nondistended, normal active bowel sounds. EXTREMITIES: Normal range of motion. No edema. SKIN: Warm, dry, no rash. NEURO: No focal deficits. Alert and oriented x 2. PSYCH: Normal mood and affect. Objective Data Vital Signs Vital Signs: Vital Signs - 24 hr 07/01/24 14:00 07/01/24 14:03 07/01/24 14:03 Temperature 97 F L Pulse Rate 88 85 85 Respiratory Rate 16 20 20 Blood Pressure 108/67 Pulse Oximetry 98 94 Oxygen Delivery Nasal Cannula Oxygen Flow Rate 2 07/01/24 14:09 07/01/24 19:36 07/01/24 19:38 Temperature Pulse Rate 83 83 83 Respiratory Rate 20 20 Blood Pressure Pulse Oximetry 95 Oxygen Delivery Nasal Cannula Oxygen Flow Rate 2 07/01/24 19:43 07/01/24 21:31 07/02/24 02:16 Temperature 97 F L Pulse Rate 83 86 87 Respiratory Rate 20 20 20 Blood Pressure 123/63 Pulse Oximetry 97 Oxygen Delivery Oxygen Flow Rate 07/02/24 02:18 07/02/24 02:22 07/02/24 02:23 Temperature Pulse Rate 79 Respiratory Rate 20 Blood Pressure Pulse Oximetry 98 98 Oxygen Delivery Nasal Cannula Nasal Cannula Oxygen Flow Rate 2 1 07/02/24 05:44 07/02/24 07:34 07/02/24 07:34 Temperature 96.7 F L Pulse Rate 88 79 Respiratory Rate 20 16 Blood Pressure 117/69 Pulse Oximetry 92 93 Oxygen Delivery Nasal Cannula Oxygen Flow Rate 2 07/02/24 07:43 07/02/24 08:00 07/02/24 08:31 Temperature Pulse Rate 82 97 97 Respiratory Rate 16 Blood Pressure Pulse Oximetry 93 Oxygen Delivery High Flow Therapy with Na Oxygen Flow Rate 2 Intake/Output Intake/Output: Intake & Output 06/29/24 06/30/24 07/01/24 07/02/24 23:59 23:59 23:59 23:59 Intake Total 670 1720 1780 240 Output Total 975 150 Balance 670 1720 805 90 Meds/Results Medications: Active Medications Generic Name Dose Route Start Last Admin Trade Name Freq PRN Reason Stop Dose Admin Acetaminophen 1,000 mg 06/29/24 15:59 06/29/24 21:06 Acetaminophen 500 Mg Tablet PO 1,000 mg Q6H PRN Administration Pain Albuterol 2 puff 06/29/24 15:59 Albuterol Sulfate (*Sp) Aerosol 1 Puff INHALATION Q4HRT PRN Shortness Of Breath Albuterol/Ipratropium 3 ml 06/29/24 14:00 07/02/24 07:33 Ipratropium 0.5 Mg/Albuterol Sulfate 2.5 Mg Ampul.Neb 3 Ml INHALATION 3 ml Q6HRT JET Administration Aripiprazole 5 mg 06/29/24 21:00 07/01/24 20:50 Aripiprazole 5 Mg Tablet PO 5 mg HS JET Administration Artificial Tears 1 drop 06/29/24 21:00 07/01/24 20:51 Artificial Tears Ophth Soln 15 Ml Bottle EACH EYE 1 drop HS JET Administration Atorvastatin Calcium 10 mg 06/29/24 21:00 07/01/24 20:50 Atorvastatin 10 Mg Tablet PO 10 mg HS JET Administration Azelastine HCl 2 spray 06/29/24 15:59 Azelastine Hcl Nasal 0.1% 137 Mcg/Spr 30 Ml Btl NASAL BID PRN Dry Nasal Passages Buspirone HCl 10 mg 06/29/24 17:00 07/02/24 12:10 Buspirone Hcl 10 Mg Tablet PO 10 mg TID JET Administration Citalopram Hydrobromide 10 mg 06/30/24 09:00 07/02/24 08:31 Citalopram Hydrobromide 10 Mg Tablet PO 10 mg DAILY JET Administration Cyanocobalamin 1,000 mcg 07/01/24 16:00 07/01/24 16:39 Cyanocobalamin 1,000 Mcg Tablet PO 1,000 mcg MoWeFr JET Administration Docusate Sodium 100 mg 06/29/24 15:59 Docusate Sodium 100 Mg Capsule PO BID PRN to soften stools while hemorrhoids flared up Donepezil HCl 10 mg 06/29/24 21:00 07/01/24 20:50 Donepezil Hcl 5 Mg Tablet PO 10 mg HS JET Administration Empagliflozin 10 mg 06/30/24 09:00 07/02/24 08:28 Empagliflozin 10 Mg Tablet PO 10 mg DAILY JET Administration Ergocalciferol 50,000 units 07/03/24 09:00 Ergocalciferol 50,000 Units Capsule PO WEEKLY JET Ferrous Sulfate 325 mg 06/30/24 09:00 07/02/24 08:29 Ferrous Sulfate [address] BY MOUTH 325 mg DAILY JET Administration Fluticasone Propionate 2 spray 06/30/24 09:00 07/02/24 08:32 Fluticasone Propionate 0.05% Na Spr 16 Gm Btl (*Bkc) NASAL 2 spray DAILY JET Administration Furosemide 40 mg 06/30/24 09:00 07/02/24 08:30 Furosemide 40 Mg Tablet PO 40 mg DAILY JET Administration Furosemide 20 mg 06/30/24 14:00 07/01/24 16:37 Furosemide 20 Mg Tablet PO 20 mg 1400 JET Administration Ceftriaxone Sodium 2 gm in 100 mls @ 200 mls/hr 07/01/24 15:00 07/01/24 17:06 Rocephin 2 Gm/Ns 100 Ml IVPB 07/02/24 23:59 Infused Q24H [facility] Infusion Lactobacillus Acidophilus 1 tablet 06/30/24 09:00 07/02/24 08:31 Acidophilus/[place] Chewable Tablet BY MOUTH 1 tablet DAILY JET Administration Loperamide HCl 2 mg 06/29/24 15:59 Loperamide Hcl 2 Mg Capsule PO QID PRN Diarrhea Loratadine 10 mg 06/29/24 21:00 07/01/24 20:50 Loratadine 10 Mg Tablet PO 10 mg HS JET Administration Memantine 5 mg 06/29/24 21:00 07/02/24 08:28 Memantine 5 Mg Tablet PO 5 mg Q12HR JET Administration Metoprolol Succinate 25 mg 06/30/24 09:00 07/02/24 08:31 Metoprolol Succinate Ext Rel 25 Mg Tabcr PO 25 mg QAM JET Administration Montelukast Sodium 10 mg 06/29/24 21:00 07/01/24 20:50 Montelukast Sodium 10 Mg Tablet PO 10 mg HS JET Administration Multivitamins/Minerals 1 tablet 06/29/24 21:00 07/02/24 08:31 Opti-Gen Tab PO 1 tablet Q12HR JET Administration Olopatadine HCl 1 drop 06/30/24 09:00 07/02/24 08:33 Olopatadine 0.1% Ophth Soln 5 Ml Btl EACH EYE 1 drop DAILY JET Administration Ondansetron HCl 4 mg 06/29/24 11:37 Ondansetron Inj 4 Mg/2 Ml Vial IV PUSH Q4H PRN Nausea Oxybutynin Chloride 10 mg 06/30/24 09:00 07/02/24 08:29 Oxybutynin Chloride Xl 5 Mg Tab.Er.24 PO 10 mg DAILY JET Administration Pantoprazole Sodium 40 mg 06/30/24 09:00 07/02/24 08:30 Pantoprazole 40 Mg Tablet PO 40 mg QAM JET Administration Polyethylene Glycol 17 gm 06/29/24 15:59 Polyethylene Glycol 3350 17 Gm Powd.Pack PO DAILY PRN Constipation Polysaccharide Iron Complex 150 mg 06/30/24 09:00 07/02/24 08:31 Polysaccharide Iron Complex 150 Mg Capsule PO 150 mg DAILY JET Administration Potassium Chloride 20 meq 06/30/24 09:00 07/02/24 08:25 Potassium Chloride 20 Meq Packet (For Liquid) PO 20 meq DAILY JET Administration Pyridoxine HCl 100 mg 06/29/24 21:00 07/02/24 08:29 Pyridoxine Hcl 50 Mg Tablet PO 100 mg Q12HR JET Administration Trimethoprim/Sulfamethoxazole 1 tab 07/03/24 11:00 Sulfamethoxazole/Trimethoprim 800/160 Mg Ds Tablet PO 07/07/24 21:01 Q12HR JET Witch Silvia 1 pad 06/29/24 15:59 Witch Silvia 40 Pads TOPICAL 6XD PRN comfort Zinc Oxide 1 applic 06/29/24 15:59 Zinc Oxide 20% Oint 30 Gm Tube TOPICAL DAILY PRN hemorrhoids Radiology Results: ITS Impressions Chest X-Ray 06/29/24 10:47 IMPRESSION: 1. Small bilateral pleural effusions with associated basilar atelectasis versus pneumonia in the appropriate clinical setting. 2. Cardiomegaly. Head CT 06/29/24 10:56 IMPRESSION: 1. 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 No acute intracranial process. 2. Age-related changes including mild diffuse volume loss and mild scattered white matter hypoattenuation consistent with chronic small vessel ischemic disease. Labs Labs: Laboratory Results - last 24 hr 07/02/24 05:01 WBC 5.7 RBC 4.32 Hgb 13.3 Hct 44.0 MCV 101.9 H MCH 30.8 MCHC 30.2 L RDW 13.7 Plt Count 214 MPV 9.4 Immature Gran % (Auto) 0.4 Neut % (Auto) 63.4 Lymph % (Auto) 22.9 [place] % (Auto) 10.1 H Eos % (Auto) 2.8 Baso % (Auto) 0.4 Lymph # (Auto) 1.30 [place] # (Auto) 0.6 Eos # (Auto) 0.2 Baso # (Auto) 0.0 Abs Immat Gran (auto) 0.02 Absolute Neuts (auto) 3.6 Absolute Nucleated RBC 0.000 Nucleated RBC % 0.0 Sodium 140 Potassium 3.6 Chloride 94 L Carbon Dioxide > 40 H Anion Gap BUN 24 H Creatinine 0.59 L Estim Creat Clear Calc 60 Estimated GFR > 60 Glucose 92 Calcium 8.7 Magnesium 2.4 H Total Bilirubin 0.3 AST 37 H ALT 21 Alkaline Phosphatase 84 Total Protein 6.0 L Albumin 3.2 L
[2024-07-02] MEDS: FUROSEMIDE 20 MG TABLET PO (13:14)
[2024-07-02] MEDS: cefTRIAXone 2 GM/NS 100 ML 2 GM/100 ML BAG IVPB (14:36)
[2024-07-02] MEDS: ARTIFICIAL TEARS OPHTH SOLN 15 ML BOTTLE 1 DROP EACH EYE (21:32)
[2024-07-02] MEDS: LORATADINE 10 MG TABLET PO (21:32)
[2024-07-02] MEDS: DONEPEZIL HCL 5 MG TABLET 10 MG PO (21:32)
[2024-07-02] MEDS: ATORVASTATIN 10 MG TABLET PO (21:32)
[2024-07-02] MEDS: ARIPiprazole 5 MG TABLET PO (21:32)
[2024-07-02] MEDS: MONTELUKAST SODIUM 10 MG TABLET PO (21:32)
[2024-07-03] VITALS (12 sets, daily range): BP systolic 100–114; BP diastolic 42–54; PULSE 72–98; RESP 16–22; TEMP 36.1–36.7; O2SAT 90–100
[2024-07-03] MEDS: IPRATROPIUM 0.5 MG/ALBUTEROL SULFATE 2.5 MG AMPUL.NEB 3 ML INHALATION ×4 (01:50→20:59)
[2024-07-03 06:44] LABS: Potassium 3.8 mmol/L (3.4-5.0)
--- NOTE | 2024-07-03 09:21 | PC.NURSE ---
Disoriented. Pockets food in mouth without swallowing. Multiple prompts made to swallow without success. Speech therapy consulted to evaluate. Oral medications held at this time.
[2024-07-03] MEDS: FLUTICASONE PROPIONATE 0.05% NA SPR 16 GM BTL (*BKC) 2 SPRAY NASAL (10:25)
[2024-07-03] MEDS: OLOPATADINE 0.1% OPHTH SOLN 5 ML BTL 1 DROP EACH EYE (10:25)
[2024-07-03] MEDS: DEXTROSE 5%/0.9% SOD CHL 1,000 ML 75 ML IV CONT (11:52)
--- NOTE | 2024-07-03 12:01 | PCSTNOTE ---
Please refer to the Bedside Swallow Evaluation in the EMR. Please note, silent aspiration cannot be ruled out at bedside. Pt was seen for a bedside swallow evaluation; per nursing, the pt is having difficulty managing solids and pudding. Pt was admitted with a dx UTI and AMS. Pt was positioned upright in the bed with a pillow behind her neck, sustaining a most upright position. Pt did not respond/follow directions and did not vocalize. Oral motor assessment could not be completed. She was initially tested with a small ice chip. She did not tighten her lips around the spoon; the ice chip was essentially dropped into her mouth. Pt did not appear to make any lingual initiation, but a swallow was triggered; adequacy of laryngeal elevation is questionable. No overt s/s of aspiration were exhibited. Pt was then presented with approximately 1/4 tsp of applesauce. Again, pt gave essentially no oral response. She did not close lips around the spoon and did not initiate any lingual movement. Contents remained and pooled in the anterior sulcus. Pt was given multiple verbal cues but with no response. ST then removed as much of the contents as possible. When presented with a straw; again she did not acknowledge its presence; did not initiate labial seal. No further attempts were initiated. The pt was left sitting in the upright position. RN Hafsa sainz. Impressions/Recommendation: The patient is a poor candidate for oral intake at this time due to her lethargy. Recommend re-evaluation when the patient becomes more alert. NPO until then.
--- NOTE | 2024-07-03 13:34 | P.PNIM_ITS ---
Progress Note: A&P Assessment and Plan (1) Psychiatric illness: Code(s): F99 - Mental disorder, not otherwise specified Status: Acute (2) Hypertension: Code(s): I10 - Essential (primary) hypertension Status: Acute (3) Congestive heart failure: Code(s): I50.9 - Heart failure, unspecified Status: Acute (4) Coronary artery disease: Code(s): I25.10 - Atherosclerotic heart disease of [place] coronary artery without angina pectoris Status: Acute (5) Paroxysmal atrial fibrillation: Code(s): I48.0 - Paroxysmal atrial fibrillation Status: Acute (6) Hx of ventricular tachycardia: Code(s): Z86.79 - Personal history of other diseases of the circulatory system Status: Acute (7) History of implantable cardioverter-defibrillator (ICD) placement: Code(s): Z95.810 - Presence of automatic (implantable) cardiac defibrillator Status: Acute (8) Hx of deep vein thrombophlebitis of lower extremity: Code(s): Z86.72 - Personal history of thrombophlebitis Status: Acute (9) GERD (gastroesophageal reflux disease): Code(s): K21.9 - Gastro-esophageal reflux disease without esophagitis Status: Acute (10) UTI (urinary tract infection): Code(s): N39.0 - Urinary tract infection, site not specified Status: Acute (11) Altered mental status: Code(s): R41.82 - Altered mental status, unspecified Status: Acute (12) Dementia: Code(s): F03.90 - Unspecified dementia, unspecified severity, without behavioral disturbance, psychotic disturbance, mood disturbance, and anxiety Status: Acute (13) Chronic respiratory failure with hypoxia and hypercapnia: Code(s): J96.11 - Chronic respiratory failure with hypoxia; J96.12 - Chronic respiratory failure with hypercapnia Status: Acute (14) Chronic obstructive pulmonary disease: Code(s): J44.9 - Chronic obstructive pulmonary disease, unspecified Status: Acute Plan This is a 83-year-old female [facility] resident who presents to the ER with complaint of altered mental status and shortness of breath. History is limited. Patient reports no urinary symptoms abdominal pain nausea vomiting cough chest pain. In the ED her vitals were stable oxygen saturation was adequate on 2-3 L oxygen via nasal cannula which is chronic. Laboratory workup revealed WBC of 10.3 hemoglobin 13.9 platelet 215 sodium 145 potassium 5.2 bicarbonate more than 40 BUN 24 creatinine 0.6 blood glucose 125 lactate normal at 1.1 troponin negative less than 0.012 BNP elevated at 756 procalcitonin 0.1 urinalysis positive for UTI. Influenza RSV COVID swab was negative. ABG 7.35/77/7 . Chest x-ray with small bilateral pleural effusion with that associated bibasilar atelectasis versus pneumonia in the appropriate clinical setting with cardiomegaly. 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 Age-related changes including deep mild diffuse volume loss and mild scattered white matter hypoattenuation consistent with chronic small-vessel ischemic disease noted. EKG showed sinus rhythm with nonspecific ST-T changes and intraventricular conduction delay Patient received IV fluids with some improvement in her mental status. She is also given IV antibiotics for UTI and is admitted for further treatment. Acute encephalopathy UTI urine culture resistant to levofloxacin, has been switched to ceftriaxone will switch to Bactrim in a.m to Complete 7 days course Underlying dementia Repeat abg Chronic respiratory failure with hypoxia and hypercapnia on home oxygen 2-3 L via nasal cannula at baseline. COPD Pulmonary in the past and has recommended noninvasive home ventilator. this is been discontinued as she has not been able to tolerate. With her CO2 in 78 will restart here tonight. However she did not tolerate AVAPS. And refused to use it. ABG 07/01. with lowered pCO2 without use of AVAPS. With difficulty because of her underlying dementia, stop AVAPS Patient is somnolent today, repeated ABG 07/03 Dysphagia Patient failed swallowing test, Keep patient p.o. Start D5 half-normal saline at 75 mL/h Anxiety depression Hypertension Congestive heart failure echo 09/2022 with normal EF no significant valvular abnormality Compensated Change oral Lasix to IV Lasix 20 mg once daily during p.o. History of brain bleed Schizoaffective disorder/anxiety/depression Status post defibrillator placement Proximal atrial fibrillation Overactive bladder Cardiomyopathy Status post IVC filter placement Hyperlipidemia History of DVT/PE not currently on any anticoagulation likely due to fall and history of brain bleed halfway resident Code status do not resuscitate DVT prophylaxis Lovenox Subjective Date/time seen: 07/03/24 13:34 Interval history: I saw examined the patient today, patient was somnolent, cannot provide history, unable to follow command, arousable. Patient has dementia, possible baseline Patient failed swallowing test, Exam Narrative: GENERAL: Ill-appearing confused and in no acute distress. HEAD: Normocephalic, atraumatic. EYES: PERRLA and EOMI. ENT: Nares clear, no rhinorrhea or epistaxis. Mucous membranes moist. NECK: Supple. CHEST: Clear to auscultation. No respiratory distress. HEART: Regular rate and rhythm. No murmur heard. Normal peripheral pulses. ABDOMEN: Soft, nontender, nondistended, normal active bowel sounds. EXTREMITIES: Normal range of motion. No edema. SKIN: Warm, dry, no rash. NEURO: No focal deficits. Nausea, not oriented x3 PSYCH: Normal mood and affect. Objective Data Vital Signs Vital Signs: Vital Signs - 24 hr 07/02/24 14:00 07/02/24 14:18 07/02/24 14:24 Temperature 97.2 F L Pulse Rate 95 79 76 Respiratory Rate 18 16 16 Blood Pressure 103/68 Pulse Oximetry 97 Oxygen Delivery Oxygen Flow Rate 07/02/24 16:22 07/02/24 19:48 07/02/24 19:49 Temperature Pulse Rate 75 Respiratory Rate 16 Blood Pressure 102/60 Pulse Oximetry 94 Oxygen Delivery Nasal Cannula Oxygen Flow Rate 2 07/02/24 19:58 07/02/24 22:00 07/03/24 01:51 Temperature 97.3 F L Pulse Rate 79 86 72 Respiratory Rate 16 16 16 Blood Pressure 105/52 L Pulse Oximetry 96 Oxygen Delivery Oxygen Flow Rate 07/03/24 01:58 07/03/24 06:00 07/03/24 07:38 Temperature 98.0 F Pulse Rate 76 82 Respiratory Rate 16 18 Blood Pressure 105/47 L Pulse Oximetry 97 97 Oxygen Delivery Nasal Cannula Oxygen Flow Rate 2 07/03/24 07:38 07/03/24 07:46 07/03/24 08:00 Temperature Pulse Rate 85 83 Respiratory Rate 16 16 Blood Pressure Pulse Oximetry 97 Oxygen Delivery Nasal Cannula Oxygen Flow Rate 2.0 07/03/24 11:15 Temperature 97.0 F L Pulse Rate 98 Respiratory Rate 18 Blood Pressure 104/51 L Pulse Oximetry 90 Oxygen Delivery Oxygen Flow Rate Intake/Output Intake/Output: Intake & Output 06/30/24 07/01/24 07/02/24 07/03/24 23:59 23:59 23:59 23:59 Intake Total 1720 1780 1710 0 Output Total 975 150 650 Balance 8328 074 4114 -650 Meds/Results Medications: Active Medications Generic Name Dose Route Start Last Admin Trade Name Freq PRN Reason Stop Dose Admin Acetaminophen 1,000 mg 06/29/24 15:59 06/29/24 21:06 Acetaminophen 500 Mg Tablet PO 1,000 mg Q6H PRN Administration Pain Albuterol 2 puff 06/29/24 15:59 Albuterol Sulfate (*Sp) Aerosol 1 Puff INHALATION Q4HRT PRN Shortness Of Breath Albuterol/Ipratropium 3 ml 06/29/24 14:00 07/03/24 07:37 Ipratropium 0.5 Mg/Albuterol Sulfate 2.5 Mg Ampul.Neb 3 Ml INHALATION 3 ml Q6HRT JET Administration Aripiprazole 5 mg 06/29/24 21:00 07/02/24 21:32 Aripiprazole 5 Mg Tablet PO 5 mg HS JET Administration Artificial Tears 1 drop 06/29/24 21:00 07/02/24 21:32 Artificial Tears Ophth Soln 15 Ml Bottle EACH EYE 1 drop HS JET Administration Atorvastatin Calcium 10 mg 06/29/24 21:00 07/02/24 21:32 Atorvastatin 10 Mg Tablet PO 10 mg HS JET Administration Azelastine HCl 2 spray 06/29/24 15:59 Azelastine Hcl Nasal 0.1% 137 Mcg/Spr 30 Ml Btl NASAL BID PRN Dry Nasal Passages Buspirone HCl 10 mg 06/29/24 17:00 07/03/24 12:19 Buspirone Hcl 10 Mg Tablet PO Not Given TID JET Citalopram Hydrobromide 10 mg 06/30/24 09:00 07/03/24 10:33 Citalopram Hydrobromide 10 Mg Tablet PO Not Given DAILY JET Cyanocobalamin 1,000 mcg 07/01/24 16:00 07/03/24 12:19 Cyanocobalamin 1,000 Mcg Tablet PO Not Given MoWeFr JET Docusate Sodium 100 mg 06/29/24 15:59 Docusate Sodium 100 Mg Capsule PO BID PRN to soften stools while hemorrhoids flared up Donepezil HCl 10 mg 06/29/24 21:00 07/02/24 21:32 Donepezil Hcl 5 Mg Tablet PO 10 mg HS JET Administration Empagliflozin 10 mg 06/30/24 09:00 07/03/24 10:33 Empagliflozin 10 Mg Tablet PO Not Given DAILY JET Ergocalciferol 50,000 units 07/03/24 09:00 07/03/24 10:33 Ergocalciferol 50,000 Units Capsule PO Not Given WEEKLY JET Ferrous Sulfate 325 mg 06/30/24 09:00 07/03/24 10:33 Ferrous Sulfate [address] BY MOUTH Not Given DAILY [facility] Fluticasone Propionate 2 spray 06/30/24 09:00 07/03/24 10:25 Fluticasone Propionate 0.05% Na Spr 16 Gm Btl (*Bkc) NASAL 2 spray DAILY JET Administration Furosemide 40 mg 06/30/24 09:00 07/03/24 10:34 Furosemide 40 Mg Tablet PO Not Given DAILY JET Furosemide 20 mg 06/30/24 14:00 07/03/24 12:19 Furosemide 20 Mg Tablet PO Not Given 1400 JET Dextrose/Sodium Chloride 1,000 mls @ 75 mls/hr 07/03/24 11:15 07/03/24 11:52 Dextrose 5% Sodium Chloride 0.9% IV CONT 75 mls/hr .[id number] JET Administration Lactobacillus Acidophilus 1 tablet 06/30/24 09:00 07/03/24 10:33 Acidophilus/Bulgaricus Chewable Tablet BY MOUTH Not Given DAILY JET Loperamide HCl 2 mg 06/29/24 15:59 Loperamide Hcl 2 Mg Capsule PO QID PRN Diarrhea Loratadine 10 mg 06/29/24 21:00 07/02/24 21:32 Loratadine 10 Mg Tablet PO 10 mg HS JET Administration Memantine 5 mg 06/29/24 21:00 07/03/24 10:35 Memantine 5 Mg Tablet PO Not Given Q12HR JET Metoprolol Succinate 25 mg 06/30/24 09:00 07/03/24 10:36 Metoprolol Succinate Ext Rel 25 Mg Tabcr PO Not Given QAM JET Montelukast Sodium 10 mg 06/29/24 21:00 07/02/24 21:32 Montelukast Sodium 10 Mg Tablet PO 10 mg HS JET Administration Multivitamins/Minerals 1 tablet 06/29/24 21:00 07/03/24 10:36 Opti-Gen Tab PO Not Given Q12HR JET Olopatadine HCl 1 drop 06/30/24 09:00 07/03/24 10:25 Olopatadine 0.1% Ophth Soln 5 Ml Btl EACH EYE 1 drop DAILY JET Administration Ondansetron HCl 4 mg 06/29/24 11:37 Ondansetron Inj 4 Mg/2 Ml Vial IV PUSH Q4H PRN Nausea Oxybutynin Chloride 10 mg 06/30/24 09:00 07/03/24 10:36 Oxybutynin Chloride Xl 5 Mg Tab.Er.24 PO Not Given DAILY JET Pantoprazole Sodium 40 mg 06/30/24 09:00 07/03/24 10:36 Pantoprazole 40 Mg Tablet PO Not Given QAM JET Polyethylene Glycol 17 gm 06/29/24 15:59 Polyethylene Glycol 3350 17 Gm Powd.Pack PO DAILY PRN Constipation Polysaccharide Iron Complex 150 mg 06/30/24 09:00 07/03/24 10:34 Polysaccharide Iron Complex 150 Mg Capsule PO Not Given DAILY JET Potassium Chloride 20 meq 06/30/24 09:00 07/03/24 10:36 Potassium Chloride 20 Meq Packet (For Liquid) PO Not Given DAILY JET Pyridoxine HCl 100 mg 06/29/24 21:00 07/03/24 10:38 Pyridoxine Hcl 50 Mg Tablet PO Not Given Q12HR JET Trimethoprim/Sulfamethoxazole 1 tab 07/03/24 11:00 07/03/24 10:38 Sulfamethoxazole/Trimethoprim 800/160 Mg Ds Tablet PO 07/07/24 21:01 Not Given Q12HR JET Witch Silvia 1 pad 06/29/24 15:59 Witch Silvia 40 Pads TOPICAL 6XD PRN comfort Zinc Oxide 1 applic 06/29/24 15:59 Zinc Oxide 20% Oint 30 Gm Tube TOPICAL DAILY PRN hemorrhoids Radiology Results: ITS Impressions Chest X-Ray 06/29/24 10:47 IMPRESSION: 1. Small bilateral pleural effusions with associated basilar atelectasis versus pneumonia in the appropriate clinical setting. 2. Cardiomegaly. Head CT 06/29/24 10:56 IMPRESSION: 1. 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 No acute intracranial process. 2. Age-related changes including mild diffuse volume loss and mild scattered white matter hypoattenuation consistent with chronic small vessel ischemic disease. Labs Labs: Laboratory Results - last 24 hr 07/03/24 05:55 Potassium 3.8
[2024-07-03 16:49] LABS: Basophils Percent Auto 0.2 % (0.2-1.2); Eosinophils Absolute Auto 0.1 K/mm3 (0-0.3); Eosinophils Percent Auto 1.5 % (0-4.4); Hematocrit 49.8 % (37.0-47.0); Hemoglobin 14.2 g/dL (12.0-15.0); Immature Granulocyte Absolute 0.06 K/mm3 (0.00-0.031); Immature Granulocyte Percent A 0.7 % (0-0.5); Lymphocytes Absolute Auto 0.87 K/mm3 (0.9-3.2); Lymphocytes Percent Auto 10.8 % (18.3-44.2); Mean Corpuscular HGB Conc 28.5 g/dl (32-36); Mean Corpuscular Hemoglobin 30.9 pg (26-34); Mean Corpuscular Volume 108.5 fl (80-100); Mean Platelet Volume 9.3 fl (7.4-10.4); Monocytes Absolute Auto 0.7 K/mm3 (0.1-0.6); Monocytes Percent Auto 8.3 % (2.6-8.5); Neutrophils Absolute Auto 6.3 K/mm3 (1.3-6.7); Neutrophils Percent Auto 78.5 % (45.5-73.1); Platelet Count Result 202 k/mm3 (150-375); Red Blood Count 4.59 M/mm3 (4.2-5.4); Red Cell Distribution Width 13.4 % (11.5-14.5); White Blood Count 8.1 K/mm3 (4.5-10.0)
[2024-07-03] MEDS: FUROSEMIDE INJ 40 MG/4 ML VIAL 20 MG IV PUSH (16:51)
[2024-07-03 17:03] LABS: Blood Urea Nitrogen 20 mg/dL (7-17); Calcium 8.3 mg/dL (8.4-10.2); Carbon Dioxide > 40 mmol/L (22-30); Chloride 96 mmol/L (98-107); Estimated CRCL calculation 73 ml/min; Estimated Glomerular Filt Rate > 60; Glucose 123 mg/dL (65-110); Potassium 4.3 mmol/L (3.4-5.0); Sodium 142 mmol/L (137-145)
[2024-07-03 17:14] LABS: Hypochromasia 1+; Macrocytosis 1+ (NORMAL); Platelet Estimate Adequate (Adequate); Schistocytes None Seen
[2024-07-03 17:15] LABS: Band Neutrophils Percent 0 % (0-6)
[2024-07-04] VITALS (8 sets, daily range): BP systolic 91–116; BP diastolic 50–71; PULSE 90–110; RESP 16–20; TEMP 36.2–36.6; O2SAT 93–96
[2024-07-04] MEDS: DEXTROSE 5%/0.9% SOD CHL 1,000 ML 75 ML IV CONT (01:15)
[2024-07-04] MEDS: IPRATROPIUM 0.5 MG/ALBUTEROL SULFATE 2.5 MG AMPUL.NEB 3 ML INHALATION ×3 (01:53→13:00)
[2024-07-04] MEDS: FUROSEMIDE INJ 40 MG/4 ML VIAL 20 MG IV PUSH (08:25)
--- NOTE | 2024-07-04 12:31 | P.PNIM_ITS ---
Progress Note: A&P Assessment and Plan (1) Psychiatric illness: Code(s): F99 - Mental disorder, not otherwise specified Status: Acute (2) Hypertension: Code(s): I10 - Essential (primary) hypertension Status: Acute (3) Congestive heart failure: Code(s): I50.9 - Heart failure, unspecified Status: Acute (4) Coronary artery disease: Code(s): I25.10 - Atherosclerotic heart disease of [place] coronary artery without angina pectoris Status: Acute (5) Paroxysmal atrial fibrillation: Code(s): I48.0 - Paroxysmal atrial fibrillation Status: Acute (6) Hx of ventricular tachycardia: Code(s): Z86.79 - Personal history of other diseases of the circulatory system Status: Acute (7) History of implantable cardioverter-defibrillator (ICD) placement: Code(s): Z95.810 - Presence of automatic (implantable) cardiac defibrillator Status: Acute (8) Hx of deep vein thrombophlebitis of lower extremity: Code(s): Z86.72 - Personal history of thrombophlebitis Status: Acute (9) GERD (gastroesophageal reflux disease): Code(s): K21.9 - Gastro-esophageal reflux disease without esophagitis Status: Acute (10) UTI (urinary tract infection): Code(s): N39.0 - Urinary tract infection, site not specified Status: Acute (11) Altered mental status: Code(s): R41.82 - Altered mental status, unspecified Status: Acute (12) Dementia: Code(s): F03.90 - Unspecified dementia, unspecified severity, without behavioral disturbance, psychotic disturbance, mood disturbance, and anxiety Status: Acute (13) Chronic respiratory failure with hypoxia and hypercapnia: Code(s): J96.11 - Chronic respiratory failure with hypoxia; J96.12 - Chronic respiratory failure with hypercapnia Status: Acute (14) Chronic obstructive pulmonary disease: Code(s): J44.9 - Chronic obstructive pulmonary disease, unspecified Status: Acute Plan This is a 83-year-old female group home resident who presents to the ER with complaint of altered mental status and shortness of breath. History is limited. Patient reports no urinary symptoms abdominal pain nausea vomiting cough chest pain. In the ED her vitals were stable oxygen saturation was adequate on 2-3 L oxygen via nasal cannula which is chronic. Laboratory workup revealed WBC of 10.3 hemoglobin 13.9 platelet 215 sodium 145 potassium 5.2 bicarbonate more than 40 BUN 24 creatinine 0.6 blood glucose 125 lactate normal at 1.1 troponin negative less than 0.012 BNP elevated at 756 procalcitonin 0.1 urinalysis positive for UTI. Influenza RSV COVID swab was negative. ABG 7.35/77/7 . Chest x-ray with small bilateral pleural effusion with that associated bibasilar atelectasis versus pneumonia in the appropriate clinical setting with cardiomegaly. 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 Age-related changes including deep mild diffuse volume loss and mild scattered white matter hypoattenuation consistent with chronic small-vessel ischemic disease noted. EKG showed sinus rhythm with nonspecific ST-T changes and intraventricular conduction delay Patient received IV fluids with some improvement in her mental status. She is also given IV antibiotics for UTI and is admitted for further treatment. Acute encephalopathy UTI urine culture resistant to levofloxacin, has been switched to ceftriaxone will switch to Bactrim in a.m to Complete 7 days course Underlying dementia Repeat abg Chronic respiratory failure with hypoxia and hypercapnia on home oxygen 2-3 L via nasal cannula at baseline. COPD Pulmonary in the past and has recommended noninvasive home ventilator. this is been discontinued as she has not been able to tolerate. With her CO2 in 78 will restart here tonight. However she did not tolerate AVAPS. And refused to use it. ABG 07/01. with lowered pCO2 without use of AVAPS. With difficulty because of her underlying dementia, stop AVAPS Patient is somnolent , repeated ABG 07/03, not done Dysphagia Patient failed swallowing test, Keep patient p.o. Start D5 half-normal saline at 75 mL/h Anxiety depression Hypertension Congestive heart failure echo 09/2022 with normal EF no significant valvular abnormality Compensated Change oral Lasix to IV Lasix 20 mg once daily during p.o. History of brain bleed Schizoaffective disorder/anxiety/depression Status post defibrillator placement Proximal atrial fibrillation Overactive bladder Cardiomyopathy Status post IVC filter placement Hyperlipidemia History of DVT/PE not currently on any anticoagulation likely due to fall and history of brain bleed custodial resident Code status do not resuscitate DVT prophylaxis Lovenox Patient has multiple comorbidities, patient condition deteriorates even though on medical managements. family requests to transfer patient back to home with hospice care. Hospice care team has evaluated the patient, and agreed to transfer patient to hospice care Subjective Date/time seen: 07/04/24 12:31 Interval history: I saw examined the patient today, mental status is improving, has no obvious distress, cannot provide history, unable to follow commands, patient was able to speak but unable to engage conversation Exam Narrative: GENERAL: Ill-appearing confused and in no acute distress. HEAD: Normocephalic, atraumatic. EYES: PERRLA and EOMI. ENT: Nares clear, no rhinorrhea or epistaxis. Mucous membranes moist. NECK: Supple. CHEST: Clear to auscultation. No respiratory distress. HEART: Regular rate and rhythm. No murmur heard. Normal peripheral pulses. ABDOMEN: Soft, nontender, nondistended, normal active bowel sounds. EXTREMITIES: Normal range of motion. No edema. SKIN: Warm, dry, no rash. NEURO: No focal deficits. Nausea, not oriented x3 moving all extremities PSYCH: Normal mood and affect. Objective Data Vital Signs Vital Signs: Vital Signs - 24 hr 07/03/24 13:50 07/03/24 15:36 07/03/24 15:44 Temperature 97.8 F Pulse Rate 89 97 94 Respiratory Rate 20 16 16 Blood Pressure 100/42 L Pulse Oximetry 100 Oxygen Delivery Oxygen Flow Rate Fraction of Inspired Oxygen 07/03/24 20:59 07/03/24 20:59 07/03/24 20:59 Temperature Pulse Rate 90 90 91 Respiratory Rate 22 H 22 H 20 Blood Pressure Pulse Oximetry 94 Oxygen Delivery Nasal Cannula Oxygen Flow Rate 2 Fraction of Inspired Oxygen 07/03/24 21:24 07/04/24 01:53 07/04/24 01:53 Temperature 97.1 F L Pulse Rate 95 92 92 Respiratory Rate 17 20 20 Blood Pressure 114/54 L Pulse Oximetry 98 95 Oxygen Delivery Nasal Cannula Oxygen Flow Rate 2 Fraction of Inspired Oxygen 07/04/24 02:05 07/04/24 05:47 07/04/24 07:25 Temperature 97.9 F Pulse Rate 90 97 Respiratory Rate 20 16 Blood Pressure 116/50 L Pulse Oximetry 96 95 Oxygen Delivery Nasal Cannula Oxygen Flow Rate 2 Fraction of Inspired Oxygen 28 07/04/24 07:25 07/04/24 07:37 Temperature Pulse Rate 106 H 102 H Respiratory Rate 20 20 Blood Pressure Pulse Oximetry Oxygen Delivery Oxygen Flow Rate Fraction of Inspired Oxygen Intake/Output Intake/Output: Intake & Output 07/01/24 07/02/24 07/03/24 07/04/24 23:59 23:59 23:59 23:59 Intake Total 1780 1710 0 1000 Output Total 975 150 900 500 Balance 805 1560 -900 500 Meds/Results Medications: Active Medications Generic Name Dose Route Start Last Admin Trade Name Freq PRN Reason Stop Dose Admin Acetaminophen 1,000 mg 06/29/24 15:59 06/29/24 21:06 Acetaminophen 500 Mg Tablet PO 1,000 mg Q6H PRN Administration Pain Albuterol 2 puff 06/29/24 15:59 Albuterol Sulfate (*Sp) Aerosol 1 Puff INHALATION Q4HRT PRN Shortness Of Breath Albuterol/Ipratropium 3 ml 06/29/24 14:00 07/04/24 07:25 Ipratropium 0.5 Mg/Albuterol Sulfate 2.5 Mg Ampul.Neb 3 Ml INHALATION 3 ml Q6HRT JET Administration Aripiprazole 5 mg 06/29/24 21:00 07/03/24 21:00 Aripiprazole 5 Mg Tablet PO Not Given HS JET Artificial Tears 1 drop 06/29/24 21:00 07/03/24 21:00 Artificial Tears Ophth Soln 15 Ml Bottle EACH EYE Not Given HS JET Atorvastatin Calcium 10 mg 06/29/24 21:00 07/03/24 21:00 Atorvastatin 10 Mg Tablet PO Not Given HS JET Azelastine HCl 2 spray 06/29/24 15:59 Azelastine Hcl Nasal 0.1% 137 Mcg/Spr 30 Ml Btl NASAL BID PRN Dry Nasal Passages Buspirone HCl 10 mg 06/29/24 17:00 07/03/24 12:19 Buspirone Hcl 10 Mg Tablet PO Not Given TID JET Citalopram Hydrobromide 10 mg 06/30/24 09:00 07/03/24 10:33 Citalopram Hydrobromide 10 Mg Tablet PO Not Given DAILY JET Cyanocobalamin 1,000 mcg 07/01/24 16:00 07/03/24 12:19 Cyanocobalamin 1,000 Mcg Tablet PO Not Given MoWeFr JET Docusate Sodium 100 mg 06/29/24 15:59 Docusate Sodium 100 Mg Capsule PO BID PRN to soften stools while hemorrhoids flared up Donepezil HCl 10 mg 06/29/24 21:00 07/03/24 21:00 Donepezil Hcl 5 Mg Tablet PO Not Given HS JET Empagliflozin 10 mg 06/30/24 09:00 07/03/24 10:33 Empagliflozin 10 Mg Tablet PO Not Given DAILY JET Ergocalciferol 50,000 units 07/03/24 09:00 07/03/24 10:33 Ergocalciferol 50,000 Units Capsule PO Not Given WEEKLY JET Ferrous Sulfate 325 mg 06/30/24 09:00 07/03/24 10:33 Ferrous Sulfate [address] BY MOUTH Not Given DAILY JET Fluticasone Propionate 2 spray 06/30/24 09:00 07/03/24 10:25 Fluticasone Propionate 0.05% Na Spr 16 Gm Btl (*Bkc) NASAL 2 spray DAILY JET Administration Furosemide 20 mg 07/04/24 09:00 07/04/24 08:25 Furosemide Inj 40 Mg/4 Ml Vial IV PUSH 20 mg DAILY JET Administration Dextrose/Sodium Chloride 1,000 mls @ 75 mls/hr 07/03/24 11:15 07/04/24 01:15 Dextrose 5% Sodium Chloride 0.9% IV CONT 75 mls/hr .[id number] JET Administration Lactobacillus Acidophilus 1 tablet 06/30/24 09:00 07/03/24 10:33 Acidophilus/[place] Chewable Tablet BY MOUTH Not Given DAILY JET Loperamide HCl 2 mg 06/29/24 15:59 Loperamide Hcl 2 Mg Capsule PO QID PRN Diarrhea Memantine 5 mg 06/29/24 21:00 07/03/24 21:00 Memantine 5 Mg Tablet PO Not Given Q12HR JET Metoprolol Succinate 25 mg 06/30/24 09:00 07/03/24 10:36 Metoprolol Succinate Ext Rel 25 Mg Tabcr PO Not Given QAM JET Montelukast Sodium 10 mg 06/29/24 21:00 07/03/24 21:00 Montelukast Sodium 10 Mg Tablet PO Not Given HS JET Multivitamins/Minerals 1 tablet 06/29/24 21:00 07/03/24 21:00 Opti-Gen Tab PO Not Given Q12HR JET Olopatadine HCl 1 drop 06/30/24 09:00 07/03/24 10:25 Olopatadine 0.1% Ophth Soln 5 Ml Btl EACH EYE 1 drop DAILY JET Administration Ondansetron HCl 4 mg 06/29/24 11:37 Ondansetron Inj 4 Mg/2 Ml Vial IV PUSH Q4H PRN Nausea Pantoprazole Sodium 40 mg 06/30/24 09:00 07/03/24 10:36 Pantoprazole 40 Mg Tablet PO Not Given QAM JET Polyethylene Glycol 17 gm 06/29/24 15:59 Polyethylene Glycol 3350 17 Gm Powd.Pack PO DAILY PRN Constipation Polysaccharide Iron Complex 150 mg 06/30/24 09:00 07/03/24 10:34 Polysaccharide Iron Complex 150 Mg Capsule PO Not Given DAILY JET Potassium Chloride 20 meq 06/30/24 09:00 07/03/24 10:36 Potassium Chloride 20 Meq Packet (For Liquid) PO Not Given DAILY JET Pyridoxine HCl 100 mg 06/29/24 21:00 07/03/24 21:00 Pyridoxine Hcl 50 Mg Tablet PO Not Given Q12HR JET Trimethoprim/Sulfamethoxazole 1 tab 07/03/24 11:00 07/03/24 21:00 Sulfamethoxazole/Trimethoprim 800/160 Mg Ds Tablet PO 07/07/24 21:01 Not Given Q12HR JET [place] 1 pad 06/29/24 15:59 [place] 40 Pads TOPICAL 6XD PRN comfort Zinc Oxide 1 applic 06/29/24 15:59 Zinc Oxide 20% Oint 30 Gm Tube TOPICAL DAILY PRN hemorrhoids Radiology Results: ITS Impressions Chest X-Ray 06/29/24 10:47 IMPRESSION: 1. Small bilateral pleural effusions with associated basilar atelectasis versus pneumonia in the appropriate clinical setting. 2. Cardiomegaly. Head CT 06/29/24 10:56 IMPRESSION: 1. 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 No acute intracranial process. 2. Age-related changes including mild diffuse volume loss and mild scattered white matter hypoattenuation consistent with chronic small vessel ischemic disease. Labs Labs: Laboratory Results - last 24 hr 07/03/24 16:43 WBC 8.1 RBC 4.59 Hgb 14.2 Hct 49.8 H MCV 108.5 H D MCH 30.9 MCHC 28.5 L RDW 13.4 Plt Count 202 MPV 9.3 Immature Gran % (Auto) 0.7 H Neut % (Auto) 78.5 H Lymph % (Auto) 10.8 L [place] % (Auto) 8.3 Eos % (Auto) 1.5 Baso % (Auto) 0.2 Lymph # (Auto) 0.87 L [place] # (Auto) 0.7 H Eos # (Auto) 0.1 Baso # (Auto) 0.0 Abs Immat Gran (auto) 0.06 H Absolute Neuts (auto) 6.3 Absolute Nucleated RBC 0.000 Band Neutrophils % 0 Nucleated RBC % 0.0 Platelet Estimate Adequate Hypochromasia 1+ Macrocytosis 1+ Schistocytes None seen Sodium 142 Potassium 4.3 Chloride 96 L Carbon Dioxide > 40 H Anion Gap BUN 20 H Creatinine 0.47 L Estim Creat Clear Calc 73 Estimated GFR > 60 Glucose 123 H Calcium 8.3 L
--- NOTE | 2024-07-04 12:35 | PM.DS ---
DS: Admitting Diagnosis Discharge Date 07/04/24 Admitting Diagnosis (1) Psychiatric illness: Code(s): F99 - Mental disorder, not otherwise specified Status: Acute (2) Hypertension: Code(s): I10 - Essential (primary) hypertension Status: Acute (3) Congestive heart failure: Code(s): I50.9 - Heart failure, unspecified Status: Acute (4) Coronary artery disease: Code(s): I25.10 - Atherosclerotic heart disease of [place] coronary artery without angina pectoris Status: Acute (5) Paroxysmal atrial fibrillation: Code(s): I48.0 - Paroxysmal atrial fibrillation Status: Acute (6) Hx of ventricular tachycardia: Code(s): Z86.79 - Personal history of other diseases of the circulatory system Status: Acute (7) History of implantable cardioverter-defibrillator (ICD) placement: Code(s): Z95.810 - Presence of automatic (implantable) cardiac defibrillator Status: Acute (8) Hx of deep vein thrombophlebitis of lower extremity: Code(s): Z86.72 - Personal history of thrombophlebitis Status: Acute (9) GERD (gastroesophageal reflux disease): Code(s): K21.9 - Gastro-esophageal reflux disease without esophagitis Status: Acute (10) UTI (urinary tract infection): Code(s): N39.0 - Urinary tract infection, site not specified Status: Acute (11) Altered mental status: Code(s): R41.82 - Altered mental status, unspecified Status: Acute (12) Dementia: Code(s): F03.90 - Unspecified dementia, unspecified severity, without behavioral disturbance, psychotic disturbance, mood disturbance, and anxiety Status: Acute (13) Chronic respiratory failure with hypoxia and hypercapnia: Code(s): J96.11 - Chronic respiratory failure with hypoxia; J96.12 - Chronic respiratory failure with hypercapnia Status: Acute (14) Chronic obstructive pulmonary disease: Code(s): J44.9 - Chronic obstructive pulmonary disease, unspecified Status: Acute DS: Discharge Diagnosis Discharge Diagnosis (1) Psychiatric illness: Code(s): F99 - Mental disorder, not otherwise specified Status: Acute (2) Hypertension: Code(s): I10 - Essential (primary) hypertension Status: Acute (3) Congestive heart failure: Code(s): I50.9 - Heart failure, unspecified Status: Acute (4) Coronary artery disease: Code(s): I25.10 - Atherosclerotic heart disease of [place] coronary artery without angina pectoris Status: Acute (5) Paroxysmal atrial fibrillation: Code(s): I48.0 - Paroxysmal atrial fibrillation Status: Acute (6) Hx of ventricular tachycardia: Code(s): Z86.79 - Personal history of other diseases of the circulatory system Status: Acute (7) History of implantable cardioverter-defibrillator (ICD) placement: Code(s): Z95.810 - Presence of automatic (implantable) cardiac defibrillator Status: Acute (8) Hx of deep vein thrombophlebitis of lower extremity: Code(s): Z86.72 - Personal history of thrombophlebitis Status: Acute (9) GERD (gastroesophageal reflux disease): Code(s): K21.9 - Gastro-esophageal reflux disease without esophagitis Status: Acute (10) UTI (urinary tract infection): Code(s): N39.0 - Urinary tract infection, site not specified Status: Acute (11) Altered mental status: Code(s): R41.82 - Altered mental status, unspecified Status: Acute (12) Dementia: Code(s): F03.90 - Unspecified dementia, unspecified severity, without behavioral disturbance, psychotic disturbance, mood disturbance, and anxiety Status: Acute (13) Chronic respiratory failure with hypoxia and hypercapnia: Code(s): J96.11 - Chronic respiratory failure with hypoxia; J96.12 - Chronic respiratory failure with hypercapnia Status: Acute (14) Chronic obstructive pulmonary disease: Code(s): J44.9 - Chronic obstructive pulmonary disease, unspecified Status: Acute DS: Summary Hospital Course Hospital Course: This is a 83-year-old female fdc resident who presents to the ER with complaint of altered mental status and shortness of breath. History is limited. Patient reports no urinary symptoms abdominal pain nausea vomiting cough chest pain. In the ED her vitals were stable oxygen saturation was adequate on 2-3 L oxygen via nasal cannula which is chronic. Laboratory workup revealed WBC of 10.3 hemoglobin 13.9 platelet 215 sodium 145 potassium 5.2 bicarbonate more than 40 BUN 24 creatinine 0.6 blood glucose 125 lactate normal at 1.1 troponin negative less than 0.012 BNP elevated at 756 procalcitonin 0.1 urinalysis positive for UTI. Influenza RSV COVID swab was negative. ABG 7.35/77/7 . Chest x-ray with small bilateral pleural effusion with that associated bibasilar atelectasis versus pneumonia in the appropriate clinical setting with cardiomegaly. 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 Age-related changes including deep mild diffuse volume loss and mild scattered white matter hypoattenuation consistent with chronic small-vessel ischemic disease noted. EKG showed sinus rhythm with nonspecific ST-T changes and intraventricular conduction delay Patient received IV fluids with some improvement in her mental status. She is also given IV antibiotics for UTI and is admitted for further treatment. The following med issues have been addressed during hospitalization Acute encephalopathy UTI urine culture resistant to levofloxacin, has been switched to ceftriaxone will switch to Bactrim in a.m to Complete 7 days course Underlying dementia Repeat abg Chronic respiratory failure with hypoxia and hypercapnia on home oxygen 2-3 L via nasal cannula at baseline. COPD Pulmonary in the past and has recommended noninvasive home ventilator. this is been discontinued as she has not been able to tolerate. With her CO2 in 78 will restart here tonight. However she did not tolerate AVAPS. And refused to use it. ABG 07/01. with lowered pCO2 without use of AVAPS. With difficulty because of her underlying dementia, stop AVAPS Patient is somnolent , repeated ABG 07/03, not done Dysphagia Patient failed swallowing test, Keep patient p.o. Start D5 half-normal saline at 75 mL/h Anxiety depression Hypertension Congestive heart failure echo 09/2022 with normal EF no significant valvular abnormality Compensated Change oral Lasix to IV Lasix 20 mg once daily during p.o. 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 family requests to transfer patient back to home with hospice care. Hospice care team has evaluated the patient, and agreed to transfer patient to hospice care Time Spent with Patient Time attestation: Total time spent providing and/or coordinating discharge services: Exam Narrative: GENERAL: Ill-appearing confused and in no acute distress. HEAD: Normocephalic, atraumatic. EYES: PERRLA and EOMI. ENT: Nares clear, no rhinorrhea or epistaxis. Mucous membranes moist. NECK: Supple. CHEST: Clear to auscultation. No respiratory distress. HEART: Regular rate and rhythm. No murmur heard. Normal peripheral pulses. ABDOMEN: Soft, nontender, nondistended, normal active bowel sounds. EXTREMITIES: Normal range of motion. No edema. SKIN: Warm, dry, no rash. NEURO: No focal deficits. Nausea, not oriented x3 moving all extremities PSYCH: Normal mood and affect. DS: Data Data Completed and Pending Labs on day of discharge: Labs from last 24 hours 07/03/24 16:43 WBC 8.1 RBC 4.59 Hgb 14.2 Hct 49.8 H MCV 108.5 H D MCH 30.9 MCHC 28.5 L RDW 13.4 Plt Count 202 MPV 9.3 Immature Gran % (Auto) 0.7 H Neut % (Auto) 78.5 H Lymph % (Auto) 10.8 L [place] % (Auto) 8.3 Eos % (Auto) 1.5 Baso % (Auto) 0.2 Lymph # (Auto) 0.87 L [place] # (Auto) 0.7 H Eos # (Auto) 0.1 Baso # (Auto) 0.0 Abs Immat Gran (auto) 0.06 H Absolute Neuts (auto) 6.3 Absolute Nucleated RBC 0.000 Band Neutrophils % 0 Nucleated RBC % 0.0 Platelet Estimate Adequate Hypochromasia 1+ Macrocytosis 1+ Schistocytes None seen Sodium 142 Potassium 4.3 Chloride 96 L Carbon Dioxide > 40 H Anion Gap BUN 20 H Creatinine 0.47 L Estim Creat Clear Calc 73 Estimated GFR > 60 Glucose 123 H Calcium 8.3 L Preliminary micro results at discharge 06/29/24 11:53 Blood Culture - Preliminary Blood 06/29/24 12:05 Blood Culture - Preliminary Blood Discharge Plan Discharge Attending physician on discharge: Julieta De Santiago Discharging Clinician: Julieta De Santiago Patient Disposition: Hospice - Home Activity: as tolerated Diet: as tolerated Patient Language: [place] Stand Alone Forms: General Discharge Information Discharge Medications: Continued olopatadine [Pataday Once Daily Relief] 0.2 % Drops 1 drp EACH EYE DAILY donepezil [Aricept] 5 mg tablet 10 mg PO HS atorvastatin 10 mg tablet 10 mg PO HS citalopram 10 mg tablet 10 mg PO DAILY aripiprazole 5 mg tablet 5 mg PO HS ergocalciferol (vitamin D2) [Vitamin D2] 1,250 mcg (50,000 unit) Capsule 1,250 mcg PO WEEKLY Rx Instructions: takes on Monday cyanocobalamin (vitamin B-12) 1,000 mcg tablet 1,000 mcg PO QMWF acetaminophen 500 mg Capsule 1,000 mg PO Q6H PRN (Reason: Pain) albuterol sulfate 90 mcg/actuation Hfa Aerosol Inhaler 2 puff INHALATION Q4H PRN (Reason: Shortness Of Breath) azelastine 137 mcg (0.1 %) Aerosol,[place] 2 spray INTRANASAL BID PRN (Reason: Dry Nasal Passages) Rx Instructions: administer into each nostril polyethylene glycol 3350 17 gram Powder In Packet 17 g PO DAILY PRN (Reason: Constipation) loperamide [Imodium A-D] 2 mg Tablet 2 mg PO QID PRN (Reason: Diarrhea) furosemide 40 mg Tablet 40 mg PO DAILY 30 Days Qty: 30 0RF losartan 25 mg tablet 25 mg PO DAILY Culturelle 10 billion cell Capsule 1 cap PO DAILY memantine 5 mg tablet 5 mg PO Q12H buspirone 10 mg tablet 10 mg PO TID pyridoxine (vitamin B6) 100 mg tablet 100 mg PO Q12H montelukast 10 mg Tablet 10 mg PO HS metoprolol succinate [Toprol XL] 25 mg tablet extended release 24 hr 25 mg PO QAM loratadine 10 mg tablet 10 mg PO HS PreserVision AREDS-2 250-90-40-1 mg capsule 1 cap PO Q12H Jardiance 10 mg Tablet 10 mg PO DAILY Qty: 30 0RF potassium chloride 20 mEq Packet 20 meq PO DAILY Qty: 10 0RF furosemide 20 mg tablet 20 mg PO 1400 Qty: 30 0RF carboxymethylcellulose sodium [Refresh Liquigel] 1 % drops, liquid gel 1 drp EACH EYE HS ferrous sulfate [Feosol] 325 mg (65 mg iron) tablet 325 mg PO DAILY docusate sodium 100 mg capsule 100 mg PO BID PRN (Reason: to soften stools while hemorrhoids flared up) Tucks ([place]) 50 % pads, medicated 1 pad topical .up to 6 times daily PRN (Reason: comfort) zinc oxide [Endit (zinc oxide)] 20 % ointment 1 applic topical DAILY PRN (Reason: hemorrhoids) fluticasone propionate [Flonase Allergy Relief] 50 mcg/actuation spray,suspension 2 spray INTRANASAL DAILY Qty: 18.2 0RF oxybutynin chloride 10 mg tablet extended release 24hr 10 mg PO DAILY Qty: 93 1RF pantoprazole [Protonix] 40 mg tablet,delayed release (DR/EC) 40 mg PO QAM Qty: 90 1RF polysaccharide iron complex [Poly-Iron] 150 mg iron capsule 150 mg PO DAILY Qty: 93 1RF Date of admission: 06/29/24 12:43 Primary Care Provider: Ervin,Stephanie Guidry Admitting Provider: Aaron Floyd Attending physician on admission: Aaron Floyd Condition: Stable
--- NOTE | 2024-07-04 12:55 | P.CDI_ITS ---
CDI Query Clarification Request Please specify type and acuity of heart failure if known. * Acute * Chronic * Acute on Chronic * Unknown * Systolic * Diastolic * Combined Systolic and Diastolic * Unknown Congestive heart failure echo 09/2022 with normal EF no significant valvular abnormality Compensated Change oral Lasix to IV Lasix 20 mg once daily during p.o. <Ping Gutiérrez RN - Last Filed: 07/04/24 12:56> Clarified Diagnosis Clarified Diagnosis: Chronic diastolic heart failure Changed from oral to IV Lasix because patient cannot tolerate diet, patient was NPO <Julieta De Santiago MD - Last Filed: 07/04/24 15:21>
== END 2024-07-04 16:25 | disposition hospice, home (50) | DRG 689 ==
LOC: ANHED 11:41 → ANH3MEDSUR 11:59
PROVIDERS: Admitting Provider Internal Medicine; Emergency Provider Emergency Medicine; PCP Nurse Practitioner Family; Visit Provider Hospitalist
DX: N39.0 Urinary tract infection, site not specified (principal); G93.41 Metabolic encephalopathy; J96.11 Chronic respiratory failure with hypoxia; J96.12 Chronic respiratory failure with hypercapnia; I42.9 Cardiomyopathy, unspecified; I50.32 Chronic diastolic (congestive) heart failure; I11.0 Hypertensive heart disease with heart failure; I25.10 Atherosclerotic heart disease of native coronary artery without angina pectoris; I48.0 Paroxysmal atrial fibrillation; J44.9 Chronic obstructive pulmonary disease, unspecified; E78.5 Hyperlipidemia, unspecified; K21.9 Gastro-esophageal reflux disease without esophagitis; N32.81 Overactive bladder; M19.90 Unspecified osteoarthritis, unspecified site; F25.9 Schizoaffective disorder, unspecified; F32.A Depression, unspecified; F41.9 Anxiety disorder, unspecified; F03.90 Unspecified dementia, unspecified severity, without behavioral disturbance, psychotic disturbance, mood disturbance, and anxiety; Z20.822 Contact with and (suspected) exposure to COVID-19; Z96.653 Presence of artificial knee joint, bilateral; Z51.5 Encounter for palliative care; Z99.81 Dependence on supplemental oxygen; Z86.711 Personal history of pulmonary embolism; Z86.718 Personal history of other venous thrombosis and embolism; Z87.442 Personal history of urinary calculi; Z95.810 Presence of automatic (implantable) cardiac defibrillator
CPT/HCPCS: 36415; 36600; 70450; 71045; 80048; 80053; 81001; 82805; 83605; 83735; 83880; 84132; 84145; 84484; 85018; 85025; 85610; 85730; 87040; 87086; 87186; 87637; 92610; 93005; 94640; 96365; 96375; 97110; 97161; 97165; 97530; 97535; 99285; A9270; G0378; J0696; J1938; J1956; J7042